=== PATIENT | male | born 1945 | race Caucasian/White ===

== ENCOUNTER 2022-09-09 18:30 | Emergency (ER) | payer OTHER, SELFPAY ==
[2022-09-09] VITALS (30 sets, daily range): BP systolic 154–187; BP diastolic 86–113; PULSE 90–121; RESP 16–20; TEMP 36.9; O2SAT 92–96; BMI 28.7
[2022-09-09] MEDS: 0.9 % SODIUM CHLORIDE 1000 ml 1,000 ML IV (20:53)
[2022-09-09 20:57] LABS: Basophils Percent Auto 0.3 % (0.0-3.0); Eosinophils Percent Auto 0.3 % (0.0-7.0); Hematocrit 42.7 % (37.0-53.0); Hemoglobin* 15.1 gm/dL (13.5-17.5); Immature Granulocytes Pct Auto 0.1 %; Mean Corpuscular HGB Conc 35 gm/dL (32-36); Mean Corpuscular Hemoglobin 29 pg (26-34); Mean Corpuscular Volume 82 fL (80-100); Monocytes Percent Auto 7.5 % (0.0-11.0); Neutrophils Percent Auto 85.8 % (42.0-72.0); Platelet Count* 287 K/uL (140-440); RDW Coefficient of Variation % 12.5 % (11.5-15.5); Red Blood Count 5.18 m/uL (4.30-5.90)
[2022-09-09 21:05] LABS: Slide Review Reflex No
[2022-09-09 21:11] LABS: Albumin* 4.3 g/dL (3.3-5.0); Chloride* 104 mmol/L (96-114); Sodium* 135 mmol/L (135-149)
[2022-09-09 21:12] LABS: Potassium* 3.6 mmol/L (3.6-5.1)
[2022-09-09 21:14] LABS: Aspartate Amino Transferase* 61 U/L (12-35); Bilirubin Direct* 0.1 mg/dL (0.0-0.5); Bilirubin Total* 0.7 mg/dL (0.1-1.5); Carbon Dioxide* 25 mmol/L (20-32); Creatinine* 0.9 mg/dL (0.5-1.5); Estimated Glomerular Filt Rate 89 ml/min; Total Protein* 6.9 g/dL (6.0-8.3)
[2022-09-09 21:15] LABS: Alanine Aminotransferase* 62 U/L (4-50); Alkaline Phosphatase* 83 U/L (40-150); Blood Urea Nitrogen* 26 mg/dL (7-30); Calcium* 9.8 mg/dL (8.4-10.6); Glucose* 183 mg/dL (60-115); Magnesium* 2.1 mg/dL (1.5-2.6)
[2022-09-09 21:17] LABS: C Reactive Protein* 0.5 mg/dL (0.5-1.0)
--- NOTE | 2022-09-09 21:19 | ED.NURSE ---
Orthos completed. Patient reports feeling lightheaded throughout assessment. Worse with position changes.
[2022-09-09 21:21] LABS: Ethanol* < 0.01 % (0.01-0.03)
[2022-09-09 21:26] LABS: Troponin I* 0.03 ng/mL (0.01-0.04)
[2022-09-09 21:27] LABS: NT Pro B Type NatriureticPept* 54 pg/mL
--- NOTE | 2022-09-09 21:34 | CRLHL7_ITS ---
For Patients: As a result of the Century Cures Act, medical imaging exams and procedure reports are released immediately into your electronic medical record. You may view this report before your referring provider. If you have questions, please contact your health care provider. INDICATION: Lightheadedness. Slurred speech. COMPARISON: None available. TECHNIQUE: CT examination of the head was performed with 3 mm thick axial and 2 mm thick coronal and sagittal sections without intravenous contrast. Images were obtained from the vertex of the skull through the skull base, and I examined the images with the brain and bone windows. Please note that all CT scans at this facility use dose modulation, iterative reconstruction, and/or weight-based dosing when appropriate to reduce radiation dose to as low as reasonably achievable. FINDINGS: : There is prominent dilatation of the ventricular system with mild dilatation of the sulci. The temporal horns are mildly dilated. There is prominent periventricular and subcortical white matter hypodensity. The findings are suggestive of normal pressure hydrocephalus, but could be the result of prominent central atrophy. There is no sign of acute injury to the brain, with no sign of mass lesion, mass effect, hemorrhage, or edema. 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 The visualized portions of the orbits are normal in appearance. The visualized portions of the paranasal sinuses and mastoids are clear. The osseous structures are normal in their appearance with no sign of abnormality in the skull base or calvarium. IMPRESSION: Prominent dilatation of the ventricular system, out of proportion to the mild sulcal dilatation, with findings suggestive of normal pressure hydrocephalus. Prominent periventricular and subcortical white matter hypodensity, probably small vessel ischemia, but could also be transependymal flow of CSF. No sign of acute injury to the brain. Please note that all CT scans at this facility use dose modulation, iterative reconstruction, and/or weight-based dosing when appropriate to reduce radiation dose to as low as reasonably achievable. Dictated by Garry Chairez MD @ 09/09/2022 11:41:07 PM (Electronically Signed)
--- NOTE | 2022-09-09 21:34 | CRLHL7_ITS ---
For Patients: As a result of the Century Cures Act, medical imaging exams and procedure reports are released immediately into your electronic medical record. You may view this report before your referring provider. If you have questions, please contact your health care provider. INDICATION: Acute stroke, lightheadedness, slurred speech. TECHNIQUE: CTA head with contrast bolus tracking and 3D MIP reconstruction. FINDINGS: The study is suboptimal due to missed timing of the contrast bolus. There is no obvious large vessel occlusion. No aneurysm is identified. IMPRESSION: No obvious large vessel occlusion. Please note that all CT scans at this facility use dose modulation, iterative reconstruction, and/or weight-based dosing when appropriate to reduce radiation dose to as low as reasonably achievable. Dictated by Elvin Dutton MD @ 09/10/2022 6:35:08 AM (Electronically Signed)
--- NOTE | 2022-09-09 21:34 | CRLHL7_ITS ---
For Patients: As a result of the Century Cures Act, medical imaging exams and procedure reports are released immediately into your electronic medical record. You may view this report before your referring provider. If you have questions, please contact your health care provider. INDICATION: Acute stroke, lightheadedness, slurred speech. TECHNIQUE: CTA neck with contrast bolus tracking and 3D MIP reconstruction. FINDINGS: The study is limited due to missed timing of the contrast bolus. There is carotid atherosclerosis bilaterally. There is no obvious significant carotid or vertebral artery stenosis or dissection. The soft tissues of the neck are within normal limits. The cervical spine is in normal alignment. IMPRESSION: No significant carotid or vertebral artery stenosis or dissection on this limited study. Please note that all CT scans at this facility use dose modulation, iterative reconstruction, and/or weight-based dosing when appropriate to reduce radiation dose to as low as reasonably achievable. Dictated by Elvin Dutton MD @ 09/10/2022 6:38:25 AM (Electronically Signed)
[2022-09-09 21:44] LABS: SARS PCR* Negative SARS-CoV-2 (Negative)
--- NOTE | 2022-09-09 23:27 | ED.NURSE ---
Patient to the restroom and back to bed. Continues to report dizziness.
[2022-09-10] VITALS (7 sets, daily range): BP systolic 157–165; BP diastolic 86–108; PULSE 92–96; RESP 18; O2SAT 91–96
--- NOTE | 2022-09-10 00:59 | ED_ITS ---
HPI - General Adult General Chief complaint: Dizziness/Vertigo Stated complaint: Weak,Blood Sugar Level Up,Dizzy Time Seen by Provider: 09/09/22 20:07 History of Present Illness HPI narrative: 77-year-old man presenting to the emergency department with his spouse with concern initially presented as dizziness but really is more of a lightheadedness began upon waking yesterday morning. Now around 36 hours of symptoms. Is also around the same time been experiencing a mild slurring of speech without word- finding difficulty. He does not describe any focal weakness though feels that his legs generally have been weak. Apparently went on a slow walk today with his . No sensory losses. There was no trauma. No chest pain. No shortness of breath. Denies loss of vision or affected vision. Medications reviewed, no new medications. He is a attending the [facility] [place] Related Data Allergies Allergy/AdvReac Type Severity Reaction Status Date / Time No Known Drug Allergies Allergy Verified 09/09/22 18:40 Review of Systems Status of ROS: Reports: 10 or more systems reviewed and unremarkable except as noted in History and below [facility] Social History Smoking Status: Never smoker Do you use any of these nicotine containing products: None Second hand tobacco smoke exposure: No How often do you have a drink containing alcohol: never How often do you have six or more drinks on one occasion: Never AUDIT-C Alcohol total score: 0 Non-prescribed substance use: denies use service: Yes Exam Narrative: Exam Narrative: Pleasant. NAD. Noticeably with a subtle slurring of speech. Cranial nerves 2- 12 otherwise look to be intact including reactive pupils. Not able to reproduce any dizziness. Just notes a general sense of lightheadedness with movement. Not necessarily worse. There is no nystagmus. Head is atraumatic. Neck is supple. Lungs are clear. Heart elevated rate. Appears to be in a regular rhythm. Abdomen is overweight soft and nontender. Is well-perfused peripherally. No sensory deficits appreciated. Moving all extremities without difficulty, fluidly. Const: Vital Signs, click to edit/add: Vital Signs - 24 hr 09/09/22 18:35 09/09/22 20:16 09/09/22 20:23 Temperature 98.5 F Pulse Rate Pulse Rate [Pulse Oximeter] 115 H 103 H Pulse Rate [orthos tatic lying Left P ulse Oximeter] Pulse Rate [orthos tatic sitting Left Pulse Oximeter] Pulse Rate [orthos tatic standing Lef t Pulse Oximeter] Respiratory Rate 20 16 Blood Pressure Blood Pressure [Ri ght Upper Arm] 183/91 H 154/102 H Blood Pressure [or thostatic lying Le ft Arm] Blood Pressure [or thostatic sitting Left Arm] Blood Pressure [or thostatic standing Left Arm] Pulse Oximetry 93 95 96 Oxygen Delivery Me thod Room Air Room Air 09/09/22 21:03 09/09/22 20:13 09/09/22 20:14 Temperature Pulse Rate 105 H 103 H Pulse Rate [Pulse Oximeter] Pulse Rate [orthos tatic lying Left P ulse Oximeter] 100 Pulse Rate [orthos tatic sitting Left Pulse Oximeter] 115 H Pulse Rate [orthos tatic standing Lef t Pulse Oximeter] 113 H Respiratory Rate Blood Pressure 159/100 H Blood Pressure [Ri ght Upper Arm] Blood Pressure [or thostatic lying Le ft Arm] 159/90 H Blood Pressure [or thostatic sitting Left Arm] 164/95 H Blood Pressure [or thostatic standing Left Arm] 176/106 H Pulse Oximetry 94 94 Oxygen Delivery Me thod 09/09/22 20:15 09/09/22 20:16 09/09/22 20:30 Temperature Pulse Rate 108 H 110 H 106 H Pulse Rate [Pulse Oximeter] Pulse Rate [orthos tatic lying Left P ulse Oximeter] Pulse Rate [orthos tatic sitting Left Pulse Oximeter] Pulse Rate [orthos tatic standing Lef t Pulse Oximeter] Respiratory Rate Blood Pressure 154/102 H Blood Pressure [Ri ght Upper Arm] Blood Pressure [or thostatic lying Le ft Arm] Blood Pressure [or thostatic sitting Left Arm] Blood Pressure [or thostatic standing Left Arm] Pulse Oximetry 94 95 93 Oxygen Delivery Me thod 09/09/22 20:32 09/09/22 20:45 09/09/22 20:48 Temperature Pulse Rate 108 H 103 H 102 H Pulse Rate [Pulse Oximeter] Pulse Rate [orthos tatic lying Left P ulse Oximeter] Pulse Rate [orthos tatic sitting Left Pulse Oximeter] Pulse Rate [orthos tatic standing Lef t Pulse Oximeter] Respiratory Rate Blood Pressure 187/112 H 168/86 H Blood Pressure [Ri ght Upper Arm] Blood Pressure [or thostatic lying Le ft Arm] Blood Pressure [or thostatic sitting Left Arm] Blood Pressure [or thostatic standing Left Arm] Pulse Oximetry 93 92 93 Oxygen Delivery Me thod 09/09/22 20:57 09/09/22 20:58 09/09/22 21:00 Temperature Pulse Rate 114 H 121 H 115 H Pulse Rate [Pulse Oximeter] Pulse Rate [orthos tatic lying Left P ulse Oximeter] Pulse Rate [orthos tatic sitting Left Pulse Oximeter] Pulse Rate [orthos tatic standing Lef t Pulse Oximeter] Respiratory Rate Blood Pressure 159/90 H 164/95 H 176/106 H Blood Pressure [Ri ght Upper Arm] Blood Pressure [or thostatic lying Le ft Arm] Blood Pressure [or thostatic sitting Left Arm] Blood Pressure [or thostatic standing Left Arm] Pulse Oximetry 94 95 93 Oxygen Delivery Hi thod 09/09/22 21:01 09/09/22 23:27 09/09/22 21:15 Temperature Pulse Rate 103 H 95 Pulse Rate [Pulse Oximeter] 92 Pulse Rate [orthos tatic lying Left P ulse Oximeter] Pulse Rate [orthos tatic sitting Left Pulse Oximeter] Pulse Rate [orthos tatic standing Lef t Pulse Oximeter] Respiratory Rate 16 Blood Pressure Blood Pressure [Ri ght Upper Arm] 170/113 H Blood Pressure [or thostatic lying Le ft Arm] Blood Pressure [or thostatic sitting Left Arm] Blood Pressure [or thostatic standing Left Arm] Pulse Oximetry 93 92 93 [facility] 09/09/22 21:27 09/09/22 21:34 09/09/22 21:45 Temperature Pulse Rate 99 95 Pulse Rate [Pulse Oximeter] Pulse Rate [orthos tatic lying Left P ulse Oximeter] Pulse Rate [orthos tatic sitting Left Pulse Oximeter] Pulse Rate [orthos tatic standing Lef t Pulse Oximeter] Respiratory Rate Blood Pressure 156/92 H Blood Pressure [Ri ght Upper Arm] Blood Pressure [or thostatic lying Le ft Arm] Blood Pressure [or thostatic sitting Left Arm] Blood Pressure [or thostatic standing Left Arm] Pulse Oximetry 95 93 Oxygen Delivery Hi thod 09/09/22 22:00 09/09/22 22:15 09/09/22 22:30 Temperature Pulse Rate 91 90 93 Pulse Rate [Pulse Oximeter] Pulse Rate [orthos tatic lying Left P ulse Oximeter] Pulse Rate [orthos tatic sitting Left Pulse Oximeter] Pulse Rate [orthos tatic standing Lef t Pulse Oximeter] Respiratory Rate Blood Pressure Blood Pressure [Ri ght Upper Arm] Blood Pressure [or thostatic lying Le ft Arm] Blood Pressure [or thostatic sitting Left Arm] Blood Pressure [or thostatic standing Left Arm] Pulse Oximetry 95 92 93 Oxygen Delivery Me thod 09/09/22 22:35 09/09/22 23:08 09/09/22 23:09 Temperature Pulse Rate 91 105 H 105 H Pulse Rate [Pulse Oximeter] Pulse Rate [orthos tatic lying Left P ulse Oximeter] Pulse Rate [orthos tatic sitting Left Pulse Oximeter] Pulse Rate [orthos tatic standing Lef t Pulse Oximeter] Respiratory Rate Blood Pressure 170/113 H Blood Pressure [Ri ght Upper Arm] Blood Pressure [or thostatic lying Le ft Arm] Blood Pressure [or thostatic sitting Left Arm] Blood Pressure [or thostatic standing Left Arm] Pulse Oximetry 93 95 94 Oxygen Delivery Me thod 09/09/22 23:15 09/09/22 23:30 09/09/22 23:32 Temperature Pulse Rate 96 96 95 Pulse Rate [Pulse Oximeter] Pulse Rate [orthos tatic lying Left P ulse Oximeter] Pulse Rate [orthos tatic sitting Left Pulse Oximeter] Pulse Rate [orthos tatic standing Lef t Pulse Oximeter] Respiratory Rate Blood Pressure 167/102 H Blood Pressure [Ri ght Upper Arm] Blood Pressure [or thostatic lying Le ft Arm] Blood Pressure [or thostatic sitting Left Arm] Blood Pressure [or thostatic standing Left Arm] Pulse Oximetry 95 92 93 Oxygen Delivery Me thod 09/09/22 23:45 09/10/22 00:24 09/10/22 00:30 Temperature Pulse Rate 94 96 96 Pulse Rate [Pulse Oximeter] Pulse Rate [orthos tatic lying Left P ulse Oximeter] Pulse Rate [orthos tatic sitting Left Pulse Oximeter] Pulse Rate [orthos tatic standing Lef t Pulse Oximeter] Respiratory Rate Blood Pressure Blood Pressure [Ri ght Upper Arm] Blood Pressure [or thostatic lying Le ft Arm] Blood Pressure [or thostatic sitting Left Arm] Blood Pressure [or thostatic standing Left Arm] Pulse Oximetry 93 95 91 Oxygen Delivery Me thod 09/10/22 00:32 09/10/22 00:45 09/10/22 01:00 Temperature Pulse Rate 95 95 93 Pulse Rate [Pulse Oximeter] Pulse Rate [orthos tatic lying Left P ulse Oximeter] Pulse Rate [orthos tatic sitting Left Pulse Oximeter] Pulse Rate [orthos tatic standing Lef t Pulse Oximeter] Respiratory Rate Blood Pressure 164/96 H Blood Pressure [Ri ght Upper Arm] Blood Pressure [or thostatic lying Le ft Arm] Blood Pressure [or thostatic sitting Left Arm] Blood Pressure [or thostatic standing Left Arm] Pulse Oximetry 92 93 94 Oxygen Delivery Me thod 09/10/22 01:01 09/10/22 01:35 Temperature Pulse Rate 94 Pulse Rate [Pulse Oximeter] 92 Pulse Rate [orthos tatic lying Left P ulse Oximeter] Pulse Rate [orthos tatic sitting Left Pulse Oximeter] Pulse Rate [orthos tatic standing Lef t Pulse Oximeter] Respiratory Rate 18 Blood Pressure 165/108 H Blood Pressure [Ri ght Upper Arm] 157/86 H Blood Pressure [or thostatic lying Le ft Arm] Blood Pressure [or thostatic sitting Left Arm] Blood Pressure [or thostatic standing Left Arm] Pulse Oximetry 94 96 [facility] Course Vital Signs Vital signs: Initial Vital Signs Temperature 98.5 F 09/09/22 18:35 Temperature Source Temporal Artery Scan 09/09/22 18:35 Pulse Rate 115 H 09/09/22 18:35 Pulse Rhythm 09/09/22 18:35 Pulse Strength 3+ Normal 09/09/22 18:35 Respiratory Rate 20 09/09/22 18:35 Blood Pressure 183/91 H 09/09/22 18:35 Blood Pressure Mean 121 09/09/22 18:35 Blood Pressure Position Sitting 09/09/22 18:35 Pulse Oximetry 93 09/09/22 18:35 Oxygen Delivery Method 09/09/22 18:35 Vital Signs Temperature 98.5 F 09/09/22 18:35 Pulse Rate 115 H 09/09/22 18:35 Respiratory Rate 20 09/09/22 18:35 Blood Pressure 183/91 H 09/09/22 18:35 Pulse Oximetry 93 09/09/22 18:35 Oxygen Delivery Method 09/09/22 18:35 Temperature 98.5 F 09/09/22 18:35 Pulse Rate 92 09/10/22 01:35 Respiratory Rate 18 09/10/22 01:35 Blood Pressure 157/86 H 09/10/22 01:35 Pulse Oximetry 96 09/10/22 01:35 Oxygen Delivery Method 09/10/22 01:35 Medical Decision Making MDM Narrative Medical decision making narrative: I would have concerns regarding cerebrovascular event. Considering medications, and will need contrasted scan anyway, will need to see creatinine, so will also evaluate what electrolyte abnormalities might present and potentially contributing to symptoms. Initiated on IV fluid resuscitation as well. Labs with mildly elevated white count. Slightly elevated transaminases. CT/CTA imaging of head and neck without evidence of acute abnormality. Vasculature is patent/reassuring. What is particularly remarkable is the dilatation of the ventricular system as noted below by Radiology. I did review all these images personally. IMPRESSION: Prominent dilatation of the ventricular system, out of proportion to the mild sulcal dilatation, with findings suggestive of normal pressure hydrocephalus. Prominent periventricular and subcortical white matter hypodensity, probably small vessel ischemia, but could also be transependymal flow of CSF. No sign of acute injury to the brain. Later in course then has been noting some mild double vision. I discussed all findings and case with Neurology. They are less impressed for normal pressure hydrocephalus and more concerned regarding CVA it appears. Recommendations are for now for outpatient MRI given timing. Will try to arrange this. Will also initiate on aspirin. Further recommendations pending results of MRI. Lab Data Lab results reviewed: Yes I reviewed the patient's lab results Labs: Lab Results 09/09/22 09/09/22 09/09/22 Range/Units 20:23 20:42 20:42 WBC 12.20 H (4.50-11.00) K/uL RBC 5.18 (4.30-5.90) m/uL Hgb 15.1 (13.5-17.5) gm/dL Hct 42.7 (37.0-53.0) % MCV 82 (80-100) fL MCH 29 (26-34) pg MCHC 35 (32-36) gm/dL RDW Coeff of Igor 12.5 (11.5-15.5) % Plt Count 287 (140-440) K/uL Neut % (Auto) 85.8 H (42.0-72.0) % Lymph % (Auto) 6.0 L (20-44) % [place] % (Auto) 7.5 (0.0-11.0) % Eos % (Auto) 0.3 (0.0-7.0) % Baso % (Auto) 0.3 (0.0-3.0) % Neut # (Auto) 10.50 H (1.7-7.0) K/uL Lymph # (Auto) 0.70 L (0.90-2.90) K/uL [place] # (Auto) 0.90 (0.00-0.90) K/UL Eos # (Auto) 0.00 (0.00-0.50) K/uL Baso # (Auto) 0.00 (0.00-0.30) K/uL Sodium 135 (135-149) mmol/L Potassium 3.6 (3.6-5.1) mmol/L Chloride 104 (96-114) mmol/L Carbon Dioxide 25 (20-32) mmol/L BUN 26 (7-30) mg/dL Creatinine 0.9 (0.5-1.5) mg/dL Estimated Creat Clear 65.90 Estimated GFR 89 ml/min Glucose 183 H (60-115) mg/dL Calcium 9.8 (8.4-10.6) mg/dL Magnesium 2.1 (1.5-2.6) mg/dL Total Bilirubin 0.7 (0.1-1.5) mg/dL Direct Bilirubin 0.1 (0.0-0.5) mg/dL AST 61 H (12-35) U/L ALT 62 H (4-50) U/L Alkaline Phosphatase 83 (40-150) U/L Troponin I 0.03 (0.01-0.04) ng/mL C-Reactive Protein 0.5 (0.5-1.0) mg/dL NT-Pro-B Natriuret Pep 54 pg/mL Total Protein 6.9 (6.0-8.3) g/dL Albumin 4.3 (3.3-5.0) g/dL Ethyl Alcohol < 0.01 L (0.01-0.03) % SARS-CoV-2 (PCR) Negative SARS-CoV-2 (Negative) POC Troponin I (0.01-0.04) ng/ml 09/09/22 Range/Units 20:42 WBC (4.50-11.00) K/uL RBC (4.30-5.90) m/uL Hgb (13.5-17.5) gm/dL Hct (37.0-53.0) % MCV (80-100) fL MCH (26-34) pg MCHC (32-36) gm/dL RDW Coeff of Igor (11.5-15.5) % Plt Count (140-440) K/uL Neut % (Auto) (42.0-72.0) % Lymph % (Auto) (20-44) % [place] % (Auto) (0.0-11.0) % Eos % (Auto) (0.0-7.0) % Baso % (Auto) (0.0-3.0) % Neut # (Auto) (1.7-7.0) K/uL Lymph # (Auto) (0.90-2.90) K/uL [place] # (Auto) (0.00-0.90) K/UL Eos # (Auto) (0.00-0.50) K/uL Baso # (Auto) (0.00-0.30) K/uL Sodium (135-149) mmol/L Potassium (3.6-5.1) mmol/L Chloride (96-114) mmol/L Carbon Dioxide (20-32) mmol/L BUN (7-30) mg/dL Creatinine (0.5-1.5) mg/dL Estimated Creat Clear Estimated GFR ml/min Glucose (60-115) mg/dL Calcium (8.4-10.6) mg/dL Magnesium (1.5-2.6) mg/dL Total Bilirubin (0.1-1.5) mg/dL Direct Bilirubin (0.0-0.5) mg/dL AST (12-35) U/L ALT (4-50) U/L Alkaline Phosphatase (40-150) U/L Troponin I (0.01-0.04) ng/mL C-Reactive Protein (0.5-1.0) mg/dL NT-Pro-B Natriuret Pep pg/mL Total Protein (6.0-8.3) g/dL Albumin (3.3-5.0) g/dL Ethyl Alcohol (0.01-0.03) % SARS-CoV-2 (PCR) (Negative) POC Troponin I 0.00 L (0.01-0.04) ng/ml ECG Data Attestation: I personally reviewed and interpreted this ECG as follows: (Sinus tachycardia at 110) Discharge Plan Discharge Clinical Impression: Lightheadedness, Slurring of speech Patient Disposition: Home w/ Parent or Adult Condition: Stable Instructions: Dizziness (ED) Additional Instructions: As discussed, expect a call from our radiology department tomorrow to schedule this MRI of your brain as an outpatient as soon as possible. Return for severe headache, increasing discoordination, worsening double vision, new and focal weakness. Until further recommendations obtained likely after reviewing MRI, please take 81 mg of aspirin daily. Follow Up/Referrals: Provider,Not a Local [Primary Care Provider] - Stand Alone Forms: [employer] Info Instructions
[2022-09-10] MEDS: ASPIRIN EC 325 MG TABLET PO (01:50)
== END 2022-09-10 02:06 | disposition home or self-care (01) ==
PROVIDERS: Emergency Provider Family Medicine
DX: R42 Dizziness and giddiness (principal); R47.81 Slurred speech
CPT/HCPCS: 36415; 70450; 70496; 70498; 80048; 80076; 82077; 82962; 83735; 83880; 84484; 85025; 86140; 87635; 93005; 94761; 99284; 99285; A9270; J7030; Q9967

== ENCOUNTER 2022-09-10 11:46 | Outpatient (CLI) | payer OTHER, MEDICARE, SELFPAY ==
--- NOTE | 2022-09-10 11:35 | CRLHL7_ITS ---
For Patients: As a result of the Cures Act, medical imaging exams and procedure reports are released immediately into your electronic medical record. You may view this report before your referring provider. If you have questions, please contact your health care provider. INDICATION: Slurred speech. Dizziness. TECHNIQUE: Brain MRI without contrast. The following sequences were obtained: Sagittal T1 weighted sequence. DWI and ADC mapping sequences. Axial FLAIR and ALEX T2 weighted sequences. Susceptibility or GRE sequence. COMPARISON: Head CT from 09/09/2022. FINDINGS: 8 millimeter focus of diffusion restriction within the left internal capsule posterior limb, most compatible with a recent, acute to subacute lacunar infarct. No recent ischemia elsewhere within the brain. No evidence of acute or chronic intracranial blood products. Patchy and confluent T2/FLAIR hyperintensities throughout the supratentorial white matter and basal ganglia, with several superimposed locules of encephalomalacia, most compatible with intermixed areas of chronic microvascular ischemic change and chronic lacunar infarction. Chronic microvascular ischemic changes are also present within the central brainstem. Overall moderate generalized parenchymal volume loss. Prominence of the ventricular system may reflect sequela of central cerebral atrophy or normal pressure hydrocephalus. No mass effect or herniation. The pituitary gland, parasellar structures and optic chiasm are normal. All the major intracranial vascular structures demonstrate normal flow-related signal. The orbital contents are normal. No calvarial or skull base marrow replacing process. No obstructive sinus disease. No extracranial soft tissue findings. IMPRESSION: 1. 8 millimeter recent, acute to subacute lacunar infarct within the left internal capsule posterior limb. No recent ischemia elsewhere. 2. Extensive chronic microvascular ischemic changes and chronic lacunar infarctions within the supratentorial white matter, basal ganglia and brainstem. 3. Prominence of the ventricular system, either due to central cerebral atrophy or NPH. Clinical correlation recommended. Dictated by Taj Irizarry MD @ 09/10/2022 2:14:30 PM (Electronically Signed)
== END 2022-09-10 11:47 | disposition home or self-care (01) ==
PROVIDERS: Visit Provider Family Medicine
DX: R47.81 Slurred speech (principal); I63.81 Other cerebral infarction due to occlusion or stenosis of small artery; I67.82 Cerebral ischemia; R42 Dizziness and giddiness
CPT/HCPCS: 70551

== ENCOUNTER 2023-08-25 19:36 | Observation (INO) | payer MEDICARE, OTHER, SELFPAY ==
[2023-08-25] VITALS (12 sets, daily range): BP systolic 136–155; BP diastolic 82–92; PULSE 78–106; RESP 28; TEMP 36.2; O2SAT 89–99; BMI 24.1
--- NOTE | 2023-08-25 19:49 | ED.GENADULT ---
HPI - General Adult General Chief complaint: Dizziness/Vertigo Stated complaint: Fall, dizzy, vomiting, back pain Time Seen by Provider: 08/25/23 19:48 History of Present Illness HPI narrative: Dizziness started friday AM, pt was putting on socks and fell and landed on his bottom. Has pain in lower back from this. Dizzy spells on/off since then. Pt did vomit around 1900 hours. Some labored breathing noted in triage, states this started after his fall. Had a mild stroke in aug 2022. 78-year-old man presenting to the emergency department with concern of recurrent dizziness vomiting and a fall with new dyspnea. Was seen by me at this facility with dizziness little less than a year ago and did end up with CT head and neck CTA head and neck and then outpatient MRI next day. This confirmed acute or subacute lacunar infarct Consultation occurred with Neurology and recommended to increase daily aspirin to also include Plavix. Vascularity at that time was relatively clear. He has continued to take his Plavix and aspirin. Has been with some intermittent dizziness since that time. Two weeks ago he recalls getting up from sleep and was struck by transient dizziness. Has not received PT. Recalls yesterday morning feeling dizzy again. Trying to put on his socks and leaning against a wall fell landing directly on his bottom. He always stands to put on socks and pants apparently. He has had lower back pain since this fall. Still with some dizziness intermittently since then. Feeling the need to have a bowel movement after taking I believe Ex-Lax the he was constipated about an hour prior to arrival today went to the bathroom anticipating having bowel movement. Became nauseated and started vomiting. He has increasing labored breathing over this last hour plus but notably so also since yesterday morning. Is not having chest pain. Concerns regarding this labored breathing prompted daughter to bring him into the emergency department with concern of potential heart attack. Family notes evidence of bruising on his back. I ask about current symptoms and when he closes eyes still feels slightly dizzy but corrects that noting lightheadedness. Does not feel sense of irregular heartbeats or palpitations. He is oxygenating 100% on room air when I am with him. Is labored in breathing but easily conversant. Since last visit have also enacted carb limited diet. He has lost about 30 lb. MRI from 09/10/2022 INDICATION: Slurred speech. Dizziness. TECHNIQUE: Brain MRI without contrast. The following sequences were obtained: Sagittal T1 weighted sequence. DWI and ADC mapping sequences. Axial FLAIR and ALEX T2 weighted sequences. Susceptibility or GRE sequence. COMPARISON: Head CT from 09/09/2022. FINDINGS: 8 millimeter focus of diffusion restriction within the left internal capsule posterior limb, most compatible with a recent, acute to subacute lacunar infarct. No recent ischemia elsewhere within the brain. No evidence of acute or chronic intracranial blood products. Patchy and confluent T2/FLAIR hyperintensities throughout the supratentorial white matter and basal ganglia, with several superimposed locules of encephalomalacia, most compatible with intermixed areas of chronic microvascular ischemic change and chronic lacunar infarction. Chronic microvascular ischemic changes are also present within the central brainstem. Overall moderate generalized parenchymal volume loss. Prominence of the ventricular system may reflect sequela of central cerebral atrophy or normal pressure hydrocephalus. No mass effect or herniation. The pituitary gland, parasellar structures and optic chiasm are normal. All the major intracranial vascular structures demonstrate normal flow-related signal. The orbital contents are normal. No calvarial or skull base marrow replacing process. No obstructive sinus disease. No extracranial soft tissue findings. IMPRESSION: 1. 8 millimeter recent, acute to subacute lacunar infarct within the left internal capsule posterior limb. No recent ischemia elsewhere. 2. Extensive chronic microvascular ischemic changes and chronic lacunar infarctions within the supratentorial white matter, basal ganglia and brainstem. 3. Prominence of the ventricular system, either due to central cerebral atrophy or NPH. Clinical correlation recommended. Related Data Home Medications Medication Instructions Recorded Confirmed aspirin 81 mg capsule 81 mg PO DAILY 08/25/23 08/25/23 finasteride .ROUTE 08/25/23 lisinopril .ROUTE 08/25/23 simvastatin .ROUTE 08/25/23 tamsulosin 0.4 mg capsule 0.4 mg PO DAILY 08/25/23 08/25/23 Allergies Allergy/AdvReac Type Severity Reaction Status Date / Time No Known Drug Allergies Allergy Verified 08/25/23 23:11 Review of Systems Status of ROS: Reports: 6 or more systems reviewed and unremarkable except as noted in History and below [facility] Social History Smoking Status: Never smoker Do you use any of these nicotine containing products: None Second hand tobacco smoke exposure: No How often do you have a drink containing alcohol: never How often do you have six or more drinks on one occasion: Never AUDIT-C Alcohol total score: 0 Non-prescribed substance use: denies use service: Yes Exam Narrative: Exam Narrative: Pleasant. Mildly labored in breathing. Mildly tachypneic. Head looks to be atraumatic. Cranial nerves 2-12 intact. No nystagmus. Hearing aids in place. He is moving all extremities without apparent difficulty. I go to sit him up moving him around this had any clarifies as I query regarding dizziness versus lightheadedness this is actually lightheadedness that he is feeling. He transitions with pain in his low back. He is sore to palpation over the lumbar spine lower aspect. Not SI joints. I do not appreciate any deformity nor actual bruising. Spouse notes that it looked little dark earlier. Abdomen is soft and nontender. Heart is in the regular rate and rhythm. Lower extremities are without edema. Negative Homans. Const: Vital Signs, click to edit/add: Vital Signs - 24 hr 08/25/23 19:39 08/25/23 20:10 08/25/23 20:16 Temperature 97.1 F L Pulse Rate 78 Pulse Rate [Pulse Oximeter] 94 Respiratory Rate 28 H Blood Pressure Blood Pressure [Ri ght Upper Arm] 136/82 Pulse Oximetry 98 98 [facility] 08/25/23 21:02 08/25/23 21:05 08/25/23 21:30 Temperature Pulse Rate 96 93 98 Pulse Rate [Pulse Oximeter] Respiratory Rate Blood Pressure Blood Pressure [Ri ght Upper Arm] Pulse Oximetry 97 89 95 [facility] 08/25/23 21:35 08/25/23 22:00 08/25/23 22:30 Temperature Pulse Rate 96 101 H 100 Pulse Rate [Pulse Oximeter] Respiratory Rate Blood Pressure Blood Pressure [Ri ght Upper Arm] Pulse Oximetry 94 91 90 [facility] 08/25/23 23:19 08/25/23 23:20 08/25/23 23:30 Temperature Pulse Rate 106 H 103 H 100 Pulse Rate [Pulse Oximeter] Respiratory Rate Blood Pressure 155/92 H Blood Pressure [Ri ght Upper Arm] Pulse Oximetry 91 95 96 [facility] 08/26/23 00:03 08/26/23 00:04 08/26/23 00:21 Temperature Pulse Rate 100 104 H Pulse Rate [Pulse Oximeter] Respiratory Rate Blood Pressure 150/87 H 143/82 H Blood Pressure [Ri ght Upper Arm] Pulse Oximetry 93 93 Oxygen Delivery Me thod 08/26/23 00:30 08/26/23 00:41 08/26/23 01:00 Temperature Pulse Rate 104 H 111 H 101 H Pulse Rate [Pulse Oximeter] Respiratory Rate Blood Pressure 136/84 Blood Pressure [Ri ght Upper Arm] Pulse Oximetry 94 94 94 Oxygen Delivery Me thod 08/26/23 01:01 08/26/23 01:22 08/26/23 01:30 Temperature Pulse Rate 97 99 102 H Pulse Rate [Pulse Oximeter] Respiratory Rate Blood Pressure 136/86 137/81 Blood Pressure [Ri ght Upper Arm] Pulse Oximetry 94 95 95 Oxygen Delivery Me thod 08/26/23 01:42 Temperature Pulse Rate 98 Pulse Rate [Pulse Oximeter] Respiratory Rate Blood Pressure 140/85 H Blood Pressure [Ri ght Upper Arm] Pulse Oximetry 97 Oxygen Delivery Wy thod Documenting provider has reviewed patient's vital signs: yes Course Vital Signs Vital signs: Initial Vital Signs Temperature 97.1 F L 08/25/23 19:39 Temperature Source Temporal Artery Scan 08/25/23 19:39 Pulse Rate 94 08/25/23 19:39 Respiratory Rate H 08/25/23 19:39 Blood Pressure 136/82 08/25/23 19:39 Blood Pressure Mean 100 08/25/23 19:39 Blood Pressure Position Sitting 08/25/23 19:39 Pulse Oximetry 98 08/25/23 19:39 Oxygen Delivery Method Room Air 08/25/23 19:39 Vital Signs Temperature 97.1 F L 08/25/23 19:39 Pulse Rate 94 08/25/23 19:39 Respiratory Rate 28 H 08/25/23 19:39 Blood Pressure 136/82 08/25/23 19:39 Pulse Oximetry 98 08/25/23 19:39 Oxygen Delivery Method Room Air 08/25/23 19:39 Temperature 97.1 F L 08/25/23 19:39 Pulse Rate 98 08/26/23 01:42 Respiratory Rate 28 H 08/25/23 19:39 Blood Pressure 140/85 H 08/26/23 01:42 Pulse Oximetry 97 08/26/23 01:42 Oxygen Delivery Method Room Air 08/25/23 19:39 Medications Administered Medications: Discontinued Medications Generic Name Dose Route Start Last Admin Trade Name Aaron PRN Reason Stop Dose Admin Hydrocodone Bitart/Acetaminophen 2 tab 08/26/23 00:31 08/26/23 00:43 Hydrocodone-Acetamin 5-325 Mg 1 Tab PO 08/26/23 00:32 2 tab ONCE ONE Administration Sodium Chloride 1,000 mls @ 1,000 mls/hr 08/25/23 20:28 08/25/23 21:47 0.9 % Sodium Chloride 1000 Ml IV 08/25/23 21:27 Infused .Q1H ONE Infusion Medical Decision Making MDM Narrative Medical decision making narrative: This point I would suspect a near vasovagal episode in somebody with some peripheral dizziness/labyrinthitis tendency. Vascular studies less than a year ago were reassuring but did there was an acute/subacute lacunar infarct as well. Doubtful ischemic cardiovascular event here today but will check. He does not appear to have any rib fractures on chest wall exam but he is definitely sore to palpation in the low lumbar spine. Would image this area. He is oxygenating 100% while talking with me though with this labored breathing. This could be some degree of air hunger. Could also represent pneumonia. Without pain I think less likely pulmonary embolus but possible. Pneumothorax? No supraclavicular crepitus. Breath sounds throughout. Does not seem to be a chest wall issue other than the lumbar pain. Pericarditis? INDICATION: Lower back pain. Trauma. TECHNIQUE: Multiplanar CT examination of the lumbar spine without the use of intravenous contrast. COMPARISON: None. FINDINGS: Nonspecific straightening of the normal lumbar lordosis. There is moderate loss of the vertebral body height of L1 (approximately 50%), likely recent. The remaining vertebral body heights appear maintained. Multilevel degenerative disc disease, severe at L5-S1. The facet joints are unremarkable. No high-grade stenosis of the osseous spinal canal. Visualized paraspinal and prevertebral soft tissues are unremarkable. Visualized abdominopelvic organs are unremarkable. IMPRESSION: 1. Likely acute to subacute moderate compression fracture of L1, without significant canal compromise. No traumatic subluxation. 2. Multilevel lumbar spondylosis, with severe degenerative disc disease at L5-S1. Upon reassessment is feeling less sense of lightheadedness. Family reports he is breathing less rapidly/labored and I would concur. D-dimer is notably elevated. Did feel warm and feels better bundled under the covers he says. Chest x-ray I do not appreciate any pneumonia. No pneumothorax. Triple swab is negative. On my initial evaluation was not tachycardic however has had high 90s for heart rate on subsequent evaluations. I requested CTA chest PE protocol. I did review images of CTA chest. Looks to me to have some atelectatic changes in the lungs. Mr. Matta overall is feeling better. Is no longer labored or tachypneic in his breathing. He still reports feeling mildly lightheaded. He has remained tachycardic in what appears to be a sinus rhythm. He did recheck point of care troponin which went from 0.01 up to 0.10 -- this is being verified in lab and and repeating an EKG. INDICATION: Shortness of breath. TECHNIQUE: CT Pulmonary Angiogram examination was performed after the administration of 95 mL Isovue 370 contrast intravenously. COMPARISON: Same-day chest radiograph. FINDINGS: Lower neck: Visualized thyroid is unremarkable. Cardiovascular: Contrast opacification of the pulmonary arterial tree is adequate. Thoracic aorta is normal in caliber. Pulmonary artery is normal in caliber. No pulmonary embolus. Mild atherosclerotic calcifications of the thoracic aorta. Heart size is normal. No right heart strain. Coronary arterial calcifications. Lungs: No suspicious nodules or focal consolidation. Linear bandlike opacifications of the lung bases likely due to subsegmental atelectasis and/or scarring. Dependent atelectasis. Airways: Trachea remains patent and midline. Mild diffuse peribronchial wall thickening. Pleura: No pleural effusions or pneumothorax. Lymph nodes: No mediastinal, hilar, or axillary adenopathy. Chest wall: Normal. Upper abdomen: Cholelithiasis. No reflux contrast into the IVC. Bones: Mild degenerative changes of the thoracic spine. Recent compression fracture the L1 vertebral body. No high-grade stenosis of the osseous spinal canal. No acute fractures of the thoracic spine. IMPRESSION: 1. No pulmonary embolus. No CT evidence of right heart strain. 2. Multifocal coronary arterial calcifications. Correlate with ASCVD evaluation. 3. Re-demonstrated likely recent mild compression fracture of L1. 4. Cholelithiasis without other evidence of acute cholecystitis. No pericardial effsion noted. I suppose it is possible that some of his pain is contributing to this sense of lightheadedness as well and also driving this tachycardia. He has not felt that he needed medication for pain but offering again he would accept. Trial 2 tabs of [place] for back pain. Troponin I 3-1/2 hours later has gone up to 0.11 from 0.02. EKG still with a sinus tachycardia rechecked at 102. No apparent ischemic changes. Did discuss this case with Cardiology anticipating admission here at this facility. No clear cardiac etiology identified for these elevated troponins. I discussed with hospitalist for admission with elevated troponins and persistent tachycardia of unclear etiology. Will yet be doing non-contrasted head CT and double checking lactate. This last 2 tests are being signed out at change of shift otherwise pending admission. Medical Records Medical records reviewed: Yes I reviewed the patient's medical records Lab Data Lab results reviewed: Yes I reviewed the patient's lab results Labs: Lab Results 08/25/23 08/25/23 08/25/23 Range/Units 20:11 20:13 20:13 WBC 12.41 H (4.50-11.00) K/uL RBC 5.73 (4.30-5.90) m/uL Hgb 16.9 (13.5-17.5) gm/dL Hct 49.1 (37.0-53.0) % MCV 86 (80-100) fL MCH 30 (26-34) pg MCHC 34 (32-36) gm/dL RDW Coeff of Igor 12.5 (11.5-15.5) % Plt Count 221 (140-440) K/uL Neut % (Auto) 89.8 H (42.0-72.0) % Lymph % (Auto) 5.9 L (20-44) % [place] % (Auto) 2.9 (0.0-11.0) % Eos % (Auto) 1.0 (0.0-7.0) % Baso % (Auto) 0.2 (0.0-3.0) % Neut # (Auto) 11.10 H (1.7-7.0) K/uL Lymph # (Auto) 0.70 L (0.90-2.90) K/uL [place] # (Auto) 0.40 (0.00-0.90) K/UL Eos # (Auto) 0.10 (0.00-0.50) K/uL Baso # (Auto) 0.00 (0.00-0.30) K/uL Abs Immat Gran (auto) 0.00 (0.00-0.30) K/uL Imm/Tot Granulo (auto) 0.2 % D-Dimer Quant (PE/DVT) 5.19 H (0.00-0.50) ug/ml VBG pH 7.469 H (7.32-7.43) VBG pCO2 40 (40-50) mmHG VBG pO2 24.3 L (25-47) mmHG VBG HCO3 29 H (21-28) mmol/L Sodium Cancelled 138 Potassium Cancelled Chloride Carbon Dioxide Anion Gap BUN Creatinine Estimated Creat Clear Estimated GFR Glucose Calcium Troponin I (0.01-0.04) ng/mL C-Reactive Protein NT-Pro-B Natriuret Pep pg/mL SARS-CoV-2 (PCR) (Negative) Influenza Type A (PCR) (Negative) Influenza Type B (PCR) (Negative) RSV (PCR) (Negative) Lab Acknowledgement POC Troponin I 0.01 (0.01-0.04) ng/ml 08/25/23 08/25/23 08/25/23 Range/Units 20:13 20:13 20:13 WBC (4.50-11.00) K/uL RBC (4.30-5.90) m/uL Hgb (13.5-17.5) gm/dL Hct (37.0-53.0) % MCV (80-100) fL MCH (26-34) pg MCHC (32-36) gm/dL RDW Coeff of Igor (11.5-15.5) % Plt Count (140-440) K/uL Neut % (Auto) (42.0-72.0) % Lymph % (Auto) (20-44) % [place] % (Auto) (0.0-11.0) % Eos % (Auto) (0.0-7.0) % Baso % (Auto) (0.0-3.0) % Neut # (Auto) (1.7-7.0) K/uL Lymph # (Auto) (0.90-2.90) K/uL [place] # (Auto) (0.00-0.90) K/UL Eos # (Auto) (0.00-0.50) K/uL Baso # (Auto) (0.00-0.30) K/uL Abs Immat Gran (auto) (0.00-0.30) K/uL Imm/Tot Granulo (auto) % D-Dimer Quant (PE/DVT) (0.00-0.50) ug/ml VBG pH (7.32-7.43) VBG pCO2 (40-50) mmHG VBG pO2 (25-47) mmHG VBG HCO3 (21-28) mmol/L Sodium Potassium 3.7 Chloride Cancelled 101 Carbon Dioxide Cancelled 26 Anion Gap Cancelled BUN Creatinine Estimated Creat Clear Estimated GFR Glucose Calcium Troponin I (0.01-0.04) ng/mL C-Reactive Protein NT-Pro-B Natriuret Pep pg/mL SARS-CoV-2 (PCR) (Negative) Influenza Type A (PCR) (Negative) Influenza Type B (PCR) (Negative) RSV (PCR) (Negative) Lab Acknowledgement POC Troponin I (0.01-0.04) ng/ml 08/25/23 08/25/23 08/25/23 Range/Units 20:13 20:13 20:13 WBC (4.50-11.00) K/uL RBC (4.30-5.90) m/uL Hgb (13.5-17.5) gm/dL Hct (37.0-53.0) % MCV (80-100) fL MCH (26-34) pg MCHC (32-36) gm/dL RDW Coeff of Igor (11.5-15.5) % Plt Count (140-440) K/uL Neut % (Auto) (42.0-72.0) % Lymph % (Auto) (20-44) % [place] % (Auto) (0.0-11.0) % Eos % (Auto) (0.0-7.0) % Baso % (Auto) (0.0-3.0) % Neut # (Auto) (1.7-7.0) K/uL Lymph # (Auto) (0.90-2.90) K/uL [place] # (Auto) (0.00-0.90) K/UL Eos # (Auto) (0.00-0.50) K/uL Baso # (Auto) (0.00-0.30) K/uL Abs Immat Gran (auto) (0.00-0.30) K/uL Imm/Tot Granulo (auto) % D-Dimer Quant (PE/DVT) (0.00-0.50) ug/ml VBG pH (7.32-7.43) VBG pCO2 (40-50) mmHG VBG pO2 (25-47) mmHG VBG HCO3 (21-28) mmol/L Sodium Potassium Chloride Carbon Dioxide Anion Gap 11 BUN Cancelled 35 H Creatinine Cancelled 1.0 Estimated Creat Clear Cancelled Estimated GFR Glucose Calcium Troponin I (0.01-0.04) ng/mL C-Reactive Protein NT-Pro-B Natriuret Pep pg/mL SARS-CoV-2 (PCR) (Negative) Influenza Type A (PCR) (Negative) Influenza Type B (PCR) (Negative) RSV (PCR) (Negative) Lab Acknowledgement POC Troponin I (0.01-0.04) ng/ml 08/25/23 08/25/23 08/25/23 Range/Units 20:13 20:13 20:13 WBC (4.50-11.00) K/uL RBC (4.30-5.90) m/uL Hgb (13.5-17.5) gm/dL Hct (37.0-53.0) % MCV (80-100) fL MCH (26-34) pg MCHC (32-36) gm/dL RDW Coeff of Igor (11.5-15.5) % Plt Count (140-440) K/uL Neut % (Auto) (42.0-72.0) % Lymph % (Auto) (20-44) % [place] % (Auto) (0.0-11.0) % Eos % (Auto) (0.0-7.0) % Baso % (Auto) (0.0-3.0) % Neut # (Auto) (1.7-7.0) K/uL Lymph # (Auto) (0.90-2.90) K/uL [place] # (Auto) (0.00-0.90) K/UL Eos # (Auto) (0.00-0.50) K/uL Baso # (Auto) (0.00-0.30) K/uL Abs Immat Gran (auto) (0.00-0.30) K/uL Imm/Tot Granulo (auto) % D-Dimer Quant (PE/DVT) (0.00-0.50) ug/ml VBG pH (7.32-7.43) VBG pCO2 (40-50) mmHG VBG pO2 (25-47) mmHG VBG HCO3 (21-28) mmol/L Sodium Potassium Chloride Carbon Dioxide Anion Gap BUN Creatinine Estimated Creat Clear 64.89 Estimated GFR Cancelled 78 Glucose Cancelled 156 H Calcium Cancelled Troponin I (0.01-0.04) ng/mL C-Reactive Protein NT-Pro-B Natriuret Pep pg/mL SARS-CoV-2 (PCR) (Negative) Influenza Type A (PCR) (Negative) Influenza Type B (PCR) (Negative) RSV (PCR) (Negative) Lab Acknowledgement POC Troponin I (0.01-0.04) ng/ml 08/25/23 08/25/23 08/25/23 Range/Units 20:13 20:13 20:21 WBC (4.50-11.00) K/uL RBC (4.30-5.90) m/uL Hgb (13.5-17.5) gm/dL Hct (37.0-53.0) % MCV (80-100) fL MCH (26-34) pg MCHC (32-36) gm/dL RDW Coeff of Igor (11.5-15.5) % Plt Count (140-440) K/uL Neut % (Auto) (42.0-72.0) % Lymph % (Auto) (20-44) % [place] % (Auto) (0.0-11.0) % Eos % (Auto) (0.0-7.0) % Baso % (Auto) (0.0-3.0) % Neut # (Auto) (1.7-7.0) K/uL Lymph # (Auto) (0.90-2.90) K/uL [place] # (Auto) (0.00-0.90) K/UL Eos # (Auto) (0.00-0.50) K/uL Baso # (Auto) (0.00-0.30) K/uL Abs Immat Gran (auto) (0.00-0.30) K/uL Imm/Tot Granulo (auto) % D-Dimer Quant (PE/DVT) (0.00-0.50) ug/ml VBG pH (7.32-7.43) VBG pCO2 (40-50) mmHG VBG pO2 (25-47) mmHG VBG HCO3 (21-28) mmol/L Sodium Potassium Chloride Carbon Dioxide Anion Gap BUN Creatinine Estimated Creat Clear Estimated GFR Glucose Calcium 10.2 Troponin I 0.02 (0.01-0.04) ng/mL C-Reactive Protein Cancelled 3.1 H NT-Pro-B Natriuret Pep 185 pg/mL SARS-CoV-2 (PCR) Negative SARS-CoV-2 (Negative) Influenza Type A (PCR) Negative PCR FLU A (Negative) Influenza Type B (PCR) Negative PCR FLU B (Negative) RSV (PCR) Negative PCR RSV (Negative) Lab Acknowledgement POC Troponin I (0.01-0.04) ng/ml 08/25/23 08/25/23 08/26/23 Range/Units 23:28 23:40 00:08 WBC (4.50-11.00) K/uL RBC (4.30-5.90) m/uL Hgb (13.5-17.5) gm/dL Hct (37.0-53.0) % MCV (80-100) fL MCH (26-34) pg MCHC (32-36) gm/dL RDW Coeff of Igor (11.5-15.5) % Plt Count (140-440) K/uL Neut % (Auto) (42.0-72.0) % Lymph % (Auto) (20-44) % [place] % (Auto) (0.0-11.0) % Eos % (Auto) (0.0-7.0) % Baso % (Auto) (0.0-3.0) % Neut # (Auto) (1.7-7.0) K/uL Lymph # (Auto) (0.90-2.90) K/uL [place] # (Auto) (0.00-0.90) K/UL Eos # (Auto) (0.00-0.50) K/uL Baso # (Auto) (0.00-0.30) K/uL Abs Immat Gran (auto) (0.00-0.30) K/uL Imm/Tot Granulo (auto) % D-Dimer Quant (PE/DVT) (0.00-0.50) ug/ml VBG pH (7.32-7.43) VBG pCO2 (40-50) mmHG VBG pO2 (25-47) mmHG VBG HCO3 (21-28) mmol/L Sodium Potassium Chloride Carbon Dioxide Anion Gap BUN Creatinine Estimated Creat Clear Estimated GFR Glucose Calcium Troponin I 0.11 H* (0.01-0.04) ng/mL C-Reactive Protein NT-Pro-B Natriuret Pep pg/mL SARS-CoV-2 (PCR) (Negative) Influenza Type A (PCR) (Negative) Influenza Type B (PCR) (Negative) RSV (PCR) (Negative) Lab Acknowledgement Test Added POC Troponin I 0.10 H (0.01-0.04) ng/ml ECG Data Attestation: I personally reviewed and interpreted this ECG as follows: (Normal sinus rhythm rate of 84) Discharge Plan Discharge Clinical Impression: Elevated troponin I level, Compression fracture of lumbar vertebra, Tachycardia Patient Disposition: Admitted As Observation
--- NOTE | 2023-08-25 20:10 | CRLHL7_ITS ---
For Patients: As a result of the Century Cures Act, medical imaging exams and procedure reports are released immediately into your electronic medical record. You may view this report before your referring provider. If you have questions, please contact your health care provider. INDICATION: Shortness of breath. Comparison none. TECHNIQUE: Single PA view of the chest. FINDINGS: Lungs are clear. No pleural effusions. No pneumothorax. No focal pulmonary opacities. Normal cardiomediastinal silhouette. No osseous abnormalities. Dictated by Franky Heath MD @ 08/25/2023 9:17:51 PM (Electronically Signed)
[2023-08-25 20:21] LABS: HCO3 VBG 29 mmol/L (21-28); PCO2 VBG 40 mmHG (40-50); PO2 VBG 24.3 mmHG (25-47); pH VBG 7.469 (7.32-7.43)
[2023-08-25 20:26] LABS: Basophils Percent Auto 0.2 % (0.0-3.0); Hematocrit 49.1 % (37.0-53.0); Hemoglobin* 16.9 gm/dL (13.5-17.5); Immature Granulocytes Pct Auto 0.2 %; Lymphocytes Percent Auto 5.9 % (20-44); Mean Corpuscular HGB Conc 34 gm/dL (32-36); Mean Corpuscular Hemoglobin 30 pg (26-34); Mean Corpuscular Volume 86 fL (80-100); Monocytes Percent Auto 2.9 % (0.0-11.0); Neutrophils Percent Auto 89.8 % (42.0-72.0); Platelet Count* 221 K/uL (140-440); RDW Coefficient of Variation % 12.5 % (11.5-15.5); Red Blood Count 5.73 m/uL (4.30-5.90); White Blood Count* 12.41 K/uL (4.50-11.00)
--- NOTE | 2023-08-25 20:27 | CRLHL7_ITS ---
For Patients: As a result of the Century Cures Act, medical imaging exams and procedure reports are released immediately into your electronic medical record. You may view this report before your referring provider. If you have questions, please contact your health care provider. INDICATION: Lower back pain. Trauma. TECHNIQUE: Multiplanar CT examination of the lumbar spine without the use of intravenous contrast. COMPARISON: None. FINDINGS: Nonspecific straightening of the normal lumbar lordosis. There is moderate loss of the vertebral body height of L1 (approximately 50%), likely recent. The remaining vertebral body heights appear maintained. Multilevel degenerative disc disease, severe at L5-S1. The facet joints are unremarkable. No high-grade stenosis of the osseous spinal canal. Visualized paraspinal and prevertebral soft tissues are unremarkable. Visualized abdominopelvic organs are unremarkable. IMPRESSION: 1. Likely acute to subacute moderate compression fracture of L1, without significant canal compromise. No traumatic subluxation. 2. Multilevel lumbar spondylosis, with severe degenerative disc disease at L5-S1. Please note that all CT scans at this facility use dose modulation, iterative reconstruction, and/or weight-based dosing when appropriate to reduce radiation dose to as low as reasonably achievable. Dictated by Tim Scott MD @ 08/25/2023 9:40:40 PM (Electronically Signed)
--- OUTSIDE RECORDS SUMMARY | 2023-08-25 20:28 | XMS_ITS | Encounter Summary ---
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 Organization [facility] of [facility] Address [address] [place] [address] Support Name Relationship Address Phone CHARITY ANDERSON Next of Kin [address] [phone] CHARITY ANDERSON Emergency Contact [address] [phone] Insurance Providers: All historical and current Section Date Range: From patient's date of to the date document was created. This section includes the names of all active insurance providers for the patient. Insurance Provider Type of Coverage Plan Name Start of Policy Coverage End of Policy Coverage Group Number Member ID Insurance Provider's Telephone Number Policy Meyer's Name Patient's Relationship to Policy Meyer MEDICARE (WNR) MEDICARE (M) PART A Mar 28, 2012 PART A [id number] [phone] MANINDER PUENTES PATIENT MEDICARE (WNR) MEDICARE (M) PART B Mar 28, 2012 PART B [id number] [phone] MANINDER PUENTES PATIENT Selected Encounter This section includes the information on record at [place] for the Encounter. Date/Time Encounter Type Encounter Description Reason Provider Source Sep 10, 2022 12:10 PM Outpatient Encounter TELEPHONE TRIAGE MATTHEW BRIAN Encounter Template Text not used by [place] Plan of Treatment: Future Appointments (+ 6 months) and Future Tests (+/- 45 days) The Plan of Treatment section includes future care activities for the patient from all [place] treatmentfacilities. This section includes future appointments and future orders which are active, pending or scheduled. Future Appointments This section includes appointments that were scheduled to occur 6 months from the date of the Encounter, up to a maximum of 20 appointments. The data comes from all [place] treatment [facility]. Appointment Date/Time Appointment Type Appointme nt Facility Name Sep 11, 2022 08:51 PM [facility] Sep 13, 2022 02:30 PM AMBULATORY - REHAB MEDICIN E [facility] Sep 13, 2022 04:15 PM [facility] Oct 25, 2022 11:00 AM [facility] Nov 08, 2022 10:00 AM AMBULATORY - SURGERY [facility] December 12, 2022 10:00 AM AMBULATORY - REHAB MEDICIN E [facility] December 12, 2022 11:00 AM [facility] Jan 02, 2023 11:00 AM [facility] Jan 21, 2023 10:30 AM [facility] Feb 06, 2023 08:30 AM [facility] [place] [facility] Feb 19, 2023 02:00 PM [facility] Mar 05, 2023 01:00 PM AMBULATORY - REHAB [facility] Lab Results: +/- 30 days of the encounter This section includes the Chemistry and Hematology Lab Results on record with [place] for the patient. Radiology Reports and Pathology Reports are provided separately, in subsequent sections. Lab Results This section contains the Chemistry/Hematology Results that were resulted 30 days before or 30 daysafter the date of the Encounter. Date/Time Source Result Type Result - Unit Interpretation Reference Range Comment Sep 13, 2022 04:02 PM [facility] LIPID PANEL,NON-FASTING Specimen Type: PLASMA No comment entered. Ordering Provider: MIN BATISTA Report Released Date/Time: Sep 13, 2022 03:53 PM Reporting Lab: [facility] [id number] Performing Lab: [facility] [address] CHOLESTEROL 152 <199 .HDL 41 >40 LDL CALCULATION 93 <99 VLDL CALCULATION 18 <29 NON HDL CHOLESTEROL 111 <129 TRIG(NON FASTING) 89 <149 Sep 13, 2022 04:02 PM [facility] HEMOGLOBIN A1C Specimen Type: BLOOD Comment: Values obtained from A1C measurements can vary. For typical A1C assays, a reported value of 7.0 could actually be between 6.7 and 7.3 if measured by a reference method. A reported value of 9.0 could actually be between 8.7 and 9.3. Ref: http://www.ng sp.org/CAPdat a.asp Ordering Provider: MIN BATISTA Report Released Date/Time: Sep 13, 2022 03:53 PM Reporting Lab: [facility] [id number] Performing Lab: [facility] [address] HEMOGLOBIN A1C 6.8 H 4.0-6.0 Sep 13, 2022 04:02 PM [facility] COMPREHENSIVE METABOLIC PANEL+MG Specimen Type: PLASMA No comment entered. Ordering Provider: MIN BATISTA Report Released Date/Time: Sep 13, 2022 03:53 PM Reporting Lab: [facility] [address] Performing Lab: [facility] [address] CREATININE 0.9 0.7-1.2 UREA NITROGEN 25 8-26 GLUCOSE 126 H 70-100 SODIUM 138 136-145 POTASSIUM 3.3 L 3.5-5.1 CHLORIDE 102 98-107 CO2 26 22-29 CALCIUM 9.9 8.4-10.2 PROTEIN,TOTAL 7.1 6.0-8.3 ALBUMIN 4.4 3.5-5.2 BILIRUBIN, TOTAL 0.9 0.2-1.2 MAGNESIUM 1.8 1.6-2.6 ANION GAP 10 5-15 ALKALINE PHOSPHATASE 83 40-150 ALT/SGPT 86 H <55 AST/SGOT 90 H <34 CREAT EGFR(CKD-EPI) 89 >60 Social History: Smoking Status (Most current) and Tobacco Use (All prior to encounter date) This section includes the most current, and the historical, smoking and tobacco- related health factors from the [place] facility where the Encounter took place. Current Smoking Status This section includes the most current smoking, or tobacco-related health factor, from the [place] facility where the Encounter took place. Date/Time Current Smoking Status Comment Saul chapman Aug 05, 2011 01:53 PM LIFETIME NON-TOBACCO USER [facility] Advance Directives: All historical and current Section Date Range: From patient's date of to the date document was created. This section includes ALL of a patient's completed or amended [place] Advance and Rescinded Directives. The entries below indicate that a directive exists for the patient, but an actual copy is not included with this document. The data comes from all [place] facilities. Date Advance Directives Provider Source Oct 19, 2018 ADVANCE DIRECTIVE DISCUSSION MANAN MONTOYA HARMAN Carrasquillo ROSALES [facility] Oct 19, 2018 ADVANCE DIRECTIVE JANVERONICA RENATA [facility] Oct 24, 2011 ADVANCE DIRECTIVE DISCUSSION ANASTACIOShericeMEGHAN L [facility] Oct 24, 2011 ADVANCE DIRECTIVE ANASTACIOSLIANNA JEFFY [facility] Oct 02, 2011 ADVANCE DIRECTIVE DISCUSSION NAASTACIOSMEGHAN SHAN L [facility] Radiology Reports: +/- 30 days of the encounter Radiology Reports For cases when an order for radiology services may have been completed prior to the date of the Encounter, the report list includes the Radiology Reports that were completed up to 30 days before dateof the Encounter. For cases when an order for radiology services may have been completed after the date of the Encounter, the report list also includes the Radiology Reports that were completed up to30 days after date of the Encounter. The data comes from all [place] treatment facilities. Date/Time Radiology Report Provider Source Sep 10, 2022 12:41 PM NON [place] MRI BRAIN: MANINDER ANDERSON [id number] -1945 M Ex Date: SEP 10, 2022@12:41 Req Phys: TARA SCHROEDER S Pat Loc: [facility] XRAY GENERAL AM (Req'g Loc Img Loc: OUTSOURCE MRI Service: Unknown (Case [id number] COMPLETE) NON [place] MRI BRAIN (MRI Detailed) CPT:86411 Reason for Study: OUTSIDE STUDY Clinical History: OUTSIDE STUDY Report Status: Electronically Filed Date Reported: SEP 13, 2022 Report: This is an outside Imaging study and/or report imported for continuity of patient care. This Imaging study and/or report was not reviewed or verified by a [place] Radiologist. Impression: This is an outside Imaging study and/or report imported for continuity of patient care. This Imaging study and/or report was not reviewed or verified by a [place] Radiologist. Primary Diagnostic Code: VERIFIED BY: / *ELECTRONICALLY FILED* [facility] Sep 09, 2022 09:54 PM NON [place] CTA HEAD AN D NECK: MANINDER ANDERSON [id number] -1945 M Exm Date: SEP 09, 2022@21:54 Req Phys: SCHROEDER,TARA S Pat Loc: [facility] XRAY GENERAL AM (Req'g Loc Img Loc: OUTSOURCE CT Service: Unknown (Case [id number] COMPLETE) NON [place] CTA HEAD AND NECK (CT Detailed) CPT:77710 Reason for Study: OUTSIDE STUDY Clinical History: OUTSIDE STUDY Report Status: Electronically Filed Date Reported: SEP 13, 2022 Report: This is an outside Imaging study and/or report imported for continuity of patient care. This Imaging study and/or report was not reviewed or verified by a [place] Radiologist. Impression: This is an outside Imaging study and/or report imported for continuity of patient care. This Imaging study and/or report was not reviewed or verified by a [place] Radiologist. Primary Diagnostic Code: VERIFIED BY: / *ELECTRONICALLY FILED* [facility] Sep 09, 2022 09:[address] HEAD: MANINDER ANDERSON [id number] 1945 M Exm Date: SEP 09, 2022@21:49 Req Phys: SCHROEDER,TARA S Pat Loc: [facility] XRAY GENERAL AM (Req'g Loc Img Loc: OUTSOURCE CT Service: Unknown (Case [id number] COMPLETE) NON CO CT HEAD (CT Detailed) CPT:27146 Reason for Study: OUTSIDE STUDY Clinical History: OUTSIDE STUDY Report Status: Electronically Filed Date Reported: SEP 13, 2022 Report: This is an outside Imaging study and/or report imported for continuity of patient care. This Imaging study and/or report was not reviewed or verified by a [place] Radiologist. Impression: This is an outside Imaging study and/or report imported for continuity of patient care. This Imaging study and/or report was not reviewed or verified by a [place] Radiologist. Primary Diagnostic Code: VERIFIED BY: / *ELECTRONICALLY FILED* [facility] Encounter Notes: All associated encounter notes This section contains the clinical notes associated to the Encounter. Date/Time Encounter Note(s) Provider Source Sep 10, 2022 12:10 PM RN PROGRESS NOTE: LOCAL TITLE: CCC: CLINICAL TRIAGE STANDARD TITLE: RN PROGRESS NOTE DATE OF NOTE: SEP 10, 2022@12:10:22 ENTRY DATE: SEP 10, 2022@12:10:22 AUTHOR: MATTHEW BRIAN EXP COSIGNER: URGENCY: STATUS: COMPLETED CCC: CLINICAL TRIAGE Has ADDENDA Patient Demographics Patient Name: MANINDER ANDERSON Patient Primary Address: [address] [place] [address] Patient Primary Phone: [phone] Patient : 1945 Patient Age: 77 SSN: [id number] Caller/Recipient Relation to Patient: Self Emergency Contact: CHARITY ANDERSON Triage Summary Nurse Summary: Vet requesting PCP order for MRI. States he is currently in the hospital for an MRI and states he needs an order. Flocculator Operator advised him if he needs an MRI urgently go ahead and get the MRI and will alert PACT Team to note. He has already informed [place] regarding his ER visit last night. While speaking with him, vet got disconnected from proposal manager writer. Flocculator Operator attempted to call back but unable to reach him. Summary of Actions Other course(s) of action Generated msg to PACT/Provider Clinical Contact Center Codes Clinic/Location: V23 [facility] PHONE [facility] RN /og/ MATTHEW BRIAN RN, BSN REGISTERED NURSE Signed: 09/10/2022 12:10 Receipt Acknowledged By: 09/10/2022 16:09 /og/ TARA SCHROEDER MD PHYSICIAN ROSALES [facility] 09/11/2022 10:54 /es/ JOSEPH GUILLAUME REGISTERED NURSE 09/13/2022 ADDENDUM STATUS: COMPLETED RN notes that [facility] MRI consult requesting coverage of MRI already completed was cancelled. Alerting [facility] point of contact to above note documenting that was told to go ahead with MRI. Please consider this. /og/ JOSEPH GUILLAUME REGISTERED NURSE Signed: 09/13/2022 09:38 Receipt Acknowledged By: * AWAITING SIGNATURE * KRYSTA ROSS 09/13/2022 11:06 /og/ IKE STEEN RN Referral Coordination Match Up Worker 09/13/2022 ADDENDUM STATUS: COMPLETED MRI consult has been forwarded to [facility] to consider backdating MRI approval. Notified and daughter. /og/ IKE STEEN RN Referral Coordination Match Up Worker Signed: 09/13/2022 11:26 Receipt Acknowledged By: * AWAITING SIGNATURE * KRYSTA ROSS * AWAITING SIGNATURE * TARA SCHROEDER * AWAITING SIGNATURE * BETTY ANGLIN * AWAITING SIGNATURE * JOSEPH GUILLAUME [facility]
--- OUTSIDE RECORDS SUMMARY | 2023-08-25 20:28 | XMS_ITS | Encounter Summary ---
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 Organization [facility] of [facility] Address [address] [place] [address] Support Name Relationship Address Phone CHARITY ANDERSON [...] PART A Mar 28, 2012 PART A [id number] [phone] MANINDER PUENTES PATIENT MEDICARE (WNR) MEDICARE (M) PART B Mar 28, 2012 PART B [id number] MANINDER PUENTES PATIENT Selected Encounter This section includes the information on record at [place] for the Encounter. Date/Time Encounter Type Encounter Description Reason Provider Source Sep 11, 2022 08:51 AM Outpatient Encounter TELEPHONE TRIAGE MATTHEW BRIAN Encounter Template Text not used by [place] Plan of Treatment: Future Appointments (+ 6 months) and Future Tests (+/- 45 days) The Plan of Treatment section includes future care activities for the patient from all [place] treatmentfacilities. This section includes future appointments and future orders which are active, pending or scheduled. Future Appointments This section includes appointments that were scheduled to occur 6 months from the date of the Encounter, up to a maximum of 20 appointments. The data comes from all [place] treatment [facility]. Appointment Date/Time Appointment Type Appointme nt Facility Name Sep 13, 2022 02:30 PM AMBULATORY - REHAB MEDICIN E [facility] Sep 13, 2022 04:15 PM [facility] Oct 25, 2022 11:00 AM [facility] Nov 08, 2022 10:00 AM [facility] December 12, 2022 10:00 AM AMBULATORY - REHAB MEDICIN E [facility] December 12, 2022 11:00 AM [facility] Jan 02, 2023 11:00 AM [facility] Jan 21, 2023 10:30 AM AMBULATORY - SURG[facility] Feb 06, 2023 08:30 AM AMBULATORY - PSYCHIATRY [place] [facility] Feb 19, 2023 02:00 PM AMBULATORY - PSYCHIATRY [place] [facility] Mar 05, 2023 01:00 PM AMBULATORY - REHAB [facility] E [facility] Lab Results: +/- 30 days of the encounter This section includes the Chemistry and Hematology Lab Results on record with [place] for the patient. Radiology Reports and Pathology Reports are provided separately, in subsequent sections. Lab Results This section contains the Chemistry/Hematology Results that were resulted 30 days before or 30 daysafter the date of the Encounter. Date/Time Source Result Type Result - Unit Interpretation Reference Range Comment Sep 13, 2022 04:02 PM [facility] LIPID PANEL,NON-FASTING Specimen Type: PLASMA No comment entered. Ordering Provider: MIN BATISTA Report Released Date/Time: Sep 13, 2022 03:53 PM Reporting Lab: [facility] [id number] Performing Lab: [facility] [address] CHOLESTEROL 152 <199 .HDL 41 >40 LDL CALCULATION 93 <99 VLDL CALCULATION 18 <29 NON HDL CHOLESTEROL 111 <129 TRIG(NON FASTING) 89 <149 Sep 13, 2022 04:02 PM [facility] HEMOGLOBIN A1C Specimen Type: BLOOD Comment: Values [...] Sep 13, 2022 03:53 PM Reporting Lab: [facility] [id number] Performing Lab: [facility] [address] HEMOGLOBIN A1C 6.8 H 4.0-6.0 Sep 13, 2022 04:02 PM [facility] COMPREHENSIVE METABOLIC PANEL+MG Specimen Type: PLASMA No comment entered. Ordering Provider: MIN BATISTA Report Released Date/Time: Sep 13, 2022 03:53 PM Reporting Lab: [facility] [id number] Performing Lab: [facility] [address] CREATININE 0.9 0.7-1.2 UREA NITROGEN 25 8-26 [...] and tobacco- related health factors from the [place] facility where the Encounter took place. Current Smoking Status This section includes the most current smoking, or tobacco-related health factor, from the [place] facility where the Encounter took place. Date/Time Current Smoking Status Comment Saul chapman Aug 05, 2011 01:53 PM LIFETIME NON-TOBACCO USER [facility] Advance Directives: All historical and current Section Date Range: From patient's date of to the date document was created. This section includes ALL of a patient's completed or amended [place] Advance and Rescinded Directives. The entries below indicate that a directive exists for the patient, but an actual copy is not included with this document. The data comes from all [place] facilities. Date Advance Directives Provider Source Oct 19, 2018 ADVANCE DIRECTIVE JANVERONICA FREDY [facility] Oct 19, 2018 ADVANCE DIRECTIVE DISCUSSION JANMANAN HARMAN Carrasquillo [facility]ALES [facility] Oct 24, 2011 ADVANCE DIRECTIVE DISCUSSION ARCHIEPARASMEGHAN [facility] Oct 24, 2011 ADVANCE DIRECTIVE LIANNA PERRY [facility] Oct 02, 2011 ADVANCE DIRECTIVE DISCUSSION ORLANDOSALLIEALLAN POSEYPATRICE Scales [facility] Radiology Reports: +/- 30 days of the [...] the Encounter. The data comes from all [place] treatment facilities. Date/Time Radiology Report Provider Source Sep 10, 2022 12:41 PM NON [place] MRI BRAIN: MANINDER ADNERSON [id number] -1945 M Exm Date: SEP 10, 2022@12:41 Req Phys: TARA SCHROEDER Pat Loc: [facility] XRAY GENERAL AM (Req'g Loc Img Loc: OUTSOURCE MRI Service: Unknown (Case [id number] COMPLETE) NON [place] MRI BRAIN (MRI Detailed) CPT:92769 Reason for Study: OUTSIDE STUDY Clinical History: OUTSIDE STUDY Report Status: Electronically Filed Date Reported: SEP 13, 2022 Report: This is an outside Imaging study and/or report imported for continuity of patient care. This Imaging study and/or report was not reviewed or verified by a [place] Radiologist. Impression: This is an outside Imaging study and/or report imported for continuity of patient care. This Imaging study and/or report was not reviewed or verified by a [place] Radiologist. Primary Diagnostic Code: VERIFIED BY: / *ELECTRONICALLY FILED* [facility] Sep 09, 2022 09:54 PM NON [place] CTA HEAD AN D NECK: MANINDER ANDERSON [id number] -1945 M Exm Date: SEP 09, 2022@21:54 Req Phys: SCHROEDER,TARA S Pat Loc: [facility] XRAY GENERAL AM (Req'g Loc Img Loc: OUTSOURCE CT Service: Unknown (Case [id number] COMPLETE) NON [place] CTA HEAD AND NECK (CT Detailed) CPT:81995 Reason for Study: OUTSIDE STUDY Clinical History: OUTSIDE STUDY Report Status: Electronically Filed Date Reported: SEP 13, 2022 Report: This is an outside Imaging study and/or report imported for continuity of patient care. This Imaging study and/or report was not reviewed or verified by a [place] Radiologist. Impression: This is an outside Imaging study and/or report imported for continuity of patient care. This Imaging study and/or report was not reviewed or verified by a [place] Radiologist. Primary Diagnostic Code: VERIFIED BY: / *ELECTRONICALLY FILED* [facility] Sep 09, 2022 09:[address] HEAD: MANINDER ANDERSON [id number] 1945 M Exm Date: SEP 09, 2022@21:49 Req Phys: SCHROEDER,TARA S Pat Loc: [facility] XRAY GENERAL AM (Req'g Loc Img Loc: OUTSOURCE CT Service: Unknown (Case [id number] COMPLETE) NON [place] CT HEAD (CT Detailed) CPT:68806 Reason for Study: OUTSIDE STUDY Clinical History: OUTSIDE STUDY Report Status: Electronically Filed Date Reported: SEP 13, 2022 Report: This is an outside Imaging study and/or report imported for continuity of patient care. This Imaging study and/or report was not reviewed or verified by a [place] Radiologist. Impression: This is an outside Imaging study and/or report imported for continuity of patient care. This Imaging study and/or report was not reviewed or verified by a [place] Radiologist. Primary Diagnostic Code: VERIFIED BY: / *ELECTRONICALLY FILED* [facility] Encounter Notes: All associated encounter notes This section contains the clinical notes associated to the Encounter. Date/Time Encounter Note(s) Provider Source Sep 11, 2022 08:51 AM RN PROGRESS NOTE: LOCAL TITLE: CCC: CLINICAL TRIAGE STANDARD TITLE: RN PROGRESS NOTE DATE OF NOTE: SEP 11, 2022@08:51:13 ENTRY DATE: SEP 11, 2022@08:51:13 AUTHOR: MATTHEW BRIAN EXP COSIGNER: URGENCY: STATUS: COMPLETED Patient Demographics Patient Name: MANINDER ANDERSON Patient Primary Address: [address] [place] [id number] Patient Primary Phone: [phone] Patient : 1945 Patient Age: 77 SSN: [id number] Caller/Recipient Relation to Patient: Self Emergency Contact: CHARITY ANDERSON Triage Summary Nurse Summary: * NURSES NOTES PATIENT CONCERN/DURATION/ONSET: Daughter Kellen on the line with vet. Radhat had MRI done yesterday at [facility]. Doctor said he might have had a stroke and would like to increase his Simvastatin medication. Result was emailed by vet to PCP this morning through [employer] messaging. With his diabetes, daughter used her kit and his blood sugar was 177. The other day she checked and his blood sugar 4 hours after eating was 189. Daughter requesting diabetes accucheck be ordered for him. Daughter states he is not able to stand up or is struggling with standing up. States she noticed that what he wants to say is not coming out as fast, he gets dizzy/lightheaded, shaky. Also states he had double vision Friday night; that went away. He was constipated the other day and took Dulcolax and had an accident. WHAT HAS PATIENT TRIED TO TREAT THE SYMPTOMS: Vet has been taking Simvastatin 40mg BID. Metformin ?? tablet BID. HISTORY/PREVIOUS TREATMENT: NA WHAT IS PATIENT GOAL FOR THE CALL: Talk to PACT Team DID YOU CONSIDER USING CCC LIP (TELE or VVC): No. SUGAR MILL WORKER DISPOSITION: Alerted PACT Team for further management of care through Message Acid Conditioning Worker. Vet can be reached at [phone] or daughter cell # [phone]. (Caller could accurately summarize the agreed upon plan of care as discussed in the education log portion of this note.) Per policy, automated recommendations for an ?appointment? indicates an interaction (virtual or in-person) with the care team. Summary of Actions Other course(s) of action Generated msg to PACT/Provider Clinical Contact Center Codes Clinic/Location: V23 [facility] PHONE [facility] RN /og/ MATTHEW BRIAN, RN, BSN REGISTERED NURSE Signed: 09/11/2022 08:51 MATTHEW BRIAN [facility]
--- OUTSIDE RECORDS SUMMARY | 2023-08-25 20:28 | XMS_ITS | Continuity of Care Document ---
Author Name [facility] Organization [facility] Care Team Providers Care Construction Code Administrator Name Role Phone [facility] Unavailable Unavailable Problems Combined list of problems from Department of Defense and [facility] Affairs facilities. It does not include entries that were removed or entered in error. Problem Status Onset Date Problem Type Date of Resolution Comments Source H/O: vasectomy Inactive 1981 Condition 05/11/2014 [facility] Allergic rhinitis Active Condition [facility] Bilateral sensory hearing loss Active Condition Feb 19, 2022 Entered By: TARA SCHROEDER Comment: USES HEARING AIDS TO WATCH TVOct 2021 Entered By: TARA SCHROEDER Comment: plans to bring new hearing aids to next visit [facility] Chronic sinusitis Active Condition [facility] Essential hypertension Active Condition [facility] Family social history Active Condition May 16, 2022 Entered By: TARA SCHROEDER Comment: , 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) in one level homeJul 2021 Entered By: TARA SCHROEDER Comment: Retired from [employer] 2021 Entered By: TARA SCHROEDER Comment: No Tobacco or Alcohol useOct 2021 Entered By: TARA SCHROEDER Comment: 2 daughters one daughter is in [place] and two grand daughters from her, son in law helps with snow removal, other daughter is in [place] ()May 16, 2022 Entered By: TARA SCHROEDER Comment: [employer]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 Entered By: TARA SCHROEDER Comment: 1 younger brother living 1 sister(youngest ) living, Parents lived to be in their early 80's [facility] H/O: surgery Active Condition Feb 19, 2022 Entered By: TARA SCHROEDER Comment: s/p Vasectomy [facility] Hemorrhoids Active Condition May 16, 2022 Entered By: TARA SCHROEDER Comment: HAS HAD IT SINCE sOct 2021 Entered By: TARA SCHROEDER Comment: takes over the counter fiber [facility] Hypercholesterolemia Active Condition [facility] Lower urinary tract symptoms due to benign prostatic hypertrophy Active Condition Oct Entered By: TARA SCHROEDER Comment: seen in UROLOGY-has agreed to UDS [facility] Mild neurocognitive disorder Active Condition May 14, 2023 Entered By: TARA SCHROEDER Comment: 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) [facility] Nasal congestion Active Condition November 27, 2014 Entered By: KATHY LAMBERT Comment: improved with Flonase Nasal [place] [facility] Obstructive sleep apnea of adult Active Condition May 14, 2023 Entered By: TARA SCHROEDER Comment: MILD, plans to sleep on his sides, Oral device is recommended [facility] Slurred speech Active Condition Mar 0 2022 Entered By: TARA SCHROEDER Comment: [place] is in [facility] for TIA or CVA, Has had VA Cover his MRIApr 2022 Entered By: TARA SCHROEDER Comment: see 10/11/22 ekg consult for ZIO results [facility] Type 2 diabetes mellitus without complication Active Condition Aug 21, 2021 Entered By: TARA SCHROEDER Comment: had eye check outside 08/12/21, he will bring records [facility] Body mass index 30+ - obesity Inactive Condition 05/15/2023 [facility] Diagnosis: ICD-10-CM Z71.9 Counseling, unspecified Active Diagnosis [facility] Diagnosis: ICD-10-CM Z00.01 Encounter for general adult medical exam w abnormal findings Active Diagnosis [facility] Diagnosis: ICD-10-CM N39.41 Urge incontinence Active Diagnosis [facility] Diagnosis: ICD-10-CM G47.33 Obstructive sleep apnea (adult) (pediatric) Active Diagnosis [facility] Diagnosis: ICD-10-CM R32 Unspecified urinary incontinence Active Diagnosis [facility] Diagnosis: ICD-10-CM I63.9 Cerebral infarction, unspecified Active Diagnosis [facility] Diagnosis: ICD-10-CM R39.81 Functional urinary incontinence Active Diagnosis [facility] Diagnosis: ICD-10-CM G31.84 Mild cognitive impairment of uncertain or unknown etiology Active Diagnosis [facility] Diagnosis: ICD-10-CM N40.1 Benign prostatic hyperplasia with lower urinary tract symp Active Diagnosis JAMES GUTIERREZ [facility] Diagnosis: ICD-10-CM R39.15 Urgency of urination Active Diagnosis [facility] Diagnosis: ICD-10-CM R06.83 Snoring Active Diagnosis TIANA Smiley [facility] Diagnosis: ICD-10-CM Z13.6 Encounter for screening for cardiovascular disorders Active Diagnosis [facility] Medications Combined list of outpatient medications from Department of Defense and Veterans Affairs facilities.Medications provided include 1) outpatient medications from the last 15 months, and 2) patient-reported medications. Medication Details Route Status Patient Instructions Prescription Expires Prescription Number Last Dispense Date Ordering Provider Order Date Source ASPIRIN 81MG TAB,EC TAKE TWO TABLETS BY MOUTH EVERY DAY ORALLY ACTIVE TONY CRAIG A 2017 [facility] CALCIUM CARBONATE 650MG TAB TAKE ONE TABLET BY MOUTH ORALLY ACTIVE [facility] BISULFATE 75MG TAB TAKE ONE TABLET BY MOUTH EVERY DAY ORALLY 10/10/2022 [id number] Brigida NIELSON 2022 [facility] FINASTERIDE 5MG TAB TAKE ONE TABLET BY MOUTH EVERY DAY FOR PROSTATE ORALLY SUSPEND ED 05/14/2024 [id number] 4 TARIK SCHROEDER 2022 [facility] FINASTERIDE 5MG TAB TAKE ONE TABLET BY MOUTH EVERY DAY FOR PROSTATE ORALLY DISCONT INUED 05/17/2023 [id number] 3 TARIK SCHROEDER 2021 [facility] FISH OIL 1000MG (500MG DHA/EPA) CAP,ORAL TAKE 2 CAPSULES BY MOUTH EVERY DAY ORALLY ACTIVE TONY CRAIG A 2017 [facility] FLUTICASONE PROPIONATE 50MCG/SPRAY SOLN,NASAL, 16GM SPRAY 2 SPRAYS IN EACH NOSTRIL AT BEDTIME NEEDED USE REGULARL Y FOR RELIEF OF ALLERGIE S/CONGES TION NASAL ACTIVE 05/14/2024 [id number] 3 TARIK SCHROEDER 2022 [facility] FLUTICASONE PROPIONATE 50MCG/SPRAY SOLN,NASAL, 16GM SPRAY 2 SPRAYS IN EACH NOSTRIL AT BEDTIME NEEDED USE REGULARL Y FOR RELIEF OF ALLERGIE S/CONGES TION NASAL DISCONT INUED 05/17/2023 [id number] 3 SCHROEDERTARIK JOSE RAMON S 2021 [facility] HYDROCHLORO THIAZIDE 25MG/LISINO PRIL 20MG TAB TAKE 1 TABLET BY MOUTH EVERY DAY FOR BLOOD PRESSURE ORALLY ACTIVE 05/14/2024 [id number] 3 SCHROEDERTARIK JOSE RAMON S 2022 [facility] HYDROCHLORO THIAZIDE 25MG/LISINO PRIL 20MG TAB TAKE 1 TABLET BY MOUTH EVERY DAY FOR BLOOD PRESSURE ORALLY DISCONT INUED 05/17/2023 [id number] 3 SCHROEDERTARIK SHORT S 2021 [facility] METFORMIN HCL 1000MG TAB TAKE ONE-HALF TABLET BY MOUTH TWO TIMES A DAY ORALLY DISCONT INUED 05/17/2023 [id number] 3 SCHROEDERTARIK JOSE RAMON S 2021 [facility] MULTIVITAMI NS CAP/TAB TAKE ONE TABLET BY MOUTH EVERY DAY ORALLY ACTIVE LUISA APONTE 2012 [facility] SIMVASTATIN 80MG TAB TAKE ONE TABLET BY MOUTH AT BEDTIME FOR CHOLESTE ROL ORALLY ACTIVE 11/28/2023 [id number] 4 TARIK SCHROEDER 2022 [facility] SIMVASTATIN 80MG TAB TAKE ONE-HALF TABLET BY MOUTH AT BEDTIME FOR CHOLESTE ROL ORALLY DISCONT INUED (EDIT) 05/17/2023 [id number] 3 TARIK SCHROEDER 2021 [facility] TAMSULOSIN HCL 0.4MG CAP TAKE ONE CAPSULE BY MOUTH AT BEDTIME ORALLY ACTIVE 04/13/2024 [id number] 4 TARIK SCHROEDER 2022 [facility] TAMSULOSIN HCL 0.4MG CAP TAKE ONE CAPSULE BY MOUTH AT BEDTIME ORALLY DISCONT INUED 04/13/2024 [id number] 3 TARIK SCHROEDER S 2022 [facility] TAMSULOSIN HCL 0.4MG CAP TAKE ONE CAPSULE BY MOUTH AT BEDTIME ORALLY DISCONT INUED 05/17/2023 [id number] 3 TARIK SCHROEDER S 2021 [facility] Immunizations Combined list of available immunizations from the Department of Defense and Veterans Affairs facilities. 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 Status Comments Source RSV, BIVALENT, PROTEIN SUBUNIT RSVPREF, DILUENT RECONSTITUTED , 0.5 ML, PF 1 2022 DG SHI E LEFT DELTO ID [id number] 305 complet ed [facility] TDAP 2022 IRAIDA OATES LEFT DELTO ID [id number] 115 complet ed [facility] COVID-19 (MODERNA), MRNA, LNP-S, PF, 50 MCG/0.5 ML (AGES 12+ YEARS) 1 2022 312 complet ed [facility] INFLUENZA, HIGH-DOSE, QUADRIVALENT 2022 197 complet ed [facility] INFLUENZA, UNSPECIFIED FORMULATION 2022 88 complet ed [facility] COVID-19 (MODERNA), MRNA, LNP-S, BIVALENT BOOSTER, PF, 50 MCG/0.5 ML OR 25MCG/0.25 ML DOSE 1 2021 229 complet ed [facility] COVID-19 (MODERNA), MRNA, LNP-S, BIVALENT, PF, 50 MCG/0.5 ML OR 25MCG/0.25 ML DOSE 2021 229 complet ed [facility] INFLUENZA, UNSPECIFIED FORMULATION 2021 88 complet ed [facility] COVID-19 (MODERNA), MRNA, LNP-S, PF, 100 MCG/0.5ML DOSE OR 50 MCG/0.25ML DOSE 4 2021 207 complet ed [facility] COVID-19 (MODERNA), MRNA, LNP-S, PF, 100 MCG/0.5ML DOSE OR 50 MCG/0.25ML DOSE 3 2020 207 complet ed [facility] INFLUENZA, HIGH-DOSE, QUADRIVALENT 2020 197 complet ed [facility] INFLUENZA, UNSPECIFIED FORMULATION 2020 88 complet ed [facility] COVID-19 (MODERNA), MRNA, LNP-S, PF, 100 MCG/0.5 ML DOSE 2 2020 207 complet ed MOD: [id number]; 1 [facility] COVID-19 (MODERNA), MRNA, LNP-S, PF, 100 MCG/0.5 ML DOSE 1 2020 207 complet ed MOD; [id number]; 1 [facility] INFLUENZA, UNSPECIFIED FORMULATION 2019 88 complet ed [facility] INFLUENZA, SEASONAL, INJECTABLE 2018 141 complet ed [facility] INFLUENZA, HIGH DOSE SEASONAL 2018 135 complet ed [facility] ZOSTER RECOMBINANT 2 2018 187 complet ed [facility] ZOSTER RECOMBINANT 1 2018 187 complet ed [facility] INFLUENZA, HIGH DOSE SEASONAL 2017 135 complet ed [facility] INFLUENZA, HIGH DOSE SEASONAL 2017 135 complet ed [facility] PNEUMOCOCCAL POLYSACCHARID E PPV23 2017 33 complet ed [place], [id number], 12 dec 2018 [facility] INFLUENZA, HIGH DOSE SEASONAL 2016 135 complet ed [facility] INFLUENZA, HIGH DOSE SEASONAL 2015 135 complet ed [facility] INFLUENZA, HIGH DOSE SEASONAL 2015 135 complet ed [facility] PNEUMOCOCCAL CONJUGATE PCV 13 2014 133 complet ed [facility] [id number] 09/13 [facility] INFLUENZA, HIGH DOSE SEASONAL 2014 135 complet ed [facility] INFLUENZA, UNSPECIFIED FORMULATION 2012 88 complet ed [facility] TDAP 2012 115 complet ed [employer], lot#[id number], exp 09/04/14 [facility] INFLUENZA, UNSPECIFIED FORMULATION 2011 88 complet ed [facility] INFLUENZA, UNSPECIFIED FORMULATION 2010 88 complet ed [facility] ZOSTER LIVE 2010 121 complet ed [facility] ZOSTER LIVE 2009 121 complet ed [facility] PNEUMOCOCCAL, UNSPECIFIED FORMULATION 2009 109 complet ed repeat 11/10/2018 . [facility] ZOSTER LIVE 2009 121 complet ed [facility] NOVEL INFLUENZA-H1N 1-09, ALL FORMULATIONS 2008 128 complet ed [facility] PNEUMOCOCCAL POLYSACCHARID E PPV23 2008 33 complet ed [facility] TD(ADULT) UNSPECIFIED FORMULATION 2008 139 complet ed No reaction. [facility] TDAP 2008 115 complet ed [facility] INFLUENZA, SEASONAL, INJECTABLE 2003 141 complet ed [facility] INFLUENZA, SEASONAL, INJECTABLE 2002 141 complet ed [facility] INFLUENZA, SEASONAL, INJECTABLE 2001 141 complet ed [facility] INFLUENZA, SEASONAL, INJECTABLE 2000 141 complet ed [facility] Results Combined list of recent chemistry, hematology and other laboratory results from Department of Defense and Veterans Affairs, ranging from 15 months to all on record, depending upon the facility. Order Name Results Value Reference Range Date Interpretation Specimen Comments Source HEMOGLOB IN A1C HEMOGLOBIN A1C/HEMOGL OBIN.TOTAL IN BLOOD 5.6 4.0 - 6.0 05/12 Specimen Type: BLOOD Comment: Values obtained from A1C measurement s can vary. For typical A1C assays, a reported value of 7.0 could actually be between 6.7 and 7.3 if measured by a reference method. A reported value of 9.0 could actually be between 8.7 and 9.3. Ref: [email or web address]://[email or web address] ngsp.org/[place] Pdata.asp Ordering Provider: TARA SCHROEDER Report Released Date/Time: May 16, 2022 10:51 AM Reporting Lab: [facility] [address] Performing Lab: [facility] [address] [facility] LIPID PANEL,NO N-FASTIN G CHOLESTERO L [MASS/VOLU ME] IN SERUM OR PLASMA 135 <199 - 199 05/12 Specimen Type: PLASMA No comment entered. Ordering Provider: TARA SCHROEDER Report Released Date/Time: May 16, 2022 10:51 AM Reporting Lab: [facility] [phone] Performing Lab: [facility] [address] [facility] LIPID PANEL,NO N-FASTIN G CHOLESTERO L IN HDL [MASS/VOLU ME] IN SERUM OR PLASMA 48 40 05/12 Specimen Type: PLASMA No comment entered. Ordering Provider: TARA SCHROEDER Report Released Date/Time: May 16, 2022 10:51 AM Reporting Lab: [facility] [address] Performing Lab: [facility] [address] [facility] LIPID PANEL,NO N-FASTIN G CHOLESTERO L IN LDL [MASS/VOLU ME] IN SERUM OR PLASMA BY CALCULATIO N 72 <99 - 99 05/12 Specimen Type: PLASMA No comment entered. Ordering Provider: TARA SCHROEDER Report Released Date/Time: May 16, 2022 10:51 AM Reporting Lab: [facility] [address] Performing Lab: [facility] [address] [facility] LIPID PANEL,NO N-FASTIN G CHOLESTERO L IN VLDL [MASS/VOLU ME] IN SERUM OR PLASMA BY CALCULATIO N 15 <29 - 29 05/12 Specimen Type: PLASMA No comment entered. Ordering Provider: TARA SCHROEDER Report Released Date/Time: May 16, 2022 10:51 AM Reporting Lab: [facility] [address] Performing Lab: [facility] [address] [facility] LIPID PANEL,NO N-FASTIN G CHOLESTERO L NON HDL [MASS/VOLU ME] IN SERUM OR PLASMA 87 <129 - 129 05/12 Specimen Type: PLASMA No comment entered. Ordering Provider: TARA SCHROEDER Report Released Date/Time: May 16, 2022 10:51 AM Reporting Lab: [facility] [address] Performing Lab: [facility] [address] [facility] LIPID PANEL,NO N-FASTIN G TRIGLYCERI DE [MASS/VOLU ME] IN SERUM OR PLASMA 75 <149 - 149 05/12 Specimen Type: PLASMA No comment entered. Ordering Provider: TARA SCHROEDER Report Released Date/Time: May 16, 2022 10:51 AM Reporting Lab: [facility] [phone] Performing Lab: [facility] [address] [facility] BASIC METABOLI C PANEL+MG CREATININE [MASS/VOLU ME] IN SERUM OR PLASMA 0.8 0.7 - 1.2 05/12 Specimen Type: PLASMA No comment entered. Ordering Provider: TARA SCHROEDER Report Released Date/Time: May 16, 2022 10:51 AM Reporting Lab: [facility] [address] Performing Lab: [facility] [address] [facility] BASIC METABOLI C PANEL+MG UREA NITROGEN [MASS/VOLU ME] IN SERUM OR PLASMA 21 8 - 26 05/12 Specimen Type: PLASMA No comment entered. Ordering Provider: TARA SCHROEDER Report Released Date/Time: May 16, 2022 10:51 AM Reporting Lab: [facility] [address] Performing Lab: [facility] [address] [facility] BASIC METABOLI C PANEL+MG GLUCOSE [MASS/VOLU ME] IN SERUM OR PLASMA 106 70 - 100 05/12 H Specimen Type: PLASMA No comment entered. Ordering Provider: TARA SCHROEDER Report Released Date/Time: May 16, 2022 10:51 AM Reporting Lab: [facility] [address] Performing Lab: [facility] [address] [facility] BASIC METABOLI C PANEL+MG SODIUM [MOLES/VOL UME] IN SERUM OR PLASMA 140 136 - 145 05/12 Specimen Type: PLASMA No comment entered. Ordering Provider: TARA SCHROEDER Report Released Date/Time: May 16, 2022 10:51 AM Reporting Lab: [facility] [address] Performing Lab: [facility] [address] [facility] BASIC METABOLI C PANEL+MG POTASSIUM [MOLES/VOL UME] IN SERUM OR PLASMA 3.6 3.5 - 5.1 05/12 Specimen Type: PLASMA No comment entered. Ordering Provider: TARA SCHROEDER Report Released Date/Time: May 16, 2022 10:51 AM Reporting Lab: [facility] [address] Performing Lab: [facility] [address] [facility] BASIC METABOLI C PANEL+MG CHLORIDE [MOLES/VOL UME] IN SERUM OR PLASMA 103 98 - 107 05/12 Specimen Type: PLASMA No comment entered. Ordering Provider: TARA SCHROEDER Report Released Date/Time: May 16, 2022 10:51 AM Reporting Lab: [facility] [address] Performing Lab: [facility] [address] [facility] BASIC METABOLI C PANEL+MG CARBON DIOXIDE, TOTAL [MOLES/VOL UME] IN SERUM OR PLASMA 28 - 29 05/12 Specimen Type: PLASMA No comment entered. Ordering Provider: TARA SCHROEDER Report Released Date/Time: May 16, 2022 10:51 AM Reporting Lab: [facility] [address] Performing Lab: [facility] [address] [facility] BASIC METABOLI C PANEL+MG CALCIUM [MASS/VOLU ME] IN SERUM OR PLASMA 9.4 8.4 - 10.2 05/12 Specimen Type: PLASMA No comment entered. Ordering Provider: TARA SCHROEDER Report Released Date/Time: May 16, 2022 10:51 AM Reporting Lab: [facility] [address] Performing Lab: [facility] [address] [facility] BASIC METABOLI C PANEL+MG MAGNESIUM [MASS/VOLU ME] IN SERUM OR PLASMA 2.1 1.6 - 2.6 05/12 Specimen Type: PLASMA No comment entered. Ordering Provider: TARA SCHROEDER Report Released Date/Time: May 16, 2022 10:51 AM Reporting Lab: [facility] [address] Performing Lab: [facility] [address] [facility] BASIC METABOLI C PANEL+MG ANION GAP IN SERUM OR PLASMA 9 5 - 15 05/12 Specimen Type: PLASMA No comment entered. Ordering Provider: TARA SCHROEDER Report Released Date/Time: May 16, 2022 10:51 AM Reporting Lab: [facility] [address] Performing Lab: [facility] [address] [facility] BASIC METABOLI C PANEL+MG GLOMERULAR FILTRATION RATE/1.73 SQ M.PREDICTE D [VOLUME RATE/AREA] IN SERUM, PLASMA OR BLOOD BY CREATININE -BASED FORMULA (CKD-EPI 2020) >90 60 05/12 Specimen Type: PLASMA No comment entered. Ordering Provider: TARA SCHROEDER Report Released Date/Time: May 16, 2022 10:51 AM Reporting Lab: [facility] [address] Performing Lab: [facility] [address] [facility] .OCCULT BLOOD(FI T) HEMOGLOBIN .GASTROINT ESTINAL.LO WER [PRESENCE] IN STOOL BY IMMUNOASSA Y Negative 03/10 Specimen Type: FECES No comment entered. Ordering Provider: ALDO AUSTIN Report Released Date/Time: Mar 10, 2023 08:28 AM Reporting Lab: [facility] [address] Performing Lab: [address] [facility] LD,TOTAL LACTATE DEHYDROGEN ASE [ENZYMATIC ACTIVITY/V OLUME] IN SERUM OR PLASMA BY LACTATE TO PYRUVATE REACTION 165 125 - 220 12/12 Specimen Type: PLASMA No comment entered. Ordering Provider: PITA BATISTA Report Released Date/Time: December 12, 2022 10:40 AM Reporting Lab: [facility] [address] Performing Lab: [facility] [address] [place] [facility] LIPID PANEL,NO N-FASTIN G CHOLESTERO L [MASS/VOLU ME] IN SERUM OR PLASMA 126 <199 - 199 12/12 Specimen Type: PLASMA No comment entered. Ordering Provider: PITA BATISTA Report Released Date/Time: December 13, 2022 08:12 AM Reporting Lab: [facility] [address] Performing Lab: [facility] [address] [place] [facility] LIPID PANEL,NO N-FASTIN G CHOLESTERO L IN HDL [MASS/VOLU ME] IN SERUM OR PLASMA 50 40 12/12 Specimen Type: PLASMA No comment entered. Ordering Provider: PITA BATISTA Report Released Date/Time: December 13, 2022 08:12 AM Reporting Lab: [facility] [address] Performing Lab: [facility] [address] [place] [facility] LIPID PANEL,NO N-FASTIN G CHOLESTERO L IN LDL [MASS/VOLU ME] IN SERUM OR PLASMA BY CALCULATIO N 59 <99 - 99 12/12 Specimen Type: PLASMA No comment entered. Ordering Provider: PITA BATISTA Report Released Date/Time: December 13, 2022 08:12 AM Reporting Lab: [facility] [address] Performing Lab: [facility] [address] [place] [facility] LIPID PANEL,NO N-FASTIN G CHOLESTERO L IN VLDL [MASS/VOLU ME] IN SERUM OR PLASMA BY CALCULATIO N 17 <29 - 29 12/12 Specimen Type: PLASMA No comment entered. Ordering Provider: PITA BATISTA Report Released Date/Time: December 13, 2022 08:12 AM Reporting Lab: [facility] [address] Performing Lab: [facility] [address] [place] [facility] LIPID PANEL,NO N-FASTIN G CHOLESTERO L NON HDL [MASS/VOLU ME] IN SERUM OR PLASMA 76 <129 - 129 12/12 Specimen Type: PLASMA No comment entered. Ordering Provider: PITA BATISTA Report Released Date/Time: December 13, 2022 08:12 AM Reporting Lab: [facility] [address] Performing Lab: [place] [address] [place] [facility] LIPID PANEL,NO N-FASTIN G TRIGLYCERI DE [MASS/VOLU ME] IN SERUM OR PLASMA 86 <149 - 149 12/12 Specimen Type: PLASMA No comment entered. Ordering Provider: PITA BATISTA Report Released Date/Time: December 13, 2022 08:12 AM Reporting Lab: [facility] [address] Performing Lab: [facility] [address] [place] [facility] LIPID PANEL,NO N-FASTIN G CHOLESTERO L [MASS/VOLU ME] IN SERUM OR PLASMA 152 <199 - 199 09/13 Specimen Type: PLASMA No comment entered. Ordering Provider: PITA BATISTA Report Released Date/Time: Sep 13, 2022 03:53 PM Reporting Lab: [facility] [address] Performing Lab: [facility] [address] [place] [facility] LIPID PANEL,NO N-FASTIN G CHOLESTERO L IN HDL [MASS/VOLU ME] IN SERUM OR PLASMA 41 40 09/13 Specimen Type: PLASMA No comment entered. Ordering Provider: PITA BATISTA Report Released Date/Time: Sep 13, 2022 03:53 PM Reporting Lab: [facility] [address] Performing Lab: [facility] [address] [place] [facility] LIPID PANEL,NO N-FASTIN G CHOLESTERO L IN LDL [MASS/VOLU ME] IN SERUM OR PLASMA BY CALCULAELVIAO N 93 <99 - 99 09/13 Specimen Type: PLASMA No comment entered. Ordering Provider: PITA BATISTA Report Released Date/Time: Sep 13, 2022 03:53 PM Reporting Lab: [facility] [address] Performing Lab: [place] [address] [place] [facility] LIPID PANEL,NO N-FASTIN G CHOLESTERO L IN VLDL [MASS/VOLU ME] IN SERUM OR PLASMA BY CALCULATIO N 18 <29 - 29 09/13 Specimen Type: PLASMA No comment entered. Ordering Provider: PITA BATISTA Report Released Date/Time: Sep 13, 2022 03:53 PM Reporting Lab: [facility] [id number] Performing Lab: [facility] [id number] [place] [facility] LIPID PANEL,NO N-FASTIN G CHOLESTERO L NON HDL [MASS/VOLU ME] IN SERUM OR PLASMA 111 <129 - 129 09/13 Specimen Type: PLASMA No comment entered. Ordering Provider: PITA BATISTA Report Released Date/Time: Sep 13, 2022 03:53 PM Reporting Lab: [facility] [id number] Performing Lab: [facility] [facility] [address] [place] [facility] LIPID PANEL,NO N-FASTIN G TRIGLYCERI DE [MASS/VOLU ME] IN SERUM OR PLASMA 89 <149 - 149 09/13 Specimen Type: PLASMA No comment entered. Ordering Provider: PITA BATISTA Report Released Date/Time: Sep 13, 2022 03:53 PM Reporting Lab: [facility] [address] Performing Lab: [facility] [address] [place] [facility] HEMOGLOB IN A1C HEMOGLOBIN A1C/HEMOGL OBIN.TOTAL IN BLOOD 6.8 4.0 - 6.0 09/13 H Specimen Type: BLOOD Comment: Values obtained from A1C measurement s can vary. For typical A1C assays, a reported value of 7.0 could actually be between 6.7 and 7.3 if measured by a reference method. A reported value of 9.0 could actually be between 8.7 and 9.3. Ref: http://www. ngsp.org/[place] Pdata.asp Ordering Provider: PITA BATISTA Report Released Date/Time: Sep 13, 2022 03:53 PM Reporting Lab: [facility] [address] Performing Lab: [facility] [address] [place] [facility] COMPREHE NSIVE METABOLI C PANEL+MG CREATININE [MASS/VOLU ME] IN SERUM OR PLASMA 0.9 0.7 - 1.2 09/13 Specimen Type: PLASMA No comment entered. Ordering Provider: PITA BATISTA Report Released Date/Time: Sep 13, 2022 03:53 PM Reporting Lab: [facility] [address] Performing Lab: [facility] [address] [place] [facility] COMPREHE NSIVE METABOLI C PANEL+MG UREA NITROGEN [MASS/VOLU ME] IN SERUM OR PLASMA 25 8 - 26 09/13 Specimen Type: PLASMA No comment entered. Ordering Provider: PITA BATISTA Report Released Date/Time: Sep 13, 2022 03:53 PM Reporting Lab: [facility] [address] Performing Lab: [facility] [address] [facility] COMPREHE NSIVE METABOLI C PANEL+MG GLUCOSE [MASS/VOLU ME] IN SERUM OR PLASMA 126 70 - 100 09/13 H Specimen Type: PLASMA No comment entered. Ordering Provider: PITA BATISTA Report Released Date/Time: Sep 13, 2022 03:53 PM Reporting Lab: [facility] [address] Performing Lab: [facility] [address] [facility] COMPREHE NSIVE METABOLI C PANEL+MG SODIUM [MOLES/VOL UME] IN SERUM OR PLASMA 138 136 - 145 09/13 Specimen Type: PLASMA No comment entered. Ordering Provider: PITA BATISTA Report Released Date/Time: Sep 13, 2022 03:53 PM Reporting Lab: [facility] [address] Performing Lab: [facility] [address] [place] [facility] COMPREHE NSIVE METABOLI C PANEL+MG POTASSIUM [MOLES/VOL UME] IN SERUM OR PLASMA 3.3 3.5 - 5.1 09/13 L Specimen Type: PLASMA No comment entered. Ordering Provider: LYNNE,STEP HANIE A Report Released Date/Time: Sep 13, 2022 03:53 PM Reporting Lab: [facility] [address] Performing Lab: [facility] [address] [place] [facility] COMPREHE NSIVE METABOLI C PANEL+MG CHLORIDE [MOLES/VOL UME] IN SERUM OR PLASMA 102 98 - 107 09/13 Specimen Type: PLASMA No comment entered. Ordering Provider: PITA BATISTA Report Released Date/Time: Sep 13, 2022 03:53 PM Reporting Lab: [facility] [address] Performing Lab: [facility] [address] [place] [facility] COMPREHE NSIVE METABOLI C PANEL+MG CARBON DIOXIDE, TOTAL [MOLES/VOL UME] IN SERUM OR PLASMA 26 22 - 29 09/13 Specimen Type: PLASMA No comment entered. Ordering Provider: PITA BATISTA Report Released Date/Time: Sep 13, 2022 03:53 PM Reporting Lab: [facility] [address] Performing Lab: [facility] [address] [place] [facility] COMPREHE NSIVE METABOLI C PANEL+MG CALCIUM [MASS/VOLU ME] IN SERUM OR PLASMA 9.9 8.4 - 10.2 09/13 Specimen Type: PLASMA No comment entered. Ordering Provider: PITA BATISTA Report Released Date/Time: Sep 13, 2022 03:53 PM Reporting Lab: [facility] [address] Performing Lab: [facility] [address] [place] [facility] COMPREHE NSIVE METABOLI C PANEL+MG PROTEIN [MASS/VOLU ME] IN SERUM OR PLASMA 7.1 6.0 - 8.3 09/13 Specimen Type: PLASMA No comment entered. Ordering Provider: PITA BATISTA Report Released Date/Time: Sep 13, 2022 03:53 PM Reporting Lab: [facility] [address] Performing Lab: [facility] [address] [place] [facility] COMPREHE NSIVE METABOLI C PANEL+MG ALBUMIN [MASS/VOLU ME] IN SERUM OR PLASMA 4.4 3.5 - 5.2 09/13 Specimen Type: PLASMA No comment entered. Ordering Provider: PITA BATISTA Report Released Date/Time: Sep 13, 2022 03:53 PM Reporting Lab: [facility] [address] Performing Lab: [facility] [address] [place] [facility] COMPREHE NSIVE METABOLI C PANEL+MG BILIRUBIN. TOTAL [MASS/VOLU ME] IN SERUM OR PLASMA 0.9 0.2 - 1.2 09/13 Specimen Type: PLASMA No comment entered. Ordering Provider: PITA BATISTA Report Released Date/Time: Sep 13, 2022 03:53 PM Reporting Lab: [facility] [address] Performing Lab: [facility] [address] [facility] COMPREHE NSIVE METABOLI C PANEL+MG MAGNESIUM [MASS/VOLU ME] IN SERUM OR PLASMA 1.8 1.6 - 2.6 09/13 Specimen Type: PLASMA No comment entered. Ordering Provider: PITA BATISTA Report Released Date/Time: Sep 13, 2022 03:53 PM Reporting Lab: [facility] [address] Performing Lab: [facility] [address] [place] [facility] COMPREHE NSIVE METABOLI C PANEL+MG ANION GAP IN SERUM OR PLASMA 10 5 - 15 09/13 Specimen Type: PLASMA No comment entered. Ordering Provider: PITA BATISTA Report Released Date/Time: Sep 13, 2022 03:53 PM Reporting Lab: [facility] [address] Performing Lab[facility] [address] [facility] COMPREHE NSIVE METABOLI C PANEL+MG ALKALINE PHOSPHATAS E [ENZYMATIC ACTIVITY/V OLUME] IN SERUM OR PLASMA 83 40 - 150 09/13 Specimen Type: PLASMA No comment entered. Ordering Provider: PITA BATISTA Report Released Date/Time: Sep 13, 2022 03:53 PM Reporting Lab: [facility] [address] Performing Lab: [facility] [address] [place] [facility] COMPREHE NSIVE METABOLI C PANEL+MG ALANINE AMINOTRANS FERASE [ENZYMATIC ACTIVITY/V OLUME] IN SERUM OR PLASMA 86 <55 - 55 09/13 H Specimen Type: PLASMA No comment entered. Ordering Provider: PITA BATISTA Report Released Date/Time: Sep 13, 2022 03:53 PM Reporting Lab: [facility] [address] Performing Lab: [facility] [address] [facility] COMPREHE NSIVE METABOLI C PANEL+MG ASPARTATE AMINOTRANS FERASE [ENZYMATIC ACTIVITY/V OLUME] IN SERUM OR PLASMA 90 <34 - 34 09/13 H Specimen Type: PLASMA No comment entered. Ordering Provider: PITA BATISTA Report Released Date/Time: Sep 13, 2022 03:53 PM Reporting Lab: [facility] [address] Performing Lab: [facility] [address] [facility] COMPREHE NSIVE METABOLI C PANEL+MG GLOMERULAR FILTRATION RATE/1.73 SQ M.PREDICTE D [VOLUME RATE/AREA] IN SERUM, PLASMA OR BLOOD BY CREATININE -BASED FORMULA (CKD-EPI) 89 60 09/13 Specimen Type: PLASMA No comment entered. Ordering Provider: PITA BATISTA Report Released Date/Time: Sep 13, 2022 03:53 PM Reporting Lab: [facility] [address] Performing Lab: [facility] [address] [facility] MI[facility] UMIN/CRE ATININE RATIO URINE CREATININE [MASS/VOLU ME] IN URINE 93.0 58.0 - 161.0 05/10 Specimen Type: URINE No comment entered. Ordering Provider: TARA SCHROEDER Report Released Date/Time: Feb 19, 2022 12:26 PM Reporting Lab: [facility] [address] Performing Lab: [facility] [address] [facility] MICROALB UMIN/CRE ATININE RATIO URINE MICROALBUM IN/CREATIN INE [MASS RATIO] IN URINE 10.2 <29.9 - 29.9 05/10 Specimen Type: URINE No comment entered. Ordering Provider: TARA SCHROEDER Report Released Date/Time: Feb 19, 2022 12:26 PM Reporting Lab: [facility] [address] Performing Lab: [facility] [address] [place] [facility] MICROALB UMIN/CRE ATININE RATIO URINE MICROALBUM IN [MASS/VOLU ME] IN URINE 9.5 <29.9 - 29.9 05/10 Specimen Type: URINE No comment entered. Ordering Provider: TARA SCHROEDER Report Released Date/Time: Feb 19, 2022 12:26 PM Reporting Lab: [facility] [address] Performing Lab: [facility] [address] [place] [facility] Vital Signs Combined list of inpatient and outpatient Vital Signs from Department of Defense and Veterans Affairs, ranging from 12 months to all on record, depending upon the facility. Vital Sign Value Date Comments Source SYSTOLIC BLOOD PRESSURE 133 05/14/2023 09:49:59 [place] [facility] DIASTOLIC BLOOD PRESSURE 66 05/14/2023 09:49:59 [place] [facility] PULSE OXIMETRY 99% 05/14/2023 09:49:59 [facility] WEIGHT 169.1 05/14/2023 09:49:59 [facility] BMI 25kg/m2 05/14/2023 09:49:59 [facility] PAIN 0 05/14/2023 09:49:59 [facility] HEIGHT 69 05/14/2023 09:49:59 [facility] TEMPERATURE 97.1 05/14/2023 09:49:59 [facility] PULSE 53 05/14/2023 09:49:59 [facility] RESPIRATION 16 05/14/2023 09:49:59 [facility] SYSTOLIC BLOOD PRESSURE 152 03/19/2023 10:27:37 [facility] DIASTOLIC BLOOD PRESSURE 70 03/19/2023 10:27:37 [facility] PULSE OXIMETRY 98% 03/19/2023 10:27:37 [facility] PAIN 0 03/19/2023 10:27:37 [facility] TEMPERATURE 98.8 03/19/2023 10:27:37 [facility] PULSE 57 03/19/2023 10:27:37 [facility] RESPIRATION 18 03/19/2023 10:27:37 [facility] SYSTOLIC BLOOD PRESSURE 157 12/12/2022 09:45:27 [facility] DIASTOLIC BLOOD PRESSURE 68 12/12/2022 09:45:27 [facility] PULSE OXIMETRY 99% 12/12/2022 09:45:27 [facility] PAIN 0 12/12/2022 09:45:27 [facility] TEMPERATURE 98.4 12/12/2022 09:45:27 [facility] PULSE 58 12/12/2022 09:45:27 [facility] RESPIRATION 16 12/12/2022 09:45:27 [facility] SYSTOLIC BLOOD PRESSURE 166 09/13/2022 14:11:57 [facility] DIASTOLIC BLOOD PRESSURE 86 09/13/2022 14:11:57 [facility] PULSE OXIMETRY 96% 09/13/2022 14:11:57 [facility] PAIN 0 09/13/2022 14:11:57 [facility] TEMPERATURE 98.6 09/13/2022 14:11:57 [facility] PULSE 81 09/13/2022 14:11:57 [facility] RESPIRATION 18 09/13/2022 14:11:57 [facility] Encounters Combined list of: 1) Encounters from Department of Veterans Affairs facilities going back up to thelast 18 months. 2) Encounters from the Department of Defense facilities going back up to 280 months. Location Location Details Encounter Type Encounter Number Reason For Visit Attending Provider ADM Date DC Date Status [facility] Out[facility] Encounter [id number] 04/02 [facility] [place] [facility] En[facility] [id number] 04/10 [place] [facility] [place] [facility] Outpatient Encounter [id number] 04/24 [place] [facility] [place] [facility] Outpatient Encounter [id number] 05/01 [place] [facility] [place] [facility] Outpatient Encounter [id number] 05/09 [place] [facility] [place] [facility] Outpatient Encounter [id number] 05/11 [place] [facility] [place] [facility] Outpatient Encounter [id number] 05/16 [place] [facility] [place] [facility] OFFICE O/P EST MOD 30-39 MIN [id number] Diagnos is: ICD-10- CM Z00.01 Encount er for general adult medical exam w abnorma l finding s
RAKAN SCHROEDER 05/16 [facility] [place] [facility] Outpatient Encounter [id number] 09/09 [place] [facility] [place] [facility] Out[facility] Encounter [id number] 09/10 [place] [facility] [place] [facility] Out[facility] Encounter [id number] 09/10 [place] [facility] [place] [facility] Outpatient Encounter [id number] 09/10 [place] [facility] [place] [facility] Outpatient Encounter [id number] MATTHEW BRIAN 09/10 [place] [facility] [place] [facility] Out[facility] Encounter [id number] MATTHEW BRIAN 09/11 [place] [facility] [place] [facility] Outpatient Encounter [id number] BRENDA GUILLAUME 09/11 [place] [facility] [place] [facility] Outpatient Encounter [id number] TONY CASTILLO 09[facility] [place] [facility] Outpatient Encounter [id number] EMERSON VILLARREALJorgito Roldan 09/11 [facility] [place] [facility] Outpatient Encounter [id number] WANDERAMY Carrasquillo 09/[facility] [place] [facility] Outpatient Encounter [id number] BRENDA GUILLAUME 09/12 [facility] OFF/OP CONSLTJ NEW/[place] HI 55 [id number] Diagnos is: ICD-10- CM I63.9 Cerebra l infarct ion, unspeci fied
SAMEERA BATISTA A 09/13 [facility] Out[facility] Encounter [id number] 09/13 [facility] Outpatient Encounter [id number] BRENDA GUILLAUME 09/17 [facility] Outpatient Encounter [id number] BRENDA GUILLAUME 09/18 [facility] EXT ECG>7D<15D REV&INTERP J [id number] Diagnos is: ICD-10- CM Z13.6 Encount er for screeni ng for cardiov ascular disorde rs
FLOREA,JEROME REL 10/11 [facility] INJ PERFLEXANE LIP MICROS,ML [id number] Diagnos is: ICD-10- CM I63.9 Cerebra l infarct ion, unspeci fied
JULI MAC TT A 10/25 [facility] [place] [facility] Outpatient Encounter [id number] JESSIE RINCON 10/31 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
DUESMAN,CH RISTOPHER ETHEL 11/08 [place] [facility] [place] [facility] Outpatient Encounter [id number] NIKKIE QUINONES 11/27 [facility] OFF[facility] O/P EST HI 40-54 MIN [id number] Diagnos is: ICD-10- CM I63.9 Cerebra l infarct ion, unspeci fied
SAMEERA BATISTA 12/12 [facility] Out[facility] Encounter [id number] Diagnos is: ICD-10- CM R06.83 Snoring
MONSERRAT REECE J 12/12 [facility] CYSTOMETRO GRAM W/PROJECT MANAGEMENT IT SPECIALIST [id number] Diagnos is: ICD-10- CM R39.15 Urgency of urinati on
ALANA WAITE 01/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
DUESMAN,CH RISTOPHER ETHEL 01/21 [facility] [place] [facility] Outpatient Encounter [id number] 01/[facility] Outpatient Encounter [id number] 02/03 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
VANVOORST, TYRESE A 02/06 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
VANVOORST, TYRESE A 02/19 [facility] UNLISTED PULMONARY SVC/PX [id number] Diagnos is: ICD-10- CM G47.33 Obstruc tive sleep apnea (adult) (pediat fabricio)
DANIELLE, RIAZ L 02/20 [facility] Outpatient Encounter [id number] Diagnos is: ICD-10- CM G47.33 Obstruc tive sleep apnea (adult) (pediat fabricio)
KAYE SWANSON ICA S 02/25 [facility] [employer] UNATND W/ANAL [id number] Diagnos is: ICD-10- CM G47.33 Obstruc tive sleep apnea (adult) (pediat fabricio)
Neida BURROUGHS 02/26 [facility] HC PRO PHONE CALL 5-10 MIN [id number] Diagnos is: ICD-10- CM G47.33 Obstruc tive sleep apnea (adult) (pediat fabricio)
KAYE SWANSON ICA S 03/05 [facility] SELF CARE MNGMENT TRAINING [id number] Diagnos is: ICD-10- CM R39.81 Functio nal urinary inconti nence<b r/> ARMINDA,KRISHNA UPENI A 03/05 [place] [facility] Outpatient Encounter [id number] 03/10 [place] [facility] Outpatient Encounter [id number] BRENDA GUILLAUME 03/13 [facility] OFFICE O/P EST LOW 20-29 MIN [id number] Diagnos is: ICD-10- CM I63.9 Cerebra l infarct ion, unspeci fied
SAMEERA BATISTA A 03/19 [facility] SELF CARE MNGMENT TRAINING [id number] Diagnos is: ICD-10- CM R32 Unspeci fied urinary inconti nence<b r/> ARMINDA,KRISHNA UPENI A 03/19 [facility] PRO PHONE CALL 11-20 MIN [id number] Diagnos is: ICD-10- CM G47.33 Obstruc tive sleep apnea (adult) (pediat fabricio)
KAYE SWANSON ICA S 03/24 [facility] Outpatient Encounter [id number] KAYE SWANSON ICA S 03/24 [place] [facility] THERAPEUTI C EXERCISES [id number] Diagnos is: ICD-10- CM N39.41 Urge inconti nence<b r/> ARMINDA,KRISHNA UPENI A 04/15 [facility] Outpatient Encounter [id number] BRENDA GUILLAUME 04/21 [facility] Outpatient Encounter [id number] 05/06 [place] [facility] [place] [facility] Outpatient Encounter [id number] 05/06 [place] [facility] [place] [facility] Outpatient Encounter [id number] 05/12 [place] [facility] [place] [facility] Outpatient Encounter [id number] 05/13 [place] [facility] [place] [facility] OFFICE O/P EST LOW 20-29 MIN [id number] Diagnos is: ICD-10- CM Z00.01 Encount er for general adult medical exam w abnorma l finding s
SCHROEDERTARIK SHORTG A S 05/14 [facility] [place] [facility] Outpatient Encounter [id number] 05/14 [place] [facility] [place] [facility] Outpatient Encounter [id number] 05/14 [place] [facility] [place] [facility] PRO PHONE CALL 5-10 MIN [id number] Diagnos is: ICD-10- CM Z71.9 Stripper And Taper ing, unspeci fied
BRENDA GUILLAUME 07/14 [facility] [place] [facility] Outpatient Encounter [id number] BRENDA GUILLAUME 07/14 [place] [facility] [place] [facility] Out[place] Encounter [id number] BRENDA GUILLAUME 07/14 [place] [facility] [place] [facility] Outpatient Encounter [id number] 07/23 [place] [facility] [place] [facility] IMMUNIZATI ON ADMIN [id number] GEBREKIRST OS,DG E 07/23 [place] [facility] [place] [facility] Outpatient Encounter [id number] BRENDA GUILLAUME 08/25 [facility] [place] [facility] Outpatient Encounter [id number] BRENDA GUILLAUME 08/25 [facility] Social History Combined list of available smoking, tobacco, and other social history from Department of Defense and Veterans Affairs facilities. Social History Type Response Date Comment Sourc e Tobacco smoking status [facility]-TOBACCO NEVER USED 05/14/2023 [facility] History of tobacco use CT-TOBACCO NEVER USED 02/19/2022 [facility] History of tobacco use CT-TOBACCO NEVER USED 05/17/2021 [facility] History of tobacco use CT-TOBACCO NEVER USED 06/19/2020 [facility] History of tobacco use CT-TOBACCO NEVER USED 05/21/2018 [facility] History of tobacco use LIFETIME NON-TOBA RN CASE MANAGEMENT USER 09/02/2017 [facility] History of tobacco use LIFETIME NON-TOBA RN CASE MANAGEMENT USER 04/23/2016 [facility] History of tobacco use LIFETIME NON-TOBA RN CASE MANAGEMENT USER 05/10/2015 [facility] History of tobacco use LIFETIME NON-TOBA RN CASE MANAGEMENT USER 04/22/2014 [facility] History of tobacco use LIFETIME NON-TOBA RN CASE MANAGEMENT USER 08/05/2011 [facility] Plan of Care List of future care activities from Department [facility] facilities. Additional future care activities may be listed in the Assessment and Plan section. Date/Time Care Activity Care Activity Detail Facili ty 08/26/2023 AMBULATORY - MEDICINE AMBULATORY - MEDICI NE [facility] [facility] Advance Directives List of completed, amended, or rescinded Advance Directives on record at [facility] facilities. An actual copy of the Directive is not included. Date Advance Directive Provider Source 10/19/2018 ADVANCE DIRECTIVE DISCUSSION MANAN MONTOYA 10/24/2011 ADVANCE DIRECTIVE DISCUSSION MEGHAN PERRY [facility] 10/02/2011 ADVANCE DIRECTIVE DISCUSSION MEGHAN PERRY [facility]
--- OUTSIDE RECORDS SUMMARY | 2023-08-25 20:28 | XMS_ITS | Encounter Summary ---
Author Name [facility] Organization [facility] Address [address] [place] [address] Support Name Relationship Address Phone CHARITY ANDERSON [...] PART A Mar 28, 2012 PART A [id number] [phone] MANINDER PUENTES PATIENT MEDICARE (WNR) MEDICARE (M) PART B Mar 28, 2012 PART B [id number] [phone] MANINDER PUENTES PATIENT Selected Encounter This section includes the information on record at [place] for the Encounter. Date/Time Encounter Type Encounter Description Reason Pro vider Source Sep 10, 2022 12:00 AM Outpatient Encounter ADMIN COCO HAIDER (MASLIOCT) E Encounter Template Text not used by [place] Plan of Treatment: Future Appointments (+ 6 months) and Future Tests (+/- 45 days) The Plan of Treatment section includes future care activities for the patient from all [facility] treatment[facility]. This section includes future appointments and future orders which are active, pending or scheduled. Future Appointments This section includes appointments that were scheduled to occur 6 months from the date of the Encounter, up to a maximum of 20 appointments. The data comes from all [facility]. Appointment Date/Time Appointment Type Appointme nt Facility Name Sep 11, 2022 08:51 PM [facility] Sep 13, 2022 02:30 PM AMBULATORY - REHAB MEDICIN E [facility] Sep 13, 2022 04:15 PM [facility] Oct 25, 2022 11:00 AM [facility] Nov 08, 2022 10:00 AM AMBULAT[facility] - SURGERY [facility] December 12, 2022 10:00 AM AMBULATORY - REHAB MEDICIN E [facility] December 12, 2022 11:00 AM [facility] Jan 02, 2023 11:00 AM AMBULATORY - SURGERY [facility] Jan 21, 2023 10:30 AM [facility] Feb 06, 2023 08:30 AM AMBULATORY - PSYCHIATRY [facility] Feb 19, 2023 02:00 PM AMBULATORY - PSYCHIATRY [facility] Mar 05, 2023 01:00 PM AMBULATORY - REHAB MEDICIN E [facility] Lab Results: +/- 30 days of the encounter This section includes the Chemistry and Hematology Lab Results on record with [place] for the patient. Radiology Reports and Pathology Reports are provided separately, in subsequent sections. Lab Results This section contains the Chemistry/Hematology Results that were resulted 30 days before or 30 daysafter the date of the Encounter. Date/Time Source Result Type Result - Unit Interpretation Reference Range Comment Sep 13, 2022 04:02 PM [facility] HEMOGLOBIN A1C Specimen Type: BLOOD Comment: Values [...] Sep 13, 2022 03:53 PM Reporting Lab: [facility] [id number] Performing Lab: [facility] [address] HEMOGLOBIN A1C 6.8 H 4.0-6.0 Sep 13, 2022 04:02 PM [facility] LIPID PANEL,NON-FASTING Specimen Type: PLASMA No comment entered. Ordering Provider: MIN BATISTA Report Released Date/Time: Sep 13, 2022 03:53 PM Reporting Lab: [facility] [id number] Performing Lab: [facility] [address] CHOLESTEROL 152 <199 .HDL 41 >40 LDL CALCULATION 93 <99 VLDL CALCULATION 18 <29 NON HDL CHOLESTEROL 111 <129 TRIG(NON FASTING) 89 <149 Sep 13, 2022 04:02 PM [facility] COMPREHENSIVE METABOLIC PANEL+MG Specimen Type: PLASMA No comment entered. Ordering Provider: MIN BATISTA Report Released Date/Time: Sep 13, 2022 03:53 PM Reporting Lab: [facility] [address] Performing Lab: [facility] [address] CREATININE 0.9 0.7-1.2 UREA NITROGEN 25 8-26 [...] and tobacco- related health factors from the [place] facility where the Encounter took place. Current Smoking Status This section includes the most current smoking, or tobacco-related health factor, from the [place] facility where the Encounter took place. Date/Time Current Smoking Status Jose chapman Aug 05, 2011 01:53 PM LIFETIME NON-TOBACCO USER [facility] Advance Directives: All historical and current Section Date Range: From patient's date of to the date document was created. This section includes ALL of a patient's completed or amended [place] Advance and Rescinded Directives. The entries below indicate that a directive exists for the patient, but an actual copy is not included with this document. The data comes from all [place] facilities. Date Advance Directives Provider Source Oct 19, 2018 ADVANCE DIRECTIVE DISCUSSION MANAN MONTOYA EIGARFIELD Neida CABA [facility] Oct 19, 2018 ADVANCE DIRECTIVE JANVERONICA Neida YANEZ [facility] Oct 24, 2011 ADVANCE DIRECTIVE DISCUSSION ARCHIEPARASMEGHAN [facility] Oct 24, 2011 ADVANCE DIRECTIVE ARCHIEKENYASLIANNA JEFFY [facility] Oct 02, 2011 ADVANCE DIRECTIVE DISCUSSION ANASTACIOSSALLIEALLAN POSEYPATRICE Scales [facility] Radiology Reports: +/- 30 days of the [...] the Encounter. The data comes from all [place] treatment facilities. Date/Time Radiology Report Provider Source Sep 10, 2022 12:41 PM NON [place] MRI BRAIN: MANINDER ANDERSON [id number] -1945 M Exm Date: SEP 10, 2022@12:41 Req Phys: TARA SCHROEDER S Pat Loc: [facility]SP XRAY GENERAL AM (Req'g Loc Img Loc: OUTSOURCE MRI Service: Unknown (Case [id number] COMPLETE) NON [place] MRI BRAIN (MRI Detailed) CPT:47892 Reason for Study: OUTSIDE STUDY Clinical History: OUTSIDE STUDY Report Status: Electronically Filed Date Reported: SEP 13, 2022 Report: This is an outside Imaging study and/or report imported for continuity of patient care. This Imaging study and/or report was not reviewed or verified by a [place] Radiologist. Impression: This is an outside Imaging study and/or report imported for continuity of patient care. This Imaging study and/or report was not reviewed or verified by a [place] Radiologist. Primary Diagnostic Code: VERIFIED BY: / *ELECTRONICALLY FILED* [facility] Sep 09, 2022 09:54 PM NON [place] CTA HEAD AN D NECK: MANINDER ANDERSON [id number] -1945 M Exm Date: SEP 09, 2022@21:54 Req Phys: SCHROEDER,TARA S Pat Loc: [facility] XRAY GENERAL AM (Req'g Loc Img Loc: OUTSOURCE CT Service: Unknown (Case [id number] COMPLETE) NON [place] CTA HEAD AND NECK (CT Detailed) CPT:20318 Reason for Study: OUTSIDE STUDY Clinical History: OUTSIDE STUDY Report Status: Electronically Filed Date Reported: SEP 13, 2022 Report: This is an outside Imaging study and/or report imported for continuity of patient care. This Imaging study and/or report was not reviewed or verified by a [place] Radiologist. Impression: This is an outside Imaging study and/or report imported for continuity of patient care. This Imaging study and/or report was not reviewed or verified by a [place] Radiologist. Primary Diagnostic Code: VERIFIED BY: / *ELECTRONICALLY FILED* [facility] Sep 09, 2022 09:[address] [place] [address] HEAD: MANINDER ANDERSON [id number] -1945 M Exm Date: SEP 09, 2022@21:49 Req Phys: SCHROEDER,TARA S Pat Loc: [facility] XRAY GENERAL AM (Req'g Loc Img Loc: OUTSOURCE CT Service: Unknown (Case [id number] COMPLETE) NON [place] CT HEAD (CT Detailed) CPT:06328 Reason for Study: OUTSIDE STUDY Clinical History: OUTSIDE STUDY Report Status: Electronically Filed Date Reported: SEP 13, 2022 Report: This is an outside Imaging study and/or report imported for continuity of patient care. This Imaging study and/or report was not reviewed or verified by a [place] Radiologist. Impression: This is an outside Imaging study and/or report imported for continuity of patient care. This Imaging study and/or report was not reviewed or verified by a [place] Radiologist. Primary Diagnostic Code: VERIFIED BY: / *ELECTRONICALLY FILED* [facility] Encounter Notes: All associated encounter notes This section contains the clinical notes associated to the Encounter. Date/Time Encounter Note(s) Provider Source Sep 10, 2022 12:00 AM NONVA NOTE: LOCAL TITLE: RADIOLOGY NONVA NOTE STANDARD TITLE: NONVA NOTE DATE OF NOTE: SEP 10, 2022 ENTRY DATE: SEP 11, 2022@09:16:13 AUTHOR: PEDRO DIA COSIGNER: URGENCY: STATUS: COMPLETED VistA Imaging - Scanned Document This note contains attached RADIOLOGY scanned document(s) received from an outside facility. Open [facility] to review the document(s). /og/ PEDRO DIA [facility] Signed: 09/11/2022 09:16 PEDRO DIA [facility]
--- OUTSIDE RECORDS SUMMARY | 2023-08-25 20:28 | XMS_ITS | Encounter Summary ---
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 Address [address] [place] [address] Support Name Relationship Address Phone CHARITY ANDERSON [...] PART A Mar 28, 2012 PART A [id number] [phone] MANINDER PUENTES PATIENT MEDICARE (WNR) MEDICARE (M) PART B Mar 28, 2012 PART B [id number] 48A [phone] MANINDER PUENTES PATIENT Selected Encounter This section includes the information on record at [place] for the Encounter. Date/Time Encounter Type Encounter Description Reason Pro vider Source Sep 10, 2022 11:51 AM Outpatient Encounter COMMUNITY CARE CONSULT IHE Encounter Template Text not used by [place] Plan of Treatment: Future Appointments (+ 6 months) and Future Tests (+/- 45 days) The Plan of Treatment section includes future care activities for the patient from all [place] treatmentfacilities. This section includes future appointments and future orders which are active, pending or scheduled. Future Appointments This section includes appointments that were scheduled to occur 6 months from the date of the Encounter, up to a maximum of 20 appointments. The data comes from all [place] treatment [facility]. Appointment Date/Time Appointment Type Appointme nt Facility Name Sep 11, 2022 08:51 PM [facility] Sep 13, 2022 02:30 PM AMBULATORY - REHAB MEDICIN E [facility] Sep 13, 2022 04:15 PM AMBULATORY - NONE [facility] Oct 25, 2022 11:00 AM [facility] Nov 08, 2022 10:00 AM AMBULATORY - SURGERY [facility] December 12, 2022 10:00 AM AMBULATORY - REHAB MEDICIN E [facility] December 12, 2022 11:00 AM AMBULATORY - NONE [facility] Jan 02, 2023 11:00 AM AMBULATORY - SUR[facility] Jan 21, 2023 10:30 AM AMBULATORY - SURGERY [facility] Feb 06, 2023 08:30 AM AMBULATORY - [facility]IATRY [facility] Feb 19, 2023 02:00 PM AMBULATORY - [place]IATRY [place] [facility] Mar 05, 2023 01:00 PM AMBULATORY - REHAB [facility] Lab Results: +/- 30 days of the encounter This section includes the Chemistry and Hematology Lab Results on record with [place] for the patient. Radiology Reports and Pathology Reports are provided separately, in subsequent sections. Lab Results This section contains the Chemistry/Hematology Results that were resulted 30 days before or 30 daysafter the date of the Encounter. Date/Time Source Result Type Result - Unit Interpretation Reference Range Comment Sep 13, 2022 04:02 PM [facility] LIPID PANEL,NON-FASTING Specimen Type: PLASMA No comment entered. Ordering Provider: MIN BATISTA Report Released Date/Time: Sep 13, 2022 03:53 PM Reporting Lab: [facility] [id number] Performing Lab: [facility] [address] CHOLESTEROL 152 <199 .HDL 41 >40 LDL CALCULATION 93 <99 VLDL CALCULATION 18 <29 NON HDL CHOLESTEROL 111 <129 TRIG(NON FASTING) 89 <149 Sep 13, 2022 04:02 PM [facility] HEMOGLOBIN A1C Specimen Type: BLOOD Comment: [...] Sep 13, 2022 03:53 PM Reporting Lab: [facility] [address] Performing Lab: [facility] [address] HEMOGLOBIN A1C 6.8 H 4.0-6.0 Sep 13, 2022 04:02 PM [facility] COMPREHENSIVE METABOLIC PANEL+MG Specimen Type: PLASMA No comment entered. Ordering Provider: MIN BATISTA Report Released Date/Time: Sep 13, 2022 03:53 PM Reporting Lab: [facility] [address] Performing Lab: [facility] [address] CREATININE 0.9 0.7-1.2 UREA NITROGEN 25 8-26 [...] and tobacco- related health factors from the [place] facility where the Encounter took place. Current Smoking Status This section includes the most current smoking, or tobacco-related health factor, from the [place] facility where the Encounter took place. Date/Time Current Smoking Status Comment Saul chapman Aug 05, 2011 01:53 PM LIFETIME NON-TOBACCO USER [facility] Advance Directives: All historical and current Section Date Range: From patient's date of to the date document was created. This section includes ALL of a patient's completed or amended [place] Advance and Rescinded Directives. The entries below indicate that a directive exists for the patient, but an actual copy is not included with this document. The data comes from all [place] facilities. Date Advance Directives Provider Source Oct 19, 2018 ADVANCE DIRECTIVE DISCUSSION MANAN MONTOYA HARMAN Carrasquillo ROSALES [facility] Oct 19, 2018 ADVANCE DIRECTIVE JANVERONICA RENATA [facility] Oct 24, 2011 ADVANCE DIRECTIVE DISCUSSION MEGHAN PERRY [facility] Oct 24, 2011 ADVANCE DIRECTIVE LIANNA PERRY JEFF[facility] Oct 02, 2011 ADVANCE DIRECTIVE DISCUSSION ANASTACIOSMEGHAN [facility] Radiology Reports: +/- 30 days of [...] the Encounter. The data comes from all [place] treatment facilities. Date/Time Radiology Report Provider Source Sep 10, 2022 12:41 PM NON [place] BRAIN: MANINDER ANDERSON [id number] -1945 M Exm Date: SEP 10, 2022@12:41 Req Phys: TARA SCHROEDER S Pat Loc: [facility] XRAY GENERAL AM (Req'g Loc Img Loc: OUTSOURCE MRI Service: Unknown (Case [id number] COMPLETE) NON [place] BRAIN (MRI Detailed) CPT:07026 Reason for Study: OUTSIDE STUDY Clinical History: OUTSIDE STUDY Report Status: Electronically Filed Date Reported: SEP 13, 2022 Report: This is an outside Imaging study and/or report imported for continuity of patient care. This Imaging study and/or report was not reviewed or verified by a [place] Radiologist. Impression: This is an outside Imaging study and/or report imported for continuity of patient care. This Imaging study and/or report was not reviewed or verified by a [place] Radiologist. Primary Diagnostic Code: VERIFIED BY: / *ELECTRONICALLY FILED* [facility] Sep 09, 2022 09:54 PM NON [place] CTA HEAD AN D NECK: MANINDER ANDERSON [id number] -1945 M Exm Date: SEP 09, 2022@21:54 Req Phys: SCHROEDER,TARA S Pat Loc: [facility] XRAY GENERAL AM (Req'g Loc Img Loc: OUTSOURCE CT Service: Unknown (Case [id number] COMPLETE) NON [place] CTA HEAD AND NECK (CT Detailed) CPT:99549 Reason for Study: OUTSIDE STUDY Clinical History: OUTSIDE STUDY Report Status: Electronically Filed Date Reported: SEP 13, 2022 Report: This is an outside Imaging study and/or report imported for continuity of patient care. This Imaging study and/or report was not reviewed or verified by a [place] Radiologist. Impression: This is an outside Imaging study and/or report imported for continuity of patient care. This Imaging study and/or report was not reviewed or verified by a [place] Radiologist. Primary Diagnostic Code: VERIFIED BY: / *ELECTRONICALLY FILED* [facility] Sep 09, 2022 09:[address] HEAD: MANINDER ANDERSON [id number] 1945 M Exm Date: SEP 09, 2022@21:49 Req Phys: SCHROEDER,TARA S Pat Loc: [facility] XRAY GENERAL AM (Req'g Loc Img Loc: OUTSOURCE CT Service: Unknown (Case [id number] COMPLETE) NON [place] CT HEAD (CT Detailed) CPT:16694 Reason for Study: OUTSIDE STUDY Clinical History: OUTSIDE STUDY Report Status: Electronically Filed Date Reported: SEP 13, 2022 Report: This is an outside Imaging study and/or report imported for continuity of patient care. This Imaging study and/or report was not reviewed or verified by a [place] Radiologist. Impression: This is an outside Imaging study and/or report imported for continuity of patient care. This Imaging study and/or report was not reviewed or verified by a [place] Radiologist. Primary Diagnostic Code: VERIFIED BY: / *ELECTRONICALLY FILED* [facility] Encounter Notes: All associated encounter notes This section contains the clinical notes associated to the Encounter. Date/Time Encounter Note(s) Provider Source Sep 10, 2022 11:51 AM NONVA NOTE: LOCAL TITLE: COMMUNITY CARE-CARE COORDINATION PLAN NOTE STANDARD TITLE: NONVA NOTE DATE OF NOTE: SEP 10, 2022@11:51 ENTRY DATE: SEP 10, 2022@11:51:12 AUTHOR: VANDANA CUELLAR EXP COSIGNER: URGENCY: STATUS: COMPLETED COMMUNITY CARE-CARE COORDINATION PLAN NOTE Has ADDENDA Joy from [facility] ([phone]), calling to request consult for brain MRI w/o contrast for slurred speech. Please place consult for to have this completed. 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 VANDANA CUELLAR [facility]
--- OUTSIDE RECORDS SUMMARY | 2023-08-25 20:28 | XMS_ITS | Encounter Summary ---
Author Name [facility] of [facility] Affairs Organization Department of [facility] Address [address] [place] [address] Support Name Relationship Address Phone JUSTIN CHARITY Next of Kin [address] [phone] [...] PART A Mar 28, 2012 PART A [id number] [phone] MANINDER PUENTES PATIENT MEDICARE (WNR) MEDICARE (M) PART B Mar 28, 2012 PART B [id number] MANINDER PUENTES PATIENT Selected Encounter This section includes the information on record at [place] for the Encounter. Date/Time Encounter Type Encounter Description Reason Provider Source Sep 11, 2022 09:36 AM Outpatient Encounter PRIMARY CARE/MEDICINE JOSEPH GUILLAUME Encounter Template Text not used by [place] Plan of Treatment: Future Appointments (+ 6 months) and Future Tests (+/- 45 days) The Plan of Treatment section includes future care activities for the patient from all [place] treatmentfacilities. This section includes future appointments and future orders which are active, pending or scheduled. Future Appointments This section includes appointments that were scheduled to occur 6 months from the date of the Encounter, up to a maximum of 20 appointments. The data comes from all [facility]. Appointment Date/Time Appointment Type Appointme nt Facility Name Sep 13, 2022 02:30 PM AMBULATORY - REHAB MEDICIN [facility] Sep 13, 2022 04:15 PM AMBULATORY - NONE [facility] Oct 25, 2022 11:00 AM AM[facility]ULATORY [facility] MED[facility]INE [facility] Nov 08, 2022 10:00 AM AMBULATORY - SURGERY [facility] December 12, 2022 10:00 AM AMBULATORY - REHAB MEDICIN E [facility] December 12, 2022 11:00 AM AMBULATORY - NONE [facility] Jan 02, 2023 11:00 AM AMBULATORY - SURGERY [facility] Jan 21, 2023 10:30 AM AMBULATORY - SURGERY [facility] Feb 06, 2023 08:30 AM AMBULATORY - [facility]ATRY [facility] Feb 19, 2023 02:00 PM AMBULATORY - PSYCHIATRY [facility] Mar 05, 2023 01:00 PM AMBULATORY - REHAB MEDICIN [facility] Lab Results: +/- 30 days of the encounter This section includes the Chemistry and Hematology Lab Results on record with [place] for the patient. Radiology Reports and Pathology Reports are provided separately, in subsequent sections. Lab Results This section contains the Chemistry/Hematology Results that were resulted 30 days before or 30 daysafter the date of the Encounter. Date/Time Source Result Type Result - Unit Interpretation Reference Range Comment Sep 13, 2022 04:02 PM [facility] HEMOGLOBIN A1C Specimen Type: BLOOD Comment: Values [...] Sep 13, 2022 03:53 PM Reporting Lab: [facility] [id number] Performing Lab: [facility] [id number] HEMOGLOBIN A1C 6.8 H 4.0-6.0 Sep 13, 2022 04:02 PM [facility] LIPID PANEL,NON-FASTING Specimen Type: PLASMA No comment entered. Ordering Provider: MIN BATISTA Report Released Date/Time: Sep 13, 2022 03:53 PM Reporting Lab: [facility] [id number] Performing Lab: [facility] [id number] CHOLESTEROL 152 <199 .HDL 41 >40 LDL CALCULATION 93 <99 VLDL CALCULATION 18 <29 NON HDL CHOLESTEROL 111 <129 TRIG(NON FASTING) 89 <149 Sep 13, 2022 04:02 PM [facility] COMPREHENSIVE METABOLIC PANEL+MG Specimen Type: PLASMA No comment entered. Ordering Provider: MIN BATISTA Report Released Date/Time: Sep 13, 2022 03:53 PM Reporting Lab: [facility] [id number] Performing Lab: [facility] [id number] CREATININE 0.9 0.7-1.2 UREA NITROGEN 25 8-26 [...] and tobacco- related health factors from the [place] facility where the Encounter took place. Current Smoking Status This section includes the most current smoking, or tobacco-related health factor, from the [place] facility where the Encounter took place. Date/Time Current Smoking Status Comment Saul chapman Aug 05, 2011 01:53 PM LIFETIME NON-TOBACCO USER [facility] Advance Directives: All historical and current Section Date Range: From patient's date of to the date document was created. This section includes ALL of a patient's completed or amended [place] Advance and Rescinded Directives. The entries below indicate that a directive exists for the patient, but an actual copy is not included with this document. The data comes from all [place] facilities. Date Advance Directives Provider Source Oct 19, 2018 ADVANCE DIRECTIVE ARTURO MONTOYASOFIA Carrasquillo [facility] Oct 19, 2018 ADVANCE DIRECTIVE DISCUSSION JANMANAN HARMAN Carrasquillo [facility] Oct 24, 2011 ADVANCE DIRECTIVE ARCHIEPARASLIANNA JEFFY [facility] Oct 24, 2011 ADVANCE DIRECTIVE DISCUSSION ORLANDOSALLIEALLAN POSEYPATRICE Scales [facility] Oct 02, 2011 ADVANCE DIRECTIVE DISCUSSION MEGHAN PERRYPATRICE Scales [facility] Radiology Reports: +/- 30 days of the [...] the Encounter. The data comes from all [place] treatment facilities. Date/Time Radiology Report Provider Source Sep 10, 2022 12:41 PM [facility] BRAIN: MANINDER ANDERSON [id number] -[id number] M Exm Date: SEP 10, 2022@12:41 Req Phys: TARA SCHROEDER S Pat Loc: [facility] X[facility] GENERAL AM (Req'g Loc Img Loc: OUTSOURCE MRI Service: Unknown (Case [id number] COMPLETE) NON [place] MRI BRAIN (MRI Detailed) CPT:66893 Reason for Study: OUTSIDE STUDY Clinical History: OUTSIDE STUDY Report Status: Electronically Filed Date Reported: SEP 13, 2022 Report: This is an outside Imaging study and/or report imported for continuity of patient care. This Imaging study and/or report was not reviewed or verified by a [place] Radiologist. Impression: This is an outside Imaging study and/or report imported for continuity of patient care. This Imaging study and/or report was not reviewed or verified by a [place] Radiologist. Primary Diagnostic Code: VERIFIED BY: / *ELECTRONICALLY FILED* [facility] Sep 09, 2022 09:54 PM NON [facility] CTA HEAD AN D NECK: MANINDER ANDERSON [id number] -[id number] M Exm Date: SEP 09, 2022@21:54 Req Phys: SCHROEDER,TARA S Pat Loc: [facility] GENERAL AM (Req'g Loc Img Loc: OUTSOURCE CT Service: Unknown (Case [id number] COMPLETE) NON [place] CTA HEAD AND NECK (CT Detailed) CPT:91559 Reason for Study: OUTSIDE STUDY Clinical History: OUTSIDE STUDY Report Status: Electronically Filed Date Reported: SEP 13, 2022 Report: This is an outside Imaging study and/or report imported for continuity of patient care. This Imaging study and/or report was not reviewed or verified by a [place] Radiologist. Impression: This is an outside Imaging study and/or report imported for continuity of patient care. This Imaging study and/or report was not reviewed or verified by a [place] Radiologist. Primary Diagnostic Code: VERIFIED BY: / *ELECTRONICALLY FILED* [facility] Sep 09, 2022 09:[address] HEAD: MANINDER ANDERSON [id number] M Exm Date: SEP 09, 2022@21:49 Req Phys: SCHRODEER,TARA S Pat Loc: [facility] GENERAL AM (Req'g Loc Img Loc: OUTSOURCE CT Service: Unknown (Case [id number] COMPLETE) NON [place] CT HEAD (CT Detailed) CPT:15974 Reason for Study: OUTSIDE STUDY Clinical History: OUTSIDE STUDY Report Status: Electronically Filed Date Reported: SEP 13, 2022 Report: This is an outside Imaging study and/or report imported for continuity of patient care. This Imaging study and/or report was not reviewed or verified by a [place] Radiologist. Impression: This is an outside Imaging study and/or report imported for continuity of patient care. This Imaging study and/or report was not reviewed or verified by a [place] Radiologist. Primary Diagnostic Code: VERIFIED BY: / *ELECTRONICALLY FILED* [facility] Encounter Notes: All associated encounter notes This section contains the clinical notes associated to the Encounter. Date/Time Encounter Note(s) Provider Source Sep 11, 2022 09:36 AM PRIMARY CARE SECUR E MESSAGING: LOCAL TITLE: PRIMARY CARE SECURE MESSAGING STANDARD TITLE: PRIMARY CARE SECURE MESSAGING DATE OF NOTE: SEP 11, 2022@09:36 ENTRY DATE: SEP 11, 2022@08:36:47 AUTHOR: JOSEPH GUILLAUME EXP COSIGNER: URGENCY: STATUS: COMPLETED ------Original Message Sent: 09/10/2022 04:57 PM ET From: MANINDER ANDERSON [facility] Subject: Appointment:emergency appointment Yesterday I had to go to the emergency room at [facility]. I had dizziness and had fallen. My legs wouldn't support me very well. After the did some blood tests and a CT scan, he recommended I get an MRI. He got one set up for today, which I've gotten done. I understand you need to issue an order for this work. Please send to: [facility]; Emergency Dept. and Radiology; Med. Rec. # [id number]. Thank you! ------Original Message Sent: 09/11/2022 09:36 AM ET From: JOSEPH GUILLAUME To: MANINDER ANDERSON Subject: Appointment:emergency appointment Good morning, I am sorry to hear about yesterday. How are you doing? I entered the MRI community care consult. If you have questions you can call [phone]. Please let me know if there is anything else I can do. Take care. ELIZABETH David /og/ JOSEPH GUILLAUME REGISTERED NURSE Signed: 09/11/2022 08:36 JOSEPH GUILLAUME [facility]
--- OUTSIDE RECORDS SUMMARY | 2023-08-25 20:29 | XMS_ITS | Encounter Summary ---
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 Organization [facility] Address [address] [place] [address] Support Name Relationship Address Phone CHARITY ANDERSON [...] PART A Mar 28, 2012 PART A [id number] [phone] MANINDER PUENTES PATIENT MEDICARE (WNR) MEDICARE (M) PART B Mar 28, 2012 PART B [id number] [phone] MANINDER PUENTES PATIENT Selected Encounter This section includes the information on record at [place] for the Encounter. Date/Time Encounter Type Encounter Description Reason Provider Source Sep 13, 2022 02:30 PM OFF/OP CONSLTJ NEW/EST HI 55 EPILEPSY [facility] ICD-10-CM I63.9 Cerebral infarction, unspecified JESUS BATISTA IE A E Encounter Template Text not used by [facility] Assessments - Encounter Diagnoses This section includes the primary and secondary diagnoses documented for the Encounter. Date/Time Primary/Secondary Diagnosis Diagnosis Name Provider Source Sep 13, 2022 06:03 PM PRIMARY Cerebral infarction, unspecified LYNNE,JESUS IE A [facility] Plan of Treatment: Future Appointments (+ 6 months) and Future Tests (+/- 45 days) The Plan of Treatment section includes future care activities for the [facility] This section includes future appointments and future orders which are active, pending or scheduled. Future Appointments This section includes appointments that were scheduled to occur 6 months from the date of the Encounter, up to a maximum of 20 appointments. The data comes from all [place] treatment facilities. Appointment Date/Time Appointment Type Appointme nt Facility Name Oct 25, 2022 11:00 AM [facility] Nov 08, 2022 10:00 AM AMBULATORY - SURGERY [facility] December 12, 2022 10:00 [facility] 12, 2022 11:00 AM [facility] Jan 02, 2023 11:00 AM AMBULATORY - SURGERY [facility] Jan 21, 2023 10:30 AM AMBULATORY - SURGERY [facility] Feb 06, 2023 08:30 AM AMBULATORY - PSYCHIATRY [facility] Feb 19, 2023 02:00 PM AMBULATORY - PSYCHIATRY [facility] Mar 05, 2023 01:00 PM AMBULATORY - REHAB [facility] Lab Results: +/- 30 days of the encounter This section includes the Chemistry and Hematology Lab Results on record with [place] for the patient. Radiology Reports and Pathology Reports are provided separately, in subsequent sections. Lab Results This section contains the Chemistry/Hematology Results that were resulted 30 days before or 30 daysafter the date of the Encounter. Date/Time Source Result Type Result - Unit Interpretation Reference Range Comment Sep 13, 2022 04:02 PM [facility] LIPID PANEL,NON-FASTING Specimen Type: PLASMA No comment entered. Ordering Provider: MIN BATISTA Report Released Date/Time: Sep 13, 2022 03:53 PM Reporting Lab: [facility] [id number] Performing Lab: [facility] [id number] CHOLESTEROL 152 <199 .HDL 41 >40 LDL CALCULATION 93 <99 VLDL CALCULATION 18 <29 NON HDL CHOLESTEROL 111 <129 TRIG(NON FASTING) 89 <149 Sep 13, 2022 04:02 PM [facility] HEMOGLOBIN A1C Specimen Type: BLOOD Comment: [...] Sep 13, 2022 03:53 PM Reporting Lab: [facility] [id number] Performing Lab: [facility] [id number] HEMOGLOBIN A1C 6.8 H 4.0-6.0 Sep 13, 2022 04:02 PM [facility] COMPREHENSIVE METABOLIC PANEL+MG Specimen Type: PLASMA No comment entered. Ordering Provider: MIN BATISTA Report Released Date/Time: Sep 13, 2022 03:53 PM Reporting Lab: [facility] [id number] Performing Lab: [facility] [id number] CREATININE 0.9 0.7-1.2 UREA NITROGEN 25 8-26 GLUCOSE 126 H 70-100 SODIUM 138 136-145 POTASSIUM 3.3 L 3.5-5.1 CHLORIDE 102 98-107 CO2 26 22-29 CALCIUM 9.9 8.4-10.2 PROTEIN,TOTAL 7.1 6.0-8.3 ALBUMIN 4.4 3.5-5.2 BILIRUBIN, TOTAL 0.9 0.2-1.2 MAGNESIUM 1.8 1.6-2.6 ANION GAP 10 5-15 ALKALINE PHOSPHATASE 83 40-150 ALT/SGPT 86 H <55 AST/SGOT 90 H <34 CREAT EGFR(CKD-EPI) 89 >60 Vital Signs: All taken on the encounter date This section contains inpatient and outpatient Vital Signs collected on the date of the Encounter. Date/Time Temperature Pulse Blood Pressure Respiratory Rate SP02 Pain Height Weight Body Mass Index Source Sep 13, 2022 02:20 PM 153/95 mm[Hg] [facility] Sep 13, 2022 02:11 PM 98.6 F 81 /min 166/86 mm[Hg] 18 /min 96 % 0 [facility] Social History: Smoking Status (Most current) and Tobacco Use (All prior to encounter date) This section includes the most current, and the historical, smoking and tobacco- related health factors from the [place] facility where the Encounter took place. Current Smoking Status This section includes the most current smoking, or tobacco-related health factor, from the [place] facility where the Encounter took place. Date/Time Current Smoking Status Jose chapman Aug 05, 2011 01:53 PM LIFETIME NON-TOBACCO USER [facility] Advance Directives: All historical and current Section Date Range: From patient's date of to the date document was created. This section includes ALL of a patient's completed or amended [place] Advance and Rescinded Directives. The entries below indicate that a directive exists for the patient, but an actual copy is not included with this document. The data comes from all [facility]. Date Advance Directives Provider Source Oct 19, 2018 ADVANCE DIRECTIVE DISCUSSION MANAN MONTOYA [facility] Oct 19, 2018 ADVANCE DIRECTIVE VERONICA MONTOYA [facility] Oct 24, 2011 ADVANCE DIRECTIVE DISCUSSION MEGHAN PERRY [facility] Oct 24, 2011 ADVANCE DIRECTIVE LIANNA PERRY [facility] Oct 02, 2011 ADVANCE DIRECTIVE DISCUSSION MEGHAN PERRY [facility] Radiology Reports: +/- 30 days of [...] the Encounter. The data comes from all [place] treatment facilities. Date/Time Radiology Report Provider Source Sep 10, 2022 12:41 PM NON VA MRI BRAIN: HONGBLOSSOMMANINDER PATEL [id number] -[id number] M Exm Date: SEP 10, 2022@12:41 Req Phys: TARA SCHROEDER Loc: [facility] XRAY GENERAL AM (Req'g Loc Img Loc: OUTSOURCE MRI Service: Unknown (Case [id number] COMPLETE) NON VA MRI BRAIN (MRI Detailed) CPT:15429 Reason for Study: OUTSIDE STUDY Clinical History: OUTSIDE STUDY Report Status: Electronically Filed Date Reported: SEP 13, 2022 Report: This is an outside Imaging study and/or report imported for continuity of patient care. This Imaging study and/or report was not reviewed or verified by a [place] Radiologist. Impression: This is an outside Imaging study and/or report imported for continuity of patient care. This Imaging study and/or report was not reviewed or verified by a [place] Radiologist. Primary Diagnostic Code: VERIFIED BY: / *ELECTRONICALLY FILED* [facility] Sep 09, 2022 09:54 PM NON SD CTA HEAD AN D NECK: MANINDER ANDERSON [id number] 1945 M Exm Date: SEP 09, 2022@21:54 Req Phys: SCHROEDER,TARA S Pat Loc: [facility] XRAY GENERAL AM (Req'g Loc Img Loc: OUTSOURCE CT Service: Unknown (Case [id number] COMPLETE) NON SD CTA HEAD AND NECK (CT Detailed) CPT:33048 Reason for Study: OUTSIDE STUDY Clinical History: OUTSIDE STUDY Report Status: Electronically Filed Date Reported: SEP 13, 2022 Report: This is an outside Imaging study and/or report imported for continuity of patient care. This Imaging study and/or report was not reviewed or verified by a [place] Radiologist. Impression: This is an outside Imaging study and/or report imported for continuity of patient care. This Imaging study and/or report was not reviewed or verified by a [place] Radiologist. Primary Diagnostic Code: VERIFIED BY: / *ELECTRONICALLY FILED* [facility] Sep 09, 2022 09:[address] HEAD: MANINDER ANDERSON [id number] 1945 M Exm Date: SEP 09, 2022@21:49 Req Phys: SCHROEDER,TARA S Pat Loc: [facility] XRAY GENERAL AM (Req'g Loc Img Loc: OUTSOURCE CT Service: Unknown (Case [id number] COMPLETE) NON SD CT HEAD (CT Detailed) CPT:48533 Reason for Study: OUTSIDE STUDY Clinical History: OUTSIDE STUDY Report Status: Electronically Filed Date Reported: SEP 13, 2022 Report: This is an outside Imaging study and/or report imported for continuity of patient care. This Imaging study and/or report was not reviewed or verified by a [place] Radiologist. Impression: This is an outside Imaging study and/or report imported for continuity of patient care. This Imaging study and/or report was not reviewed or verified by a [place] Radiologist. Primary Diagnostic Code: VERIFIED BY: / *ELECTRONICALLY FILED* [facility] Encounter Notes: All associated encounter notes This section contains the clinical notes associated to the Encounter. Date/Time Encounter Note(s) Provider Source Sep 13, 2022 05:28 PM NEUROLOGY CONSULT: LOCAL TITLE: NEUROLOGY CONSULT STANDARD TITLE: NEUROLOGY CONSULT DATE OF NOTE: SEP 13, 2022@17:28 ENTRY DATE: SEP 13, 2022@17:28:14 AUTHOR: ROBI BATISTA COSIGNER: URGENCY: STATUS: COMPLETED HPI: JUSTINMANINDER PARKINSON is a 77 year old with past medical history significant for type 2 diabetes mellitus, hypertension, and hypercholesterolemia who presented for evaluation of recent focal stroke. He presents with his daughter Kellen. On Friday patient reported feeling dizzy, on Friday he fell and could not get up feeling extremely weak in bilateral legs. Additionally he was shaky with slurred speech. He went to [place] emergency department for evaluation, those records are not available, but presumably the examination was reassuring because he was discharged. He was recommended to have an outpatient MRI, which was completed and showed a 8 mm lacunar stroke in the left internal capsule posterior limb. Additionally he was found to have extensive chronic microvascular ischemic changes with many chronic lacunar infarctions within the supratentorial white matter and enlargement of the ventricular system. No note available, but per patient and daughter after MRI was completed, ED provider called patient back and initiated 3 weeks dual antiplatelet with Plavix and aspirin. ED provider also increase simvastatin to 80 mg daily. Since ED evaluation, he has been improving significantly, although he is now using a walker or cane and presents in a wheelchair today due to distance. Family is reasonably quite concerned. He is still endorsing dizziness particularly when he stands. His handwriting is messy per daughter and patient continues to feel weak generally, not focally. Prior to Friday, patient was very active walking 2 miles regularly without any gait abnormalities. He has intermittent diplopia in the past and occasional dizzy episodes. He had an episode of possible true vertigo in the past. 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 History of BPH and he takes finasteride and tamsulosin. Memory thinking is a little slowed per daughter, but overall okay. No headaches. Patient is a never smoker. He was taking aspirin 81 mg daily prior to stroke. Past Medical History: Active problems - Computerized Problem List is the source for the followin. Nasal congestion - improved with Flonase Nasal [place] 2. Hypercholesterolemia 3. Body mass index 30+ - obesity 4. Lower urinary tract symptoms due to benign prostatic hypertrophy 5. Chronic sinusitis 6. Essential hypertension 7. Allergic rhinitis 8. Bilateral sensory hearing loss - USES HEAR[employer] TO WATCH TV - plans to bring new hearing aids to next visit 9. Type 2 diabetes mellitus without complication - had eye check outside 08/12/21, he will bring records 10. 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 H/O: surgery - s/p Vasectomy 12. Hemorrhoids - HAS HAD IT SINCE - takes over the counter fiber 13. Slurred speech - is in Hospital requesting order for MRI Social History: Family History: No family history of stroke. Family history of dementia. Medications: Active Outpatient Medications (including Supplies): Active Outpatient Medications Status 1) CLOPIDOGREL BISULFATE 75MG TAB TAKE ONE TABLET BY ACTIVE MOUTH EVERY DAY 2) FINASTERIDE 5MG TAB TAKE ONE TABLET BY MOUTH EVERY ACTIVE DAY FOR PROSTATE 3) FLUTICASONE PROP 50MCG 120D NASAL INHL SPRAY 2 SPRAYS ACTIVE IN EACH NOSTRIL AT BEDTIME NEEDED USE REGULARLY FOR RELIEF OF ALLERGIES/CONGESTION 4) HCTZ 25/LISINOPRIL 20MG TAB TAKE 1 TABLET BY MOUTH ACTIVE EVERY DAY FOR BLOOD PRESSURE 5) METFORMIN HCL 1000MG TAB TAKE ONE-HALF TABLET BY ACTIVE MOUTH TWO TIMES A DAY 6) SIMVASTATIN 80MG TAB TAKE ONE-HALF TABLET BY MOUTH AT ACTIVE BEDTIME FOR CHOLESTEROL 7) TAMSULOSIN HCL 0.4MG CAP TAKE ONE CAPSULE BY MOUTH AT ACTIVE BEDTIME Active Non-VA Medications Status 1) Non-VA ASPIRIN 81MG EC TAB 162MG MOUTH EVERY DAY ACTIVE 2) Non-VA CALCIUM CARBONATE 650MG (CA 260MG) TAB 650 MG ACTIVE MOUTH 3) Non-VA FISH OIL 1000MG (500MG DHA/EPA) CAP 2000MG ACTIVE MOUTH EVERY DAY 4) Non-VA MULTIVITAMIN CAP/TAB 1 TABLET MOUTH EVERY DAY ACTIVE 11 Total Medications Allergies: Patient has answered NKA EXAM: General appearance: NAD Head: Non-traumatic Respiratory: No increased work of breathing Neurologic Exam: Mental: Patient is alert, attentive and oriented. Speech is fluent and comprehension intact. Patient follows all commands. Handwriting is legible and normal size, but slightly messy for patient per daughter. Cranial Nerves: Visual peña intact, EOMI, subtle flattening of right nasolabial fold (daughter thinks face looks normal), hearing intact to voice, tongue is midline, and palate elevation symmetric. No dysarthria. Motor: Normal tone and bulk. No pronator drift, left arm elevation (sensory). Able to stand from chair with arms across chest, but difficult. In upper extremities, strength is 5/5 in bilateral shoulder abductors, elbow flexion/extension, wrist flexion/extension, and finger extension/FDI. In lower extremities, strength is 5/5 in hip flexion, hip adduction/hip abduction, knee extension/flexion, dorsiflexion and plantarflexion. Sensory: Normal to light touch throughout. No extinction. Patchy sensory changes in right lower extremity to pinprick, mainly in the leg, but intact in the foot otherwise normal pinprick. Reflexes: Reflexes are brisk throughout. 3+ bilateral uppers with spread to the fingers on biceps. 3+ bilateral lower extremities. No ankle clonus. Toes are flexor. Coordination: Intact [id number], [id number] Gait: Cautious stance and gait, feels dizzy. Slow, but normal stride length. MRI 09/10/2022left internal capsule diffusion restriction consistent with an acute to subacute ischemic stroke. Patchy and confluent T2 flair hyperintensity throughout the supratentorial white matter basal ganglia and several superimposed lacunar infarctions. Additionally chronic microvascular changes in the central brainstem. Prominent ventricular system. I personally reviewed these images. CTA -no high-grade stenosis but note the contrast was poorly timed. I personally reviewed the images. Minimal calcification of vessels on my review ASSESSMENT AND PLAN: BARONKRISSMANINDER PARKINSON is a 77 year old with past medical history significant for type 2 diabetes mellitus, hypertension, and hypercholesterolemia who presented for evaluation of left internal capsule, focal stroke. Etiology most likely small vessel ischemic disease. Stroke risk factors include type 2 diabetes mellitus, hyperlipidemia, hypertension. Never smoker. Stroke was identified after patient was seen in [place] ED, and MRI obtained a few days later and he has not had a stroke work-up. I will initiate an outpatient stroke work-up including LDL, A1c, TTE, and cardiac monitoring. Overall patient's exam is reassuring with 5/5 strength throughout. There are patchy sensory changes in his right lower leg, unlikely related to stroke. His exam has improved over the last several days per he and the daughter, he may have had subtle weakness and I suspect that he had weakness that resulted in his fall on Friday. Uncommon for deep lacunar strokes to cause dizziness/lightheadedness. I do note that MRI with evidence of current extensive white matter ischemic disease, with many lacunar infarctions and dizziness may be a consequence. With regards to poststroke recovery, I think it is favorable and he is already improving over the last few days. I will refer him to stroke rehab, largely for subtle deficits in which he may benefit from occupational and physical therapy evaluations. Ischemic white matter changes, evidence of several lacunar infarctions on MRI brain. There is dilatation of the ventricles, which I think is secondary to atrophy in the setting of extensive white matter changes. Patient has a history of BPH, but prior to most recent event on Friday/Friday, patient was walking 2 miles daily. We did not extensively discuss cognition, as visit was largely focused on evaluation for stroke and follow-up. We will revisit memory and thinking at next visit. A1c, LDL, CMP (daughter noted, electrolyte changes per ED) -TTE -Zio patch, 2 weeks -Simvastatin 80 mg (recently increased from 40 by outside ED), depending on LDL, may switch to high intensity statin with atorvastatin 40 -Long-term hypertension goal, SBP under 130 -Goal A1c <7 -Dual antiplatelet with aspirin and Plavix x3 weeks, then ASA 325 daily -Stroke rehab -Return to clinic in 3 months I spent 60 minutes in total care for patient including image review, chart review, examination, assessment and plan. /og/ ROBI BATISTA MD Physician Signed: 09/13/2022 18:03 ROBI BATISTA [facility] Sep 13, 2022 03:57 PM REPORT OF CONTACT: LOCAL TITLE: APPOINTMENT SCHEDULING NOTE STANDARD TITLE: REPORT OF CONTACT DATE OF NOTE: SEP 13, 2022@15:57 ENTRY DATE: SEP 13, 2022@15:57:46 AUTHOR: MARII OTTO EXP COSIGNER: URGENCY: STATUS: COMPLETED Return to Clinic Order needing clarification Return to [facility] on or around ( Sep 13, 2022 ) for a total of 1 appointment(s) 30 minute follow-up Other: [place] states this RTC is suppose to be a 3 month follow up. Please advise and place new order. /emil OTTO CLOTHING MAN Signed: 09/13/2022 15:59 Receipt Acknowledged By: * AWAITING SIGNATURE * BELLE NIEVES * AWAITING SIGNATURE * ROBI BATISTA LANAE K [facility] Sep 13, 2022 02:17 PM NEUROLOGY NURSING OUTPATIENT NOTE: LOCAL TITLE: NEUROLOGY CLINIC NURSING NOTE STANDARD TITLE: NEUROLOGY NURSING OUTPATIENT NOTE DATE OF NOTE: SEP 13, 2022@14:17 ENTRY DATE: SEP 13, 2022@14:17:46 AUTHOR: ROBI HANNA COSIGNER: URGENCY: STATUS: COMPLETED Type of visit: Appointment Check In Reason for Visit: Consult Vital Signs: Blood Pressure: 166/86 (09/13/2022 14:11) Pulse: 81 (09/13/2022 14:11) Respiration: 18 (09/13/2022 14:11) Temperature: 98.6 F [37.0 C] (09/13/2022 14:11) Weight: 204.3 lb [92.67 kg] (05/16/2022 10:03) Height: 69 in [175.3 cm] (05/16/2022 10:03) BMI: 30.2 Pain: 0 (09/13/2022 14:11) Allergies: Patient has answered NKA Medications: Active Outpatient Medications and Supplies: Active Outpatient Medications (including Supplies): Active Outpatient Medications Status 1) CLOPIDOGREL BISULFATE 75MG TAB TAKE ONE TABLET BY ACTIVE MOUTH EVERY DAY 2) FINASTERIDE 5MG TAB TAKE ONE TABLET BY MOUTH EVERY ACTIVE DAY FOR PROSTATE 3) FLUTICASONE PROP 50MCG 120D NASAL INHL SPRAY 2 SPRAYS ACTIVE IN EACH NOSTRIL AT BEDTIME NEEDED USE REGULARLY FOR RELIEF OF ALLERGIES/CONGESTION 4) HCTZ 25/LISINOPRIL 20MG TAB TAKE 1 TABLET BY MOUTH ACTIVE EVERY DAY FOR BLOOD PRESSURE 5) METFORMIN HCL 1000MG TAB TAKE ONE-HALF TABLET BY ACTIVE MOUTH TWO TIMES A DAY 6) SIMVASTATIN 80MG TAB TAKE ONE-HALF TABLET BY MOUTH AT ACTIVE BEDTIME FOR CHOLESTEROL 7) TAMSULOSIN HCL 0.4MG CAP TAKE ONE CAPSULE BY MOUTH AT ACTIVE BEDTIME Active Non-VA Medications Status 1) Non-VA ASPIRIN 81MG EC TAB 162MG MOUTH EVERY DAY ACTIVE 2) Non-VA CALCIUM CARBONATE 650MG (CA 260MG) TAB 650 MG ACTIVE MOUTH 3) Non-VA FISH OIL 1000MG (500MG DHA/EPA) CAP 2000MG ACTIVE MOUTH EVERY DAY 4) Non-VA MULTIVITAMIN CAP/TAB 1 TABLET MOUTH EVERY DAY ACTIVE 11 Total Medications Patient reports the following changes regarding the current pharmacy list of medications: Plavix 75mg po everyday ddnies chest pain, no SOB. 2nd B/P: 153/95 /es/ ROBI HANNA LPN LPN Signed: 09/13/2022 14:22 ROBI HANNA [facility]
--- OUTSIDE RECORDS SUMMARY | 2023-08-25 20:29 | XMS_ITS | Encounter Summary ---
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 Organization Department of [facility] Address [address] [place] [address] Support Name Relationship Address Phone CHARITY ANDERSON [...] PART A Mar 28, 2012 PART A [id number] [phone] MANINDER PUENTES PATIENT MEDICARE (WNR) MEDICARE (M) PART B Mar 28, 2012 PART B [id number] [id number] [phone] MANINDER PUENTES PATIENT Selected Encounter This section includes the information on record at [place] for the Encounter. Date/Time Encounter Type Encounter Description Reason Provider Source Sep 11, 2022 11:35 AM Outpatient Encounter TELEPHONE TRIAGE ISAIAS VILLARREAL Encounter Template Text not used by [place] Plan of Treatment: Future Appointments (+ 6 months) and Future Tests (+/- 45 days) The Plan of Treatment section includes future care activities for the patient from all [place] treatmentfacilities. This section includes future appointments and future orders which are active, pending or scheduled. Future Appointments This section includes appointments that were scheduled to occur 6 months from the date of the Encounter, up to a maximum of 20 appointments. The data comes from all [place] treatment [facility]. Appointment Date/Time Appointment Type Appointme nt Facility Name Sep 13, 2022 02:30 PM AMBULATORY - REHAB MEDICIN E [facility] Sep 13, 2022 04:15 PM [facility] Oct 25, 2022 11:00 AM [facility] Nov 08, 2022 10:00 AM AMBULATORY - SURGERY [facility] December 12, 2022 10:00 AM AMBULATORY - REHAB MEDICIN E [facility] December 12, 2022 11:00 AM [facility] Jan 02, 2023 11:00 AM AMBULATORY - SURGERY [facility] Jan 21, 2023 10:30 AM [facility] Feb 06, 2023 08:30 AM AMBULATORY - [facility]CHIATRY [facility] Feb 19, 2023 02:00 PM AMBULATORY - PSYCHIATRY [facility] Mar 05, 2023 01:00 PM AMBULATORY - [facility]AB [facility] Lab Results: +/- 30 days of the encounter This section includes the Chemistry and Hematology Lab Results on record with [place] for the patient. Radiology Reports and Pathology Reports are provided separately, in subsequent sections. Lab Results This section contains the Chemistry/Hematology Results that were resulted 30 days before or 30 daysafter the date of the Encounter. Date/Time Source Result Type Result - Unit Interpretation Reference Range Comment Sep 13, 2022 04:02 PM [facility] LIPID PANEL,NON-FASTING Specimen Type: PLASMA No comment entered. Ordering Provider: MIN BATISTA Report Released Date/Time: Sep 13, 2022 03:53 PM Reporting Lab: [facility] [id number] Performing Lab: [facility] [id number] CHOLESTEROL 152 <199 .HDL 41 >40 LDL CALCULATION 93 <99 VLDL CALCULATION 18 <29 NON HDL CHOLESTEROL 111 <129 TRIG(NON FASTING) 89 <149 Sep 13, 2022 04:02 PM [facility] HEMOGLOBIN A1C Specimen Type: BLOOD Comment: Values [...] Sep 13, 2022 03:53 PM Reporting Lab: [facility] [id number] Performing Lab: [facility] [id number] HEMOGLOBIN A1C 6.8 H 4.0-6.0 Sep 13, 2022 04:02 PM [facility] COMPREHENSIVE METABOLIC PANEL+MG Specimen Type: PLASMA No comment entered. Ordering Provider: MIN BATISTA Report Released Date/Time: Sep 13, 2022 03:53 PM Reporting Lab: [facility] [id number] Performing Lab: [facility] [address] CREATININE 0.9 0.7-1.2 UREA NITROGEN 25 8-26 [...] and tobacco- related health factors from the [place] facility where the Encounter took place. Current Smoking Status This section includes the most current smoking, or tobacco-related health factor, from the [place] facility where the Encounter took place. Date/Time Current Smoking Status Comment Saul chapman Aug 05, 2011 01:53 PM LIFETIME NON-TOBACCO USER [facility] Advance Directives: All historical and current Section Date Range: From patient's date of to the date document was created. This section includes ALL of a patient's completed or amended [place] Advance and Rescinded Directives. The entries below indicate that a directive exists for the patient, but an actual copy is not included with this document. The data comes from all [place] facilities. Date Advance Directives Provider Source Oct 19, 2018 ADVANCE DIRECTIVE DISCUSSION MANAN [facility]TO[facility] Oct 19, 2018 ADVANCE DIRECTIVE JANVERONICA FREDY [facility] Oct 24, 2011 ADVANCE DIRECTIVE LIANNA PERRY JEFF[facility] Oct 24, 2011 ADVANCE DIRECTIVE DISCUSSION ARCHIEPARASMEGHAN [facility] Oct 02, 2011 ADVANCE DIRECTIVE DISCUSSION [facility] Radiology Reports: +/- 30 days of the [...] the Encounter. The data comes from all [place] treatment facilities. Date/Time Radiology Report Provider Source Sep 10, 2022 12:41 PM NON [place] MRI BRAIN: MANINDER ANDERSON [id number] -1945 M Exm Date: SEP 10, 2022@12:41 Req Phys: TARA SCHROEDER S Pat Loc: [facility] XRAY GENERAL AM (Req'g Loc Img Loc: OUTSOURCE MRI Service: Unknown (Case [id number] COMPLETE) NON [place] MRI BRAIN (MRI Detailed) CPT:37124 Reason for Study: OUTSIDE STUDY Clinical History: OUTSIDE STUDY Report Status: Electronically Filed Date Reported: SEP 13, 2022 Report: This is an outside Imaging study and/or report imported for continuity of patient care. This Imaging study and/or report was not reviewed or verified by a [place] Radiologist. Impression: This is an outside Imaging study and/or report imported for continuity of patient care. This Imaging study and/or report was not reviewed or verified by a [place] Radiologist. Primary Diagnostic Code: VERIFIED BY: / *ELECTRONICALLY FILED* [facility] Sep 09, 2022 09:54 PM NON [place] CTA HEAD AN D NECK: MANINDER ANDERSON [id number] -1945 M Exm Date: SEP 09, 2022@21:54 Req Phys: SCHROEDER,TARA S Pat Loc: [facility] XRAY GENERAL AM (Req'g Loc Img Loc: OUTSOURCE CT Service: Unknown (Case [id number] COMPLETE) NON [place] CTA HEAD AND NECK (CT Detailed) CPT:39429 Reason for Study: OUTSIDE STUDY Clinical History: OUTSIDE STUDY Report Status: Electronically Filed Date Reported: SEP 13, 2022 Report: This is an outside Imaging study and/or report imported for continuity of patient care. This Imaging study and/or report was not reviewed or verified by a [place] Radiologist. Impression: This is an outside Imaging study and/or report imported for continuity of patient care. This Imaging study and/or report was not reviewed or verified by a [place] Radiologist. Primary Diagnostic Code: VERIFIED BY: / *ELECTRONICALLY FILED* [facility] Sep 09, 2022 09:[address] HEAD: MANINDER ANDERSON [id number] 1945 M Exm Date: SEP 09, 2022@21:49 Req Phys: SCHROEDER,TARA S Pat Loc: [facility] XRAY GENERAL AM (Req'g Loc Img Loc: OUTSOURCE CT Service: Unknown (Case [id number] COMPLETE) NON [place] CT HEAD (CT Detailed) CPT:56765 Reason for Study: OUTSIDE STUDY Clinical History: OUTSIDE STUDY Report Status: Electronically Filed Date Reported: SEP 13, 2022 Report: This is an outside Imaging study and/or report imported for continuity of patient care. This Imaging study and/or report was not reviewed or verified by a [place] Radiologist. Impression: This is an outside Imaging study and/or report imported for continuity of patient care. This Imaging study and/or report was not reviewed or verified by a [place] Radiologist. Primary Diagnostic Code: VERIFIED BY: / *ELECTRONICALLY FILED* [facility] Encounter Notes: All associated encounter notes This section contains the clinical notes associated to the Encounter. Date/Time Encounter Note(s) Provider Source Sep 11, 2022 11:35 AM RN PROGRESS NOTE: LOCAL TITLE: CCC: CLINICAL TRIAGE STANDARD TITLE: RN PROGRESS NOTE DATE OF NOTE: SEP 11, 2022@11:35:20 ENTRY DATE: SEP 11, 2022@11:35:20 AUTHOR: ISAIAS VILLARREAL COSIGNER: URGENCY: STATUS: COMPLETED CCC: CLINICAL TRIAGE Has ADDENDA Patient Demographics Patient Name: MANINDER ANDERSON Patient Primary Address: [address] [place] [id number] Patient Primary Phone: [phone] Patient : 1945 Patient Age: 77 SSN: [id number] Caller/Recipient Relation to Patient: Daughter Call Back Number: [phone] Caller Name: Sima Emergency Contact: CHARITY ANDERSON Triage Summary Nurse Summary: ################################ ####################### PATIENT CONCERN/DURATION/ONSET: 's ifrah Foreman calls to report that [facility] will be faxing over images to provider, however, some images can not be faxed. Sima will be picking up a disk with these images and plans to hand deliver to [facility] today. Sima also provided fax number for [facility] to request any other necessary records: [phone]. HISTORY/PREVIOUS TREATMENT: None Best contact for caller [phone] (Verified as previous number provided phone did not allow call through). 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 Caller verbalized understanding through teach back method at time of call. 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 If transfer is possible, please let vet's daughter know that delivery of a CD is not necessary. /og/ JOSEPH GUILLAUME REGISTERED NURSE Signed: 09/11/2022 11:46 Receipt Acknowledged By: 09/11/2022 14:10 /og/ RAUDEL LOPEZ 09/11/2022 ADDENDUM STATUS: COMPLETED [facility] is unable to digitally upload imaging to [facility]. They will be mailing disk to [facility]. /og/ RAUDEL LOPEZ Signed: 09/11/2022 14:11 Receipt Acknowledged By: * AWAITING SIGNATURE * JOSEPH GUILLAUME 09/11/2022 ADDENDUM STATUS: COMPLETED Daughter dropped off imaging disk and it was interofficed to [facility] File room /og/ RAUDEL LOPEZ Signed: 09/11/2022 14:25 09/11/2022 ADDENDUM STATUS: COMPLETED Records came in from [facility], place in RN Fax Folder. /og/ SIMA ROLON LPN Signed: 09/11/2022 14:24 Receipt Acknowledged By: * AWAITING SIGNATURE * JOSEPH GUILLAUME [facility]
--- OUTSIDE RECORDS SUMMARY | 2023-08-25 20:29 | XMS_ITS | Encounter Summary ---
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 Organization [facility] of [facility] Address [address] [place] [address] Support Name Relationship Address Phone CHARITY ANDERSON [...] PART A Mar 28, 2012 PART A [id number] [phone] MANINDER PUENTES PATIENT MEDICARE (WNR) MEDICARE (M) PART B Mar 28, 2012 PART B [id number] 48a [phone] MANINDER PUENTES PATIENT Selected Encounter This section includes the information on record at [place] for the Encounter. Date/Time Encounter Type Encounter Description Reason Provider Source Sep 11, 2022 09:48 AM Outpatient Encounter TELEPHONE TRIAGE Su NAIR Encounter Template Text not used by [place] Plan of Treatment: Future Appointments (+ 6 [...] 20 appointments. The data comes from all [facility]. Appointment Date/Time Appointment Type Appointme nt Facility Name Sep 13, 2022 02:30 PM AMBULATORY - REHAB MEDICIN E [facility] Sep 13, 2022 04:15 PM AMBULATORY - NONE [facility] Oct 25, 2022 11:00 AM [facility] Nov 08, 2022 10:00 AM AMBULATORY - SURGERY [facility] December 12, 2022 10:00 AM AMBULATORY - REHAB MEDICIN E [facility] December 12, 2022 11:00 AM [facility] Jan 02, 2023 11:00 AM AMBULATORY - SURGERY [facility] Jan 21, 2023 10:30 AM AMBULATORY - SURGERY [facility] Feb 06, 2023 08:30 AM AMBULATORY - PSYCHIATRY [facility] Feb 19, 2023 02:00 PM AMBULATORY - PSYCHIATRY [facility] Mar 05, 2023 01:00 PM AMBULATORY - REHAB [facility] Lab Results: +/- 30 days of the encounter This section includes the Chemistry and Hematology Lab Results on record with [place] for the patient. Radiology Reports and Pathology Reports are provided separately, in subsequent sections. Lab Results This section contains the Chemistry/Hematology Results that were resulted 30 days before or 30 daysafter the date of the Encounter. Date/Time Source Result Type Result - Unit Interpretation Reference Range Comment Sep 13, 2022 04:02 PM [facility] LIPID PANEL,NON-FASTING Specimen Type: PLASMA No comment entered. Ordering Provider: MIN BATISTA Report Released Date/Time: Sep 13, 2022 03:53 PM Reporting Lab: [facility] [id number] Performing Lab: [facility] [address] CHOLESTEROL 152 <199 .HDL 41 >40 LDL CALCULATION 93 <99 VLDL CALCULATION 18 <29 NON HDL CHOLESTEROL 111 <129 TRIG(NON FASTING) 89 <149 Sep 13, 2022 04:02 PM [facility] HEMOGLOBIN A1C Specimen Type: BLOOD Comment: Values [...] Sep 13, 2022 03:53 PM Reporting Lab: [facility] [address] Performing Lab: [facility] [address] HEMOGLOBIN A1C 6.8 H 4.0-6.0 Sep 13, 2022 04:02 PM [facility] COMPREHENSIVE METABOLIC PANEL+MG Specimen Type: PLASMA No comment entered. Ordering Provider: MIN BATISTA Report Released Date/Time: Sep 13, 2022 03:53 PM Reporting Lab: [facility] [address] Performing Lab: [facility] [address] CREATININE 0.9 0.7-1.2 UREA NITROGEN 25 8-26 [...] and tobacco- related health factors from the [place] facility where the Encounter took place. Current Smoking Status This section includes the most current smoking, or tobacco-related health factor, from the [place] facility where the Encounter took place. Date/Time Current Smoking Status Jose chapman Aug 05, 2011 01:53 PM LIFETIME NON-TOBACCO USER [facility] Advance Directives: All historical and current Section Date Range: From patient's date of to the date document was created. This section includes ALL of a patient's completed or amended [place] Advance and Rescinded Directives. The entries below indicate that a directive exists for the patient, but an actual copy is not included with this document. The data comes from all [place] facilities. Date Advance Directives Provider Source Oct 19, 2018 ADVANCE DIRECTIVE DISCUSSION MANAN [facility]TO[facility] Oct 19, 2018 ADVANCE DIRECTIVE JANVERONICA Carrasquillo [facility] Oct 24, 2011 ADVANCE DIRECTIVE DISCUSSION MEGHAN PERRYNE Yordy [facility] Oct 24, 2011 ADVANCE DIRECTIVE LIANNA PERRY [facility] Oct 02, 2011 ADVANCE DIRECTIVE DISCUSSION MEGHAN PERRY [facility] Radiology Reports: +/- 30 days of the [...] the Encounter. The data comes from all [place] treatment facilities. Date/Time Radiology Report Provider Source Sep 10, 2022 12:41 PM NON [place] BRAIN: MANINDER ANDERSON [id number] -1945 M Exm Date: SEP 10, 2022@12:41 Req Phys: TARA SCHROEDER S Pat Loc: [facility] XRAY GENERAL AM (Req'g Loc Img Loc: OUTSOURCE MRI Service: Unknown (Case [id number] COMPLETE) NON [place] MRI BRAIN (MRI Detailed) CPT:85756 Reason for Study: OUTSIDE STUDY Clinical History: OUTSIDE STUDY Report Status: Electronically Filed Date Reported: SEP 13, 2022 Report: This is an outside Imaging study and/or report imported for continuity of patient care. This Imaging study and/or report was not reviewed or verified by a [place] Radiologist. Impression: This is an outside Imaging study and/or report imported for continuity of patient care. This Imaging study and/or report was not reviewed or verified by a [place] Radiologist. Primary Diagnostic Code: VERIFIED BY: / *ELECTRONICALLY FILED* [facility] Sep 09, 2022 09:54 PM NON [place] CTA HEAD AN D NECK: MANINDER ANDERSON [id number] -1945 M Exm Date: SEP 09, 2022@21:54 Req Phys: SCHROEDERTARA S Pat Loc: [facility] XRAY GENERAL AM (Req'g Loc Img Loc: OUTSOURCE CT Service: Unknown (Case [id number] COMPLETE) NON [place] CTA HEAD AND NECK (CT Detailed) CPT:20290 Reason for Study: OUTSIDE STUDY Clinical History: OUTSIDE STUDY Report Status: Electronically Filed Date Reported: SEP 13, 2022 Report: This is an outside Imaging study and/or report imported for continuity of patient care. This Imaging study and/or report was not reviewed or verified by a [place] Radiologist. Impression: This is an outside Imaging study and/or report imported for continuity of patient care. This Imaging study and/or report was not reviewed or verified by a [place] Radiologist. Primary Diagnostic Code: VERIFIED BY: / *ELECTRONICALLY FILED* [facility] Sep 09, 2022 09:[address] HEAD: MANINDER ANDERSON [id number] 1945 M Exm Date: SEP 09, 2022@21:49 Req Phys: SCHROEDER,TARA S Pat Loc: [facility] XRAY GENERAL AM (Req'g Loc Img Loc: OUTSOURCE CT Service: Unknown (Case [id number] COMPLETE) NON [place] CT HEAD (CT Detailed) CPT:56189 Reason for Study: OUTSIDE STUDY Clinical History: OUTSIDE STUDY Report Status: Electronically Filed Date Reported: SEP 13, 2022 Report: This is an outside Imaging study and/or report imported for continuity of patient care. This Imaging study and/or report was not reviewed or verified by a [place] Radiologist. Impression: This is an outside Imaging study and/or report imported for continuity of patient care. This Imaging study and/or report was not reviewed or verified by a [place] Radiologist. Primary Diagnostic Code: VERIFIED BY: / *ELECTRONICALLY FILED* [facility] Encounter Notes: All associated encounter notes This section contains the clinical notes associated to the Encounter. Date/Time Encounter Note(s) Provider Source Sep 11, 2022 09:49 AM RN PROGRESS NOTE: LOCAL TITLE: CCC: CLINICAL TRIAGE STANDARD TITLE: RN PROGRESS NOTE DATE OF NOTE: SEP 11, 2022@09:49:03 ENTRY DATE: SEP 11, 2022@09:49:03 AUTHOR: VALE NAIR COSIGNER: URGENCY: STATUS: COMPLETED CCC: CLINICAL TRIAGE Has ADDENDA Patient Demographics Patient Name: MANINDER ANDERSON Patient Primary [address]: [address] [place] [address] Patient Primary Phone: [phone] Patient : 1945 Patient Age: 77 SSN: [id number] Caller/Recipient Relation to Patient: Self Emergency Contact: CHARITY ANDERSON Triage Summary Nurse Summary: NURSES NOTES Pt and pts family members including iglesia Foreman call to speak to PACT, to report that pts [facility] provider Dr. Vipin Fuentes (pt was seen 09/09/22 at [place] and then had a MRI completed on 09/10/22) today [facility] provider read the MRI is recommending a few things: 1. Marshall seek care at [facility] [place]. 2. Pt be seen and followed by [facility] [address] as primary care provider going forward because they work closely with [facility]. Pt and family would like a call back regarding these requests per ED provider recommendations. Iglesia Foreman can be reached at [phone]. Forwarding to PACT for f/u and further management per COVID-19 guidance. Triage complete, all follow up deferred to care team. (Caller could accurately summarize the agreed upon plan of care as discussed in the education log portion of this note.) Per policy, automated recommendations for an appointment indicates an interaction (virtual or in-person) with the care team. 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 /og/ JOSEPH GUILLAUME REGISTERED NURSE Signed: 09/11/2022 10:58 VALE NAIR [facility]
--- OUTSIDE RECORDS SUMMARY | 2023-08-25 20:29 | XMS_ITS | Encounter Summary ---
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 Organization Department of [facility] Address [address] [place] [address] Support Name Relationship Address Phone JUSTIN CHARITY [...] PART A Mar 28, 2012 PART A [id number] [phone] MANINDER PUENTES PATIENT MEDICARE (WNR) MEDICARE (M) PART B Mar 28, 2012 PART B [phone] MANINDER PUENTES PATIENT Selected Encounter This section includes the information on record at OR for the Encounter. Date/Time Encounter Type Encounter Description Reason Provider Source Sep 12, 2022 08:27 AM Outpatient Encounter PRIMARY CARE/MEDICINE JOSEPH GUILLAUME Encounter Template Text not used by OR Plan of Treatment: Future Appointments (+ 6 months) and Future Tests (+/- 45 days) The Plan of Treatment section includes future care activities for the patient from all OR treatmentfacilities. This section includes future appointments and future orders which are active, pending or scheduled. Future Appointments This section includes appointments that were scheduled to occur 6 months from the date of the Encounter, up to a maximum of 20 appointments. The data comes from all [facility]. Appointment Date/Time Appointment Type Appointme nt Facility Name Sep 13, 2022 02:30 PM AMBULATORY - REHAB MEDICIN E [facility] Sep 13, 2022 04:15 PM AMBULATORY - NONE [facility] Oct 25, 2022 11:00 AM AM[facility]UL[facility]ORY [facility] MED[facility]INE [facility] Nov 08, 2022 10:00 AM AMBULATORY - SURGERY [facility] December 12, 2022 10:00 AM AMBULATORY - REHAB MEDICIN E [facility] December 12, 2022 11:00 AM AMBULATORY - NONE [facility] Jan 02, 2023 11:00 AM AMBULATORY - SURGERY [facility] Jan 21, 2023 10:30 AM AMBULATORY - SURGERY [facility] Feb 06, 2023 08:30 AM AMBULATORY - PSYCHIATRY [facility] Feb 19, 2023 02:00 PM AMBULATORY - PSYCHIATRY [facility] Mar 05, 2023 01:00 PM AMBULATORY - REHAB MEDICIN [facility] Lab Results: +/- 30 days of the encounter This section includes the Chemistry and Hematology Lab Results on record with OR for the patient. Radiology Reports and Pathology Reports are provided separately, in subsequent sections. Lab Results This section contains the Chemistry/Hematology Results that were resulted 30 days before or 30 daysafter the date of the Encounter. Date/Time Source Result Type Result - Unit Interpretation Reference Range Comment Sep 13, 2022 04:02 PM [facility] LIPID PANEL,NON-FASTING Specimen Type: PLASMA No comment entered. Ordering Provider: MIN BATISTA Report Released Date/Time: Sep 13, 2022 03:53 PM Reporting Lab: [facility] [id number] Performing Lab: [facility] [id number] CHOLESTEROL 152 <199 .HDL 41 >40 LDL CALCULATION 93 <99 VLDL CALCULATION 18 <29 NON HDL CHOLESTEROL 111 <129 TRIG(NON FASTING) 89 <149 Sep 13, 2022 04:02 PM [facility] HEMOGLOBIN A1C Specimen Type: BLOOD Comment: Values [...] Sep 13, 2022 03:53 PM Reporting Lab: [facility] [id number] Performing Lab: [facility] [id number] HEMOGLOBIN A1C 6.8 H 4.0-6.0 Sep 13, 2022 04:02 PM [facility] COMPREHENSIVE METABOLIC PANEL+MG Specimen Type: PLASMA No comment entered. Ordering Provider: MIN BATISTA Report Released Date/Time: Sep 13, 2022 03:53 PM Reporting Lab: [facility] [id number] Performing Lab: [facility] [id number] CREATININE 0.9 0.7-1.2 UREA NITROGEN 25 8-26 [...] and tobacco- related health factors from the OR facility where the Encounter took place. Current Smoking Status This section includes the most current smoking, or tobacco-related health factor, from the OR facility where the Encounter took place. Date/Time Current Smoking Status Comment Saul chapman Aug 05, 2011 01:53 PM LIFETIME NON-TOBACCO USER [facility] Advance Directives: All historical and current Section Date Range: From patient's date of to the date document was created. This section includes ALL of a patient's completed or amended OR Advance and Rescinded Directives. The entries below indicate that a directive exists for the patient, but an actual copy is not included with this document. The data comes from all OR facilities. Date Advance Directives Provider Source Oct 19, 2018 ADVANCE DIRECTIVE DISCUSSION MANAN MONTOYA CB Oct 19, 2018 ADVANCE DIRECTIVE DARIAVERONICA ALDANA FREDY YANEZ [facility] Oct 24, 2011 ADVANCE DIRECTIVE DISCUSSION MEGHAN PERRYPATRICE Scales [facility] Oct 24, 2011 ADVANCE DIRECTIVE LIANNA PERRY [facility] Oct 02, 2011 ADVANCE DIRECTIVE DISCUSSION MEGHAN PERRY [facility] Radiology Reports: +/- 30 days of the [...] the Encounter. The data comes from all OR treatment facilities. Date/Time Radiology Report Provider Source Sep 10, 2022 12:41 PM NON VA MRI BRAIN: MANINDER ANDERSON [id number] -1945 M Exm Date: SEP 10, 2022@12:41 Req Phys: TARA SCHROEDER S Pat Loc: [facility] XRAY GENERAL AM (Req'g Loc Img Loc: OUTSOURCE MRI Service: Unknown (Case [id number] COMPLETE) NON OR MRI BRAIN (MRI Detailed) CPT:33758 Reason for Study: OUTSIDE STUDY Clinical History: OUTSIDE STUDY Report Status: Electronically Filed Date Reported: SEP 13, 2022 Report: This is an outside Imaging study and/or report imported for continuity of patient care. This Imaging study and/or report was not reviewed or verified by a OR Radiologist. Impression: This is an outside Imaging study and/or report imported for continuity of patient care. This Imaging study and/or report was not reviewed or verified by a OR Radiologist. Primary Diagnostic Code: VERIFIED BY: / *ELECTRONICALLY FILED* [facility] Sep 09, 2022 09:54 PM NON VA CTA HEAD AN D NECK: MANINDER ANDERSON [id number] -1945 M Exm Date: SEP 09, 2022@21:54 Req Phys: SCHROEDER,TARA S Pat Loc: [facility] XRAY GENERAL AM (Req'g Loc Img Loc: OUTSOURCE CT Service: Unknown (Case [id number] COMPLETE) NON OR CTA HEAD AND NECK (CT Detailed) CPT:24076 Reason for Study: OUTSIDE STUDY Clinical History: OUTSIDE STUDY Report Status: Electronically Filed Date Reported: SEP 13, 2022 Report: This is an outside Imaging study and/or report imported for continuity of patient care. This Imaging study and/or report was not reviewed or verified by a OR Radiologist. Impression: This is an outside Imaging study and/or report imported for continuity of patient care. This Imaging study and/or report was not reviewed or verified by a OR Radiologist. Primary Diagnostic Code: VERIFIED BY: / *ELECTRONICALLY FILED* [facility] Sep 09, 2022 09:[address] HEAD: MANINDER ANDERSON [id number] 1945 M Exm Date: SEP 09, 2022@21:49 Req Phys: SCHROEDER,TARA S Pat Loc: [facility] XRAY GENERAL AM (Req'g Loc Img Loc: OUTSOURCE CT Service: Unknown (Case [id number] COMPLETE) NON OR CT HEAD (CT Detailed) CPT:19650 Reason for Study: OUTSIDE STUDY Clinical History: OUTSIDE STUDY Report Status: Electronically Filed Date Reported: SEP 13, 2022 Report: This is an outside Imaging study and/or report imported for continuity of patient care. This Imaging study and/or report was not reviewed or verified by a OR Radiologist. Impression: This is an outside Imaging study and/or report imported for continuity of patient care. This Imaging study and/or report was not reviewed or verified by a OR Radiologist. Primary Diagnostic Code: VERIFIED BY: / *ELECTRONICALLY FILED* [facility] Encounter Notes: All associated encounter notes This section contains the clinical notes associated to the Encounter. Date/Time Encounter Note(s) Provider Source Sep 12, 2022 08:27 AM PRIMARY CARE SECUR E MESSAGING: LOCAL TITLE: PRIMARY CARE SECURE MESSAGING STANDARD TITLE: PRIMARY CARE SECURE MESSAGING DATE OF NOTE: SEP 12, 2022@08:27 ENTRY DATE: SEP 12, 2022@07:27:42 AUTHOR: JOSEPH GUILLAUME EXP COSIGNER: URGENCY: STATUS: COMPLETED ------Original Message Sent: 09/12/2022 08:27 AM ET From: JOSEPH GUILLAUME To: MANINDER ANDERSON Subject: Appointment:MRI Results Good morning, OR Neurology should be reaching out to you. Please let me know if you do not hear from them in the next few days. Thanks, ELIZABETH David /og/ JOSEPH GUILLAUME REGISTERED NURSE Signed: 09/12/2022 07:27 JOSEPH GUILLAUME [facility]
--- OUTSIDE RECORDS SUMMARY | 2023-08-25 20:29 | XMS_ITS | Encounter Summary ---
Author Name [facility] Organization [facility] Address [address] [place] [address] Support Name Relationship Address Phone CHARITY ANDERSON [...] PART A Mar 28, 2012 PART A [id number] [phone] MANINDER PUENTES PATIENT MEDICARE (WNR) MEDICARE (M) PART B Mar 28, 2012 PART B [id number] 48A [phone] MANINDER PUENTES PATIENT Selected Encounter This section includes the information on record at PR for the Encounter. Date/Time Encounter Type Encounter Description Reason Provider Source Sep 11, 2022 08:51 PM Outpatient Encounter ADMIN COCO ACTIVKWABENA (MASLIOCT) LESA VIRAMONTES Encounter Template Text not used by PR Plan of Treatment: Future Appointments (+ 6 [...] 20 appointments. The data comes from all [facility]. Appointment Date/Time Appointment Type Appointme nt Facility Name Sep 13, 2022 02:30 PM AMBULATORY - REHAB [facility] E [facility] Sep 13, 2022 04:15 PM AMBULATORY - NONE [facility] Oct 25, 2022 11:00 AM AMBULATORY - MEDICINE [facility] Nov 08, 2022 10:00 AM AMBULATORY - SURGERY [facility] December 12, 2022 10:00 AM AMBULATORY - REHAB [facility] E [facility] December 12, 2022 11:00 AM AMBULATORY - NONE [facility] Jan 02, 2023 11:00 AM AMBULATORY - SURGERY [facility] Jan 21, 2023 10:30 AM AMBULATORY - SURGERY [facility] Feb 06, 2023 08:30 AM AMBULATORY - PSYCHIATRY [facility] Feb 19, 2023 02:00 PM AMBULATORY - PSYCHIATRY [facility] Mar 05, 2023 01:00 PM AMBULATORY - REHAB [facility] Lab Results: +/- 30 days of the encounter This section includes the Chemistry and Hematology Lab Results on record with PR for the patient. Radiology Reports and Pathology Reports are provided separately, in subsequent sections. Lab Results This section contains the Chemistry/Hematology Results that were resulted 30 days before or 30 daysafter the date of the Encounter. Date/Time Source Result Type Result - Unit Interpretation Reference Range Comment Sep 13, 2022 04:02 PM [facility] LIPID PANEL,NON-FASTING Specimen Type: PLASMA No comment entered. Ordering Provider: MIN BATISTA Report Released Date/Time: Sep 13, 2022 03:53 PM Reporting Lab: [facility] [id number] Performing Lab: [facility] [id number] CHOLESTEROL 152 <199 .HDL 41 >40 LDL CALCULATION 93 <99 VLDL CALCULATION 18 <29 NON HDL CHOLESTEROL 111 <129 TRIG(NON FASTING) 89 <149 Sep 13, 2022 04:02 PM [facility] HEMOGLOBIN A1C Specimen Type: BLOOD Comment: [...] Sep 13, 2022 03:53 PM Reporting Lab: [facility] [id number] Performing Lab: [facility] [address] HEMOGLOBIN A1C 6.8 H 4.0-6.0 Sep 13, 2022 04:02 PM [facility] COMPREHENSIVE METABOLIC PANEL+MG Specimen Type: PLASMA No comment entered. Ordering Provider: MIN BATISTA Report Released Date/Time: Sep 13, 2022 03:53 PM Reporting Lab: [facility] [id number] Performing Lab: [facility] [address] CREATININE 0.9 0.7-1.2 UREA NITROGEN 25 8-26 [...] and tobacco- related health factors from the [place] facility where the Encounter took place. Current Smoking Status This section includes the most current smoking, or tobacco-related health factor, from the [place] facility where the Encounter took place. Date/Time Current Smoking Status Jose chapman Aug 05, 2011 01:53 PM LIFETIME NON-TOBACCO USER [facility] Advance Directives: All historical and current Section Date Range: From patient's date of to the date document was created. This section includes ALL of a patient's completed or amended [place] Advance and Rescinded Directives. The entries below indicate that a directive exists for the patient, but an actual copy is not included with this document. The data comes from all [place] facilities. Date Advance Directives Provider Source Oct 19, 2018 ADVANCE DIRECTIVE DISCUSSION MANAN MONTOYA EIGARFIELD Neida CABA [facility] Oct 19, 2018 ADVANCE DIRECTIVE JNAVERONICA Carrasquillo FREDY YANEZ [facility] Oct 24, 2011 ADVANCE DIRECTIVE DISCUSSION ARCHIEPARASMEGHAN [facility] Oct 24, 2011 ADVANCE DIRECTIVE LIANNA PERRY [facility] Oct 02, 2011 ADVANCE DIRECTIVE DISCUSSION ANASTACIOSSALLIEALLAN POSEYPATRICE Scales [facility] Radiology Reports: +/- 30 days of [...] the Encounter. The data comes from all [place] treatment facilities. Date/Time Radiology Report Provider Source Sep 10, 2022 12:41 PM NON VA MRI BRAIN: MANINDER ANDERSON [id number] -1945 M Exm Date: SEP 10, 2022@12:41 Req Phys: TARA SCHROEDER S Pat Loc: [facility] XRAY GENERAL AM (Req'g Loc Img Loc: OUTSOURCE MRI Service: Unknown (Case [id number] COMPLETE) NON PR MRI BRAIN (MRI Detailed) CPT:97599 Reason for Study: OUTSIDE STUDY Clinical History: OUTSIDE STUDY Report Status: Electronically Filed Date Reported: SEP 13, 2022 Report: This is an outside Imaging study and/or report imported for continuity of patient care. This Imaging study and/or report was not reviewed or verified by a PR Radiologist. Impression: This is an outside Imaging study and/or report imported for continuity of patient care. This Imaging study and/or report was not reviewed or verified by a PR Radiologist. Primary Diagnostic Code: VERIFIED BY: / *ELECTRONICALLY FILED* [facility] Sep 09, 2022 09:54 PM NON VA CTA HEAD AN D NECK: MANINDER ANDERSON [id number] -1945 M Exm Date: SEP 09, 2022@21:54 Req Phys: SCHROEDER,TARA S Pat Loc: [facility]SP XRAY GENERAL AM (Req'g Loc Img Loc: OUTSOURCE CT Service: Unknown (Case [id number] COMPLETE) NON PR CTA HEAD AND NECK (CT Detailed) CPT:85478 Reason for Study: OUTSIDE STUDY Clinical History: OUTSIDE STUDY Report Status: Electronically Filed Date Reported: SEP 13, 2022 Report: This is an outside Imaging study and/or report imported for continuity of patient care. This Imaging study and/or report was not reviewed or verified by a [place] Radiologist. Impression: This is an outside Imaging study and/or report imported for continuity of patient care. This Imaging study and/or report was not reviewed or verified by a PR Radiologist. Primary Diagnostic Code: VERIFIED BY: / *ELECTRONICALLY FILED* [facility] Sep 09, 2022 09:[address] HEAD: MANINDER ANDERSON [id number] 1945 M Exm Date: SEP 09, 2022@21:49 Req Phys: SCHROEDERTARA S Pat Loc: [facility]SP XRAY GENERAL AM (Req'g Loc Img Loc: OUTSOURCE CT Service: Unknown (Case [id number] COMPLETE) NON PR CT HEAD (CT Detailed) CPT:75697 Reason for Study: OUTSIDE STUDY Clinical History: OUTSIDE STUDY Report Status: Electronically Filed Date Reported: SEP 13, 2022 Report: This is an outside Imaging study and/or report imported for continuity of patient care. This Imaging study and/or report was not reviewed or verified by a [place] Radiologist. Impression: This is an outside Imaging study and/or report imported for continuity of patient care. This Imaging study and/or report was not reviewed or verified by a [place] Radiologist. Primary Diagnostic Code: VERIFIED BY: / *ELECTRONICALLY FILED* [facility] Encounter Notes: All associated encounter notes This section contains the clinical notes associated to the Encounter. Date/Time Encounter Note(s) Provider Source Sep 09, 2022 08:51 PM NONVA NOTE: LOCAL TITLE: COMMUNITY CARE-ZAFAR SELF PRESENTING CARE COORD PLAN STANDARD TITLE: NONVA NOTE DATE OF NOTE: SEP 09, 2022@20:51 ENTRY DATE: SEP 11, 2022@20:51:54 AUTHOR: RUMA GARCIA COSIGNER: URGENCY: STATUS: COMPLETED COMMUNITY CARE-ZAFAR SELF PRESENTING CARE COORD PLAN NOTE Has ADDENDA Emergency Notification Intake Date Presenting to the Facility: Aug Method of Contact: Notified from [employer] worklist Notification ID: [id number] [facility] Referral #: [facility] Name: Hospital: [facility] Address: [address] [place] [address] City: [place] State: [place] Zip Code: [address] Phone : [facility] Facility Point of Contact: Name: REGGIE WYNNE Chief complaint: SLURRED SPEECH Primary Diagnosis: Disposition Discharged Date of discharge: Aug Discharge to home /og/ RUMA GARCIA SHOER Signed: 09/11/2022 20:54 Receipt Acknowledged By: 09/13/2022 08:55 /og/ LESA VIRAMONTES Community Care tubular riveter 09/13/2022 ADDENDUM STATUS: COMPLETED Fax sent to [facility], requesting records - ED note, and if applicable the H&P/DC summary for the 09/09/22 visit. /og/ LESA VIRAMONTES [facility] Care tubular riveter Signed: 09/13/2022 11:29 Receipt Acknowledged By: 09/13/2022 11:31 /og/ JOSEPH GUILLAUME REGISTERED NURSE 09/13/2022 ADDENDUM STATUS: COMPLETED [place] was seen in an outside ED on: 09/09/22 [place] Diagnosis: Lightheadedness; Slurring of speech Medical records uploaded to [facility]. Please review records for any additional follow up needed. /go/ Maryana R Nick RN CURTIS MSN Community [facility] Utilization Management Signed: 09/13/2022 15:59 Receipt Acknowledged By: * AWAITING SIGNATURE * TARA SCHROEDER * AWAITING SIGNATURE * JOSEPH GUILLAUME CHRISTINA M [facility]
--- OUTSIDE RECORDS SUMMARY | 2023-08-25 20:29 | XMS_ITS | Encounter Summary ---
Author Name Department of [facility] Organization [facility] of [facility] Address [address] [place] [address] Support Name Relationship Address Phone CHARITY ANDERSON [...] PART A Mar 28, 2012 PART A [id number] [phone] MANINDER PUENTES PATIENT MEDICARE (WNR) MEDICARE (M) PART B Mar 28, 2012 PART B [id number] 48A [phone] MANINDER PUENTES PATIENT Selected Encounter This section includes the information on record at [place] for the Encounter. Date/Time Encounter Type Encounter Description Reason Pro vider Source Sep 09, 2022 12:00 AM Outpatient Encounter ADMIN COCO HAIDER (MASLIOCT) E Encounter Template Text not used by PR [...] 20 appointments. The data comes from all [facility]. Appointment Date/Time Appointment Type Appointme nt Facility Name Sep 10, 2022 07:01 AM [facility]ORY [facility]ONE [facility] Sep 11, 2022 08:51 PM [facility] Sep 13, 2022 02:30 PM AMBULATORY - REHAB MEDICIN E [facility] Sep 13, 2022 04:15 PM [facility] [place] [facility] Oct 25, 2022 11:00 AM [facility] Nov 08, 2022 10:00 AM [facility] - SURGERY [facility] December 12, 2022 10:00 AM AMBULATORY - REHAB [facility] December 12, 2022 11:00 AM [facility] Jan 02, 2023 11:00 AM [facility] Jan 21, 2023 10:30 AM AMBULATORY - SURGERY [facility] Feb 06, 2023 08:30 AM AMBULATORY - PSYCHIATRY [facility] Feb 19, 2023 02:00 PM AMBULATORY - PSYCHIATRY [facility] Mar 05, 2023 01:00 PM AMBULATORY - REHAB [facility] Lab Results: +/- 30 days of the [...] Range Comment Sep 13, 2022 04:02 PM [facility] LIPID PANEL,NON-FASTING Specimen Type: PLASMA No comment entered. Ordering Provider: MIN BATISTA Report Released Date/Time: Sep 13, 2022 03:53 PM Reporting Lab: [facility] [id number] Performing Lab: [facility] [address] CHOLESTEROL 152 <199 .HDL 41 >40 LDL CALCULATION 93 <99 VLDL CALCULATION 18 <29 NON HDL CHOLESTEROL 111 <129 TRIG(NON FASTING) 89 <149 Sep 13, 2022 04:02 PM [facility] HEMOGLOBIN A1C Specimen Type: BLOOD [...] Sep 13, 2022 03:53 PM Reporting Lab: [facility] [id number] Performing Lab: [facility] [address] HEMOGLOBIN A1C 6.8 H 4.0-6.0 Sep 13, 2022 04:02 PM [facility] COMPREHENSIVE METABOLIC PANEL+MG Specimen Type: PLASMA No comment entered. Ordering Provider: MIN BATISTA Report Released Date/Time: Sep 13, 2022 03:53 PM Reporting Lab: [facility] [id number] Performing Lab: [facility] [address] CREATININE 0.9 0.7-1.2 UREA NITROGEN 25 8-26 [...] 05, 2011 01:53 PM LIFETIME NON-TOBACCO USER [facility] Advance Directives: All historical and [...] 19, 2018 ADVANCE DIRECTIVE DISCUSSION MANAN MONTOYA [facility] Oct 19, 2018 ADVANCE DIRECTIVE VERONICA MONTOYA [facility] Oct 24, 2011 ADVANCE DIRECTIVE ANASTACIOSLIANNA [facility] Oct 24, 2011 ADVANCE DIRECTIVE DISCUSSION ANASTACIOSMEGHAN [facility] Oct 02, 2011 ADVANCE DIRECTIVE DISCUSSION MEGHAN PERRY [facility] Radiology Reports: +/- 30 days [...] Source Sep 10, 2022 12:41 PM NON PR MRI BRAIN: MANINDER ANDERSON [id number] -1945 M Exm Date: SEP 10, 2022@12:41 Req Phys: TARA SCHROEDER S Pat Loc: [facility]SP XRAY GENERAL AM (Req'g Loc Img Loc: OUTSOURCE MRI Service: Unknown (Case [id number] COMPLETE) NON PR MRI BRAIN (MRI Detailed) CPT:95135 Reason for Study: OUTSIDE STUDY Clinical History: [...] Diagnostic Code: VERIFIED BY: / *ELECTRONICALLY FILED* [facility] Sep 09, 2022 09:54 PM NON VA CTA HEAD AN D NECK: MANIDNER ANDERSON [id number] -1945 M Exm Date: SEP 09, 2022@21:54 Req Phys: SCHROEDER,TARA S Pat Loc: [facility]SP XRAY GENERAL AM (Req'g Loc Img Loc: OUTSOURCE CT Service: Unknown (Case [id number] COMPLETE) NON PR CTA HEAD AND NECK (CT Detailed) CPT:55450 Reason for Study: OUTSIDE STUDY Clinical History: [...] Diagnostic Code: VERIFIED BY: / *ELECTRONICALLY FILED* [facility] Sep 09, 2022 09:[address] HEAD: MANINDER ANDERSON [id number] 1945 M Exm Date: SEP 09, 2022@21:49 Req Phys: SCHROEDER,TARA S Pat Loc: [facility]SP XRAY GENERAL AM (Req'g Loc Img Loc: OUTSOURCE CT Service: Unknown (Case [id number] COMPLETE) NON PR CT HEAD (CT Detailed) CPT:63668 Reason for Study: OUTSIDE STUDY Clinical History: [...] Diagnostic Code: VERIFIED BY: / *ELECTRONICALLY FILED* [facility] Encounter Notes: All associated encounter notes This section contains the clinical notes associated to the Encounter. Date/Time Encounter Note(s) Provider Source Sep 09, 2022 12:00 AM NONVA NOTE: LOCAL TITLE: EMERGENCY DEPARTMENT NONVA NOTE STANDARD TITLE: NONVA NOTE DATE OF NOTE: SEP 09, 2022 ENTRY DATE: SEP 11, 2022@14:56:26 AUTHOR: PEDRO DIA EXP COSIGNER: URGENCY: STATUS: COMPLETED [facility] Imaging - Scanned Document This note contains attached EMERGENCY DEPARTMENT scanned document(s) received from an outside facility. [facility] to review the document(s). /es/ PEDRO DIA RUST Signed: 09/11/2022 14:56 PEDRO DIA [facility] Sep 09, 2022 12:00 AM NONVA NOTE: LOCAL TITLE: EMERGENCY DEPARTMENT NONVA NOTE STANDARD TITLE: NONVA NOTE DATE OF NOTE: SEP 09, 2022 ENTRY DATE: SEP 11, 2022@14:58:07 AUTHOR: PEDRO DIA COSIGNER: URGENCY: STATUS: COMPLETED [facility] - Scanned Document This note contains attached EMERGENCY DEPARTMENT scanned document(s) received from an outside facility. [facility] to review the document(s). /es/ PEDRO DIA RUST Signed: 09/11/2022 14:58 PEDRO DIA [facility]
--- OUTSIDE RECORDS SUMMARY | 2023-08-25 20:30 | XMS_ITS | Encounter Summary ---
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 Date/Time Encounter Type Encounter Description Reason Provider Source Oct 25, 2022 11:00 AM INJ PERFLEXANE LIP MICROS,ML CARDIAC ECHO ICD-10-CM I63.9 Cerebral infarction, unspecified HENOK MAC Encounter Template Text not used by [place] Assessments - Encounter Diagnoses This section includes the primary and secondary diagnoses documented for the Encounter. Date/Time Primary/Secondary Diagnosis Diagnosis Name Provider Source Oct 25, 2022 11:49 AM PRIMARY Cerebral infarction, unspecified RAFAEL MAGANA [facility] Plan of Treatment: Future Appointments (+ 6 months) and Future Tests (+/- 45 days) The Plan of Treatment section includes future care activities for the [facility] [place] [facility] This section includes future appointments and future orders which are active, pending or scheduled. Future Appointments This section includes appointments that were scheduled to occur 6 months from the date of the Encounter, up to a maximum of 20 appointments. The data comes from all [facility]. Appointment Date/Time Appointment Type Appointme nt Facility Name Nov 08, 2022 10:00 AM AMBULATORY - SURGERY [facility] December 12, 2022 10:00 AM AMBULATORY - REHAB [facility]IC[facility] December 12, 2022 11:00 AM AMBULATORY - NONE [facility] Jan 02, 2023 11:00 AM AMBULATORY - SURGERY [facility] Jan 21, 2023 10:30 AM AMBULATORY - SURGERY [facility] Feb 06, 2023 08:30 AM AMBULATORY - PSYCHIATRY [facility] Feb 19, 2023 02:00 PM AMBULATORY - PSYCHIATRY [facility] Mar 05, 2023 01:00 PM AMBULATORY - REHAB [facility]ICIN [facility] Mar 19, 2023 10:30 AM AMBULATORY - REHAB MEDICIN [facility] Mar 19, 2023 11:30 AM AMBULATORY - REHAB [facility] Apr 15, 2023 01:30 PM AMBULATORY - REHAB [facility]ICIN [facility] Social History: Smoking Status (Most current) and Tobacco Use (All prior to encounter date) This section includes the most current, and the historical, smoking and tobacco- related health factors from the [place] facility where the Encounter took place. Current Smoking Status This section includes the most current smoking, or tobacco-related health factor, from the [place] facility where the Encounter took place. Date/Time Current Smoking Status Jose chapman Aug 05, 2011 01:53 PM LIFETIME NON-TOBACCO USER [facility] Advance Directives: All historical and current Section Date Range: From patient's date of to the date document was created. This section includes ALL of a patient's completed or amended [place] Advance and Rescinded Directives. The entries below indicate that a directive exists for the patient, but an actual copy is not included with this document. The data comes from all [place] facilities. Date Advance Directives Provider Source Oct 19, 2018 ADVANCE DIRECTIVE DISCUSSION MANAN [facility] Oct 19, 2018 ADVANCE DIRECTIVE VERONICA [facility] Oct 24, 2011 ADVANCE DIRECTIVE DISCUSSION MEGHAN PERRY [facility] Oct 24, 2011 ADVANCE DIRECTIVE LIANNA PERRY JEFFY [facility] Oct 02, 2011 ADVANCE DIRECTIVE DISCUSSION MEGHAN PERRY [facility] Encounter Notes: All associated encounter notes This section contains the clinical notes associated to the Encounter. Date/Time Encounter Note(s) Provider Source Oct 27, 2022 11:13 AM CARDIOLOGY PROCEDU RE NOTE: LOCAL TITLE: ECHOCARDIOGRAM PROCEDURE STANDARD TITLE: CARDIOLOGY PROCEDURE NOTE DATE OF NOTE: OCT 27, 2022@11:13:21 ENTRY DATE: OCT 27, 2022@11:13:21 AUTHOR: CLINICAL,DEVICE PRO EXP COSIGNER: URGENCY: STATUS: COMPLETED PROCEDURE SUMMARY CODE: Machine Resulted DATE/TIME PERFORMED: OCT 25, 2022@10:55:5 DOCUMENT IN VISTA IMAGING SEE FULL REPORT IN VISTA IMAGING SIGNATURE NOT REQUIRED SEE SIGNATURE IN VISTA IMAGING (XCELERA ISCV TTE OUTPT) AUTO-INSTRUMENT DIAGNOSIS Procedure: M_TTE Adult Release Status: Released Off-Line Verified Date Verified: Oct 27, 2022@11:12:59 Study ID: [id number] + + [place], [place] + + [facility] [address] [place] Transthoracic Echocardiogram Report + :Name: MANINDER ANDERSON Date: 10/25/2022 Height: 70 in : : Patient Location: [facility] ECHO OUTPATIENT #[id number]: 190 lb: :: 1945 Gender: Male BSA: 2.0 m2 : :Age: 77 yrs : :CP Order Number: [id number] : :Reason For Study: Stroke : + :Power Generating Plant Operator: Rafael Magana RDCS : + :Referring Physician: ROBI BATISTA : + + Interpretation Summary A complete two-dimensional transthoracic echocardiogram (42511) was performed without contrast. 1. Normal left ventricular size and function. Calculated ejection fraction 64%. No regional wall motion abnormalities. 2. Normal left ventricular diastolic function. 3. Normal right ventricular size and systolic function. Estimated right ventricular systolic pressure 33 mm Hg. 4. Mild tricuspid valve regurgitation. 5. Bubble study was negative for wzyeo-td-[id number] atrial level shunt at rest and with Valsalva release. 6. Normal size inferior vena cava with normal collapse. 7. No prior study available for comparison. Procedure A complete two-dimensional transthoracic echocardiogram (47290) was performed without contrast. An agitated saline contrast (bubble) study was performed. Left Ventricle The left ventricle is normal in size. Borderline increase in LV wall thickness. The left ventricular systolic function is normal. The visually estimated ejection fraction is 60-65%. No regional wall motion abnormalities were noted. There is normal diastolic function. Right Ventricle The right ventricle is normal size. The right ventricular systolic function is normal. Left Atrium/Right Atrium/Atrial Septum The left atrial size is normal. Mitral Valve There is trivial mitral valve regurgitation. Tricuspid Valve There is mild tricuspid regurgitation. Aortic Valve The trileaflet aortic valve opening is normal. Mildly sclerotic aortic valve. Trivial AR. There is no aortic stenosis. Pulmonic Valve Trivial DE. Aorta The aortic root is normal in size. Normal ascending aorta. Pulmonary Artery Estimated RVSP is 33 mmHg. Pericardium/Pleural There is no pericardial effusion. Inferior Vena Cava/Hepatic Veins The inferior vena cava is normal in size, and collapses normally with respiration. + + :Measurements : :LA dimension: 3.7 cm(2.7-4.0 cm) LVIDd: 4.3 cm(3.9-5.9 cm) : : : : _ :LVIDs: 2.8 cm(2.0-4.0 cm) IVSd: 1.2 cm(0.6-1.1 cm) : : : : _ :LVPWd: 1.0 cm(0.6-1.1 cm) TAPSE: 1.9 cm(>1.7) : : _ : : :EF(Teich): 64.4 %(52-74%) : + + MMode/2D Measurements \T\ Calculations FS: 34.9 % Ao root diam: 3.4 cm EDV(Teich): 83.1 ml ESV(Teich): 29.6 ml LVOT diam: 2.1 cm LVLd ap4: 9.4 cm EDV(MOD-sp4): 144.0 ml LVLs ap4: 7.9 cm ESV(MOD-sp4): 66.4 ml EF(MOD-sp4): 53.9 % LVLd ap2: 9.0 cm SV(MOD-sp4): 77.6 ml EDV(MOD-sp2): 103.0 ml LVLs ap2: 7.6 cm ESV(MOD-sp2): 45.4 ml EF (MOD-bp): 54.8 % LAV (MOD-bp): 59.5 ml IVC Diam: 0.80 cm LAV Index (MOD-bp): 29.1 ml/m2 LA Length: 5.5 cm Doppler Measurements \T\ Calculations MV E max alex: 86.8 cm/sec MV A max alex: 99.9 cm/sec MV dec slope: 445.0 cm/sec2 MV E/A: 0.87 MV dec time: 0.20 sec Lat Peak E' Alxe: 7.3 cm/sec Ao V2 max: 132.0 cm/sec Lat E/e': 11.9 Ao max P.0 mmHg Med E/e': 11.2 Ao V2 mean: 93.5 cm/sec Med Peak E' Alex: 7.7 cm/sec Ao mean P.0 mmHg Ao V2 VTI: 26.4 cm DICK(I,D): 2.6 cm2 DICK(V,D): 2.8 cm2 LV V1 max P.5 mmHg SV(LVOT): 67.9 ml LV V1 mean P.0 mmHg LV V1 max: 106.0 cm/sec LV V1 mean: 65.8 cm/sec LV V1 VTI: 19.6 cm TR max alex: 264.0 cm/sec Dimensionless Index (DI): 0.80 TR max P.9 mmHg DICK(VTI)/BSA: 1.3 RV S Alex: 12.5 cm/sec Ratio of MV Peak Velocity to L: 11.9 Pediatric Measurements \T\ Calculations Asc Aorta(2D): 3.4 cm Measurements from QLAB LV GLS Endo Peak A2C (): -21.3 % LV GLS Endo Peak A3C (): -21.2 % LV GLS Endo Peak A4C (): -20.4 % LV GLS Endo Peak Avg (): -21.0 % Reading Physician:11:12 AM Administrative Closure: 10/27/2022 by: CLINICAL,DEVICE PROXY SERVICE CLINICAL,DEVICE PROXY SERVICE [facility] Oct 25, 2022 05:07 PM NURSING INPATIENT NOTE: LOCAL TITLE: [facility] NURSING PROGRESS NOTE STANDARD TITLE: NURSING INPATIENT NOTE DATE OF NOTE: OCT 25, 2022@17:07 ENTRY DATE: OCT 25, 2022@17:07:26 AUTHOR: RK POWELL EXP COSIGNER: URGENCY: STATUS: COMPLETED Agitated Saline Injection for Echocardiogram (Bubble Study) IV Access: IV placed Comments: 22g right ac piv Saline bubbles injected. IV discontinued and removed after bubble study completed. Comments: No complications. /og/ Rk Powell, RN, PCCN DIRECTOR OF RESTAURANT NURSE HAIR OR BEAUTY SALON ASSISTANT Signed: 10/25/2022 17:08 RK POWELL [facility]
--- OUTSIDE RECORDS SUMMARY | 2023-08-25 20:30 | XMS_ITS | Encounter Summary ---
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 Date/Time Encounter Type Encounter Description Reason Pro vider Source Sep 13, 2022 02:59 PM Outpatient Encounter COMMUNITY CARE CONSULT I[facility] Encounter Template Text not used by [place] Plan of Treatment: Future Appointments (+ 6 months) and Future Tests (+/- 45 days) The Plan of Treatment section includes future care activities for the patient from all [place] treatmentfacilities. This section includes future appointments and future orders which are active, pending or scheduled. Future Appointments This section includes appointments that were scheduled to occur 6 months from the date of the Encounter, up to a maximum of 20 appointments. The data comes from all [place] treatment facilities. Appointment Date/Time Appointment Type Appointme nt Facility Name Oct 25, 2022 11:00 AM AMBULATORY - MEDICINE CAIO MAYBERRY [facility] Nov 08, 2022 10:00 AM AMBULATORY - SURGERY MAHIN BARCLAYS [facility] December 12, 2022 10:00 AM AMBULATORY - REHAB MEDICIN E [facility] December 12, 2022 11:00 AM AMBULATORY - NONE SARAH FIERRO [facility] Jan 02, 2023 11:00 AM AMBULATORY - SURGERY [facility] DENYLIS [facility] Jan 21, 2023 10:30 AM AMBULATORY - SURGERY MAHIN BARCLAYLIS [facility] Feb 06, 2023 08:30 AM [facility] Feb 19, 2023 02:00 PM [facility] [place] [facility] Mar 05, 2023 01:00 PM AMBULATORY - REHAB MEDICIN E [facility] Lab Results: +/- 30 days of the encounter This section includes the Chemistry and Hematology Lab Results on record with [place] for the patient. Radiology Reports and Pathology Reports are provided separately, in subsequent sections. Lab Results This section contains the Chemistry/Hematology Results that were resulted 30 days before or 30 daysafter the date of the Encounter. Date/Time Source Result Type Result - Unit Interpretation Reference Range Comment Sep 13, 2022 04:02 PM [facility] LIPID PANEL,NON-FASTING Specimen Type: PLASMA No comment entered. Ordering Provider: MIN BATISTA Report Released Date/Time: Sep 13, 2022 03:53 PM Reporting Lab: [facility] [id number] Performing Lab: [facility] [id number] CHOLESTEROL 152 <199 .HDL 41 >40 LDL CALCULATION 93 <99 VLDL CALCULATION 18 <29 NON HDL CHOLESTEROL 111 <129 TRIG(NON FASTING) 89 <149 Sep 13, 2022 04:02 PM [facility] HEMOGLOBIN A1C Specimen Type: BLOOD Comment: Values [...] Sep 13, 2022 03:53 PM Reporting Lab: [facility] [id number] Performing Lab: [facility] [id number] HEMOGLOBIN A1C 6.8 H 4.0-6.0 Sep 13, 2022 04:02 PM [facility] COMPREHENSIVE METABOLIC PANEL+MG Specimen Type: PLASMA No comment entered. Ordering Provider: MIN BATISTA Report Released Date/Time: Sep 13, 2022 03:53 PM Reporting Lab: [facility] [id number] Performing Lab: [facility] [id number] CREATININE 0.9 0.7-1.2 UREA NITROGEN 25 8-26 [...] Sep 13, 2022 02:20 PM 153/95 mm[Hg] [facility] Sep 13, 2022 02:11 PM 98.6 F 81 /min 166/86 mm[Hg] 18 /min 96 % 0 [facility] Social History: Smoking Status (Most current) and Tobacco Use (All prior to encounter date) This section includes the most current, and the historical, smoking and tobacco- related health factors from the [place] facility where the Encounter took place. Current Smoking Status This section includes the most current smoking, or tobacco-related health factor, from the [place] facility where the Encounter took place. Date/Time Current Smoking Status Jose chapman Aug 05, 2011 01:53 PM LIFETIME NON-TOBACCO USER [facility] Advance Directives: All historical and current Section Date Range: From patient's date of to the date document was created. This section includes ALL of a patient's completed or amended [place] Advance and Rescinded Directives. The entries below indicate that a directive exists for the patient, but an actual copy is not included with this document. The data comes from all [place] facilities. Date Advance Directives Provider Source Oct 19, 2018 ADVANCE DIRECTIVE DISCUSSION MANAN MONTOYA [facility] Oct 19, 2018 ADVANCE DIRECTIVE VERONICA [facility]TOYA [facility] Oct 24, 2011 ADVANCE DIRECTIVE DISCUSSION MEGHAN PERRY [facility] Oct 24, 2011 ADVANCE DIRECTIVE LIANNA PERRY [facility] Oct 02, 2011 ADVANCE DIRECTIVE DISCUSSION MEGHAN PERRY [facility] Radiology Reports: +/- 30 days of the [...] the Encounter. The data comes from all [place] treatment facilities. Date/Time Radiology Report Provider Source Sep 10, 2022 12:41 PM NON [place] MRI BRAIN: MANINDER ANDERSON [id number] -1945 M Exm Date: SEP 10, 2022@12:41 Req Phys: TARA SCHROEDER Pat Loc: [facility] XRAY GENERAL AM (Req'g Loc Img Loc: OUTSOURCE MRI Service: Unknown (Case [id number] COMPLETE) NON [place] MRI BRAIN (MRI Detailed) CPT:30818 Reason for Study: OUTSIDE STUDY Clinical History: OUTSIDE STUDY Report Status: Electronically Filed Date Reported: SEP 13, 2022 Report: This is an outside Imaging study and/or report imported for continuity of patient care. This Imaging study and/or report was not reviewed or verified by a [place] Radiologist. Impression: This is an outside Imaging study and/or report imported for continuity of patient care. This Imaging study and/or report was not reviewed or verified by a [place] Radiologist. Primary Diagnostic Code: VERIFIED BY: / *ELECTRONICALLY FILED* [facility] Sep 09, 2022 09:54 PM NON [place] CTA HEAD AN D NECK: MANINDER ANDERSON [id number] -1945 M Exm Date: SEP 09, 2022@21:54 Req Phys: SCHROEDER,TARA S Pat Loc: [facility] XRAY GENERAL AM (Req'g Loc Img Loc: OUTSOURCE CT Service: Unknown (Case [id number] COMPLETE) NON [place] CTA HEAD AND NECK (CT Detailed) CPT:32963 Reason for Study: OUTSIDE STUDY Clinical History: OUTSIDE STUDY Report Status: Electronically Filed Date Reported: SEP 13, 2022 Report: This is an outside Imaging study and/or report imported for continuity of patient care. This Imaging study and/or report was not reviewed or verified by a [place] Radiologist. Impression: This is an outside Imaging study and/or report imported for continuity of patient care. This Imaging study and/or report was not reviewed or verified by a [place] Radiologist. Primary Diagnostic Code: VERIFIED BY: / *ELECTRONICALLY FILED* [facility] Sep 09, 2022 09:[address] [place] [address] HEAD: MANINDER ANDERSON [id number] 1945 M Exm Date: SEP 09, 2022@21:49 Req Phys: SCHROEDER,TARA S Pat Loc: [facility] XRAY GENERAL AM (Req'g Loc Img Loc: OUTSOURCE CT Service: Unknown (Case [id number] COMPLETE) NON [place] CT HEAD (CT Detailed) CPT:86322 Reason for Study: OUTSIDE STUDY Clinical History: OUTSIDE STUDY Report Status: Electronically Filed Date Reported: SEP 13, 2022 Report: This is an outside Imaging study and/or report imported for continuity of patient care. This Imaging study and/or report was not reviewed or verified by a [place] Radiologist. Impression: This is an outside Imaging study and/or report imported for continuity of patient care. This Imaging study and/or report was not reviewed or verified by a [place] Radiologist. Primary Diagnostic Code: VERIFIED BY: / *ELECTRONICALLY FILED* [facility] Encounter Notes: All associated encounter notes This section contains the clinical notes associated to the Encounter. Date/Time Encounter Note(s) Provider Source Sep 13, 2022 02:59 PM NONVA NOTE: LOCAL TITLE: COMMUNITY CARE-CARE COORDINATION PLAN NOTE STANDARD TITLE: NONVA NOTE DATE OF NOTE: SEP 13, 2022@14:59 ENTRY DATE: SEP 13, 2022@14:59:44 AUTHOR: GERALDINE GALLEGOS EXP COSIGNER: URGENCY: STATUS: COMPLETED Pt seen in ER on 09/09/22 for slurred speech and was recommended to have MRI on 09/10/22. [facility] called 09/10/22 to obtain auth and pt was told to proceed with MRI. PCP unable to place MRI referral until 09/11/22. Backdate is requested. /og/ GERALDINE GALLEGOS RN helium arc welder [employer] Supervisor Signed: 09/13/2022 15:02 GERALDINE GALLEGOS [facility]
--- OUTSIDE RECORDS SUMMARY | 2023-08-25 20:30 | XMS_ITS | Encounter Summary ---
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 Organization [facility] Address [address] [place] [address] Support Name Relationship Address Phone JUSTIN CHARITY [...] Policy Meyer MEDICARE (WNR) MEDICARE (M) PART B Mar 28, 2012 PART B [id number] [phone] MANINDER PUENTES PATIENT MEDICARE (WNR) MEDICARE (M) PART A Mar 28, 2012 PART A [id number] [phone] MANINDER PUENTES PATIENT Selected Encounter This section includes the information on record at [place] for the Encounter. Date/Time Encounter Type Encounter Description Reason Provider Source Sep 17, 2022 08:34 AM Outpatient Encounter PRIMARY CARE/MEDICINE JOSEPH GUILLAUME Encounter Template Text not used by [place] Plan of Treatment: Future Appointments (+ 6 months) and Future Tests (+/- 45 days) The Plan of Treatment section includes future care activities for the patient from all [place] treatmentfacilities. This section includes future appointments and future orders which are active, pending or scheduled. Future Appointments This section includes appointments that were scheduled to occur 6 months from the date of the Encounter, up to a maximum of 20 appointments. The data comes from all [facility]. Appointment Date/Time Appointment Type Appointme nt Facility Name Oct 25, 2022 11:00 AM AMBULATORY - MEDICINE CAIO MAYBERRY [facility] Nov 08, 2022 10:00 AM [facility] December 12, 2022 10:00 AM AMBULATORY - REHAB MEDICIN E [facility] December 12, 2022 11:00 AM AMBULATORY - NONE SARAH FIERRO [facility] Jan 02, 2023 11:00 AM AMBULATORY - SURGERY [facility] Jan 21, 2023 10:30 AM AMBULATORY - SURGERY MAHIN BARCLAYS [facility] Feb 06, 2023 08:30 AM AMBULAT[facility] Feb 19, 2023 02:00 PM AMBUL[facility] Mar 05, 2023 01:00 PM AMBULATORY - REHAB MEDICIN E [facility] Lab Results: +/- 30 days of the encounter This section includes the Chemistry and Hematology Lab Results on record with [place] for the patient. Radiology Reports and Pathology Reports are provided separately, in subsequent sections. Lab Results This section contains the Chemistry/Hematology Results that were resulted 30 days before or 30 daysafter the date of the Encounter. Date/Time Source Result Type Result - Unit Interpretation Reference Range Comment Sep 13, 2022 04:02 PM [facility] LIPID PANEL,NON-FASTING Specimen Type: PLASMA No comment entered. Ordering Provider: MIN BATISTA Report Released Date/Time: Sep 13, 2022 03:53 PM Reporting Lab: [facility] [id number] Performing Lab: [facility] [address] CHOLESTEROL 152 <199 .HDL 41 >40 LDL CALCULATION 93 <99 VLDL CALCULATION 18 <29 NON HDL CHOLESTEROL 111 <129 TRIG(NON FASTING) 89 <149 Sep 13, 2022 04:02 PM [facility] HEMOGLOBIN A1C Specimen Type: BLOOD [...] Sep 13, 2022 03:53 PM Reporting Lab: [facility] [id number] Performing Lab: [facility] [address] HEMOGLOBIN A1C 6.8 H 4.0-6.0 Sep 13, 2022 04:02 PM [facility] COMPREHENSIVE METABOLIC PANEL+MG Specimen Type: PLASMA No comment entered. Ordering Provider: MIN BATISTA Report Released Date/Time: Sep 13, 2022 03:53 PM Reporting Lab: [facility] [address] Performing Lab: [facility] [address] CREATININE 0.9 0.7-1.2 UREA NITROGEN 25 8-26 [...] and tobacco- related health factors from the [place] facility where the Encounter took place. Current Smoking Status This section includes the most current smoking, or tobacco-related health factor, from the [place] facility where the Encounter took place. Date/Time Current Smoking Status Comment Saul chapman Aug 05, 2011 01:53 PM LIFETIME NON-TOBACCO USER [facility] Advance Directives: All historical and current Section Date Range: From patient's date of to the date document was created. This section includes ALL of a patient's completed or amended [place] Advance and Rescinded Directives. The entries below indicate that a directive exists for the patient, but an actual copy is not included with this document. The data comes from all [place] facilities. Date Advance Directives Provider Source Oct 19, 2018 ADVANCE DIRECTIVE DISCUSSION NEURAUTER,SH EILA M [place] [facility] [place] [facility] Oct 19, 2018 ADVANCE DIRECTIVE ARTURO MONTOYASOFIA Carrasquillo [facility] Oct 24, 2011 ADVANCE DIRECTIVE LIANNA PERRY Yordy BARDALES [facility] Oct 24, 2011 ADVANCE DIRECTIVE DISCUSSION MEGHAN PERRY [facility] Oct 02, 2011 ADVANCE DIRECTIVE DISCUSSION MEGHAN PERRY [facility] Radiology Reports: +/- 30 days [...] the Encounter. The data comes from all [place] treatment facilities. Date/Time Radiology Report Provider Source Sep 10, 2022 12:41 PM NON VA MRI BRAIN: MANINDER ANDERSON [id number] -1945 M Exm Date: SEP 10, 2022@12:41 Req Phys: SCHROEDER,TARA S Pat Loc: [facility] XRAY GENERAL AM (Req'g Loc Img Loc: OUTSOURCE MRI Service: Unknown (Case [id number] COMPLETE) NON [facility] MRI BRAIN (MRI Detailed) CPT:49921 Reason for Study: OUTSIDE STUDY Clinical History: OUTSIDE STUDY Report Status: Electronically Filed Date Reported: SEP 13, 2022 Report: This is an outside Imaging study and/or report imported for continuity of patient care. This Imaging study and/or report was not reviewed or verified by a [place] Radiologist. Impression: This is an outside Imaging study and/or report imported for continuity of patient care. This Imaging study and/or report was not reviewed or verified by a [place] Radiologist. Primary Diagnostic Code: VERIFIED BY: / *ELECTRONICALLY FILED* [facility] Sep 09, 2022 09:54 PM NON VA CTA HEAD AN D NECK: MANINDER ANDERSON [id number] -1945 M Exm Date: SEP 09, 2022@21:54 Req Phys: SCHROEDER,TARA S Pat Loc: [facility] XRAY GENERAL AM (Req'g Loc Img Loc: OUTSOURCE CT Service: Unknown (Case [id number] COMPLETE) NON [place] CTA HEAD AND NECK (CT Detailed) CPT:66912 Reason for Study: OUTSIDE STUDY Clinical History: OUTSIDE STUDY Report Status: Electronically Filed Date Reported: SEP 13, 2022 Report: This is an outside Imaging study and/or report imported for continuity of patient care. This Imaging study and/or report was not reviewed or verified by a [place] Radiologist. Impression: This is an outside Imaging study and/or report imported for continuity of patient care. This Imaging study and/or report was not reviewed or verified by a [place] Radiologist. Primary Diagnostic Code: VERIFIED BY: / *ELECTRONICALLY FILED* [facility] Sep 09, 2022 09:49 PM [facility] HEAD: MANINDER ANDERSON [id number] -1945 M Exm Date: SEP 09, 2022@21:49 Req Phys: SCHROEDERTARA SHORT S Pat Loc: [facility] XRAY GENERAL AM (Req'g Loc Img Loc: OUTSOURCE CT Service: Unknown (Case [id number] COMPLETE) NON [place] CT HEAD (CT Detailed) CPT:76756 Reason for Study: OUTSIDE STUDY Clinical History: OUTSIDE STUDY Report Status: Electronically Filed Date Reported: SEP 13, 2022 Report: This is an outside Imaging study and/or report imported for continuity of patient care. This Imaging study and/or report was not reviewed or verified by a [place] Radiologist. Impression: This is an outside Imaging study and/or report imported for continuity of patient care. This Imaging study and/or report was not reviewed or verified by a [place] Radiologist. Primary Diagnostic Code: VERIFIED BY: / *ELECTRONICALLY FILED* [facility] Encounter Notes: All associated encounter notes This section contains the clinical notes associated to the Encounter. Date/Time Encounter Note(s) Provider Source Sep 17, 2022 08:34 AM PRIMARY CARE MIKE E MESSAGING: LOCAL TITLE: PRIMARY CARE SECURE MESSAGING STANDARD TITLE: PRIMARY CARE SECURE MESSAGING DATE OF NOTE: SEP 17, 2022@08:34 ENTRY DATE: SEP 17, 2022@07:34:48 AUTHOR: JOSEPH GUILLAUME EXP COSIGNER: URGENCY: STATUS: COMPLETED ------Original Message Sent: 09/15/2022 04:46 PM ET From: MANINDER ANDERSON To: CALEB/Alirio Primary CareMata G. (Clubs) Subject: General:Blood Sugar Test Kit I have recently used my daughter's Test Kit. My Blood Sugar Level has been between 150 and 160. I understand that it's supposed to be around 100. Could I get a prescription for a kit of my own? ------Original Message Sent: 09/17/2022 08:34 AM ET From: JOSEPH GUILLAUME To: MANINDER ANDERSON Subject: General:Blood Sugar Test Kit Good morning, Yes, Ideally your fasting blood sugar should be under 100. Readings will be higher if you are eating. Because you are not on insulin, you do not qualify for a blood glucose monitor through the [place]. However, you can purchase a test kit and strips for a reasonable judge at [facility]. Please let me know if you have questions. Thanks, ELIZABETH David /og/ JOSEPH GUILLAUME REGISTERED NURSE Signed: 09/17/2022 07:34 JOSEPH GUILLAUME [facility]
--- OUTSIDE RECORDS SUMMARY | 2023-08-25 20:30 | XMS_ITS | Encounter Summary ---
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 Organization [facility] Address [address] [place] [address] Support Name Relationship Address Phone CHARITY ANDERSON Next of Kin [address] [id number] CHARITY ANDERSON Emergency Contact [address] [...] PART A Mar 28, 2012 PART A [id number] [id number] [phone] MANINDER PUENTES PATIENT MEDICARE (WNR) MEDICARE (M) PART B Mar 28, 2012 PART B [id number] [id number] [phone] MANINDER PUENTES PATIENT Selected Encounter This section includes the information on record at [place] for the Encounter. Date/Time Encounter Type Encounter Description Reason Pro vider Source Sep 10, 2022 12:00 AM Outpatient Encounter COMMUNITY CARE CONSULT IHE Encounter Template Text not used by [place] Plan of Treatment: Future Appointments (+ 6 months) and Future Tests (+/- 45 days) The Plan of Treatment section includes future care activities for the patient from all [place] treatmentfacilities. This section includes future appointments and future orders which are active, pending or scheduled. Future Appointments This section includes appointments that were scheduled to occur 6 months from the date of the Encounter, up to a maximum of 20 appointments. The data comes from all [place] treatment [facility]. Appointment Date/Time Appointment Type Appointme nt Facility Name Sep 11, 2022 08:51 PM [facility] Sep 13, 2022 02:30 PM AMBULATORY - REHAB MEDICIN E [facility] Sep 13, 2022 04:15 PM [facility] Oct 25, 2022 11:00 AM [facility] Nov 08, 2022 10:00 AM AMBULATORY - SURGERY [facility] December 12, 2022 10:00 AM AMBULATORY - REHAB MEDICIN E [facility] December 12, 2022 11:00 AM [facility] Jan 02, 2023 11:00 AM AMBULATORY - SURG[facility] Jan 21, 2023 10:30 AM AMBULATORY - SURGERY [facility] Feb 06, 2023 08:30 AM AMBULATORY - PS[facility]CHIATRY [facility] Feb 19, 2023 02:00 PM AMBULATORY - PSYCHIATRY [facility] Mar 05, 2023 01:00 PM AMBULATORY - REHAB [facility] Lab Results: +/- 30 days of the encounter This section includes the Chemistry and Hematology Lab Results on record with [place] for the patient. Radiology Reports and Pathology Reports are provided separately, in subsequent sections. Lab Results This section contains the Chemistry/Hematology Results that were resulted 30 days before or 30 daysafter the date of the Encounter. Date/Time Source Result Type Result - Unit Interpretation Reference Range Comment Sep 13, 2022 04:02 PM [facility] LIPID PANEL,NON-FASTING Specimen Type: PLASMA No comment entered. Ordering Provider: MIN BATISTA Report Released Date/Time: Sep 13, 2022 03:53 PM Reporting Lab: [facility] [address] Performing Lab: [facility] [address] CHOLESTEROL 152 <199 .HDL 41 >40 LDL CALCULATION 93 <99 VLDL CALCULATION 18 <29 NON HDL CHOLESTEROL 111 <129 TRIG(NON FASTING) 89 <149 Sep 13, 2022 04:02 PM [facility] HEMOGLOBIN A1C Specimen Type: BLOOD [...] Sep 13, 2022 03:53 PM Reporting Lab: [facility] [address] Performing Lab: [facility] [address] HEMOGLOBIN A1C 6.8 H 4.0-6.0 Sep 13, 2022 04:02 PM [facility] COMPREHENSIVE METABOLIC PANEL+MG Specimen Type: PLASMA No comment entered. Ordering Provider: MIN BATISTA Report Released Date/Time: Sep 13, 2022 03:53 PM Reporting Lab: [facility] [address] Performing Lab: [facility] [address] CREATININE 0.9 0.7-1.2 UREA NITROGEN 25 8-26 [...] and tobacco- related health factors from the [place] facility where the Encounter took place. Current Smoking Status This section includes the most current smoking, or tobacco-related health factor, from the [place] facility where the Encounter took place. Date/Time Current Smoking Status Comment Saul chapman Aug 05, 2011 01:53 PM LIFETIME NON-TOBACCO USER [facility] Advance Directives: All historical and current Section Date Range: From patient's date of to the date document was created. This section includes ALL of a patient's completed or amended [place] Advance and Rescinded Directives. The entries below indicate that a directive exists for the patient, but an actual copy is not included with this document. The data comes from all [place] facilities. Date Advance Directives Provider Source Oct 19, 2018 ADVANCE DIRECTIVE DISCUSSION MANAN MONTOYA HARMAN Carrasquillo [facility]AL[facility] Oct 19, 2018 ADVANCE DIRECTIVE JANVERONICA RENATA [facility] Oct 24, 2011 ADVANCE DIRECTIVE ANASTACIOSLIANNA [facility] Oct 24, 2011 ADVANCE DIRECTIVE DISCUSSION ANASTACIOSMEGHAN [facility] Oct 02, 2011 ADVANCE DIRECTIVE DISCUSSION ANASTACIOSSALLIEALLAN SHAN L [facility] Radiology Reports: +/- 30 days [...] the Encounter. The data comes from all [place] treatment facilities. Date/Time Radiology Report Provider Source Sep 10, 2022 12:41 PM NON VA MRI BRAIN: MANINDER ANDERSON [id number] -1945 M Exm Date: SEP 10, 2022@12:41 Req Phys: TARA SCHROEDER S Pat Loc: [facility] XRAY GENERAL AM (Req'g Loc Img Loc: OUTSOURCE MRI Service: Unknown (Case [id number] COMPLETE) NON [place] MRI BRAIN (MRI Detailed) CPT:58230 Reason for Study: OUTSIDE STUDY Clinical History: OUTSIDE STUDY Report Status: Electronically Filed Date Reported: SEP 13, 2022 Report: This is an outside Imaging study and/or report imported for continuity of patient care. This Imaging study and/or report was not reviewed or verified by a [place] Radiologist. Impression: This is an outside Imaging study and/or report imported for continuity of patient care. This Imaging study and/or report was not reviewed or verified by a [place] Radiologist. Primary Diagnostic Code: VERIFIED BY: / *ELECTRONICALLY FILED* [facility] Sep 09, 2022 09:54 PM NON VA CTA HEAD AN D NECK: MANINDER ANDERSON [id number] -1945 M Exm Date: SEP 09, 2022@21:54 Req Phys: SCHROEDER,TARA S Pat Loc: [facility] XRAY GENERAL AM (Req'g Loc Img Loc: OUTSOURCE CT Service: Unknown (Case [id number] COMPLETE) NON [place] CTA HEAD AND NECK (CT Detailed) CPT:83541 Reason for Study: OUTSIDE STUDY Clinical History: OUTSIDE STUDY Report Status: Electronically Filed Date Reported: SEP 13, 2022 Report: This is an outside Imaging study and/or report imported for continuity of patient care. This Imaging study and/or report was not reviewed or verified by a [place] Radiologist. Impression: This is an outside Imaging study and/or report imported for continuity of patient care. This Imaging study and/or report was not reviewed or verified by a [place] Radiologist. Primary Diagnostic Code: VERIFIED BY: / *ELECTRONICALLY FILED* [facility] Sep 09, 2022 09:[address] HEAD: MANINDER ANDERSON [id number] 1945 M Exm Date: SEP 09, 2022@21:49 Req Phys: SCHROEDER,TARA S Pat Loc: [facility] XRAY GENERAL AM (Req'g Loc Img Loc: OUTSOURCE CT Service: Unknown (Case [id number] COMPLETE) NON [place] CT HEAD (CT Detailed) CPT:49099 Reason for Study: OUTSIDE STUDY Clinical History: OUTSIDE STUDY Report Status: Electronically Filed Date Reported: SEP 13, 2022 Report: This is an outside Imaging study and/or report imported for continuity of patient care. This Imaging study and/or report was not reviewed or verified by a [place] Radiologist. Impression: This is an outside Imaging study and/or report imported for continuity of patient care. This Imaging study and/or report was not reviewed or verified by a [place] Radiologist. Primary Diagnostic Code: VERIFIED BY: / *ELECTRONICALLY FILED* [facility] Encounter Notes: All associated encounter notes This section contains the clinical notes associated to the Encounter. Date/Time Encounter Note(s) Provider Source Sep 10, 2022 12:00 AM NONVA CONSULT: LOCAL TITLE: COMMUNITY CARE CONSULT RESULT MRI STANDARD TITLE: NONVA CONSULT DATE OF NOTE: SEP 10, 2022 ENTRY DATE: OCT 01, 2022@07:58:34 AUTHOR: ANT BOWEN EXP COSIGNER: URGENCY: STATUS: COMPLETED [facility] - Scanned Document COMMUNITY CARE-MRI [facility] APPOINTMENT INFORMATION Documentation received from non-VA provider and scanned into [facility]. /og/ ANT PROCESS Signed: 10/01/2022 07:58 ANT BOWEN [facility]
--- OUTSIDE RECORDS SUMMARY | 2023-08-25 20:30 | XMS_ITS | Encounter Summary ---
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 Organization [facility] of [facility] Address [address] [place] [address] Support Name Relationship Address Phone CHARITY ANDERSON [...] PART A Mar 28, 2012 PART A [id number] [phone] MANINDER PUENTES PATIENT MEDICARE (WNR) MEDICARE (M) PART B Mar 28, 2012 PART B [id number] [id number] [phone] MANINDER PUENTES PATIENT Selected Encounter This section includes the information on record at [place] for the Encounter. Date/Time Encounter Type Encounter Description Reason Provider Source Oct 11, 2022 10:29 AM EXT ECG>[id number] REV&INTERPJ AMB ECG MONITORING ICD-10-CM Z13.6 Encounter for screening for cardiovascular disorders BERENICE BESS Jamar Encounter Template Text not used by [place] Assessments - Encounter Diagnoses This section includes the primary and secondary diagnoses documented for the Encounter. Date/Time Primary/Secondary Diagnosis Diagnosis Name Provider Source Oct 11, 2022 10:34 AM PRIMARY Encounter for screening for cardiovascular disorders BERENICE BESS [facility] Plan of Treatment: Future Appointments (+ 6 months) and Future Tests (+/- 45 days) The Plan of Treatment section includes future care activities for the patient from all [place] [facility]. This section includes future appointments and future orders which are active, pending or scheduled. Future Appointments This section includes appointments that were scheduled to occur 6 months from the date of the Encounter, up to a maximum of 20 appointments. The data comes from all [facility]. Appointment Date/Time Appointment Type Appointme nt Facility Name Oct 25, 2022 11:00 AM [place]ORY [place] [facility] Nov 08, 2022 10:00 AM AM[place] [facility] December 12, 2022 10:00 AM AMBULATORY - REHAB MEDICIN E [facility] December 12, 2022 11:00 AM [place]ORY - [place]ONE [place] [facility] Jan 02, 2023 11:00 AM [facility]UL[facility]ORY - [facility] Jan 21, 2023 10:30 AM [place] [facility] Feb 06, 2023 08:30 AM [place] [facility] Feb 19, 2023 02:00 PM [place] [facility] Mar 05, 2023 01:00 PM AMBULATORY - REHAB MEDICIN E [facility] Mar 19, 2023 10:30 AM AMBULATORY - REHAB MEDICIN E [facility] Mar 19, 2023 11:30 [facility] Lab Results: +/- 30 days of the encounter This section includes the Chemistry and Hematology Lab Results on record with [place] for the patient. Radiology Reports and Pathology Reports are provided separately, in subsequent sections. Lab Results This section contains the Chemistry/Hematology Results that were resulted 30 days before or 30 daysafter the date of the Encounter. Date/Time Source Result Type Result - Unit Interpretation Reference Range Comment Sep 13, 2022 04:02 PM [facility] LIPID PANEL,NON-FASTING Specimen Type: PLASMA No comment entered. Ordering Provider: MIN BATISTA Report Released Date/Time: Sep 13, 2022 03:53 PM Reporting Lab: [facility] [id number] Performing Lab: [facility] [id number] CHOLESTEROL 152 <199 .HDL 41 >40 LDL CALCULATION 93 <99 VLDL CALCULATION 18 <29 NON HDL CHOLESTEROL 111 <129 TRIG(NON FASTING) 89 <149 Sep 13, 2022 04:02 PM [facility] HEMOGLOBIN A1C Specimen Type: BLOOD Comment: Values [...] Sep 13, 2022 03:53 PM Reporting Lab: [facility] [id number] Performing Lab: [facility] [id number] HEMOGLOBIN A1C 6.8 H 4.0-6.0 Sep 13, 2022 04:02 PM [facility] COMPREHENSIVE METABOLIC PANEL+MG Specimen Type: PLASMA No comment entered. Ordering Provider: MIN BATISTA Report Released Date/Time: Sep 13, 2022 03:53 PM Reporting Lab: [facility] [id number] Performing Lab: [facility] [id number] CREATININE 0.9 0.7-1.2 UREA NITROGEN 25 8-26 [...] and tobacco- related health factors from the [facility] where the Encounter took place. Current Smoking Status This section includes the most current smoking, or tobacco-related health factor, from the [place] facility where the Encounter took place. Date/Time Current Smoking Status Comment Facil ity Aug 05, 2011 01:53 PM LIFETIME NON-TOBACCO USER [facility] Advance Directives: All historical and current Section Date Range: From patient's date of to the date document was created. This section includes ALL of a patient's completed or amended [place] Advance and Rescinded Directives. The entries below indicate that a directive exists for the patient, but an actual copy is not included with this document. The data comes from all [place] facilities. Date Advance Directives Provider Source Oct 19, 2018 ADVANCE DIRECTIVE DISCUSSION MANAN MONTOYA [facility] Oct 19, 2018 ADVANCE DIRECTIVE VERONICA MONTOYA [facility] Oct 24, 2011 ADVANCE DIRECTIVE DISCUSSION MEGHAN PERRY [facility] Oct 24, 2011 ADVANCE DIRECTIVE LIANNA PERRY [facility] Oct 02, 2011 ADVANCE DIRECTIVE DISCUSSION MEGHAN PERRY [facility] Encounter Notes: All associated encounter notes This section contains the clinical notes associated to the Encounter. Date/Time Encounter Note(s) Provider Source Oct 11, 2022 10:29 AM CARDIOLOGY DIAGNOS TIC STUDY CONSULT: LOCAL TITLE: EKG CONSULT STANDARD TITLE: CARDIOLOGY DIAGNOSTIC STUDY CONSULT DATE OF NOTE: OCT 11, 2022@10:29 ENTRY DATE: OCT 11, 2022@10:29:22 AUTHOR: BERENICE BESS EXP COSIGNER: URGENCY: STATUS: COMPLETED SUBJECT: ZIO MONITOR REPORT ZIO MONITOR REPORT INDICATION: Stroke, lacunar likely small vessel evaluate for p-afib Monitoring Duration: 13 days, 23 hours. INTERPRETATION: 1. Underlying rhythm was Sinus Rhythm ranging from 47 bpm to 144 bpm, average of 74 bpm. 2. One run of nonsustained Ventricular Tachycardia occurred lasting 5 beats. 3. Rare isolated premature supraventricular complexes, rare supraventricular couplets and rare supraventricular triplets. 4. Rare isolated premature ventricular complexes and rare ventricular couplets. Ventricular trigeminy was present. 5. A total of 2 triggered events were recorded. These corresponded to Normal Sinus Rhythm with Artifact. 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
--- OUTSIDE RECORDS SUMMARY | 2023-08-25 20:30 | XMS_ITS | Encounter Summary ---
Author Name [facility] of [facility] Affairs Organization [facility] of [facility] Address [address] [place] [address] Support Name Relationship Address Phone JUSTIN CHARITY [...] PART A Mar 28, 2012 PART A [id number] [phone] MANINDER PUENTES PATIENT MEDICARE (WNR) MEDICARE (M) PART B Mar 28, 2012 PART B [id number] 48A [phone] MANINDER PUENTES PATIENT Selected Encounter This section includes the information on record at [place] for the Encounter. Date/Time Encounter Type Encounter Description Reason Provider Source Sep 18, 2022 09:09 AM Outpatient Encounter PRIMARY CARE/MEDICINE JOSEPH GUILLAUME Encounter Template Text not used by [place] Plan of Treatment: Future Appointments (+ 6 months) and Future Tests (+/- 45 days) The Plan of Treatment section includes future care activities for the patient from all [place] treatmentfacilities. This section includes future appointments and future orders which are active, pending or scheduled. Future Appointments This section includes appointments that were scheduled to occur 6 months from the date of the Encounter, up to a maximum of 20 appointments. The data comes from all [facility]. Appointment Date/Time Appointment Type Appointme nt Facility Name Oct 25, 2022 11:00 AM AMBULATORY - MEDICINE [facility] Nov 08, 2022 10:00 AM [facility] December 12, 2022 10:00 AM AMBULATORY - REHAB MEDICIN E [facility] December 12, 2022 11:00 AM AMBULATORY - NONE SARAH FIERRO [facility] Jan 02, 2023 11:00 AM AMBULATORY - SURGERY [facility] Jan 21, 2023 10:30 AM AMBULATORY - SURGERY MAHIN BARCLAYS [facility] Feb 06, 2023 08:30 AM [facility] Feb 19, 2023 02:00 PM [facility] [place] [facility] Mar 05, 2023 01:00 PM AMBULATORY - REHAB MEDICIN E [facility] Lab Results: +/- 30 days of the encounter This section includes the Chemistry and Hematology Lab Results on record with [place] for the patient. Radiology Reports and Pathology Reports are provided separately, in subsequent sections. Lab Results This section contains the Chemistry/Hematology Results that were resulted 30 days before or 30 daysafter the date of the Encounter. Date/Time Source Result Type Result - Unit Interpretation Reference Range Comment Sep 13, 2022 04:02 PM [facility] LIPID PANEL,NON-FASTING Specimen Type: PLASMA No comment entered. Ordering Provider: MIN VERNON Report Released Date/Time: Sep 13, 2022 03:53 PM Reporting Lab: [facility] [id number] Performing Lab: [facility] [id number] CHOLESTEROL 152 <199 .HDL 41 >40 LDL CALCULATION 93 <99 VLDL CALCULATION 18 <29 NON HDL CHOLESTEROL 111 <129 TRIG(NON FASTING) 89 <149 Sep 13, 2022 04:02 PM [facility] HEMOGLOBIN A1C Specimen Type: BLOOD Comment: Values obtained from A1C measurements can vary. For typical A1C assays, a reported value of 7.0 could actually be between 6.7 and 7.3 if measured by a reference method. A reported value of 9.0 could actually be between 8.7 and 9.3. Ref: http://www.ng sp.org/CAPdat a.asp Ordering Provider: MIN VERNON Report Released Date/Time: Sep 13, 2022 03:53 PM Reporting Lab: [facility] [id number] Performing Lab: [facility] [id number] HEMOGLOBIN A1C 6.8 H 4.0-6.0 Sep 13, 2022 04:02 PM [facility] COMPREHENSIVE METABOLIC PANEL+MG Specimen Type: PLASMA No comment entered. Ordering Provider: MIN VERNON Report Released Date/Time: Sep 13, 2022 03:53 PM Reporting Lab: [facility] [id number] Performing Lab: [facility] [address] CREATININE 0.9 0.7-1.2 UREA NITROGEN 25 8-26 [...] and tobacco- related health factors from the [place] facility where the Encounter took place. Current Smoking Status This section includes the most current smoking, or tobacco-related health factor, from the [place] facility where the Encounter took place. Date/Time Current Smoking Status Comment Saul chapman Aug 05, 2011 01:53 PM LIFETIME NON-TOBACCO USER [facility] Advance Directives: All historical and current Section Date Range: From patient's date of to the date document was created. This section includes ALL of a patient's completed or amended [place] Advance and Rescinded Directives. The entries below indicate that a directive exists for the patient, but an actual copy is not included with this document. The data comes from all [place] facilities. Date Advance Directives Provider Source Oct 19, 2018 ADVANCE DIRECTIVE DISCUSSION NEURAUTER,SH [facility] Oct 19, 2018 ADVANCE DIRECTIVE JANVERONICA Carrasquillo [facility] Oct 24, 2011 ADVANCE DIRECTIVE DISCUSSION MEGHAN PERRY [facility] Oct 24, 2011 ADVANCE DIRECTIVE LIANNA PERRY [facility] Oct 02, 2011 ADVANCE DIRECTIVE DISCUSSION ARCHIEPARASMEGHAN [facility] Radiology Reports: +/- 30 days of [...] the Encounter. The data comes from all [place] treatment facilities. Date/Time Radiology Report Provider Source Sep 10, 2022 12:41 PM NON [place] MRI BRAIN: MANINDER ANDERSON [id number] -[id number] M Exm Date: SEP 10, 2022@12:41 Req Phys: SCHROEDER,TARA S Pat Loc: [facility] XRAY GENERAL AM (Req'g Loc Img Loc: OUTSOURCE MRI Service: Unknown (Case [id number] COMPLETE) NON [facility] MRI BRAIN (MRI Detailed) CPT:82333 Reason for Study: OUTSIDE STUDY Clinical History: OUTSIDE STUDY Report Status: Electronically Filed Date Reported: SEP 13, 2022 Report: This is an outside Imaging study and/or report imported for continuity of patient care. This Imaging study and/or report was not reviewed or verified by a [place] Radiologist. Impression: This is an outside Imaging study and/or report imported for continuity of patient care. This Imaging study and/or report was not reviewed or verified by a [place] Radiologist. Primary Diagnostic Code: VERIFIED BY: / *ELECTRONICALLY FILED* [facility] Sep 09, 2022 09:54 PM NON [place] CTA HEAD AN D NECK: MANINDER ANDERSON [id number] -[id number] M Exm Date: SEP 09, 2022@21:54 Req Phys: SCHROEDER,TARA S Pat Loc: [facility] XRAY GENERAL AM (Req'g Loc Img Loc: OUTSOURCE CT Service: Unknown (Case [id number] COMPLETE) NON [place] CTA HEAD AND NECK (CT Detailed) CPT:19795 Reason for Study: OUTSIDE STUDY Clinical History: OUTSIDE STUDY Report Status: Electronically Filed Date Reported: SEP 13, 2022 Report: This is an outside Imaging study and/or report imported for continuity of patient care. This Imaging study and/or report was not reviewed or verified by a [place] Radiologist. Impression: This is an outside Imaging study and/or report imported for continuity of patient care. This Imaging study and/or report was not reviewed or verified by a [place] Radiologist. Primary Diagnostic Code: VERIFIED BY: / *ELECTRONICALLY FILED* [facility] Sep 09, 2022 09:49 PM [facility] HEAD: MANINDER ANDERSON [id number] -[id number] M Exm Date: SEP 09, 2022@21:49 Req Phys: SCHROEDERTARA SHORT S Pat Loc: [facility] XRAY GENERAL AM (Req'g Loc Img Loc: OUTSOURCE CT Service: Unknown (Case [id number] COMPLETE) NON [place] CT HEAD (CT Detailed) CPT:13541 Reason for Study: OUTSIDE STUDY Clinical History: OUTSIDE STUDY Report Status: Electronically Filed Date Reported: SEP 13, 2022 Report: This is an outside Imaging study and/or report imported for continuity of patient care. This Imaging study and/or report was not reviewed or verified by a [place] Radiologist. Impression: This is an outside Imaging study and/or report imported for continuity of patient care. This Imaging study and/or report was not reviewed or verified by a [place] Radiologist. Primary Diagnostic Code: VERIFIED BY: / *ELECTRONICALLY FILED* [facility] Encounter Notes: All associated encounter notes This section contains the clinical notes associated to the Encounter. Date/Time Encounter Note(s) Provider Source Sep 18, 2022 09:09 AM PRIMARY CARE SECVERONICA E MESSAGING: LOCAL TITLE: PRIMARY CARE SECURE MESSAGING STANDARD TITLE: PRIMARY CARE SECURE MESSAGING DATE OF NOTE: SEP 18, 2022@09:09 ENTRY DATE: SEP 18, 2022@08:09:55 AUTHOR: JOSEPH GUILLAUME EXP COSIGNER: URGENCY: STATUS: COMPLETED ------Original Message Sent: 09/17/2022 12:25 PM ET From: MANINDER ANDERSON To: [facility] Mata Silva G. (Clubs) Subject: Appointment:appointment I had an appointment on Fri. - 09/13/22 with a neurologist. I think her name was Dr. Veronica Vernon? She wanted me to get an ECG? Has she requested one yet? I would like to get it at the [facility]. This week won't work with the snow coming. We come a long distance so concerned about roads. Next Friday won't work but other days would, She wanted it done this week. Thanks for looking into it. ------Original Message Sent: 09/17/2022 03:37 PM ET From: JOSEPH GUILLAUME To: MANINDER ANDERSON Subject: Appointment:appointment Are you currently wearing a zio patch? (Device on left side of chest?) ------Original Message Sent: 09/17/2022 05:19 PM ET From: MANINDER ANDERSON To: [facility] Mata Silva G. (Clubs) Subject: Appointment:appointment No. I think they're supposed to send me one, but I haven't gotten it yet. (Does it monitor heart activity?) ------Original Message Sent: 09/18/2022 09:09 AM ET From: JOSEPH GUILLAUME To: MANINDER ANDERSON Subject: Appointment:appointment I see the order for a zio patch in the chart with instructions to mail it to you. Yes, it monitors heart activity. Please reply with questions/concerns. I am thinking that the intention is for you to place it yourself at home and that there will be clear instructions, but of course we are always here to help. Thanks, ELIZABETH David /og/ JOSEPH GUILLAUME REGISTERED NURSE Signed: 09/18/2022 08:09 JOSEPH GUILLAUME [facility]
[2023-08-25 20:31] LABS: Slide Review Reflex No
--- OUTSIDE RECORDS SUMMARY | 2023-08-25 20:31 | XMS_ITS | Encounter Summary ---
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 Organization Department of [facility] Address [address] [place] [address] Support Name Relationship Address Phone CHARITY ANDERSON [...] Member ID Insurance Provider's Telephone Number Policy Emyer's Name Patient's Relationship to Policy Meyer MEDICARE (WNR) MEDICARE (M) PART A Mar 28, 2012 PART A [id number] MANINDER PUENTES PATIENT MEDICARE (WNR) MEDICARE (M) PART B Mar 28, 2012 PART B [id number] MANINDER PUENTES PATIENT Selected Encounter This section includes the information on record at [place] for the Encounter. Date/Time Encounter Type Encounter Description Reason Provider Source December 12, 2022 08:46 PM Outpatient Encounter SLEEP MEDICINE ICD-10-CM R06.83 Snoring BETTY REECE Jamar Encounter Template Text not used by [place] Assessments - Encounter Diagnoses This section includes the primary and secondary diagnoses documented for the Encounter. Date/Time Primary/Secondary Diagnosis Diagnosis Name Provider Source December 12, 2022 08:46 PM PRIMARY Snoring BETTY REECE [facility] Plan of Treatment: Future Appointments (+ 6 months) and Future Tests (+/- 45 days) The Plan of Treatment section includes future care activities for the patient from all [place] [facility]. This section includes future appointments and future orders which are active, pending or scheduled. Future Appointments This section includes appointments that were scheduled to occur 6 months from the date of the Encounter, up to a maximum of 20 appointments. The data comes from all [facility]. Appointment Date/Time Appointment Type Appointme nt Facility Name Jan 02, 2023 11:00 AM AMBULATORY - SURGERY [facility] Jan 21, 2023 10:30 AM AMBULATORY - SURGERY [facility] Feb 06, 2023 08:30 AM AMBULATORY - PSYCHIATRY [facility] Feb 19, 2023 02:00 PM AMBULATORY - PSYCHIATRY [facility] Mar 05, 2023 01:00 PM AMBULATORY - REHAB MEDICIN E [facility] Mar 19, 2023 10:30 AM AMBULATORY - REHAB MEDICIN E [facility] Mar 19, 2023 11:30 AM AMBULATORY - REHAB MEDICIN E [facility] Apr 15, 2023 01:30 PM AMBULATORY - REHAB MEDICIN E [facility] May 12, 2023 08:00 AM AMBULATORY - NONE [facility] May 14, 2023 10:00 AM AMBULATORY - MEDICINE [facility] Lab Results: +/- 30 days of the encounter This section includes the Chemistry and Hematology Lab Results on record with [place] for the patient. Radiology Reports and Pathology Reports are provided separately, in subsequent sections. Lab Results This section contains the Chemistry/Hematology Results that were resulted 30 days before or 30 daysafter the date of the Encounter. Date/Time Source Result Type Result - Unit Interpretation Reference Range Comment December 12, 2022 10:50 AM [facility] LD,TOTAL Specimen Type: PLASMA No comment entered. Ordering Provider: MIN BATISTA Report Released Date/Time: December 12, 2022 10:40 AM Reporting Lab: [facility] [id number] Performing Lab: [facility] [id number] LD,TOTAL 165 125-220 December 12, 2022 10:50 AM [facility] LIPID PANEL,NON-FASTING Specimen Type: PLASMA No comment entered. Ordering Provider: MIN BATISTA Report Released Date/Time: December 13, 2022 08:12 AM Reporting Lab: [facility] [id number] Performing Lab: [facility] [address] CHOLESTEROL 126 <199 .HDL 50 >40 LDL CALCULATION 59 <99 VLDL CALCULATION 17 <29 NON HDL CHOLESTEROL 76 <129 TRIG(NON FASTING) 86 <149 Vital Signs: All taken on the encounter date This section contains inpatient and outpatient Vital Signs collected on the date of the Encounter. Date/Time Temperature Pulse Blood Pressure Respiratory Rate SP02 Pain Height Weight Body Mass Index Source December 12, 2022 09:54 AM 77 /min 147/77 mm[Hg] [facility] December 12, 2022 09:45 AM 98.4 F 58 /min 157/68 mm[Hg] 16 /min 99 % 0 [facility] Social History: Smoking Status (Most current) and Tobacco Use (All prior to encounter date) This section includes the most current, and the historical, smoking and tobacco- related health factors from the [place] facility where the Encounter took place. Current Smoking Status This section includes the most current smoking, or tobacco-related health factor, from the [place] facility where the Encounter took place. Date/Time Current Smoking Status Comment Saul chapman Aug 05, 2011 01:53 PM LIFETIME NON-TOBACCO USER [facility] Advance Directives: All historical and current Section Date Range: From patient's date of to the date document was created. This section includes ALL of a patient's completed or amended [place] Advance and Rescinded Directives. The entries below indicate that a directive exists for the patient, but an actual copy is not included with this document. The data comes from all [place] facilities. Date Advance Directives Provider Source Oct 19, 2018 ADVANCE DIRECTIVE DISCUSSION MANAN [facility]TO[facility] Oct 19, 2018 ADVANCE DIRECTIVE VERONICA [facility] Oct 24, 2011 ADVANCE DIRECTIVE DISCUSSION MEGHAN PERRY [facility] Oct 24, 2011 ADVANCE DIRECTIVE LIANNA PERRY [facility] Oct 02, 2011 ADVANCE DIRECTIVE DISCUSSION MEGHAN PERRY [facility] Encounter Notes: All associated encounter notes This section contains the clinical notes associated to the Encounter. Date/Time Encounter Note(s) Provider Source December 12, 2022 08:46 PM SLEEP MEDICINE CON SULT: LOCAL TITLE: SLEEP MEDICINE CONSULT STANDARD TITLE: SLEEP MEDICINE CONSULT DATE OF NOTE: DECEMBER 12, 2022@20:46 ENTRY DATE: DECEMBER 12, 2022@20:46:14 AUTHOR: BETTY REECE EXP COSIGNER: URGENCY: STATUS: COMPLETED SLEEP MEDICINE E-CONSULT NOTE Request for evaluation of sleep apnea received. In order to determine the best modality for diagnostic testing (portable unattended sleep study vs in-lab attended polysomnogram), a chart review was performed. Based on my review of the 's reported symptoms, past medical history, medications, body mass index, and tests (where applicable), I have made the following determination: Recommend to complete portable sleep study (WPAT) to evaluate for presence/severity of obstructive sleep apnea. If the is unable to complete the requested sleep study per the scheduling protocol, a new sleep consult will be required. /og/ TERESA MENDENHALL PHYSICIAN MAKEUP SALES CONSULTANT Signed: 12/12/2022 20:46 BETTY REECE [facility]
--- OUTSIDE RECORDS SUMMARY | 2023-08-25 20:31 | XMS_ITS | Encounter Summary ---
Author Name Department of [facility] Affairs Organization [facility] Address [address] [place] [address] Support Name Relationship Address Phone JUSTIN CHARITY [...] PART B Mar 28, 2012 PART B [id number] [phone] MANINDER PUENTES PATIENT MEDICARE (WNR) MEDICARE (M) PART A Mar 28, 2012 PART A [id number] [phone] MANINDER PUENTES PATIENT Selected Encounter This section includes the information on record at [place] for the Encounter. Date/Time Encounter Type Encounter Description Reason Provider Source Oct 31, 2022 08:17 AM Outpatient Encounter PRIMARY CARE/MEDICINE GIULIANA RINCON Encounter Template Text not used by [place] Plan of Treatment: Future Appointments (+ 6 months) and Future Tests (+/- 45 days) The Plan of Treatment section includes future care activities for the patient from all [place] treatmentfacilities. This section includes future appointments and future orders which are active, pending or scheduled. Future Appointments This section includes appointments that were scheduled to occur 6 months from the date of the Encounter, up to a maximum of 20 appointments. The data comes from all [facility]. Appointment Date/Time Appointment Type Appointme nt Facility Name Nov 08, 2022 10:00 AM AMBULATORY - SURGERY [facility] December 12, 2022 10:00 AM AMBULATORY - REHAB MEDICIN E [facility] December 12, 2022 11:00 AM AMBULATORY - NONE [facility] Jan 02, 2023 11:00 AM AMBULATORY - SURGERY [facility] Jan 21, 2023 10:30 AM [facility] Feb 06, 2023 08:30 AM [facility] Feb 19, 2023 02:00 PM AMBULATORY - [facility]RY [facility] Mar 05, 2023 01:00 PM AMBULATORY - REHAB MEDICIN E [facility] Mar 19, 2023 10:30 AM AMBULATORY - REHAB MEDICIN E [facility] Mar 19, 2023 11:30 AM AMBULATORY - REHAB MEDICIN [facility] Apr 15, 2023 01:30 PM AMBULATORY - REHAB MEDICIN E [facility] Social History: Smoking Status (Most current) [...] took place. Date/Time Current Smoking Status Jose Saul aedla Aug 05, 2011 01:53 PM LIFETIME NON-TOBACCO USER [facility] Advance Directives: All historical and current Section Date Range: From patient's date of to the date document was created. This section includes ALL of a patient's completed or amended [place] Advance and Rescinded Directives. The entries below indicate that a directive exists for the patient, but an actual copy is not included with this document. The data comes from all [facility]. Date Advance Directives Provider Source Oct 19, 2018 ADVANCE DIRECTIVE DISCUSSION MANAN MONTOYA [facility] Oct 19, 2018 ADVANCE DIRECTIVE VERONICA MONTOYA [facility] Oct 24, 2011 ADVANCE DIRECTIVE LIANNA PERRY [facility] Oct 24, 2011 ADVANCE DIRECTIVE DISCUSSION MEGHAN PERRY [facility] Oct 02, 2011 ADVANCE DIRECTIVE DISCUSSION MEGHAN PERRY [facility] Encounter Notes: All associated encounter notes This section contains the clinical notes associated to the Encounter. Date/Time Encounter Note(s) Provider Source Oct 31, 2022 08:17 AM PRIMARY CARE PHILIPPVERONICA E MESSAGING: LOCAL TITLE: PRIMARY CARE SECURE MESSAGING STANDARD TITLE: PRIMARY CARE SECURE MESSAGING DATE OF NOTE: OCT 31, 2022@08:17 ENTRY DATE: OCT 31, 2022@08:17:11 AUTHOR: GIULIANA RINCON EXP COSIGNER: URGENCY: STATUS: COMPLETED PRIMARY CARE SECURE MESSAGING Has ADDENDA ------Original Message Sent: 10/28/2022 08:46 AM ET From: MANINDER ANDERSON To: [facility] [place] ([place]) Subject: General:Medicines I've gotten some Fluxactive to help my Prostate problems and peeing at night. It contains: Vitamin E, Vitamin B3, Vaibhav, Epimedium, Sagitatum, Megan, Muira Puama, Gingko Bilboa, Kiswahili Ginseng, Tribulul, Catuaba, Saw [place], Inosine, Oat Straw, and Cayenne. Will any of this conflict with the prescriptions I'm taking?? (Simvastin, Tamulosin, Fluticasone, Lisinopril, Finasteride or Metformin) Frankly, the prescriptions are not working. I still get up 5 - 6 times every night. I'd like to get a good night's sleep. /og/ GIULIANA RINCON CLINICAL BUNCHER OPERATOR Signed: 10/31/2022 08:17 10/31/2022 ADDENDUM STATUS: COMPLETED Per the drug interaction purchase order checker it appears simvastatin would interact with the supplement due to the vitamin B3 (niacin) component as well as potential impact on metformin therapy. Should note that not all components of the supplement were able to be entered for review. Unable to find the supplement in the natural medicines database for review. Would not recommend this supplement based on the above information. If the continues to have urinary symptoms (nocturia) despite taking tamsulosin and finasteride; he may benefit from a urology consult and/or further discussion with PCP regarding symptoms. Alerting RN and PCP to above secure message and response for assistance with next steps. Photography Colorist replied to 's message informing him of the above. Thank you! /emil RINCON CLINICAL BUNCHER OPERATOR Signed: 10/31/2022 08:26 Receipt Acknowledged By: * AWAITING SIGNATURE * TARA SCHROEDER 10/31/2022 11:26 /og/ JANES SATNOS RN REGISTERED NURSE 10/31/2022 ADDENDUM STATUS: COMPLETED Photography Colorist called and spoke with , discussed PharmD recommendations as noted in previous addendum. Pt stated he will return the supplement. [place] is agreeable with suggestion for Urology consult. Will place consult and hold for MD review/signature. /og/ JANES SANTOS RN REGISTERED NURSE Signed: 10/31/2022 11:28 Receipt Acknowledged By: * AWAITING SIGNATURE * TARA SCHROEDER [place] [facility] [place] [facility]
--- OUTSIDE RECORDS SUMMARY | 2023-08-25 20:31 | XMS_ITS | Encounter Summary ---
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 Organization [facility] of [facility] Address [address] [place] [address] Support Name Relationship Address Phone CHARITY ANDERSON [...] PART A Mar 28, 2012 PART A [id number] [phone] MANINDER PUENTES PATIENT MEDICARE (WNR) MEDICARE (M) PART B Mar 28, 2012 PART B [id number] [phone] MANINDER PUENTES PATIENT Selected Encounter This section includes the information on record at [place] for the Encounter. Date/Time Encounter Type Encounter Description Reason Provider Source December 12, 2022 10:00 AM OFFICE O/P EST HI 40-54 MIN EPILEPSY [facility]E ICD-10-CM I63.9 Cerebral infarction, unspecified JESUS BATISTA IE A I[facility] Encounter Template Text not used by [place] Assessments - Encounter Diagnoses This section includes the primary and secondary diagnoses documented for the Encounter. Date/Time Primary/Secondary Diagnosis Diagnosis Name Provider Source December 12, 2022 11:03 AM PRIMARY Cerebral infarction, unspecified JESUS BATISTA IE A [facility] December 12, 2022 11:03 AM SECONDARY Oth symptoms and signs w cognitive functions and awareness JESUS BATISTA IE A [facility] Plan of Treatment: Future Appointments (+ 6 months) and Future Tests (+/- 45 days) The Plan of Treatment section includes future care activities for the [facility] [place] [facility]. This section includes future appointments and future orders which are active, pending or scheduled. Future Appointments This section includes appointments that were scheduled to occur 6 months from the date of the Encounter, up to a maximum of 20 appointments. The data comes from all [place] treatment facilities. Appointment Date/Time Appointment Type Appointme nt Facility Name Jan 02, 2023 11:00 AM AMBULATORY - SURGERY [facility] Jan 21, 2023 10:30 AM AMBULATORY - SURGERY [facility] Feb 06, 2023 08:30 AM AMBULATORY - PSYCHIATRY [facility] Feb 19, 2023 02:00 PM AMBULATORY - PSYCHIATRY [facility] Mar 05, 2023 01:00 PM AMBULATORY - REHAB MEDICIN E [facility] Mar 19, 2023 10:30 AM AMBULATORY - REHAB MEDICIN E [facility] Mar 19, 2023 11:30 AM AMBULATORY - REHAB MEDICIN E [facility] Apr 15, 2023 01:30 PM AMBULATORY - REHAB MEDICIN E [facility] May 12, 2023 08:00 AM AMBULATORY - NONE [facility] May 14, 2023 10:00 AM [facility] Lab Results: +/- 30 days [...] Range Comment December 12, 2022 10:50 AM [facility] LD,TOTAL Specimen Type: PLASMA No comment entered. Ordering Provider: MIN BATISTA Report Released Date/Time: December 12, 2022 10:40 AM Reporting Lab: [facility] [id number] Performing Lab: [facility] [id number] LD,TOTAL 165 125-220 December 12, 2022 10:50 AM [facility] LIPID PANEL,NON-FASTING Specimen Type: PLASMA No comment entered. Ordering Provider: MIN BATISTA Report Released Date/Time: December 13, 2022 08:12 AM Reporting Lab: [facility] [id number] Performing Lab: [facility] [id number] CHOLESTEROL 126 <199 .HDL 50 >40 LDL [...] 2022 09:54 AM 77 /min 147/77 mm[Hg] [facility] December 12, 2022 09:45 AM 98.4 F 58 /min 157/68 mm[Hg] 16 /min 99 % 0 [facility] Social History: Smoking Status (Most current) and [...] 05, 2011 01:53 PM LIFETIME NON-TOBACCO USER [facility] Advance Directives: All historical and [...] Provider Source Oct 19, 2018 ADVANCE DIRECTIVE VERONICA [facility] Oct 19, 2018 ADVANCE DIRECTIVE DISCUSSION MANAN [facility] Oct 24, 2011 ADVANCE DIRECTIVE DISCUSSION MEGHAN PERRY [facility] Oct 24, 2011 ADVANCE DIRECTIVE LIANNA PERRY [facility] Oct 02, 2011 ADVANCE DIRECTIVE DISCUSSION MEGHAN PERRY [facility] Encounter Notes: All associated encounter notes This section contains the clinical notes associated to the Encounter. Date/Time Encounter Note(s) Provider Source December 24, 2022 02:13 PM LETTERS: LOCAL TITLE: FOLLOW UP RESULTS LETTER STANDARD TITLE: LETTERS DATE OF NOTE: DECEMBER 24, 2022@14:13 ENTRY DATE: DECEMBER 24, 2022@14:13:15 AUTHOR: ROBI BATISTA EXP COSIGNER: URGENCY: STATUS: COMPLETED [facility] [address] [place] [address] November MANINDER ANDERSON [address] [facility] [address] Dear [place]: I am writing to inform you of the results of the tests you had done at the [facility]. After a stroke, our goal of LDL cholesterol is < 70. You are currently at goal on your current simvastatin treatment. No changes are necessary at this time. CHOLESTEROL 126 mg/dL Ref: <=199 TRIG(NON FASTING) 86 mg/dL Ref: <=149 .HDL 50 mg/dL Ref: >=40 LDL CALCULATION 59 mg/dL Ref: <=99 VLDL CALCULATION 17 mg/dL Ref: <=29 NON HDL CHOLESTEROL 76 mg/dL Ref: <=129 Sincerely, ROBI BATISTA MD Physician ROBI BATISTA [facility] December 12, 2022 10:20 AM NEUROLOGY ATTENDING NOTE: LOCAL TITLE: NEUROLOGY CLINIC NOTE STANDARD TITLE: NEUROLOGY ATTENDING NOTE DATE OF NOTE: DECEMBER 12, 2022@10:20 ENTRY DATE: DECEMBER 12, 2022@10:20:29 AUTHOR: ROBI BATISTA EXP COSIGNER: URGENCY: STATUS: COMPLETED SUBJECT: Neurology HPI: MANINDER ANDERSON is a 77 year old with past medical history significant for type 2 diabetes mellitus, hypertension, and hypercholesterolemia who presents for follow-up of focal stroke. He presents with his , Manny. In August 2022, presented to [place] after a fall, extreme weakness and inability to get up. He had slurred speech and shakiness. He was found to have an 8 mm lacunar stroke in the left internal capsule posterior limb with extensive chronic microvascular ischemic changes and many lacunar infarctions. There was also dilation of the ventricular system suspected to be due to generalized atrophy. At first visit with il, no focal neurologic deficits and we initiated a stroke evaluation. CTA head and neck with no large artery high grade stenosis or occlusion. He completed 3 weeks of DAPT. INTERIM: Since last visit doing much better. He is walking more steadily, but still has some stiffness in his legs. He is still doing regular walks approximately 1 mile twice a day, but moving a little more slowly. 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 Noticed that about 3 to 4 weeks ago he made a mistake on an invoice, which was uncommon for him. He is gradually transferring over more responsibility to a person he works with. Still driving safely, but notes that he sometimes forgets which way to turn using memory alone when traveling to the [place]. does not have concerns for driving. He is managing the finances with no issues. He is cooks occasionally eggs and omelet without difficulty. Additionally, changed his diet, lost about 20 pounds, blood pressure better controlled and sugars at home under 120. In terms of stroke work-up, A1c 6.8, LDL 93, TTE performed normal EF and no left atrial dilatation. Zio patch 14 days with no atrial fibrillation. Non-smoker. No alcohol. He was referred to neuro rehab, but felt he did not need it and canceled it. He was improving at my visit and continued to improve. Snores, has concern for apnea in the past, generally feels rested when he wakes. Benign prostatic hypertrophy, repeatedly waking at night to use the restroom. Past Medical History: Active problems - Computerized Problem List is the source for the followin. Nasal congestion - improved with Flonase Nasal Lane 2. Hypercholesterolemia 3. Body mass index 30+ - obesity 4. Lower urinary tract symptoms due to benign prostatic hypertrophy - seen in UROLOGY-has agreed to UDS 5. Chronic sinusitis 6. Essential hypertension 7. Allergic rhinitis 8. Bilateral sensory hearing loss - USES HEARING AIDS TO WATCH TV - plans to bring new hearing aids to next visit 9. Type 2 diabetes mellitus without complication - had eye check outside 08/12/21, he will bring records 10. 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 H/O: surgery - s/p Vasectomy 12. Hemorrhoids - HAS HAD IT SINCE - takes over the counter fiber 13. Slurred speech - is in [facility] for TIA or CVA, Has had VA Cover his MRI - see 10/11/22 ekg consult for ZIO results Social History: , children. Owns his own business Family History: No family history of stroke, but family history of dementia. Medications: Active Outpatient Medications (including Supplies): Active Outpatient Medications Status 1) FINASTERIDE 5MG TAB TAKE ONE TABLET BY MOUTH EVERY ACTIVE DAY FOR PROSTATE 2) FLUTICASONE PROP 50MCG 120D NASAL INHL SPRAY 2 SPRAYS ACTIVE IN EACH NOSTRIL AT BEDTIME NEEDED USE REGULARLY FOR RELIEF OF ALLERGIES/CONGESTION 3) HCTZ 25/LISINOPRIL 20MG TAB TAKE 1 TABLET BY MOUTH ACTIVE (S) EVERY DAY FOR BLOOD PRESSURE 4) METFORMIN HCL 1000MG TAB TAKE ONE-HALF TABLET BY ACTIVE MOUTH TWO TIMES A DAY 5) SIMVASTATIN 80MG TAB TAKE ONE TABLET BY MOUTH AT ACTIVE BEDTIME FOR CHOLESTEROL 6) TAMSULOSIN HCL 0.4MG CAP TAKE ONE CAPSULE BY MOUTH AT ACTIVE BEDTIME Active Non-VA Medications Status 1) Non-VA ASPIRIN 81MG EC TAB 162MG MOUTH EVERY DAY ACTIVE 2) Non-VA CALCIUM CARBONATE 650MG (CA 260MG) TAB 650 MG ACTIVE MOUTH 3) Non-VA FISH OIL 1000MG (500MG DHA/EPA) CAP 2000MG ACTIVE MOUTH EVERY DAY 4) Non-VA MULTIVITAMIN CAP/TAB 1 TABLET MOUTH EVERY DAY ACTIVE 10 Total Medications Allergies: Patient has answered NKA EXAM: General appearance: NAD, appropriate Head: Non-traumatic Respiratory: No increased work of breathing Neurologic Exam: Mental: Patient is alert, attentive and oriented. Speech is fluent and comprehension intact. Patient follows all commands. Perform simple calculations quickly and easily. Names 3 of the last 4 presidents. Spells world backwards correctly. Normal clock. 2 out of 3 on delayed recall, unable to get the third with category cue. Cranial Nerves: Visual peña intact, EOMI, face is symmetric, hearing intact to voice, tongue is midline, and palate elevation symmetric. No dysarthria. Motor: No pronator drift. Strength is 5/5 in bilateral upper and lower extremities in proximal and distal distribution Sensory: Normal to light touch throughout. Vibration present in toes. Normal light touch in toes. Reflexes: Brisk reflexes 3+ throughout symmetric. No ankle clonus. Toes are flexor on the right and equivocal on the left Coordination: Intact [id number]. Gait: Gait is slightly slow, little cautious, but normal stride length. MRI 09/10/2022left internal [...] vessels on my review ASSESSMENT AND PLAN: #Lacunar stroke #Extensive white matter disease, central atrophy #Cognitive symptoms type 2 diabetes mellitus, hypertension, and hypercholesterolemia who presented for evaluation of left internal capsule, focal stroke. Etiology most likely small vessel ischemic disease. Stroke risk factors include type 2 diabetes mellitus, hyperlipidemia, hypertension. Never smoker. Stroke work-up including TTE with normal EF and no left atrial enlargement. Zio patch without atrial fibrillation. LDL 93, simvastatin was increased around the time of this LDL. We will recheck today. A1c 6.8, at goal under 7. Diet and exercise changes. Doing better overall, memory symptoms endorsed today and mild deficits noted on examination, 2 out of 3 on delayed recall, could not recall the fourth president in reverse order and made a mistake at work with invoicing. I think it is reasonable to proceed with memory and thinking testing to establish a baseline, notable high degree of microvascular changes and can see cognitive symptoms in the setting. Additionally, positive for snoring and questionable apneic events, screen for sleep apnea which can additionally contribute to memory and thinking. TSH and B12 were obtained in April 2022, within normal limits, no need to repeat right now. - Continue healthy diet, exercise, social engagement Continue aspirin 325 daily Continue simvastatin 80 mg daily Repeat LDL today, if not at goal < 70, switch to atorvastatin 40 mg daily Long-term goal normotension A1c goal < 7, at goal Neuropsychological testing - Sleep referral to evaluate for sleep apnea Return to clinic in 3 months to review results above - I will call after LDL returns, if I recommend increased to high intensity statin I spent 45 minutes in total care including evaluation, assessment and /es/ ROBI BATISTA MD Physician Signed: 12/12/2022 11:04 ROBI BATISTA [facility] December 12, 2022 09:50 AM NEUROLOGY NURSING OUTPATIENT NOTE: LOCAL TITLE: NEUROLOGY CLINIC NURSING NOTE STANDARD TITLE: NEUROLOGY NURSING OUTPATIENT NOTE DATE OF NOTE: DECEMBER 12, 2022@09:50 ENTRY DATE: DECEMBER 12, 2022@09:51:03 AUTHOR: ROBI HANNA EXP COSIGNER: URGENCY: STATUS: COMPLETED Type of visit: Appointment Check In Reason for Visit: RTC Vital Signs: Blood Pressure: 157/68 (12/12/2022 09:45) Pulse: 58 (12/12/2022 09:45) Respiration: 16 (12/12/2022 09:45) Temperature: 98.4 F [36.9 C] (12/12/2022 09:45) Weight: 204.3 lb [92.67 kg] (05/16/2022 10:03) Height: 69 in [175.3 cm] (05/16/2022 10:03) BMI: 30.2 Pain: 0 (12/12/2022 09:45) Rechecked B/P: 147/77 P: 59 Allergies: Patient has answered NKA Medications: Active Outpatient Medications and Supplies: Active Outpatient Medications (including Supplies): Active Outpatient Medications Status 1) FINASTERIDE 5MG TAB TAKE ONE TABLET BY MOUTH EVERY ACTIVE DAY FOR PROSTATE 2) FLUTICASONE PROP 50MCG 120D NASAL INHL SPRAY 2 SPRAYS ACTIVE IN EACH NOSTRIL AT BEDTIME NEEDED USE REGULARLY FOR RELIEF OF ALLERGIES/CONGESTION 3) HCTZ 25/LISINOPRIL 20MG TAB TAKE 1 TABLET BY MOUTH ACTIVE (S) EVERY DAY FOR BLOOD PRESSURE 4) METFORMIN HCL 1000MG TAB TAKE ONE-HALF TABLET BY ACTIVE MOUTH TWO TIMES A DAY 5) SIMVASTATIN 80MG TAB TAKE ONE TABLET BY MOUTH AT ACTIVE BEDTIME FOR CHOLESTEROL 6) TAMSULOSIN HCL 0.4MG CAP TAKE ONE CAPSULE BY MOUTH AT ACTIVE BEDTIME Active Non-VA Medications Status 1) Non-VA ASPIRIN 81MG EC TAB 162MG MOUTH EVERY DAY ACTIVE 2) Non-VA CALCIUM CARBONATE 650MG (CA 260MG) TAB 650 MG ACTIVE MOUTH 3) Non-VA FISH OIL 1000MG (500MG DHA/EPA) CAP 2000MG ACTIVE MOUTH EVERY DAY 4) Non-VA MULTIVITAMIN CAP/TAB 1 TABLET MOUTH EVERY DAY ACTIVE 10 Total Medications Patient reports the following changes regarding the current pharmacy list of medications: The above medication list confirmed with patient. A copy of the above medication list given to the MD for review and update. Provider will give printed copy of medication list to patient with any changes documented on printed medication list. Toxic Exposure Screening: The /caregiver was asked if they believe the experienced any toxic exposure(s), such as Airborne Hazards and Open Burn [place], [place] War related exposures, Agent [place], Radiation, contaminated water at [place] or other such exposures, while serving in the [employer]. 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 The /caregiver was informed that we will continue to ask this screening question every 5 years. They can contact their provider/healthcare team if they have concerns about exposures and would like to be screened sooner. Printed information was offered and provided if desired. /og/ ROBI HANNA LPN LPN Signed: 12/12/2022 09:54 ROBI HANNA [facility]
--- OUTSIDE RECORDS SUMMARY | 2023-08-25 20:31 | XMS_ITS | Encounter Summary ---
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 Organization Department of Veter[facility] Affairs Address [address] [place] [address] Support Name Relationship Address Phone CHARITY ANDERSON [...] PART B Mar 28, 2012 PART B [id number] [phone] MANINDER PUENTES PATIENT MEDICARE (WNR) MEDICARE (M) PART A Mar 28, 2012 PART A [id number] MANINDER PUENTES PATIENT Selected Encounter This section includes the information on record at [place] for the Encounter. Date/Time Encounter Type Encounter Description Reason Provider Source Nov 08, 2022 10:00 AM OFF/OP CNSLTJ NEW/EST LOW 30 UROLOGY CLINIC ICD-10-CM N40.1 Benign prostatic hyperplasia with lower urinary tract symp HARDIK DAY Encounter Template Text not used by [place] Assessments - Encounter Diagnoses This section includes the primary and secondary diagnoses documented for the Encounter. Date/Time Primary/Secondary Diagnosis Diagnosis Name Provider Source Nov 08, 2022 10:29 AM PRIMARY Benign prostatic hyperplasia with lower urinary tract symp CONHARDIK CORTEZ [facility] Plan of Treatment: Future Appointments (+ 6 months) and Future Tests (+/- 45 days) The Plan of Treatment section includes future care activities for the patient from all [place] [facility] This section includes future appointments and future orders which are active, pending or scheduled. Future Appointments This section includes appointments that were scheduled to occur 6 months from the date of the Encounter, up to a maximum of 20 appointments. The data comes from all [facility]. Appointment Date/Time Appointment Type Appointme nt Facility Name December 12, 2022 10:00 AM AMBULATORY - REHAB MEDICIN E [facility] December 12, 2022 11:00 AM [facility] Jan 02, 2023 11:00 AM [place] [facility] Jan 21, 2023 10:30 AM AM[place]UL[place]ORY - [place] [facility] Feb 06, 2023 08:30 AM AM[place] [facility] Feb 19, 2023 02:00 PM AMBULATORY [place] [facility] Mar 05, 2023 01:00 PM AMBULATORY - REHAB MEDICIN E [facility] Mar 19, 2023 10:30 AM AMBULATORY - REHAB MEDICIN E [facility] Mar 19, 2023 11:30 AM AMBULATORY - REHAB MEDICIN E [facility] Apr 15, 2023 01:30 PM AMBULATORY - REHAB MEDICIN [facility] Social History: Smoking Status (Most current) and Tobacco Use (All prior to encounter date) This section includes the most current, and the historical, smoking and tobacco- related health factors from the [place] facility where the Encounter took place. Current Smoking Status This section includes the most current smoking, or tobacco-related health factor, from the [place] facility where the Encounter took place. Date/Time Current Smoking Status Comment Saul chapman Aug 05, 2011 01:53 PM LIFETIME NON-TOBACCO USER [facility] Advance Directives: All historical and current Section Date Range: From patient's date of to the date document was created. This section includes ALL of a patient's completed or amended [place] Advance and Rescinded Directives. The entries below indicate that a directive exists for the patient, but an actual copy is not included with this document. The data comes from all [facility]. Date Advance Directives Provider Source Oct 19, 2018 ADVANCE DIRECTIVE DISCUSSION MANAN MONTOYA EIGARFIELD Neida CABA CB Oct 19, 2018 ADVANCE DIRECTIVE DARIAKTAYAVERONICA Carrasquillo FREDY YANEZ CB Oct 24, 2011 ADVANCE DIRECTIVE DISCUSSION ARCHIEPARASMEGHAN [facility] Oct 24, 2011 ADVANCE DIRECTIVE LIANNA PERRY [facility] Oct 02, 2011 ADVANCE DIRECTIVE DISCUSSION MEGHAN PERRYPATRICE Scales [facility] Encounter Notes: All associated encounter notes This section contains the clinical notes associated to the Encounter. Date/Time Encounter Note(s) Provider Source Nov 08, 2022 10:03 AM UROLOGY NURSING OUTPATIENT NOTE: LOCAL TITLE: UROLOGY CLINIC NURSING NOTE STANDARD TITLE: UROLOGY NURSING OUTPATIENT NOTE DATE OF NOTE: NOV 08, 2022@10:03 ENTRY DATE: NOV 08, 2022@10:03:31 AUTHOR: RJ MASTERS COSIGNER: URGENCY: STATUS: COMPLETED UROLOGY CLINIC NURSING NOTE Has ADDENDA Nursing Procedures: Residual Urine (RU) Patient instructed and verbalizes that s/he has emptied the bladder completely. Ultrasound RU: 184 cc Participant instructed and verbalized understanding of procedure. International Prostate Symptoms Score International Prostate Symtoms Score (I-PSS) Scale for questions 1 through 6: 0 = Not at all 1 = Less than 1 time in 5 2 = Less than half the time 3 = About half the time 4 = More than half the time 5 = Almost always 1. Incomplete Emptyin 2. Frequency: 5 3. Intermittency: 4 4. Urgency: 5 5. Weak Stream: 3 6. Strainin 7. Nocturia: 5+ Quality of Life (QOL): 4 Total I-PSS = 27 QOL = 4 Scale for QOL questions 0 - Delighted 4 - Mostly dissatisfied 1 - Pleased 5 - Unhappy 2 - Mostly satisfied 6 - Terrible 3 - Unsure /og/ RJ MASTERS LPN LICENSED PRACTICAL NURSE Signed: 11/08/2022 10:05 11/08/2022 ADDENDUM STATUS: COMPLETED Urology Nurse Patient Education: Patient indicates readiness to learn and has been instructed on the following: Barriers to Learning/Special Needs: No Barriers Identified Handouts provided: Urodynamics, urologs, and measuring device. /og/ JUDITH HORAN RN STAFF NURSE Signed: 11/08/2022 10:36 RJ MASTERS [facility] Nov 08, 2022 10:01 AM UROLOGY CONSULT: LOCAL TITLE: UROLOGY CONSULT STANDARD TITLE: UROLOGY CONSULT DATE OF NOTE: NOV 08, 2022@10:01 ENTRY DATE: NOV 08, 2022@10:01:16 AUTHOR: ZEKE DAY EXP COSIGNER: URGENCY: STATUS: COMPLETED Chief Complaint: BPH/Lutsx/Nocturia MANINDER Hawkins is a 77 year old w/ pmhx sig for:HTN, T2DM, obesity and BPH w/ lutsx. Vet has been on a diet to help w/ wt loss and better glucose control. Reports having planned wt loss of 15 lbs and better glycemic control. This has been accomplished w/ higher protein diet and water in place of juice etc. Bowels essentially regular ~ a little transient constipation managed w/ daily psyllium tablets and then when constipated exlax. Has been on dual therapy for bph for years being seen for urination problems Finasteride start date 05/20/2021 Tamsulosin 06/20/2020. Really doesn't feel that those Rx's have been of help. URINARY SYMPTOMS He states that his most bothersome urinary symptom is nocturia followed by freq and then urge. ======= Daytime freq: q 1.5 hours. Nocturia: 5-6 x night Urinary stream: moderate Urgency: denies Incontinence: denies Hesitancy: denies Double voiding: denies Incomplete emptying: denies Hematuria: denies History of UTI: denies Hx prostate surgery: denies Alpha brian: On flomax since 2019 Finasteride: 04/2021 Bowel movements: Fluid intake: Just water now 50-60 oz Caffeine intake: - IPSS 27 QoL 4 PAST MEDICAL HISTORY ====== Nasal congestion (SCT [id number]) Hypercholesterolemia (SCT 64958258) Body mass index 30+ - obesity (SCT 97657Cores urinary tract symptoms due to benign prostatic hypertrophy ([facility] [id number]) Chronic sinusitis ([facility] [id number]) Essential hypertension ([facility] [id number]) Allergic rhinitis ([facility] [id number]) Bilateral sensory hearing loss ([facility] [id number]) Type 2 diabetes mellitus without complicFamily social history ([facility] [id number]) H/O: surgery ([facility] [id number]) Hemorrhoids ([facility] [id number]) Slurred speech ([facility] [id number]) PAST SURGICAL HISTORY ====== SURGERIES - NONE FOUND FAMILY HISTORY ====== Hx of prostate cancer: denies Hx of renal cancer: denies Hx of bladder cancer: denies SOCIAL HISTORY ====== Lives at home with: Children: 2 biologic children. 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 Stateside Agent orange exposure: denies Chemical/dye exposure: denies MEDICATIONS: Active Outpatient Medications (excluding Supplies): Outpatient Medications Status 1) FINASTERIDE 5MG TAB TAKE ONE TABLET BY MOUTH EVERY ACTIVE DAY FOR PROSTATE 2) FLUTICASONE PROP 50MCG 120D NASAL INHL SPRAY 2 SPRAYS ACTIVE IN EACH NOSTRIL AT BEDTIME NEEDED USE REGULARLY FOR RELIEF OF ALLERGIES/CONGESTION 3) HCTZ 25/LISINOPRIL 20MG TAB TAKE 1 TABLET BY MOUTH ACTIVE EVERY DAY FOR BLOOD PRESSURE 4) METFORMIN HCL 1000MG TAB TAKE ONE-HALF TABLET BY ACTIVE MOUTH TWO TIMES A DAY 5) SIMVASTATIN 80MG TAB TAKE ONE-HALF TABLET BY MOUTH AT ACTIVE BEDTIME FOR CHOLESTEROL 6) TAMSULOSIN HCL 0.4MG CAP TAKE ONE CAPSULE BY MOUTH AT ACTIVE BEDTIME Non-VA Medications Status 1) Non-VA ASPIRIN 81MG EC TAB 162MG MOUTH EVERY DAY ACTIVE 2) Non-VA CALCIUM CARBONATE 650MG (CA 260MG) TAB 650 MG ACTIVE MOUTH 3) Non-VA FISH OIL 1000MG (500MG DHA/EPA) CAP 2000MG ACTIVE MOUTH EVERY DAY 4) Non-VA MULTIVITAMIN CAP/TAB 1 TABLET MOUTH EVERY DAY ACTIVE 10 Total Medications PHYSICAL EXAM Gen: no acute distress Neck: no JVD, trachea midline, no abnormal adenopathy Resp: No increased work of breathing Abd: Soft, nontender, nondistended, no visible scars Skin: Warm and dry, no visible rashes/bruises Ext: No cyanosis, or edema. Neuro: Cranial nerves II-XII grossly intact : Penis circumcised Normal orthotopic meatus No palpable penile plaques 16cc Testis palpable bilaterally with no masses or lesions. No varicocele bilaterally ALMA: attempted though ++ stool PVR today: 184 LABS: PSA 1.81 PLASMA (06/14/19 07:59) 1.57 PLASMA (09/21/18 07:56) Collection DT Specimen Test Name Result Units Ref Range 09/13/2022 16:02 PLASMA CREATININE 0.9 mg/dL 0.7 - 1.2 05/10/2022 09:51 PLASMA!! CREATININE 0.8 mg/dL 0.7 - 1.2 05/08/2021 07:54 PLASMA CREATININE 0.9 mg/dL 0.7 - 1.2 06/12/2020 08:17 PLASMA CREATININE 0.9 mg/dL 0.7 - 1.2 06/14/2019 07:59 PLASMA CREATININE 0.9 mg/dL 0.7 - 1.2 !! Indicates COMMENTS AVAILABLE...Refer to Interim Lab Report. TESTOSTERONE____ PLAN Mr. PITTSMITZIMANINDER PARKINSON is a 77 year old gentleman who presents for lutsx on dual therapy. vet endorses + snooring. ? potential need for sleep study. ? component of worsening lutsx over past two months associated w/ increase in constipation as vet has been on a new diet for this period of time and has noted w/ this a change in both bowels (w/ constipation) and worsening lutsx. Agrees to UDS and will see results. Consider surgery if indicated and clear evidence of LOMAS. Vet is understanding and agreeable to above tx plan. /og/ TERESA HERNANDEZ PHYSICIAN CONSULTING SALES MANAGER Signed: 11/08/2022 10:29 ONUR DAY [facility]
--- OUTSIDE RECORDS SUMMARY | 2023-08-25 20:31 | XMS_ITS | Encounter Summary ---
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 Organization [facility] Address [address] [place] [address] Support Name Relationship Address Phone JUSTIN CHARITY [...] PART A Mar 28, 2012 PART A [id number] [phone] MANINDER PUENTES PATIENT MEDICARE (WNR) MEDICARE (M) PART B Mar 28, 2012 PART B [id number] MANINDER PUENTES PATIENT Selected Encounter This section includes the information on record at [place] for the Encounter. Date/Time Encounter Type Encounter Description Reason Provider Source November 27, 2022 11:40 AM Outpatient Encounter PRIMARY CARE/MEDICINE TIFFANIE SAVAGE Encounter Template Text not used by [place] [...] The data comes from all [place] treatment [facility]. Appointment Date/Time Appointment Type Appointme nt Facility Name December 12, 2022 10:00 AM AMBULATORY - REHAB MEDICIN E [facility] December 12, 2022 11:00 AM AMBULATORY - NONE [place] [facility] Jan 02, 2023 11:00 AM [place] [facility] Jan 21, 2023 10:30 AM [place] [facility] Feb 06, 2023 08:30 AM [place] [facility] Feb 19, 2023 02:00 PM AM[place]ULATORY [place] [facility] Mar 05, 2023 01:00 PM AMBULATORY - REHAB MEDICIN E [facility] Mar 19, 2023 10:30 AM AMBULATORY - REHAB MEDICIN E [facility] Mar 19, 2023 11:30 AM AMBULATORY - REHAB MEDICIN E [facility] Apr 15, 2023 01:30 PM AMBULATORY - REHAB MEDICIN E [facility] May 12, 2023 08:00 AM AMBULATORY - NONE [facility] May 14, 2023 10:00 AM AMBULATORY [...] Range Comment December 12, 2022 10:[address] [facility] LD,TOTAL Specimen Type: PLASMA No comment entered. Ordering Provider: MIN BATISTA Report Released Date/Time: December 12, 2022 10:40 AM Reporting Lab: [facility] [id number] Performing Lab: [facility] [id number] LD,TOTAL 165 125-220 December 12, 2022 10:[address] [facility] LIPID PANEL,NON-FASTING Specimen Type: PLASMA No comment entered. Ordering Provider: MIN BATISTA Report Released Date/Time: December 13, 2022 08:12 AM Reporting Lab: [facility] [id number] Performing Lab: [facility] [address] [facility] [id number] CHOLESTEROL 126 <199 .HDL 50 >40 LDL CALCULATION 59 <99 VLDL CALCULATION 17 <29 NON HDL CHOLESTEROL 76 <129 TRIG(NON FASTING) 86 <149 Social History: Smoking Status (Most current) and [...] 05, 2011 01:53 PM LIFETIME NON-TOBACCO USER [facility] Advance Directives: All [...] 19, 2018 ADVANCE DIRECTIVE DISCUSSION MANAN MONTOYA [facility] Oct 19, 2018 ADVANCE DIRECTIVE VERONICA MONTOYA [facility] Oct 24, 2011 ADVANCE DIRECTIVE DISCUSSION MEGHAN PERRY [facility] Oct 24, 2011 ADVANCE DIRECTIVE LIANNA PERRY [facility] Oct 02, 2011 ADVANCE DIRECTIVE DISCUSSION MEGHAN PERRY [facility] Encounter Notes: All associated encounter notes This section contains the clinical notes associated to the Encounter. 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 The Emergency Room Doctor recommended that I take a full 80 mg tablet of Simavastin every day, which I have doing. But now I am running short and the Pharmacy won't ship more until December. Can you expedite the shipment?? Lately I've been keeping track of my weight, blood pressure and blood sugar. (My weight is down to 180, blood pressure is down to 118/66 and blood sugar is down to 106. Should I keep taking all the same medications?? ------Original Message Sent: 11/27/2022 12:40 PM ET From: TIFFANIE SAVAGE To: MANINDER ANDERSON Subject: Medication:Simvastin Eva Magana, I reviewed the records from your ER visit at [facility] back in August. I also see that you followed up with [place] [facility] on 09/13/22 and they documented the recommended simvastatin increase. I will alert Dr. [place] to the need for a new prescription for simvastatin 80 mg daily, per Dr. Batista. If you need this medication filled urgently, please contact the [facility] and request local delivery at [phone], option #3, later today. Best regards, Tiffanie Savage RN PACT Cinder Dump Crane Operator /og/ TIFFANIE SAVAGE RN REGISTERED NURSE Signed: 11/27/2022 11:40 Receipt Acknowledged By: * AWAITING SIGNATURE * TARA [place] RENEE J [place] [facility]
--- OUTSIDE RECORDS SUMMARY | 2023-08-25 20:32 | XMS_ITS | Encounter Summary ---
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 Organization [facility] Address [address] [place] [address] Support Name Relationship Address Phone CHARITY ANDERSON [...] PART B Mar 28, 2012 PART B [id number] [phone] MANINDER PUENTES PATIENT MEDICARE (WNR) MEDICARE (M) PART A Mar 28, 2012 PART A [id number] MANINDER PUENTES PATIENT Selected Encounter This section includes the information on record at [place] for the Encounter. Date/Time Encounter Type Encounter Description Reason Provider Source Jan 02, 2023 11:00 AM CYSTOMETROGRAM W/SOFTWARE SECURITY CONSULTANT UROLOGY CLINIC ICD-10-CM R39.15 Urgency of urination CORINNE WAITE Jamar Encounter Template Text not used by [place] Assessments - Encounter Diagnoses This section includes the primary and secondary diagnoses documented for the Encounter. Date/Time Primary/Secondary Diagnosis Diagnosis Name Provider Source Jan 02, 2023 04:46 PM PRIMARY Urgency of urination CORINNE WAITE [facility] Jan 02, 2023 04:46 PM SECONDARY Frequency of micturition CORINNE WAITE [facility] Jan 02, 2023 04:46 PM SECONDARY Urge incontinence CORINNE WAITE [facility] Plan of Treatment: Future Appointments (+ 6 months) and Future Tests (+/- 45 days) The Plan of Treatment section includes future care activities for the patient from all [place] [facility] This section includes future appointments and future orders which are active, pending or scheduled. Future Appointments This section includes appointments that were scheduled to occur 6 months from the date of the Encounter, up to a maximum of 20 appointments. The data comes from all [place] treatment facilities. Appointment Date/Time Appointment Type Appointme nt Facility Name Jan 21, 2023 10:30 AM AMBULATORY - [place] [facility] Feb 06, 2023 08:30 AM AMBULATORY - PSYCHIATRY [facility] Feb 19, 2023 02:00 PM AMBULATORY - PSYCHIATRY [facility] Mar 05, 2023 01:00 PM AMBULATORY - REHAB MEDICIN E [facility] Mar 19, 2023 10:30 AM AMBULATORY - REHAB MEDICIN E [facility] Mar 19, 2023 11:30 AM AMBULATORY - REHAB MEDICIN E [facility] Apr 15, 2023 01:30 PM AMBULATORY - REHAB MEDICIN E [facility] May 12, 2023 08:00 AM AMBULATORY - NONE [facility] May 14, 2023 10:00 AM AMBULATORY - MEDICINE [facility] Lab Results: +/- 30 days [...] Range Comment December 12, 2022 10:50 AM [facility] LD,TOTAL Specimen Type: PLASMA No comment entered. Ordering Provider: MIN BATISTA Report Released Date/Time: December 12, 2022 10:40 AM Reporting Lab: [facility] [id number] Performing Lab: [facility] [id number] LD,TOTAL 165 125-220 December 12, 2022 10:50 AM [facility] LIPID PANEL,NON-FASTING Specimen Type: PLASMA No comment entered. Ordering Provider: MIN BATISTA Report Released Date/Time: December 13, 2022 08:12 AM Reporting Lab: [facility] [id number] Performing Lab: [facility] [id number] CHOLESTEROL 126 <199 .HDL 50 >40 LDL [...] 19, 2018 ADVANCE DIRECTIVE DISCUSSION MANAN MONTOYA [facility] Oct 19, 2018 ADVANCE DIRECTIVE VERONICA MONTOYA [facility] Oct 24, 2011 ADVANCE DIRECTIVE DISCUSSION MEGHAN PERRY [facility] Oct 24, 2011 ADVANCE DIRECTIVE LIANNA PERRY [facility] Oct 02, 2011 ADVANCE DIRECTIVE DISCUSSION MEGHAN PERRY [facility] Encounter Notes: All associated encounter notes This section contains the clinical notes associated to the Encounter. Date/Time Encounter Note(s) Provider Source Jan 02, 2023 11:48 AM UROLOGY PROCEDURE NOTE: LOCAL TITLE: UROLOGY PROCEDURE STANDARD TITLE: UROLOGY PROCEDURE NOTE DATE OF NOTE: JAN 02, 2023@11:48 ENTRY DATE: JAN 02, 2023@11:48:38 AUTHOR: CORINNE WAITE COSIGNER: URGENCY: STATUS: COMPLETED Age: 77 Gender: MALE Vital Signs: Blood Pressure: 147/77 (12/12/2022 09:54) Heart Rate: 77 (12/12/2022 09:54) Respirations: 16 (12/12/2022 09:45) Temperature: 98.4 F [36.9 C] (12/12/2022 09:45) Weight: 204.3 lb. [92.67 kg] (05/16/2022 10:03) Pain: 0 (12/12/2022 09:45) BMI: 30.2 Allergies: Patient has answered NKA No new allergies entered. MEDICATION RECONCILIATION Outpatient At this visit I have reviewed the medication list, and discussed relevant medications with the patient: No Change Chief complaint/reason for visit: Frequency, urgency. Pt is taking Tamsulosin and Finasteride - not helpful at this time. Indications for procedure(per MD): LUTs Meets criteria for prophylactic antibiotics: Yes ->70 years old If yes, antibiotic was provided for UTI prophylaxis following completion of today's study per department protocol: Bactrim Testing on Anticholinergics: No Voiding diary: Diary completed but not consecutive days 24 hour total intake volume range: 1220-2064ml Types of fluid: Water Average daily percentage of bladder irritants consumed: 0% 24 hour total output volume range: 1175-3000ml Average percentage of night time urine production: N/A Range of time between voids: 20min-2.5hours Range of volumes: 50-400ml Average void volumes: 137ml Number of voids in 24 hours: 16 Number of incontinent episodes in 24 hours: 0-3 Urgency noted: Mild Method used to empty bladder: Voids Time out taken to confirm correct patient and correct procedure. Dining Room Manager needed: No Prestudy Uroflowmetry: Voided volume: 161 ml Post-void residual: 75 ml Max flow: 16 ml/sec Average flow: 8 ml/sec Pattern: Intermittent, straining #7 Romanian double lumen, single sensor Transducer was inserted into the bladder under sterile technique. Catheter passage: easy Initial vesicle pressure: 25 cmH2O Abdominal pressure site: rectal Electromyography (EMG) pads were placed on both sides of the anal verge. Fluids used: sterile water Cystometry: Testing position: standing Fill rate: 20-30 ml/min Capacity: 161 ml Sensation: 1st sensation @ 40 ml. Pdet 23 cmH2O First desire @ 44 ml. Pdet 33 cmH2O Strong desire @ 74 ml. Pdet 17 cmH2O Compliance: Detrusor compliant Stability: Detrusor instability noted, number of times: 8 Provocation: filling and post void Electromyography (EMG) filling pattern: Increases with urge Voiding Pressure Study: Voided volume: 99 ml. Post void residual: 5 ml. Max flow: 11 ml/sec Average flow: 4 ml/sec Max Pressure Detrusor: 59 cm H2O Pattern: Intermittent Electromyography (EMG) voiding pattern: Incomplete relaxation Impression of Urodynamic study 01/02/23: Small functional capacity noted on bladder diaries. Pt had larger capacity on initial Uroflow. Small capacity, compliant bladder with early/increased bladder filling sensations. Detrusor overactivity with and without incontinence. Pt is unable to delay urge to void and leaks half of bladder contents at times and entire bladder contents other times. Pt was able to hold and void when given permission. No residual. Equivocal pattern. Normal contractility. Qmax = 11ml/sec. Pdet@Qmax = [id number]. PVR = 5ml. Failure to store: small capacity, early/increased bladder sensations, detrusor overactivity with and without incontinence Failure to empty: - Plan: Force fluids x 48 hours Report signs and symptoms of urinary tract infection to: Urology Follow-up: as scheduled /og/ MIGUEL MCLAUGHLIN CLINICAL NURSE SPECIALIST Signed: 01/02/2023 16:46 CORINNE WAITE [facility]
--- OUTSIDE RECORDS SUMMARY | 2023-08-25 20:32 | XMS_ITS | Encounter Summary ---
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 Organization Department of [facility] Address [address] [place] [address] Support Name Relationship Address Phone CHARITY ANDERSON [...] PART A Mar 28, 2012 PART A [id number] [phone] MANINDER PUENTES PATIENT MEDICARE (WNR) MEDICARE (M) PART B Mar 28, 2012 PART B [id number] 48A [phone] MANINDER PUENTES PATIENT Selected Encounter This section includes the information on record at [place] for the Encounter. Date/Time Encounter Type Encounter Description Reason Pro vider Source Feb 03, 2023 08:51 AM Outpatient Encounter SLEEP STUDY IHE Encounter Template Text not used by [place] [...] 20 appointments. The data comes from all [place] treatment [facility]. Appointment Date/Time Appointment Type Appointme nt Facility Name Feb 06, 2023 08:30 AM AMBULATORY [place]IATRY [place] [facility] Feb 19, 2023 02:00 PM AMBULATORY - PSYCHIATRY [place] [facility] Mar 05, 2023 01:00 PM AMBULATORY - REHAB MEDICIN E [facility] Mar 19, 2023 10:30 AM AMBULATORY - REHAB MEDICIN E [facility] Mar 19, 2023 11:30 AM AMBULATORY - REHAB MEDICIN E [facility] Apr 15, 2023 01:30 PM AMBULATORY - REHAB MEDICIN E [facility] May 12, 2023 08:00 AM AMBULATORY - NONE [facility] May 14, 2023 10:00 AM [facility]ICINE [facility] Jul 14, 2023 09:00 AM [facility]ORY - MEDIC[facility] Social History: Smoking Status (Most current) and [...] place. Date/Time Current Smoking Status Comment Saul jacksony Aug 05, 2011 01:53 PM LIFETIME NON-TOBACCO USER [facility] Advance Directives: All historical and current Section Date Range: From patient's date of to the date document was created. This section includes ALL of a patient's completed or amended [place] Advance and Rescinded Directives. The entries below indicate that a directive exists for the patient, but an actual copy is not included with this document. The data comes from all [facility]. Date Advance Directives Provider Source Oct 19, 2018 ADVANCE DIRECTIVE DISCUSSION MANAN MONTOYA [facility] Oct 19, 2018 ADVANCE DIRECTIVE VERONICA MONTOYA [facility] Oct 24, 2011 ADVANCE DIRECTIVE LIANNA PERRY [facility] Oct 24, 2011 ADVANCE DIRECTIVE DISCUSSION MEGHAN PERRY [facility] Oct 02, 2011 ADVANCE DIRECTIVE DISCUSSION MEGHAN PERRY [facility] Encounter Notes: All associated encounter notes This section contains the clinical notes associated to the Encounter. Date/Time Encounter Note(s) Provider Source Feb 03, 2023 08:51 AM SLEEP MEDICINE NOT E: LOCAL TITLE: SLEEP MEDICINE NOTE STANDARD TITLE: SLEEP MEDICINE NOTE DATE OF NOTE: FEB 03, 2023@08:51 ENTRY DATE: FEB 03, 2023@08:51:38 AUTHOR: SIOBHAN MANCIA COSIGNER: URGENCY: STATUS: COMPLETED WPAT ONE QUESTIONNAIRE HAS BEEN FILLED OUT Once a sleep provider has formed a diagnosis, a RT will call patient with results and action plan. Order has been verified. Called patient to inform them that their HST will be mailed out to them via [employer]. Discussed with the patient the following: need at least 6 hours of recording data; patient felt this is attainable study needs to be performed within a few days of receiving the device keep their normal night-time routines - go to bed whenever they are sleepy - take normal medications prior to bed - sleep in any position - may drink alcohol because we want to see a normal night Explained about the WPAT One: inside the box is a watch, oximeter to monitor oxygen on finger, sticker to pickling solution maker snoring (if any) to be placed on throat, and a battery sticker with pin number and clinic number located on top of box front of the box has reji to download to smartphone, choose android or apple to correlate with own device. Follow prompts, shows pictures and wording, very easy to use. once you are up for the day, look at your phone and it will give you prompts to follow. download of data should not take longer than 10 minutes. If it does you most likely do not have enough space on your phone and need to connect to your Wi-Fi. You can remove equipment once it is downloaded successfully. Otherwise, call [employer] help number on the box. Must keep your phone within 15 feet of you are all times during the study to make sure it stays connected. [place] Sleepiness Scale Using the scale: 0=Never 1=Slight chance of dozing 2=Moderate chance of dozing 3=High chance of dozing, how often are you likely to doze off in the following situations? 1. Sitting and reading =3 2. Watching TV =1 3. Sitting inactive in a public place =0 4. As a passenger in a car for an hour without a break =1 5. Lying down to rest in the afternoon as circumstances permit =2 6. Sitting and talking to someone =0 7. Sitting quietly after lunch without alcohol =2 8. In a car while stopped for a few minutes in traffic =0 TOTAL:9 Any patient comments or concerns: Difficulty falling asleep (it often takes more than 30 minutes to fall asleep) no Difficulty staying asleep (often wakes up in the middle of the night and may or may not fall back to sleep) yes Irregular sleep schedule (including night shifts/rotating shifts) no Aching or crawling sensation in legs when trying to fall asleep no Disruptive nightmares no Sleep walking no Physical injury to self or my bed partner in sleep no Have you been told, or suspected yourself, that you seem to act out your dreams while asleep (for example, punching, flailing your arms in the air, making running movements, etc.)? yes Occupational risk-no Mental health disorders-no Informed patient they do not need to call us once the study has been completed; we will get a notification. A sleep provider will go over their study and come up with a diagnosis. RT or RPSGT will call with your results and plan of action. You should hear from us again in a little over two weeks or so depending on the mail, when you take your test, and when results can be read by a provider. All patient's questions were addressed and is ready for the HST study. Informed them to call with any further questions or concerns at [phone], M- [phone] and we will be happy to assist. Patient address has been verified. ESS, and basic patient info has been entered into [employer]. /og/ SIOBHAN MANCIA LPN LPN Signed: 02/03/2023 08:57 SIOBHAN MANCIA [facility]
--- OUTSIDE RECORDS SUMMARY | 2023-08-25 20:32 | XMS_ITS | Encounter Summary ---
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 Organization Department of [facility] Address [address] [place] [address] Support Name Relationship Address Phone CHARITY ANDERSON [...] PART A Mar 28, 2012 PART A [id number] [phone] MANINDER PUENTES PATIENT MEDICARE (WNR) MEDICARE (M) PART B Mar 28, 2012 PART B [id number] 48A [phone] MANINDER PUENTES PATIENT Selected Encounter This section includes the information on record at [place] for the Encounter. Date/Time Encounter Type Encounter Description Reason Pro vider Source Jan 03, 2023 08:43 AM Outpatient Encounter UROLOGY CLINIC IHE Encounter Template Text not used by [place] [...] 20 appointments. The data comes from all [place] treatment facilities. Appointment Date/Time Appointment Type Appointme nt Facility Name Jan 21, 2023 10:30 AM AMBULATORY - SURGERY MINNE DENYLIS [facility] Feb 06, 2023 08:30 AM AMBUL[place]ORY [place] [facility] Feb 19, 2023 02:00 PM AMBULATORY [place]RY [place] [facility] Mar 05, 2023 01:00 PM AMBULATORY - REHAB MEDICIN E [facility] Mar 19, 2023 10:30 AM AMBULATORY - REHAB MEDICIN E [facility] Mar 19, 2023 11:30 AM AMBULATORY - REHAB MEDICIN E [facility] Apr 15, 2023 01:30 PM AMBULATORY - REHAB MEDICIN E [facility] May 12, 2023 08:00 AM AMB[facility]ATORY - NONE [facility] May 14, 2023 10:00 AM [facility] Lab Results: +/- 30 days of [...] Range Comment December 12, 2022 10:50 AM [facility] LD,TOTAL Specimen Type: PLASMA No comment entered. Ordering Provider: MIN BATISTA Report Released Date/Time: December 12, 2022 10:40 AM Reporting Lab: [facility] [id number] Performing Lab: [facility] [id number] LD,TOTAL 165 125-220 December 12, 2022 10:50 AM [facility] LIPID PANEL,NON-FASTING Specimen Type: PLASMA No comment entered. Ordering Provider: MIN BATISTA Report Released Date/Time: December 13, 2022 08:12 AM Reporting Lab: [facility] [id number] Performing Lab: [facility] [id number] CHOLESTEROL 126 <199 .HDL 50 >40 LDL [...] 05, 2011 01:53 PM LIFETIME NON-TOBACCO USER [facility] Advance Directives: All historical and [...] Oct 19, 2018 ADVANCE DIRECTIVE VERONICA MONTO[facility] Oct 19, 2018 ADVANCE DIRECTIVE DISCUSSION MANAN MONTOYA [facility] Oct 24, 2011 ADVANCE DIRECTIVE DISCUSSION MEGHAN PERRY [facility] Oct 24, 2011 ADVANCE DIRECTIVE LIANNA PERRY [facility] Oct 02, 2011 ADVANCE DIRECTIVE DISCUSSION ANASTACIOSMEGHAN SHAN L [facility] Encounter Notes: All associated encounter notes This section contains the clinical notes associated to the Encounter. Date/Time Encounter Note(s) Provider Source Jan 03, 2023 08:43 AM REPORT OF CONTACT: LOCAL TITLE: PATIENT CONTACT NOTE STANDARD TITLE: REPORT OF CONTACT DATE OF NOTE: JAN 03, 2023@08:43 ENTRY DATE: JAN 03, 2023@08:44:40 AUTHOR: DEYA GLORIA EXP COSIGNER: URGENCY: STATUS: COMPLETED Patient contact Name of [place]: MANINDER ANDERSON Name/Relationship of Contact if other than : Date & Time of Contact: Dec@08:44 Type of Contact: Other Reason for Contact: 11 pages of UDS records received, copied. One sent to scanning. one kept at urology front of house manager. /og/ DEYA GLORIA ADVANCED GASOLINE ENGINE INSPECTOR Signed: 01/03/2023 08:45 DEYA GLORIA [facility]
--- OUTSIDE RECORDS SUMMARY | 2023-08-25 20:32 | XMS_ITS | Encounter Summary ---
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 Organization [facility] Address [address] [place] [address] Support Name Relationship Address Phone CHARITY ANDERSON [...] PART A Mar 28, 2012 PART A [id number] [phone] MANINDER PUENTES PATIENT MEDICARE (WNR) MEDICARE (M) PART B Mar 28, 2012 PART B [id number] 48A [phone] MANINDER PUENTES PATIENT Selected Encounter This section includes the information on record at [place] for the Encounter. Date/Time Encounter Type Encounter Description Reason Provider Source Jan 21, 2023 10:30 AM OFFICE O/P EST LOW 20-29 MIN UROLOGY CLINIC ICD-10-CM N40.1 Benign prostatic hyperplasia with lower urinary tract symp HARDIK DAY Encounter Template Text not used by [place] Assessments - Encounter Diagnoses This section includes the primary and secondary diagnoses documented for the Encounter. Date/Time Primary/Secondary Diagnosis Diagnosis Name Provider Source Jan 21, 2023 10:57 AM PRIMARY Benign prostatic hyperplasia with lower urinary tract symp HARDIK DAY [facility] Plan of Treatment: Future Appointments (+ 6 months) and Future Tests (+/- 45 days) The Plan of Treatment section includes future care activities for the patient from all [place] [facility]. This section includes future appointments and future orders which are active, pending or scheduled. Future Appointments This section includes appointments that were scheduled to occur 6 months from the date of the Encounter, up to a maximum of 20 appointments. The data comes from all [facility]. Appointment Date/Time Appointment Type Appointme nt Facility Name Feb 06, 2023 08:30 AM AMBULATORY - PS[facility]CHIATRY [facility] Feb 19, 2023 02:00 PM AMBULATORY - PSYCHIATRY [facility] Mar 05, 2023 01:00 PM AMBULATORY - REHAB MEDICIN E [facility] Mar 19, 2023 10:30 AM AMBULATORY - REHAB MEDICIN [facility] Mar 19, 2023 11:30 AM AMBULATORY - REHAB MEDICIN E [facility] Apr 15, 2023 01:30 PM AMBULATORY - REHAB MEDICIN E [facility] May 12, 2023 08:00 AM AMBULATORY - NONE [facility] May 14, 2023 10:00 AM AMBULATORY - MEDICINE [facility] Jul 14, 2023 09:00 AM AMBULATORY - MEDICINE FR[facility] OPEE [facility] Social History: Smoking Status (Most current) [...] 05, 2011 01:53 PM LIFETIME NON-TOBACCO USER [facility] Advance Directives: All historical and current Section Date Range: From patient's date of to the date document was created. This section includes ALL of a patient's completed or amended [place] Advance and Rescinded Directives. The entries below indicate that a directive exists for the patient, but an actual copy is not included with this document. The data comes from all [facility]. Date Advance Directives Provider Source Oct 19, 2018 ADVANCE DIRECTIVE DISCUSSION MANAN MONTOYA [facility] Oct 19, 2018 ADVANCE DIRECTIVE VERONICA [facility] Oct 24, 2011 ADVANCE DIRECTIVE DISCUSSION MEGHAN PERRY [facility] Oct 24, 2011 ADVANCE DIRECTIVE ARCHIEPARASLIANNA JEFFY [facility] Oct 02, 2011 ADVANCE DIRECTIVE DISCUSSION ORLANDOMEGHAN Scales [facility] Encounter Notes: All associated encounter notes This section contains the clinical notes associated to the Encounter. Date/Time Encounter Note(s) Provider Source Jan 21, 2023 10:49 AM UROLOGY ATTENDING NOTE: LOCAL TITLE: UROLOGY CLINIC NOTE STANDARD TITLE: UROLOGY ATTENDING NOTE DATE OF NOTE: JAN 21, 2023@10:49 ENTRY DATE: JAN 21, 2023@10:49:16 AUTHOR: ZEKE DAY: URGENCY: STATUS: COMPLETED === UROLOGY CLINIC NOTE == Reason for consult/CC: f/u lutsx. HPI: === Prior subj reviewed and updated. Cesar has completed his UDS on 01/02/2023 which is posted below. Continues finasteride and flomax. Cesar had a sleep study ordered from neurology and is working on getting that completed. Sentinal symptom is nocturia recorded at x 5-6. sleeps in seperate room, present for todays visit. 11/08/2022 UDS MANINDER Hawkins is a 77 year old [place] w/ pmhx sig for:HTN, T2DM, obesity and BPH w/ lutsx. Cesar has been on a diet to help [...] nocturia followed by freq and then urge. Daytime freq: q 1.5 hours. Nocturia: 5-6 x night Urinary stream: moderate Urgency: denies Incontinence: denies Hesitancy: denies Double voiding: denies Incomplete emptying: denies Hematuria: denies History of UTI: denies Hx prostate surgery: denies Alpha brian: On flomax since 2019 Finasteride: 04/2021 Bowel movements: Fluid intake: Just water now 50-60 oz Caffeine intake: - IPSS 27 QoL 4 01/02/2023 UDS Cystometry: Testing position: standing Fill rate: 20-30 [...] Normal contractility. Qmax = 11ml/sec. Pdet@Qmax = [id number]. PVR = 5ml. Failure to store: small capacity, early/increased bladder sensations, detrusor overactivity with and without incontinence Failure to empty: - Plan: Force fluids x 48 hours Report signs and symptoms of urinary tract infection to: Urology Follow-up: as scheduled /og/ MIGUEL MCLAUGHLIN CLINICAL NURSE SPECIALIST Signed: 01/02/2023 16:46 ROS: no f/c/wt loss/recent illnesses. Remainder per HPI PMH/PSH: See HPI; Reviewed in CPRS Meds/all: --------- Reviewed in CPRS Fhx/social hx unchanged from last visit O: == EXAM: -- General: Alert, oriented, in NAD -- Skin: No rashes noted -- Chest/Lungs: breathing comfortably on RA -- : circ. no external lesions. testes normal size/shape ALMA: smooth w/o mass or nodule. -- Neurological: A&O. Moves all extremities. LABS: ----- Reviewed in CPRS. Notable for: PSA PSA 1.81 PLASMA (06/14/19 07:59) 1.57 PLASMA (09/21/18 07:56) Creatinine CREATININE 0.9 PLASMA (09/13/22 16:02) 0.8 PLASMA (05/10/22 09:51) A/P: ==== MANINDER Hawkins is a 77 year old gentleman who presents for lutsx on dual therapy w/ UDS completed.. vet endorses + snooring. sleep study ordered by nuerology. UDS shows detruser overactivity. Will hold on rx for OAB rx in setting of constipation and poor overall tolerance of these Rx's. Consult request placed for PT for pelvic floor work. Continue finasteride and tamsulsoin. RTC 1 yr. /og/ TERESA HERNANDEZ PHYSICIAN BEE WORKER Signed: 01/21/2023 10:58 ZEKE DAY [facility]
--- OUTSIDE RECORDS SUMMARY | 2023-08-25 20:32 | XMS_ITS | Encounter Summary ---
Author Name [facility] Organization Department of [facility] Address [address] [place] [address] Support Name Relationship Address Phone CHARITY ANDERSON [...] PART A Mar 28, 2012 PART A [id number] [phone] MANINDER PUENTES PATIENT MEDICARE (WNR) MEDICARE (M) PART B Mar 28, 2012 PART B [id number] MANINDER PUENTES PATIENT Selected Encounter This section includes the information on record at [place] for the Encounter. Date/Time Encounter Type Encounter Description Reason Pro vider Source Jan 02, 2023 11:10 AM Outpatient Encounter ADMIN COCO ACTIVTIES (MASNONCT) E Encounter Template Text not used by [...] 20 appointments. The data comes from all [facility]. Appointment Date/Time Appointment Type Appointme nt Facility Name Jan 21, 2023 10:30 AM AMBULATORY - SURGERY [facility] DENYLISherice [facility] Feb 06, 2023 08:30 AM AMBUL[place]ORY [place] [facility] Feb 19, 2023 02:00 PM [facility] [place] [facility] Mar 05, 2023 01:00 PM AMBULATORY - REHAB MEDICIN E [facility] Mar 19, 2023 10:30 AM AMBULATORY - REHAB MEDICIN E [facility] Mar 19, 2023 11:30 AM AMBULATORY - REHAB MEDICIN E [facility] Apr 15, 2023 01:30 PM AMBULATORY - REHAB MEDICIN E [facility] May 12, 2023 08:00 AM [facility]ATORY - NONE [facility] May 14, 2023 10:00 AM AM[facility]ATORY - [facility]ICINE [facility] Lab Results: +/- 30 days [...] Range Comment December 12, 2022 10:50 AM [facility] LD,TOTAL Specimen Type: PLASMA No comment entered. Ordering Provider: MIN BATISTA Report Released Date/Time: December 12, 2022 10:40 AM Reporting Lab: [facility] [id number] Performing Lab: [facility] [id number] LD,TOTAL 165 125-220 December 12, 2022 10:50 AM [facility] LIPID PANEL,NON-FASTING Specimen Type: PLASMA No comment entered. Ordering Provider: MIN BATISTA Report Released Date/Time: December 13, 2022 08:12 AM Reporting Lab: [facility] [id number] Performing Lab: [facility] [id number] CHOLESTEROL 126 <199 .HDL 50 >40 LDL [...] 05, 2011 01:53 PM LIFETIME NON-TOBACCO USER [facility] Advance Directives: All historical and [...] from all [facility]. Date Advance Directives Provider Source Oct 19, 2018 ADVANCE DIRECTIVE DISCUSSION MANAN MONTOYA [facility] Oct 19, 2018 ADVANCE DIRECTIVE VERONICA MONTOYA [facility] Oct 24, 2011 ADVANCE DIRECTIVE NARJESLIANNA L [facility] Oct 24, 2011 ADVANCE DIRECTIVE DISCUSSION ANASTACIOSMEGHAN SHAN L [facility] Oct 02, 2011 ADVANCE DIRECTIVE DISCUSSION ARCHIEJESJACQU SHAN L [facility] Encounter Notes: All associated encounter notes This section contains the clinical notes associated to the Encounter. Date/Time Encounter Note(s) Provider Source Jan 02, 2023 11:10 AM UROLOGY PROCEDURE NOTE: LOCAL TITLE: UROLOGY PROCEDURE STANDARD TITLE: UROLOGY PROCEDURE NOTE DATE OF NOTE: JAN 02, 2023@11:10 ENTRY DATE: JAN 08, 2023@08:14:51 AUTHOR: CANDI ISIDRO EXP COSIGNER: URGENCY: STATUS: COMPLETED [facility] - Scanned Document See [employer]. /og/ CANDI ISIDRO VISTA POSTAL CLERK Signed: 01/08/2023 08:14 CANDI ISIDRO [facility]
--- OUTSIDE RECORDS SUMMARY | 2023-08-25 20:32 | XMS_ITS | Encounter Summary ---
Author Name [facility] Organization [facility] Address [address] [place] [address] Support Name Relationship Address Phone JUSTIN CHARITY [...] PART A Mar 28, 2012 PART A [id number] [phone] MANINDER PUENTES PATIENT MEDICARE (WNR) MEDICARE (M) PART B Mar 28, 2012 PART B [id number] [id number] [phone] MANINDER PUENTES PATIENT Selected Encounter This section includes the information on record at [place] for the Encounter. Date/Time Encounter Type Encounter Description Reason Pro vider Source Jan 22, 2023 08:30 AM Outpatient Encounter [facility] Encounter Template Text not used by [place] Plan of Treatment: Future Appointments (+ 6 months) and Future Tests (+/- 45 days) The Plan of Treatment section includes future care activities for the patient from all [place] treatmentfacilities. This section includes future appointments and future orders which are active, pending or scheduled. Future Appointments This section includes appointments that were scheduled to occur 6 months from the date of the Encounter, up to a maximum of 20 appointments. The data comes from all [place] treatment facilities. Appointment Date/Time Appointment Type Appointme nt Facility Name Feb 06, 2023 08:30 AM AM[facility] Feb 19, 2023 02:00 PM AMBULATORY - [facility] Mar 05, 2023 01:00 PM AMBULATORY - REHAB MEDICIN E [facility] Mar 19, 2023 10:30 AM AMBULATORY - REHAB MEDICIN E [facility] Mar 19, 2023 11:30 AM AMBULATORY - REHAB MEDICIN E [facility] Apr 15, 2023 01:30 PM AMBULATORY - REHAB MEDICIN E [facility] May 12, 2023 08:00 AM AM[facility]ULATORY - NONE [facility] May 14, 2023 10:00 AM AM[facility]ORY - MEDICINE [facility] Jul 14, 2023 09:00 AM AMBULATORY - MEDICINE [facility] Social History: Smoking Status (Most current) and Tobacco Use (All prior to encounter date) This section includes the most current, and the historical, smoking and tobacco- related health factors from the [place] facility where the Encounter took place. Current Smoking Status This section includes the most current smoking, or tobacco-related health factor, from the [place] facility where the Encounter took place. Date/Time Current Smoking Status Comment Saul ity Aug 05, 2011 01:53 PM LIFETIME NON-TOBACCO USER [facility] Advance Directives: All historical and current Section Date Range: From patient's date of to the date document was created. This section includes ALL of a patient's completed or amended [place] Advance and Rescinded Directives. The entries below indicate that a directive exists for the patient, but an actual copy is not included with this document. The data comes from all [facility]. Date Advance Directives Provider Source Oct 19, 2018 ADVANCE DIRECTIVE DISCUSSION MANAN MONTOYA [facility] Oct 19, 2018 ADVANCE DIRECTIVE VERONICA MONTOYA [facility] Oct 24, 2011 ADVANCE DIRECTIVE DISCUSSION MEGHAN PERRY [facility] Oct 24, 2011 ADVANCE DIRECTIVE LIANNA PERRY [facility] Oct 02, 2011 ADVANCE DIRECTIVE DISCUSSION MEGHAN PERRY [facility] Encounter Notes: All associated encounter notes This section contains the clinical notes associated to the Encounter. Date/Time Encounter Note(s) Provider Source Jan 20, 2023 03:15 PM NO SHOW NOTE: LOCAL TITLE: NO SHOW/CANCELLATION CLINIC NOTE STANDARD TITLE: NO SHOW NOTE DATE OF NOTE: JAN 20, 2023@15:15 ENTRY DATE: JAN 20, 2023@15:15:15 AUTHOR: DARLENE SHORT EXP COSIGNER: URGENCY: STATUS: COMPLETED not seen for scheduled appointment due to: Other Teacher [employer] spoke with Lennon regarding rescheduling 01/22/23 Neuropsych. Eval, as the provider will be out of the clinic ill. Lennon requested to reschedule for 02/06/23 at 8:30AM. Appointment Rescheduled: Yes Appointment is now rescheduled for 02/06/[address] Tyrese So. Please review patient chart and medications for renewal needs (if appropriate). /og/ DARLENE SHORT Advanced Heart Doctor, [facility] Signed: 01/20/2023 15:16 Receipt Acknowledged By: * AWAITING SIGNATURE * CYNTHIA PRETTY * AWAITING SIGNATURE * TYRESE SO NICHOLI J [facility]
--- OUTSIDE RECORDS SUMMARY | 2023-08-25 20:33 | XMS_ITS | Encounter Summary ---
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 Organization [facility] Address [address] [place] [address] Support Name Relationship Address Phone CHARITY ANDERSON [...] PART A Mar 28, 2012 PART A [id number] [phone] MANINDER PUENTES PATIENT MEDICARE (WNR) MEDICARE (M) PART B Mar 28, 2012 PART B [id number] 48A [phone] MANINDER PUENTES PATIENT Selected Encounter This section includes the information on record at [place] for the Encounter. Date/Time Encounter Type Encounter Description Reason Provider Source Feb 20, 2023 11:13 PM UNLISTED PULMONARY SVC/PX SLEEP STUDY ICD-10-CM G47.33 Obstructive sleep apnea (adult) (pediatric) RIAZ SANTOS Jamar Encounter Template Text not used by [place] Assessments - Encounter Diagnoses This section includes the primary and secondary diagnoses documented for the Encounter. Date/Time Primary/Secondary Diagnosis Diagnosis Name Provider Source Feb 20, 2023 11:13 PM PRIMARY Obstructive sleep apnea (adult) (pediatric) RIAZ SANTOS [facility] Plan of Treatment: Future Appointments (+ 6 months) and Future Tests (+/- 45 days) The Plan of Treatment section includes future care activities for the patient from all [place] [facility]. This section includes future appointments and future orders which are active, pending or scheduled. Future Appointments This section includes appointments that were scheduled to occur 6 months from the date of the Encounter, up to a maximum of 20 appointments. The data comes from all [place] treatment facilities. Appointment Date/Time Appointment Type Appointme nt Facility Name Mar 05, 2023 01:00 PM AMBULATORY - REHAB MEDICIN E [facility] Mar 19, 2023 10:30 AM AMBULATORY - [facility] Mar 19, 2023 11:30 AM AMBULATORY - REHAB MEDICIN E [facility] Apr 15, 2023 01:30 PM AMBULATORY - REHAB MEDICIN [facility] May 12, 2023 08:00 AM AMBULATORY - NONE [facility] May 14, 2023 10:00 AM AMBULATORY [...] Result - Unit Interpretation Reference Range Comment Mar 10, 2023 08:28 AM [facility] .OCCULT BLOOD(FIT) Specimen Type: FECES No comment entered. Ordering Provider: KOFFI AUSTIN Report Released Date/Time: Mar 10, 2023 08:28 AM Reporting Lab: [facility] [id number] Performing Lab: [address] [address] .OCCULT BLOOD(FIT ) Negative Social History: Smoking Status (Most current) and [...] 05, 2011 01:53 PM LIFETIME NON-TOBACCO USER [facility] Advance Directives: All historical and [...] MONTOYA CB Oct 24, 2011 ADVANCE DIRECTIVE LIANNA PERRY [facility] Oct 24, 2011 ADVANCE DIRECTIVE DISCUSSION MEGHAN PERRY [facility] Oct 02, 2011 ADVANCE DIRECTIVE DISCUSSION MEGHAN PERRY [facility] Encounter Notes: All associated encounter notes This section contains the clinical notes associated to the Encounter. Date/Time Encounter Note(s) Provider Source Feb 20, 2023 11:13 PM SLEEP MEDICINE NOT E: LOCAL TITLE: SLEEP HST SET UP STANDARD TITLE: SLEEP MEDICINE NOTE DATE OF NOTE: FEB 20, 2023@23:13:55 ENTRY DATE: FEB 20, 2023@23:13:56 AUTHOR: RIAZ SANTOS EXP COSIGNER: URGENCY: STATUS: COMPLETED Service Location [facility] [facility] Device Information DeviceName: WatchPAT One DeviceSerialNumber: [id number] Patient was offered to receive home sleep testing device by mail and accepted. Verbal instruction was provided for use of home sleep testing equipment. All questions were answered and the patient expressed understanding of the provided instructions and care plan. was mailed a package including: /og/ ANTONIA WADE FAST FOOD TEAM MEMBER Signed: 02/20/2023 23:13 RIAZ SANTOS [facility]
--- OUTSIDE RECORDS SUMMARY | 2023-08-25 20:33 | XMS_ITS | Encounter Summary ---
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 Date/Time Encounter Type Encounter Description Reason Provider Source Feb 25, 2023 07:31 AM Outpatient Encounter SLEEP STUDY ICD-10-CM G47.33 Obstructive sleep apnea (adult) (pediatric) BETTY SWANSON E Encounter Template Text not used by CT Assessments - Encounter Diagnoses This section includes the primary and secondary diagnoses documented for the Encounter. Date/Time Primary/Secondary Diagnosis Diagnosis Name Provider Source Feb 25, 2023 07:31 AM PRIMARY Obstructive sleep apnea (adult) (pediatric) BETTY SWANSON [facility] Plan of Treatment: Future Appointments (+ 6 months) and Future Tests (+/- 45 days) The Plan of Treatment section includes future care activities for the patient from all [place] [facility] This section includes future appointments and future orders which are active, pending or scheduled. Future Appointments This section includes appointments that were scheduled to occur 6 months from the date of the Encounter, up to a maximum of 20 appointments. The data comes from all [place] treatment facilities. Appointment Date/Time Appointment Type Appointme nt Facility Name Mar 05, 2023 01:00 PM AMBULATORY - REHAB MEDICIN E [facility] Mar 19, 2023 10:30 AM AMBULATORY - REHAB MEDICIN E [facility] Mar 19, 2023 11:30 AM AMBULATORY - REHAB MEDICIN E [facility] Apr 15, 2023 01:30 PM AMBULATORY - REHAB MEDICIN E [facility] May 12, 2023 08:00 AM AM[facility]ULATORY - NONE [facility] May 14, 2023 10:00 AM AM[facility]ULATORY - MEDICINE [facility] Jul 14, 2023 09:00 AM AMBULATORY - MEDIC[facility] Aug 26, 2023 10:00 AM AMBULATORY - MEDICINE [facility] Lab Results: +/- 30 days of the encounter This section includes the Chemistry and Hematology Lab Results on record with CT for the patient. Radiology Reports and Pathology Reports are provided separately, in subsequent sections. Lab Results This section contains the Chemistry/Hematology Results that were resulted 30 days before or 30 daysafter the date of the Encounter. Date/Time Source Result Type Result - Unit Interpretation Reference Range Comment Mar 10, 2023 08:[address] [facility] .OCCULT BLOOD(FIT) Specimen Type: FECES No comment entered. Ordering Provider: KOFFI AUSTIN Report Released Date/Time: Mar 10, 2023 08:28 AM Reporting Lab: [facility] [address] [facility] [id number] Performing Lab: [address] [address] .OCCULT BLOOD(FIT ) Negative Social History: Smoking Status (Most current) and Tobacco Use (All prior to encounter date) This section includes the most current, and the historical, smoking and tobacco- related health factors from the [place] facility where the Encounter took place. Current Smoking Status This section includes the most current smoking, or tobacco-related health factor, from the [place] facility where the Encounter took place. Date/Time Current Smoking Status Jose chapman Aug 05, 2011 01:53 PM LIFETIME NON-TOBACCO USER [facility] Advance Directives: All historical and current Section Date Range: From patient's date of to the date document was created. This section includes ALL of a patient's completed or amended CT Advance and Rescinded Directives. The entries below indicate that a directive exists for the patient, but an actual copy is not included with this document. The data comes from all [place] facilities. Date Advance Directives Provider Source Oct 19, 2018 ADVANCE DIRECTIVE DISCUSSION MANAN MONTOYA [facility] Oct 19, 2018 ADVANCE DIRECTIVE VERONICA MONTOYA [facility] Oct 24, 2011 ADVANCE DIRECTIVE LIANNA PERRY [facility] Oct 24, 2011 ADVANCE DIRECTIVE DISCUSSION MEGHAN PERRY [facility] Oct 02, 2011 ADVANCE DIRECTIVE DISCUSSION MEGHAN PERRY [facility] Encounter Notes: All associated encounter notes This section contains the clinical notes associated to the Encounter. Date/Time Encounter Note(s) Provider Source Feb 25, 2023 07:31 AM SLEEP MEDICINE EMANUEL GNOSTIC STUDY REPORT: LOCAL TITLE: SLEEP HST DATA UPLOAD STANDARD TITLE: SLEEP MEDICINE DIAGNOSTIC STUDY REPORT DATE OF NOTE: FEB 25, 2023@07:31:41 ENTRY DATE: FEB 25, 2023@07:31:42 AUTHOR: BETTY SWANSON EXP COSIGNER: URGENCY: STATUS: COMPLETED Home sleep testing was completed by the patient and the device was returned. The data has been uploaded and reviewed for quality.: Data quality is: Acceptable Study to be scored and reviewed for interpretation /es/ BETTY SWANSON registered respiratory therapist Signed: 02/25/2023 07:[address] [facility]
--- OUTSIDE RECORDS SUMMARY | 2023-08-25 20:33 | XMS_ITS | Encounter Summary ---
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 Date/Time Encounter Type Encounter Description Reason Provider Source Feb 19, 2023 02:00 PM NRPSYC TST EVAL PHYS/QHP 1ST PSYCHOLOGICAL TESTING ICD-10-CM G31.84 Mild cognitive impairment of uncertain or unknown etiology CINTIA SO [facility] Encounter Template Text not used by [place] Assessments - Encounter Diagnoses This section includes the primary and secondary diagnoses documented for the Encounter. Date/Time Primary/Secondary Diagnosis Diagnosis Name Provider Source Feb 21, 2023 05:35 PM PRIMARY Mild cognitive impairment of uncertain or unknown etiology RAJEEV SO [facility] Plan of Treatment: Future Appointments (+ 6 months) and Future Tests (+/- 45 days) The Plan of Treatment section includes future care activities for the patient from all [place] [facility]. This section includes future appointments and future orders which are active, pending or scheduled. Future Appointments This section includes appointments that were scheduled to occur 6 months from the date of the Encounter, up to a maximum of 20 appointments. The data comes from all [place] treatment facilities. Appointment Date/Time Appointment Type Appointme nt Facility Name Mar 05, 2023 01:00 PM AMBULATORY - REHAB MEDICIN E [facility] Mar 19, 2023 10:30 AM AMBULATORY - REHAB MEDICIN E [facility] Mar 19, 2023 11:30 AM AMBULATORY - REHAB MEDICIN E [facility] Apr 15, 2023 01:30 PM AMBULATORY - REHAB MEDICIN E [facility] May 12, 2023 08:00 AM AMBULATORY - NONE [facility] May 14, 2023 10:00 AM AMBULATORY - MEDICINE [facility] Jul 14, 2023 09:00 AM AMBULATORY - MEDICINE [facility] Lab Results: +/- 30 days of [...] Comment Mar 10, 2023 08:[address] [facility] .OCCULT BLOOD(FIT) Specimen Type: FECES No comment entered. Ordering Provider: KOFFI AUSTIN Report Released Date/Time: Mar 10, 2023 08:28 AM Reporting Lab: [facility] [id number] Performing Lab: [address] [address] .OCCULT BLOOD(FIT ) Negative Social History: Smoking [...] 2011 01:53 PM LIFETIME NON-TOBACCO USER [facility] Advance Directives: All historical and [...] ADVANCE DIRECTIVE DISCUSSION MANAN MONTOYA [facility] Oct 19, 2018 ADVANCE DIRECTIVE VERONICA MONTOYA [facility] Oct 24, 2011 ADVANCE DIRECTIVE DISCUSSION MEGHAN PERRY [facility] Oct 24, 2011 ADVANCE DIRECTIVE LIANNA PERRY [facility] Oct 02, 2011 ADVANCE DIRECTIVE DISCUSSION MEGHAN PERRYNE L [facility] Encounter Notes: All associated encounter notes This section contains the clinical notes associated to the Encounter. Date/Time Encounter Note(s) Provider Source Feb 19, 2023 02:00 PM NEUROPSYCHOLOGY NOTE: LOCAL TITLE: NEUROPSYCHOLOGY PROGRESS NOTE STANDARD TITLE: NEUROPSYCHOLOGY NOTE DATE OF NOTE: FEB 19, 2023@14:00 ENTRY DATE: FEB 21, 2023@17:32:57 AUTHOR: TYRESE SO COSIGNER: URGENCY: STATUS: COMPLETED DATE OF SESSION: 02/19/2023 SESSION TYPE/LENGTH: Individual + spouse, 45-minutes LOCATION: [facility] PROCEDURE CODE: [id number] PATIENT CONSENT/EDUCATION: At initial assessment appointment, the provided consent to procedures and reported understanding of the limits to confidentiality. Today, the indicated readiness to learn for the education provided during this session as noted above. He also consented to his 's participation in the session. EMERGENCY INFORMATION: Address at time of the session: Home address listed in [facility]. Phone Number in case of technological issues/emergency: [phone] Names of other individuals present in the home: Carleen (spouse) Contact information for emergency contact: [phone] Local Emergency number for patient's address: [id number] SUMMARY OF SESSION: Mr. Anderson and his were provided with information to help them understand neuropsychological evaluation test results including the domains assessed and basic process of score interpretation (e.g., age/education based norms). Areas of weakness were reviewed (i.e., inefficiency with select timed tasks) as well as areas that were intact (i.e., learning and memory). The diagnosis was explained and vascular issues cited as the likely cause. The treatment plan was reviewed including behaviors to promote brain health and minimize stroke risk. The likelihood of improved cognitive efficiency with time was also discussed. According to the 's , he is doing rather well. She has helped him adopt a high protein, low carbohydrate diet which has helped him lose weight. He is also engaged with work and family responsibilities. The and his were commended for their efforts toward a healthy lifestyle. They voiced understanding of the information presented. OBSERVATIONS: Level of orientation: Alert and grossly oriented General Appearance: Well-groomed, seasonal attire (t-shirt/shorts), and good eye contact. Psychomotor: No unusual motor movements although observation was limited by use of VVC. Gait & Posture: Gait was not observed due to use of VVC. Upright posture Speech: Normal in rate, rhythm, and prosody. Mood & Affect: Euthymic mood with bright affect. Thought Process: Linear and goal directed Thought Content: No thought disturbance, paranoia, or delusions. Perceptions: No hallucinations. Recent, Remote & Immediate Memory: Intact . Attention Span & Concentration: Intact. Language: Intact. Insight & Judgment: Good x 2. SUICIDE/HOMICIDE RISK ASSESSMENT: Risk factors: Age, gender, race, and cognitive concerns. Protective factors: The [place] denied suicidal and homicidal ideation, intent, or plan. He also has a supportive family, access to mental health services, no psychiatric diagnoses, no history of suicide attempts or gestures, no psychotic symptoms, no alcohol or illicit substance use, no psychotic symptoms, no history of violence, and future orientation. Risk Determination: Suicide: Acute = Low. Chronic = Low. Homicide: Acute = Low. Chronic = Low. Low: Can survive and function as an outpatient. Protective factors and coping strategies are present. 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 Anderson was invited to return for repeat evaluation in 18 to 24-months if he wanted to objectively check improvement in his cognitive function. Otherwise, he appears to be functioning well as confirmed by his and therefore, no other services are needed. He has a pending home sleep study which may generate additional treatment recommendations depending on the results. /og/ TYRESE SO, PhD., [facility] Staff Neuropsychologist Signed: 02/21/2023 17:44 TYRESE SO [facility]
--- OUTSIDE RECORDS SUMMARY | 2023-08-25 20:33 | XMS_ITS | Encounter Summary ---
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 Organization [facility] Address [address] [place] [address] Support Name Relationship Address Phone CHARITY ANDERSON [...] PART A Mar 28, 2012 PART A [id number] [phone] MANINDER PUENTES PATIENT MEDICARE (WNR) MEDICARE (M) PART B Mar 28, 2012 PART B [id number] [phone] MANINDER PUENTES PATIENT Selected Encounter This section includes the information on [place] at [place] for the Encounter. Date/Time Encounter Type Encounter Description Reason Provider Source Mar 05, 2023 11:37 AM HC PRO PHONE CALL 5-10 MIN TELEPHONE/MEDICIN E ICD-10-CM G47.33 Obstructive sleep apnea (adult) (pediatric) BETTY SWANSON E Encounter Template Text not used by [place] Assessments - Encounter Diagnoses This section includes the primary and secondary diagnoses documented for the Encounter. Date/Time Primary/Secondary Diagnosis Diagnosis Name Provider Source Mar 05, 2023 11:37 AM PRIMARY Obstructive sleep apnea (adult) (pediatric) BETTY SWANSON [facility] Plan of Treatment: Future Appointments (+ 6 [...] Appointment Type Appointme nt Facility Name Mar 19, 2023 10:30 AM AMBULATORY - REHAB MEDICIN E [facility] Mar 19, 2023 11:30 AM AMBULATORY - REHAB MEDICIN E [facility] Apr 15, 2023 01:30 PM AMBULATORY - REHAB MEDICIN E [facility] May 12, 2023 08:00 AM AMBULATORY - NONE [facility] May 14, 2023 10:00 AM AMBULATORY - MEDICINE [facility] Jul 14, 2023 09:00 AM AMBULATORY - MEDICINE [facility] Aug 26, 2023 10:00 AM AMBULATORY - MEDICINE [facility] Lab Results: +/- 30 days of the encounter This section includes the Chemistry and Hematology Lab Results on record with [place] for the patient. Radiology Reports and Pathology Reports are provided separately, in subsequent sections. Lab Results This section contains the Chemistry/Hematology Results that were resulted 30 days before or 30 daysafter the date of the Encounter. Date/Time Source Result Type Result - Unit Interpretation Reference Range Comment Mar 10, 2023 08:28 AM [facility] .OCCULT BLOOD(FIT) Specimen Type: FECES No comment entered. Ordering Provider: KOFFI AUSTIN Report Released Date/Time: Mar 10, 2023 08:28 AM Reporting Lab: [facility] [id number] Performing Lab: [address] [id number] .OCCULT BLOOD(FIT ) Negative Social History: Smoking [...] 05, 2011 01:53 PM LIFETIME NON-TOBACCO USER [facility] Advance Directives: All historical and current Section Date Range: From patient's date of to the date document was created. This section includes ALL of a patient's completed or amended [place] Advance and Rescinded Directives. The entries below indicate that a directive exists for the patient, but an actual copy is not included with this document. The data comes from all [place] facilities. Date Advance Directives Provider Source Oct 19, 2018 ADVANCE DIRECTIVE DISCUSSION MANAN MONTOYA [facility] Oct 19, 2018 ADVANCE DIRECTIVE VERONICA MONTOYA [facility] Oct 24, 2011 ADVANCE DIRECTIVE DISCUSSION MEGHAN PERRY [facility] Oct 24, [address] [facility] [facility] Oct 02, 2011 ADVANCE DIRECTIVE DISCUSSION MEGHAN PERRY [facility] Encounter Notes: All associated encounter notes This section contains the clinical notes associated to the Encounter. Date/Time Encounter Note(s) Provider Source Mar 05, 2023 11:37 AM SLEEP MEDICINE NOT E: LOCAL TITLE: SLEEP MEDICINE NOTE STANDARD TITLE: SLEEP MEDICINE NOTE DATE OF NOTE: MAR 05, 2023@11:37 ENTRY DATE: MAR 05, 2023@11:37:11 AUTHOR: BETTY SWANSON EXP COSIGNER: URGENCY: STATUS: COMPLETED Attempted to contact to review results of HST. This law writer did leave a voice mail to return our call at the sleep clin [phone]. /es/ BETTY SWANSON registered respiratory therapist Signed: 03/05/2023 11:39 BETTY SWANSON [facility]
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
--- OUTSIDE RECORDS SUMMARY | 2023-08-25 20:33 | XMS_ITS | Encounter Summary ---
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 Organization [facility] of [facility] Address [address] [place] [address] Support Name Relationship Address Phone CHARITY ANDERSON [...] PART A Mar 28, 2012 PART A [id number] [phone] MANINDER PUENTES PATIENT MEDICARE (WNR) MEDICARE (M) PART B Mar 28, 2012 PART B [id number] [phone] MANINDER PUENTES PATIENT Selected Encounter This section includes the information on record at [place] for the Encounter. 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 Date/Time Primary/Secondary Diagnosis Diagnosis Name Provider Source Feb 26, 2023 10:43 AM PRIMARY Obstructive sleep apnea (adult) (pediatric) JAMEY BURROUGHS [facility] Plan of Treatment: Future Appointments (+ [...] 01:00 PM AMBULATORY - REHAB MEDICIN E [facility] Mar 19, 2023 10:30 AM AMBULATORY - REHAB MEDICIN [facility] Mar 19, 2023 11:30 AM AMBULATORY - REHAB MEDICIN E [facility] Apr 15, 2023 01:30 PM AMBULATORY - REHAB MEDICIN E [facility] May 12, 2023 08:00 AM AMBULATORY - NONE [facility] May 14, 2023 10:00 AM AMBULATORY [...] Range Comment Mar 10, 2023 08:28 AM [facility] .OCCULT BLOOD(FIT) Specimen Type: FECES No comment entered. Ordering Provider: KOFFI AUSTIN Report Released Date/Time: Mar 10, 2023 08:28 AM Reporting Lab: [facility] [address] [facility] [id number] Performing Lab: [address] [address] .OCCULT BLOOD(FIT ) Negative Social History: Smoking [...] 05, 2011 01:53 PM LIFETIME NON-TOBACCO USER [facility] Advance Directives: All historical and current [...] 2018 ADVANCE DIRECTIVE VERONICA MONTOYA [facility] Oct 19, 2018 ADVANCE DIRECTIVE DISCUSSION MANAN MONTOYA [facility] Oct 24, 2011 ADVANCE DIRECTIVE DISCUSSION MEGHAN PERRY [facility] Oct 24, 2011 ADVANCE DIRECTIVE LIANNA PERRY [facility] Oct 02, 2011 ADVANCE DIRECTIVE DISCUSSION MEGHAN PERRY [facility] Encounter Notes: All associated encounter notes This section contains the clinical notes associated to the Encounter. Date/Time Encounter Note(s) Provider Source Feb 26, 2023 10:42 AM SLEEP MEDICINE CON SULT: LOCAL TITLE: SLEEP HST INTERPRETATION CONSULT STANDARD TITLE: SLEEP MEDICINE CONSULT DATE OF NOTE: FEB 26, 2023@10:42:59 ENTRY DATE: FEB 26, 2023@10:43 AUTHOR: NAUN BURROUGHS COSIGNER: URGENCY: STATUS: COMPLETED [facility] HOME SLEEP APNEA TEST- WatchPAT IDENTIFICATION: Name (Last, First): MANINDER ANDERSON : 1945 Referred by: Not Available Study date: 02/24/2023 STUDY TECHNIQUE AND DEFINITIONS: The WatchPAT device monitors and measures variations in peripheral arterial tone (PAT) via an opto-pneumatic finger-mounted probe. Additional recorded channels include pulse rate, oximetry, actigraphy, body position, chest motion, and snore sensor. Sleep/wake detection is based upon actigraphy data; and sleep staging is thereafter based upon variability in pulse rate, attenuation and variability of PAT amplitude, and inter-pulse period features. The PAT Apnea-Hypopnea Index (pAHI) and PAT Respiratory Disturbance Index (pRDI) are estimates of conventional pAHI and pRDI values produced by polysomnography. pAHI-4% is calculated using oxygen desaturations of >=4% per hour of technically valid sleep time (TVST). Oxygen desaturation index 4% (ARIK-4%) is calculated using number of >=4% oxygen desaturations per hour of TVST. PATIENT HISTORY: 77 year old Male with BMI of 30 (weight 204.30 lbs, height 69 inches) ESS: 9 Medication List: FINASTERIDE 5MG TAB, FLUTICASONE PROP 50MCG 120D NASAL INHL, HCTZ 25/LISINOPRIL 20MG TAB, METFORMIN HCL 1000MG TAB, SIMVASTATIN 80MG TAB, TAMSULOSIN HCL 0.4MG CAP, ASPIRIN TAB,EC, CALCIUM CARBONATE TAB, MARINE LIPID (FISH OIL) CAP,ORAL, MULTIVITAMINS TAB Indications: N/A Test: STUDY DETAILS: - Total Recording Time 8 hrs. 28 min. - Study start time 20:21:04 PM - Study stop time 04:49:58 AM - Technically valid sleep time 6 hrs. 57 min. - Total Sleep Time 7 hrs. 4 min. - REM was 22.1% of technically valid sleep time BODY POSITION - Supine sleep was 1 hr. 2 min. (14.6% of TVST) - Non-Supine sleep was 6 hrs. 2 min. (85.4% of TVST) RESPIRATORY PARAMETERS: - pAHI-4% was 5.8 - Supine pAHI-4% was 22.3 - Non-supine pAHI-4% was 2.9 - Estimated REM pAHI-4% was 8.4 - Central pAHI-4% was 0.3 - pRDI was 8.3 - Snoring >50dB for 7.3% of TVST - ARIK was 5.6 - Mean oxygen saturation was 94% - Lowest oxygen saturation was 85% - Saturations < 90%: 1.6 minutes (0.4% of TVST) - Saturations <= 88%: 0.4 minutes (0.1% of TVST) HEART RATE STATISTICS (BPM) - Mean: 57; Min: 43; Max: 96 IMPRESSION: - Study demonstrated adequate sampling of recording time with sufficient technical quality. - Mild Obstructive Sleep Apnea (EDITH) - Snoring was >50db for 7.3% of TVST PLAN: - Would recommend oral appliance for mild sleep apnea. - Patient should be counseled on health implications of obstructive sleep apnea, with treatment options discussed. - Avoid alcohol, sedatives and other DELI BAKERY CLERK depressants that may worsen sleep apnea and disrupt normal sleep architecture. Weight management and regular exercise should be initiated or continued. /es/ NAUN BURROUGHS MD PULMONARY, CRITICAL CARE AND SLEEP ICINE Signed: 02/26/2023 10:43 NAUN BURROUGHS [facility]
--- OUTSIDE RECORDS SUMMARY | 2023-08-25 20:34 | XMS_ITS | Encounter Summary ---
Author Name Department of Vetera [facility] Organization Department of Vetera ns [facility] Address [address] [place] [address] Support Name Relationship Address Phone JUSTIN CHARITY [...] PART A Mar 28, 2012 PART A [id number] [phone] MANINDER PUENTES PATIENT MEDICARE (WNR) MEDICARE (M) PART B Mar 28, 2012 PART B [id number] 48A [phone] MANINDER PUENTES PATIENT Selected Encounter This section includes the information on record at [place] for the Encounter. Date/Time Encounter Type Encounter Description Reason Pro vider Source IHE Encounter Template Text not used by [facility] Advance Directives: All historical and current Section Date Range: From patient's date of to the date document was created. This section includes ALL of a patient's completed or amended [place] Advance and Rescinded Directives. The entries below indicate that a directive exists for the patient, but an actual copy is not included with this document. The data comes from all [place] facilities. Date Advance Directives Provider Source Oct 19, 2018 ADVANCE DIRECTIVE DISCUSSION MANAN MONTOYAE [facility] Oct 19, 2018 ADVANCE DIRECTIVE VERONICA MONTOYA [facility] Oct 24, 2011 ADVANCE DIRECTIVE DISCUSSION MEGHAN PERRY [facility] Oct 24, 2011 ADVANCE DIRECTIVE LIANNA PERRY [facility] Oct 02, 2011 ADVANCE DIRECTIVE DISCUSSION MEGHAN PERRY [facility]
--- OUTSIDE RECORDS SUMMARY | 2023-08-25 20:34 | XMS_ITS | Encounter Summary ---
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 Organization Department of [facility] Address [address] [place] [address] Support Name Relationship Address Phone CHARITY ANDERSON [...] PART B Mar 28, 2012 PART B [id number] [phone] MANINDER PUENTES PATIENT MEDICARE (WNR) MEDICARE (M) PART A Mar 28, 2012 PART A [id number] [phone] MANINDER PUENTES PATIENT Selected Encounter This section includes the information on record at [place] for the Encounter. Date/Time Encounter Type Encounter Description Reason Provider Source Mar 19, 2023 11:30 AM SELF CARE MNGMENT TRAINING PHYSICAL THERAPY ICD-10-CM R32 Unspecified urinary incontinence EVETTE HILLIARD E Encounter Template Text not used by [place] Assessments - Encounter Diagnoses This section includes the primary and secondary diagnoses documented for the Encounter. Date/Time Primary/Secondary Diagnosis Diagnosis Name Provider Source Mar 19, 2023 04:59 PM PRIMARY Unspecified urinary incontinence EVETTE HILLIARD [facility] Plan of Treatment: Future Appointments (+ 6 months) and Future Tests (+/- 45 days) The Plan of Treatment section includes future care activities for the patient from all [place] treatmentfacilities. This section includes future appointments and future orders which are active, pending or scheduled. Future Appointments This section includes appointments that were scheduled to occur 6 months from the date of the Encounter, up to a maximum of 20 appointments. The data comes from all [place] treatment facilities. Appointment Date/Time Appointment Type Appointme nt Facility Name Apr 15, 2023 01:30 PM AMBULATORY - REHAB MEDICIN E [facility] May 12, 2023 08:00 AM AMBULATORY - NONE [facility] May 14, 2023 10:00 AM AMBULATORY - MEDICINE [facility] Jul 14, 2023 09:00 AM AMBULATORY - MEDICINE [facility] Aug 26, 2023 10:00 AM AMBULATORY - MEDICINE [facility] Lab Results: +/- 30 days of the encounter This section includes the Chemistry and Hematology Lab Results on record with [place] for the patient. Radiology Reports and Pathology Reports are provided separately, in subsequent sections. Lab Results This section contains the Chemistry/Hematology Results that were resulted 30 days before or 30 daysafter the date of the Encounter. Date/Time Source Result Type Result - Unit Interpretation Reference Range Comment Mar 10, 2023 08:28 AM [facility] .OCCULT BLOOD(FIT) Specimen Type: FECES No comment entered. Ordering Provider: KOFFI AUSTIN Report Released Date/Time: Mar 10, 2023 08:28 AM Reporting Lab: [facility] [id number] Performing Lab: [place] [id number] .OCCULT BLOOD(FIT ) Negative Vital Signs: All taken on the encounter date This section contains inpatient and outpatient Vital Signs collected on the date of the Encounter. Date/Time Temperature Pulse Blood Pressure Respiratory Rate SP02 Pain Height Weight Body Mass Index Source Mar 19, 2023 10:27 AM 98.8 F 57 /min 152/70 mm[Hg] 18 /min 98 % 0 [place] [facility] Social History: Smoking Status (Most current) and Tobacco Use (All prior to encounter date) This section includes the most current, and the historical, smoking and tobacco- related health factors from the [place] facility where the Encounter took place. Current Smoking Status This section includes the most current smoking, or tobacco-related health factor, from the [place] facility where the Encounter took place. Date/Time Current Smoking Status Comment Saul chapman Aug 05, 2011 01:53 PM LIFETIME NON-TOBACCO USER [facility] Advance Directives: All historical and current Section Date Range: From patient's date of to the date document was created. This section includes ALL of a patient's completed or amended [place] Advance and Rescinded Directives. The entries below indicate that a directive exists for the patient, but an actual copy is not included with this document. The data comes from all [place] facilities. Date Advance Directives Provider Source Oct 19, 2018 ADVANCE DIRECTIVE DISCUSSION MANAN MONTOYA [facility] Oct 19, 2018 ADVANCE DIRECTIVE VERONICA MONTOYA [facility] Oct 24, 2011 ADVANCE DIRECTIVE DISCUSSION MEGHAN PERRY [facility] Oct 24, 2011 ADVANCE DIRECTIVE LIANNA PERRY [facility] Oct 02, 2011 ADVANCE DIRECTIVE DISCUSSION MEGHAN PERRY [facility] Encounter Notes: All associated encounter notes This section contains the clinical notes associated to the Encounter. Date/Time Encounter Note(s) Provider Source Mar 19, 2023 11:13 AM PHYSICAL THERAPY N OTE: LOCAL TITLE: PT-PROGRESS NOTE STANDARD TITLE: PHYSICAL THERAPY NOTE DATE OF NOTE: MAR 19, 2023@11:13 ENTRY DATE: MAR 19, 2023@11:13:26 AUTHOR: SASCHA HILLIARD COSIGNER: URGENCY: STATUS: COMPLETED PT tx: Self-care x 25 min PT dx: Urinary urgency/frequency, Nocturia Evaluation Date: Feb Suicide Screen Clinical Reminder Due: No # of VISITS: 2 # of CX/NS: 0 Relevant PMH/personal factors impacting rehab: 4. Lower urinary tract symptoms due to benign prostatic hypertrophy - seen in UROLOGY-has agreed to UDS 6. Essential hypertension 8. Bilateral sensory hearing loss - USES [employer] TO WATCH TV 9. Type 2 diabetes mellitus without complication Chief Concern: Pt is a 77yo MALE referred to PT for urinary incontinence; states he started having this issue since his stroke 6 months ago; reports being very gassy as well for last couple of months. Today, pt reports use of TENS unit only since last PT visit and wasn't able to participate in other activities given for HEP due to losing HEP written instructions; reports no changes in incontinence since last PT visit. Incontinence: Urinary: (will need internal exam if habit training, diet, etc does not clear sx in 2-3 sessions) -Leaking urine involuntarily: how often once a wk, how much 2 to 3 ounces, when he feels the urge to urinate -Can you feel when your bladder is full? yes Can you feel when your bladder is empty? not really -Rushing to the bathroom - once a day -Forcing urine out - not all the time -Reports getting up 4x a night to urinate Stress: n/a Urge: (sudden uncontrollable need to void - often associated with a trigger such as entering the house and sometimes when in the kitchen preparing food. Diet/Habits affecting incontinence: Urinary: - denies Alcohol and caffeine consumptoion, but drinks water - day routine: all day drinks water 64 oz, protein drink 4 and 430pm Fecal: (will need internal exam if diet changes dont clear sx) -gas involuntarily: yes how often everyday, how much 2 to 3x/day, -With activity? walking after the morning -Altered Sensation? feeling like he has to force a little more -Associated with constipation? yes *Constipation: (can often be treated externally, and with diet, unless PFM are hyperactive) -Difficulty with bowel movements, or straining with BMs 50% or more of the time - yes, feels like he has it more in the morning -Diet/habits: water consumption, fiber consumption, very little dairy consumption. 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 Patient's goal: to help with urinary incotninence OBJECTIVE: OBSERVATION: Gait: normal gait with no assistive devices Transitional Movements: good and independent Posture: fair FOCUSED NEUROMUSCULAR EXAM: myotomes 5/5 B LEs, deep tendon reflexes WNL and absent pathological reflexes Trunk and LES RANGE OF MOTION: Standing Lumbar AROM: WFL-WNL all motions Quality of Motion: fair PT INTERVENTIONS: Self-care: -reedu on how bladder is highly trainable (for both good and bad habits); avoid trying to void too little, too often or prematurely (no just in casing) -reedu on typical voiding: *About 5-8 voids in a 24 hr period, spread about 2-4 hrs apart, goal of 0-1 at night -Discussed diet/habits surrounding hydration: -Encouraged to drink about 4-6 oz of water/hr (~82 oz/day), sipping vs large amounts at one time. -Discussed liquids that are considered bladder irritants and encouraged to minimize these (coffee, citrus, carbonated beverages, etc.) -Discussed strategies for urge suppression -Sit down/stand still, pelvic floor muscle contraction, pressure on perineum, diaphragmatic breathing, etc. -Edu on strategies to improve bladder emptying/reduce post-void dribble -Sit/stand, leaning forward and back, pelvic tilts, bar breathing, etc. -Discussed strategies for urge suppression -reeducated and instructed on diagphragmatic breathing with reference to video that can be found on youtube. - educated and instructed on use of bladder diary for 3 consecutive days GOALS: Patient's Goal: 1. Pt will be I in HEP for self-management of urgency urinary incontinence in 6-8 weeks. -Pt will reduce frequency of incontinence from 4 times/day to 2 times/day to demonstrate progress towards independent management of self-care/ADLS in 6-8 visits. -Pt will report 2x of waking up per night in order to get more restful sleep in 4-6 visits -Pt will be fully continent throughout their day to complete all ADLs and social activities without urine leakage. -Pt will be independent with HEP to maintain and progress functional gains throughout physical therapy interventions. Frequency: Pt will reduce urinary frequency to at most every 2 hours throughout the day to demonstrate improved bladder health and reduce interruptions throughout their ADLs.. ASSESSMENT: Pt is a 77 yo MALE presenting to PT for low back pain. Pt presents with impairments consisting These impairments have resulted in functional limitations of sleep, limiting the pts ability to participate in his role as a . Pt would benefit from skilled PT interventions consisting of ther ex, man ther and NMR to address the identified impairments and improve pain/functional mobility with these meaningful activities. Today, pt given HEP instructions again for last PT visit and instructions for bladder diary, diaphragmatic breathing; pt instructed to continue use of TENS unit for urinary incontinence for next 6 weeks. Pt denies any other questions or concerns. PLAN: 4-6 PT sessions, 30 minutes every 2 weeks (1 x every 2 weeks for 12 visits) - Next Session: -Assess lumbar spine/hip further -Initiate ther ex -Initiate man ther Patient Education on Treatment Plan: PT role, POC, rehab expectations. Patient indicated readiness to learn, verbalizes understanding, agreement and satisfaction with the treatment plan. Denies further questions. /og/ SASCHA HILLIARD PT,DPT PHYSICAL THERAPIST Signed: 03/19/2023 16:59 SASCHA HILLIARD [facility]
--- OUTSIDE RECORDS SUMMARY | 2023-08-25 20:34 | XMS_ITS | Encounter Summary ---
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 Organization [facility] Address [address] [place] [address] Support Name Relationship Address Phone CHARITY ANDERSON [...] PART A Mar 28, 2012 PART A [id number] [phone] MANINDER PUENTES PATIENT MEDICARE (WNR) MEDICARE (M) PART B Mar 28, 2012 PART B [id number] [id number] [phone] MANINDER PUENTES PATIENT Selected Encounter This section includes the information on record at [place] for the Encounter. Date/Time Encounter Type Encounter Description Reason Provider Source Mar 05, 2023 01:00 PM SELF CARE MNGMENT TRAINING PHYSICAL THERAPY ICD-10-CM R39.81 Functional urinary incontinence EVETTE HILLIARD Jamar Encounter Template Text not used by [place] Assessments - Encounter Diagnoses This section includes the primary and secondary diagnoses documented for the Encounter. Date/Time Primary/Secondary Diagnosis Diagnosis Name Provider Source Mar 05, 2023 04:58 PM PRIMARY Functional urinary incontinence EVETTE HILLIARD [facility] Mar 05, 2023 04:58 PM SECONDARY Urge incontinence MAGUI HILLIARDPE NI A [facility] Plan of Treatment: Future Appointments (+ 6 months) and Future Tests (+/- 45 days) The Plan of Treatment section includes future care activities for the patient from all [place] treatmentfacilities. This section includes future appointments and future orders which are active, pending or scheduled. Future Appointments This section includes appointments that were scheduled to occur 6 months from the date of the Encounter, up to a maximum of 20 appointments. The data comes from all [place] treatment facilities. Appointment Date/Time Appointment Type Appointme nt Facility Name Mar 19, 2023 10:30 AM AMBULATORY - REHAB MEDICIN E [facility] Mar 19, 2023 11:30 AM AMBULATORY - REHAB MEDICIN E [facility] Apr 15, 2023 01:30 PM AMBULATORY - REHAB MEDICIN E [facility] May 12, 2023 08:00 AM AMBULATORY - NONE [facility] May 14, 2023 10:00 AM AMBULATORY [...] Range Comment Mar 10, 2023 08:28 AM [facility] .OCCULT BLOOD(FIT) Specimen Type: FECES No comment entered. Ordering Provider: KOFFI AUSTIN Report Released Date/Time: Mar 10, 2023 08:28 AM Reporting Lab: [facility] [id number] Performing Lab: [address] [address] .OCCULT BLOOD(FIT ) Negative Social History: Smoking [...] ADVANCE DIRECTIVE DISCUSSION MANAN MONTOYA [facility] Oct 19, 2018 ADVANCE DIRECTIVE VERONICA MONTOYA [facility] Oct 24, 2011 ADVANCE DIRECTIVE DISCUSSION MEGHAN PERRY [facility] Oct 24, 2011 ADVANCE DIRECTIVE LIANNA PERRY [facility] Oct 02, 2011 ADVANCE DIRECTIVE DISCUSSION MEGHAN PERRY [facility] Encounter Notes: All associated encounter notes This section contains the clinical notes associated to the Encounter. Date/Time Encounter Note(s) Provider Source Mar 05, 2023 01:03 PM PHYSICAL THERAPY C ONSULT: LOCAL TITLE: PHYSICAL THERAPY CONSULT STANDARD TITLE: PHYSICAL THERAPY CONSULT DATE OF NOTE: MAR 05, 2023@13:03 ENTRY DATE: MAR 05, 2023@13:04:02 AUTHOR: SASCHA HILLIARD COSIGNER: URGENCY: STATUS: COMPLETED PT tx: PT complexity eval x 20 min, Self-care x 25 min PT dx: Urinary urgency/frequency, Nocturia Evaluation Date: Feb Suicide Screen Clinical Reminder Due: No # of VISITS: 1 # of CX/NS: 0 Relevant PMH/personal factors impacting rehab: 4. Lower urinary tract symptoms due to benign prostatic hypertrophy - seen in UROLOGY-has agreed to UDS 6. Essential hypertension 8. Bilateral sensory hearing loss - USES HEARING AIDS TO WATCH TV - plans to bring new hearing aids to next visit 9. Type 2 diabetes mellitus without complication 10. 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 Hemorrhoids - HAS HAD IT SINCE - takes over the counter fiber Chief Concern: Pt is a 77yo MALE referred to PT for urinary incontinence; states he started having this issue since his stroke 6 months ago; reports being very gassy as well for last couple of months. Pelvic Health Hx: -Pelvic surgery: none -Trauma: none -Other: none -Cancer: none Incontinence: Urinary: (will need internal exam if [...] house and sometimes when in the kitchen preparing. Functional: the individual is able to void properly, but incontinent due to mobility (referral typically not needed) Diet/Habits affecting incontinence: Urinary: - denies Alcohol [...] protein shake, nuts, protein shake 11.5 oz Prolapse: n/a Pelvic Pain: none -Screen low back and hips - normal and deniess any issues for either areas Pain Intensity: denies any pain Previous intervention: Urologist Social History/Health Habits: retired; stretching exs and goes for a 30 min walk for mile or mile and a half, watches over [employer], morning snack, naps, works in business for 30 min to couple of hours, dinner, watch tv and in bed by 830pm. Red Flags: No personal history of cancer. Denies any UE or LE progressive weakness, unexplained weight loss, loss of bowel/bladder control, pain with rest, fevers, chills, infections Patient's goal: to help with urinary incotninence RELAVENT IMAGING: no imaging available OBJECTIVE: OBSERVATION: Gait: normal gait with no assistive devices Transitional Movements: good and independent Posture: fair FOCUSED NEUROMUSCULAR EXAM: myotomes 5/5 B LEs, deep tendon reflexes WNL and absent pathological reflexes NEURO SCREEN: Strength/Myotomes: 5/5 B LE Sensation: intact to light touch L2-S1 dermatomes BL Reflexes: (0: absent, 1: diminished, 2: normal, 3: exaggerated, 4; brisk/clonus) Patellar: 2/normal BL Achilles: 2/normal BL Pathological Reflexes: Ankle Clonus: Absent BL Babinski: Down going BL Starr's: Absent BL Trunk and LES RANGE OF MOTION: Standing Lumbar AROM: WFL-WNL all motions Quality of Motion: fair PT INTERVENTIONS: TENS UNIT training for urgency incontinence; pt issued and demonstrated understanding of using TENS for calming sensitive sensation of bladder; pt was able to demonstrate setting, locking, using intensity control, off/on button, plugging in leads and electrodes safely. Self-care: -Edu on types of incontinence (urge/stress)and mechanics of voiding (pelvic's floor role and Zane's reflex) -Edu on how bladder is highly trainable (for both good and bad habits); avoid trying to void too little, too often or prematurely (no just in casing) -Edu on typical voiding: *About 5-8 voids in [...] breathing, etc. -Discussed strategies for urge suppression GOALS: Patient's Goal: 1. Pt will be I in HEP for self-management of urgency urinary incontinence in 6-8 weeks. -Pt will reduce frequency of incontinence from 4 times/day to 2 times/day to demonstrate progress towards independent management of self-care/ADLS in 6-8 visits. -Pt will report 2x of waking up per night in order to get more restful sleep in 4-6 visits -Pt will wake up 1 or fewer times throughout the night to urinate for sleep hygiene and bladder health. -Pt will be fully continent throughout their [...] back pain. Pt presents with impairments consisting of XXX (ROM, strength, mobility, etc.). These impairments have resulted in functional limitations of XXX (gait, sleep, etc.), limiting the pts ability to participate in his/her role as a XXX ( , , worker, etc. ). Pt would benefit from skilled PT interventions consisting of ther ex, man ther and NMR to address the identified impairments and improve pain/functional mobility with these meaningful activities. REHAB POTENTIAL: CLINICAL PRESENTATION: stable evolving unstable PLAN: 4-6 PT sessions, 30 minutes every 2 weeks (1 x every 2 weeks for 12 visits) -Pt's PCP will be notified to current note, via co-signature, as new PT POC has begun - Next Session: -Assess lumbar spine/hip further -Initiate ther ex -Initiate man ther Patient Education on Treatment Plan: PT role, POC, rehab expectations. Patient indicated readiness to learn, verbalizes understanding, agreement and satisfaction with the treatment plan. Denies further questions. /og/ SASCHA HILLIARD PT,DPT PHYSICAL THERAPIST Signed: 03/05/2023 16:58 SASCHA HILLIARD [facility]
--- OUTSIDE RECORDS SUMMARY | 2023-08-25 20:34 | XMS_ITS | Encounter Summary ---
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 Organization [facility] Address [address] [place] [address] Support Name Relationship Address Phone SIGRID CHARITY Next of Kin [address] [...] PART A Mar 28, 2012 PART A [id number] [phone] MANINDER PUENTES PATIENT MEDICARE (WNR) MEDICARE (M) PART B Mar 28, 2012 PART B [id number] 48A [phone] MANINDER PUENTES PATIENT Selected Encounter This section includes the information on record at [place] for the Encounter. Date/Time Encounter Type Encounter Description Reason Provider Source Mar 13, 2023 08:35 AM Outpatient Encounter PRIMARY CARE/MEDICINE JOSEPH GUILLAUME Encounter Template Text not used by [place] Plan of Treatment: Future Appointments (+ 6 months) and Future Tests (+/- 45 days) The Plan of Treatment section includes future care activities for the patient from all [place] treatmentfacilities. This section includes future appointments and future orders which are active, pending or scheduled. Future Appointments This section includes appointments that were scheduled to occur 6 months from the date of the Encounter, up to a maximum of 20 appointments. The data comes from all [place] treatment facilities. Appointment Date/Time Appointment Type Appointme nt Facility Name Mar 19, 2023 10:30 AM AMBULATORY - REHAB MEDICIN E [facility] Mar 19, 2023 11:30 AM AMBULATORY - REHAB MEDICIN E [facility] Apr 15, 2023 01:30 PM AMBULATORY - REHAB MEDICIN E [facility] May 12, 2023 08:00 AM [facility]ATORY - NONE [facility] May 14, 2023 10:00 AM [facility]ORY - [facility]ICINE [facility] Jul 14, 2023 09:00 AM AMBULATORY - MEDICINE [facility] Aug 26, 2023 10:00 AM AMBULATORY - MEDICINE [facility] Lab Results: +/- 30 days of the encounter This section includes the Chemistry and Hematology Lab Results on record with [place] for the patient. Radiology Reports and Pathology Reports are provided separately, in subsequent sections. Lab Results This section contains the Chemistry/Hematology Results that were resulted 30 days before or 30 daysafter the date of the Encounter. Date/Time Source Result Type Result - Unit Interpretation Reference Range Comment Mar 10, 2023 08:28 AM [facility] .OCCULT BLOOD(FIT) Specimen Type: FECES No comment entered. Ordering Provider: KOFFI AUSTIN Report Released Date/Time: Mar 10, 2023 08:28 AM Reporting Lab: [facility] [id number] Performing Lab: [place] [address] .OCCULT BLOOD(FIT ) Negative Social History: Smoking Status (Most current) and Tobacco Use (All prior to encounter date) This section includes the most current, and the historical, smoking and tobacco- related health factors from the [place] facility where the Encounter took place. Current Smoking Status This section includes the most current smoking, or tobacco-related health factor, from the [place] facility where the Encounter took place. Date/Time [...] this document. The data comes from all [place] facilities. Date Advance Directives Provider Source Oct 19, 2018 ADVANCE DIRECTIVE DISCUSSION MANAN MONTOYA [facility] Oct 19, 2018 ADVANCE DIRECTIVE VERONICA MONTOYA [facility] Oct 24, 2011 ADVANCE DIRECTIVE DISCUSSION MEGHAN PERRY [facility] Oct 24, 2011 ADVANCE DIRECTIVE LIANNA PERRY [facility] Oct 02, 2011 ADVANCE DIRECTIVE DISCUSSION ARCHIEPARASMEGHAN [facility] Encounter Notes: All associated encounter notes This section contains the clinical notes associated to the Encounter. Date/Time Encounter Note(s) Provider Source Mar 13, 2023 08:35 AM PRIMARY CARE Go D[facility] mParticle MESSAGING: LOCAL TITLE: PRIMARY CARE SECURE MESSAGING STANDARD TITLE: PRIMARY CARE SECURE MESSAGING DATE OF NOTE: MAR 13, 2023@08:35 ENTRY DATE: MAR 13, 2023@08:35:34 AUTHOR: JOSEPH GUILLAUME EXP COSIGNER: URGENCY: STATUS: COMPLETED ------Original Message Sent: 03/12/2023 03:29 PM ET From: MANINDER ANDERSON To: [facility] [place] ([facility]) Subject: Medication:Medication Letter I'm going on a cruise Mar.28 and will be passing through [place]. Could you please email a letter listing the various medications I am taking? I don't want any trouble with [employer] or [employer]. Thanks!! ------Original Message Sent: 03/13/2023 09:34 AM ET From: JOSEPH GUILLAUME To: MANINDER ANDERSON Subject: Medication:Medication Letter Attachments: [email or web address] (80.23 KB) Good morning, the letter you requested is attached. Joann Mosley RN /og/ JOSEPH GUILLAUME REGISTERED NURSE Signed: 03/13/2023 08:35 JOSEPH GUILLAUMEE [facility]
--- OUTSIDE RECORDS SUMMARY | 2023-08-25 20:34 | XMS_ITS | Encounter Summary ---
Author Name [facility] Organization [facility] Address [address] [place] [address] Support Name Relationship Address Phone CHARITY ANDERSON [...] PART A Mar 28, 2012 PART A [id number] [phone] MANINDER PUENTES PATIENT MEDICARE (WNR) MEDICARE (M) PART B Mar 28, 2012 PART B [id number] 48A [phone] MANINDER PUENTES PATIENT Selected Encounter This section includes the information on record at [place] for the Encounter. Date/Time Encounter Type Encounter Description Reason Pro vider Source Mar 10, 2023 08:38 AM Outpatient Encounter GI ENDOSCOPY IHE Encounter Template Text not used by [place] Plan of Treatment: Future Appointments (+ 6 [...] 20 appointments. The data comes from all [place] treatment facilities. Appointment Date/Time Appointment Type Appointme nt Facility Name Mar 19, 2023 10:30 AM AMBULATORY - REHAB MEDICIN E [facility] Mar 19, 2023 11:30 AM AMBULATORY - REHAB MEDICIN E [facility] Apr 15, 2023 01:30 PM AMBULATORY - REHAB MEDICIN E [facility] May 12, 2023 08:00 AM AMBULATORY - NONE [facility] May 14, 2023 10:00 AM AMBULATORY - MEDICINE [facility] Jul 14, 2023 09:00 AM AMBULATORY - MEDICINE [facility] Aug 26, 2023 10:00 AM AMBULATORY - MEDICINE [facility] Lab Results: +/- 30 days of the encounter This section includes the Chemistry and Hematology Lab Results on record with [place] for the patient. Radiology Reports and Pathology Reports are provided separately, in subsequent sections. Lab Results This section contains the Chemistry/Hematology Results that were resulted 30 days before or 30 daysafter the date of the Encounter. Date/Time Source Result Type Result - Unit Interpretation Reference Range Comment Mar 10, 2023 08:28 AM [facility] .OCCULT BLOOD(FIT) Specimen Type: FECES No comment entered. Ordering Provider: KOFFI AUSTIN Report Released Date/Time: Mar 10, 2023 08:28 AM Reporting Lab: [facility] [address] [facility] [id number] Performing Lab: [place] [address] .OCCULT BLOOD(FIT ) Negative Social History: Smoking Status (Most current) and Tobacco Use (All prior to encounter date) This section includes the most current, and the historical, smoking and tobacco- related health factors from the [place] facility where the Encounter took place. Current Smoking Status This section includes the most current smoking, or tobacco-related health factor, from the [place] facility where the Encounter took place. Date/Time Current Smoking Status Comment Saul chapman Aug 05, 2011 01:53 PM LIFETIME NON-TOBACCO USER [facility] Advance Directives: All historical and current Section Date Range: From patient's date of to the date document was created. This section includes ALL of a patient's completed or amended [place] Advance and Rescinded Directives. The entries below indicate that a directive exists for the patient, but an actual copy is not included with this document. The data comes from all [place] facilities. Date Advance Directives Provider Source Oct 19, 2018 ADVANCE DIRECTIVE DISCUSSION MANAN [facility]TO[facility] Oct 19, 2018 ADVANCE DIRECTIVE BARBVERONICA LARSEN [facility] Oct 24, 2011 ADVANCE DIRECTIVE DISCUSSION MEGHAN PERRY [facility] Oct 24, 2011 ADVANCE DIRECTIVE LIANNA PERRY [facility] Oct 02, 2011 ADVANCE DIRECTIVE DISCUSSION MEGHAN PERRY [facility] Encounter Notes: All associated encounter notes This section contains the clinical notes associated to the Encounter. Date/Time Encounter Note(s) Provider Source Mar 10, 2023 08:38 AM RESEARCH NOTE: LOCAL TITLE: RESEARCH PROGRESS NOTE STANDARD TITLE: RESEARCH NOTE DATE OF NOTE: MAR 10, 2023@08:38 ENTRY DATE: MAR 10, 2023@08:38:12 AUTHOR: QUIN LUEVANO EXP COSIGNER: URGENCY: STATUS: COMPLETED The patient's FIT kit came back NEGATIVE for occult blood in stool. This indicates no further need for colorectal cancer screening for 1 year. The patient will be notified of the negative result via a letter from the CONFIRM study. In one year the patient will receive another FIT kit from the CONFIRM study. /og/ QUIN LUEVANO BA, RN REGISTERED NURSE Signed: 03/10/2023 08:38 QUIN LUEVANO [facility]
--- OUTSIDE RECORDS SUMMARY | 2023-08-25 20:34 | XMS_ITS | Encounter Summary ---
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 Organization [facility] of [facility] Address [address] [place] [address] Support Name Relationship Address Phone CHARITY ANDERSON [...] PART A Mar 28, 2012 PART A [id number] [phone] MANINDER PUENTES PATIENT MEDICARE (WNR) MEDICARE (M) PART B Mar 28, 2012 PART B [id number] [phone] MANINDER PUENTES PATIENT Selected Encounter This section includes the information on record at [place] for the Encounter. Date/Time Encounter Type Encounter Description Reason Provider Source Mar 19, 2023 10:30 AM OFFICE O/P EST LOW 20-29 MIN NEUROLOGY ICD-10-CM I63.9 Cerebral infarction, unspecified JESUS BATISTA IE A E Encounter Template Text not used by [place] Assessments - Encounter Diagnoses This section includes the primary and secondary diagnoses documented for the Encounter. Date/Time Primary/Secondary Diagnosis Diagnosis Name Provider Source Mar 19, 2023 02:31 PM PRIMARY Cerebral infarction, unspecified JESUS BATISTA IE A [facility] Plan of Treatment: Future Appointments (+ 6 months) and Future Tests (+/- 45 days) The Plan of Treatment section includes future care activities for the patient from all [place] treatmentfacilities. This section includes future appointments and future orders which are active, pending or scheduled. Future Appointments This section includes appointments that were scheduled to occur 6 months from the date of the Encounter, up to a maximum of 20 appointments. The data comes from all [place] treatment facilities. Appointment Date/Time Appointment Type Appointme nt Facility Name Apr 15, 2023 01:30 PM AMBULATORY - REHAB MEDICIN E [facility] May 12, 2023 08:00 AM AMBULATORY - NONE [facility] May 14, 2023 10:00 AM [facility] - MEDICINE [facility] Jul 14, 2023 09:00 AM [facility]ORY - [facility] Aug 26, 2023 10:00 AM AMBULATORY - MEDICINE [facility] Lab Results: +/- 30 days of the encounter This section includes the Chemistry and Hematology Lab Results on record with [place] for the patient. Radiology Reports and Pathology Reports are provided separately, in subsequent sections. Lab Results This section contains the Chemistry/Hematology Results that were resulted 30 days before or 30 daysafter the date of the Encounter. Date/Time Source Result Type Result - Unit Interpretation Reference Range Comment Mar 10, 2023 08:28 AM [facility] .OCCULT BLOOD(FIT) Specimen Type: FECES No comment entered. Ordering Provider: KOFFI AUSTIN Report Released Date/Time: Mar 10, 2023 08:28 AM Reporting Lab: [facility] [id number] Performing Lab: [address] [id number] .OCCULT BLOOD(FIT ) Negative Vital Signs: All taken on the encounter date This section contains inpatient and outpatient Vital Signs collected on the date of the Encounter. Date/Time Temperature Pulse Blood Pressure Respiratory Rate SP02 Pain Height Weight Body Mass Index Source Mar 19, 2023 10:27 AM 98.8 F 57 /min 152/70 mm[Hg] 18 /min 98 % 0 [facility] Social History: Smoking Status (Most current) and Tobacco Use (All prior to encounter date) This section includes the most current, and the historical, smoking and tobacco- related health factors from the [place] facility where the Encounter took place. Current Smoking Status This section includes the most current smoking, or tobacco-related health factor, from the [place] facility where the Encounter took place. Date/Time Current Smoking Status Jose chapman Aug 05, 2011 01:53 PM LIFETIME NON-TOBACCO USER [facility] Advance Directives: All historical and current Section Date Range: From patient's date of to the date document was created. This section includes ALL of a patient's completed or amended [place] Advance and Rescinded Directives. The entries below indicate that a directive exists for the patient, but an actual copy is not included with this document. The data comes from all [facility]. Date Advance Directives Provider Source Oct 19, 2018 ADVANCE DIRECTIVE DISCUSSION MANAN MONTOYA [facility] Oct 19, 2018 ADVANCE DIRECTIVE VERONICA MONTOYA [facility] Oct 24, 2011 ADVANCE DIRECTIVE DISCUSSION MEGHAN PERRY [facility] Oct 24, 2011 ADVANCE DIRECTIVE LIANNA PERRY [facility] Oct 02, 2011 ADVANCE DIRECTIVE DISCUSSION MEGHAN PERRY SHAN Yordy [facility] Encounter Notes: All associated encounter notes This section contains the clinical notes associated to the Encounter. Date/Time Encounter Note(s) Provider Source Mar 19, 2023 01:54 PM NEUROLOGY ATTENDING NOTE: LOCAL TITLE: NEUROLOGY CLINIC NOTE STANDARD TITLE: NEUROLOGY ATTENDING NOTE DATE OF NOTE: MAR 19, 2023@13:54 ENTRY DATE: MAR 19, 2023@13:55 AUTHOR: VERONICA BATISTA COSIGNER: URGENCY: STATUS: COMPLETED SUBJECT: Neurology HPI: MANINDER ANDERSNO TESHA is a 77 year old with past medical history significant for type 2 diabetes mellitus, hypertension, and hypercholesterolemia who presents for follow-up of focal stroke and cognitive concerns. In August 2022, presented to [place] after a fall, extreme weakness and inability to get up. He had slurred speech and shakiness. He was found to have an 8 mm lacunar stroke in the left internal capsule posterior limb with extensive chronic microvascular ischemic changes and many lacunar infarctions. There was also dilation of the ventricular system suspected to be due to generalized atrophy. At first visit with [place], no focal neurologic deficits and we initiated a stroke evaluation. CTA head and neck with no large artery high grade stenosis or occlusion. He completed 3 weeks of DAPT. In follow-up appointment, improvement and ultimately did not pursue neuro rehab. Changed diet and continued to exercise, lost nearly 30 pounds. Some concern for cognitive symptoms and we ordered neuropsychological testing for baseline in the setting extensive chronic microvascular ischemic changes on brain imaging. We rechecked LDL, at goal. A1c 6.8, at goal no atrial fibrillation on Zio patch. TTE with normal EF and no atrial dilatation. Non-smoker no alcohol. INTERVAL: He continues to do well. He overall he feels he is doing pretty good in terms of activity, mood, and cognitive function. He has no concerns today. He completed memory and thinking testing, not yet reviewed the results with neuropsychology. We discussed that it showed mild memory thinking changes, overall reassuring and serves as a baseline. Sleep evaluation with mild sleep apnea, dental appliance recommended. Past Medical History: Active problems - Computerized Problem List is the source for the followin. Nasal congestion - improved with Flonase Nasal [place] 2. Hypercholesterolemia 3. 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 H/O: surgery - s/p Vasectomy 12. Hemorrhoids - HAS HAD IT SINCE - takes over the counter fiber 13. Slurred speech - [place] is in [facility] for TIA or CVA, Has had VA Cover his MRI - see 10/11/22 ekg consult for ZIO results 14. Obstructive sleep apnea of adult Social History: arrived, children. 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 Speech is fluent and comprehension intact. Patient follows all commands. Cranial Nerves: Face symmetric, extraocular movements intact, tongue midline. otor: Moving all extremities equally. No pronator drift. Able to rise from a seated position without using hands. Sensory: Normal to light touch in hands and legs. Reflexes: Not assessed Coordination: Not assessed Gait: Normal casual gait. Mild difficulty with tandem, improves with practice. ASSESSMENT AND PLAN: #Lacunar stroke #Extensive white matter disease, central atrophy #Cognitive symptoms JUSTINMANINDER PARKINSON is a 77 year old type 2 diabetes mellitus, hypertension, and hypercholesterolemia seen in follow-up for lacunar stroke left internal capsule and cognitive symptoms. For stroke, etiology most likely small vessel ischemic disease. Stroke risk factors include type 2 diabetes mellitus, hyperlipidemia, and hypertension. Never smoker. Stroke work- up including TTE with normal EF and no left atrial enlargement. Zio patch without atrial fibrillation. Recheck LDL 59, at goal < 70. A1c 6.8, at goal under 7. Diet and exercise changes. Doing better overall including memory symptoms. Baseline neuropsychological testing, mild changes thought to be associated with vascular etiology. Mild EDITH on sleep evaluation, recommend sleep appliance. Overall, goal for secondary stroke prevention and evaluating for factors that can contribute to memory and thinking changes. Overall he is doing well, we agreed to have a one-time follow-up visit in about a year and I congratulated him for beneficial lifestyle changes. Continue healthy diet, exercise, social engagement Continue aspirin 325 daily Continue simvastatin 80 mg daily, LDL at goal > 40 and < 70 Long-term goal normotension A1c goal < 7, at goal Follow-up in 1 year I spent 25 minutes in total care including examination, chart review, assessment and plan. Veronica Batista MD /og/ VERONICA BATISTA MD Physician Signed: 03/19/2023 14:31 VERONICA BATISTA [facility] Mar 19, 2023 10:31 AM NEUROLOGY NURSING OUTPATIENT NOTE: LOCAL TITLE: NEUROLOGY CLINIC NURSING NOTE STANDARD TITLE: NEUROLOGY NURSING OUTPATIENT NOTE DATE OF NOTE: MAR 19, 2023@10:31 ENTRY DATE: MAR 19, 2023@10:31:37 AUTHOR: VERONICA HANNA EXP COSIGNER: URGENCY: STATUS: COMPLETED Type of visit: Appointment Check In Reason for Visit: RTC Vital Signs: Blood Pressure: 152/70 (03/19/2023 10:27) Pulse: 57 (03/19/2023 10:27) Respiration: 18 (03/19/2023 10:27) Temperature: 98.8 F [37.1 C] (03/19/2023 10:27) Weight: 204.3 lb [92.67 kg] (05/16/2022 10:03) Height: 69 in [175.3 cm] (05/16/2022 10:03) BMI: 30.2 Pain: 0 (03/19/2023 10:27) Allergies: Patient has answered NKA Medications: Active [...] any changes documented on printed medication list. /og/ VERONICA HANNA LPN LPN Signed: 03/19/2023 10:32 VERONICA HANNA [facility]
[2023-08-25 20:35] LABS: Troponin, Point-of-Care* 0.01 ng/ml (0.01-0.04)
--- OUTSIDE RECORDS SUMMARY | 2023-08-25 20:35 | XMS_ITS | Encounter Summary ---
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 [facility] Address [address] [place] [address] Support Name Relationship Address Phone CHARITY ANDERSON [...] PART A Mar 28, 2012 PART A [id number] [phone] MANINDER PUENTES PATIENT MEDICARE (WNR) MEDICARE (M) PART B Mar 28, 2012 PART B [id number] 48A [phone] MANINDER PUENTES PATIENT Selected Encounter This section includes the information on record at [place] for the Encounter. Date/Time Encounter Type Encounter Description Reason Pro vider Source May 14, 2023 10:00 AM Outpatient Encounter PRIMARY CARE/MEDICINE IHE Encounter Template Text not used by [place] Plan of Treatment: Future Appointments (+ 6 months) and Future Tests (+/- 45 days) The Plan of Treatment section includes future care activities for the patient from all [place] treatmentfacilities. This section includes future appointments and future orders which are active, pending or scheduled. Future Appointments This section includes appointments that were scheduled to occur 6 months from the date of the Encounter, up to a maximum of 20 appointments. The data comes from all [facility]. Appointment Date/Time Appointment Type Appointme nt Facility Name Jul 14, 2023 09:00 AM [facility]BULATORY - [facility]ICINE [facility] Aug 26, 2023 10:00 AM [facility] Active, Pending, and Scheduled Orders This section includes a listing of several types of active, pending, and scheduled orders, including clinic medications orders, diagnostic test orders, procedure orders and consult orders; where the start date of the order is 45 days before the date of the Encounter or 45 days after the date of theEncounter. The data comes from all [facility]. Test Date/Time Test Type Test Details Facility Name May 14, 2023 12:00 AM Laboratory - Chemi stry Order MICROALBUMIN/CREATININE RATIO URINE URINE WC [facility] Lab Results: +/- 30 days of the encounter This section includes the Chemistry and Hematology Lab Results on record with [place] for the patient. Radiology Reports and Pathology Reports are provided separately, in subsequent sections. Lab Results This section contains the Chemistry/Hematology Results that were resulted 30 days before or 30 daysafter the date of the Encounter. Date/Time Source Result Type Result - Unit Interpretation Reference Range Comment May 12, 2023 08:03 AM [facility] HEMOGLOBIN A1C Specimen Type: BLOOD Comment: Values obtained from A1C measurements can vary. For typical A1C assays, a reported value of 7.0 could actually be between 6.7 and 7.3 if measured by a reference method. A reported value of 9.0 could actually be between 8.7 and 9.3. Ref: http://www.ngs p.org/CAPdata. asp Ordering Provider: TARA SCHROEDER Report Released Date/Time: May 16, 2022 10:51 AM Reporting Lab: [facility] [id number] Performing Lab: [facility] [id number] HEMOGLOBIN A1C 5.6 4.0-6.0 May 12, 2023 08:03 AM [facility] LIPID PANEL,NON-FASTING Specimen Type: PLASMA No comment entered. Ordering Provider: TARA SCHROEDER Report Released Date/Time: May 16, 2022 10:51 AM Reporting Lab: [facility] [id number] Performing Lab: [facility] [id number] CHOLESTEROL 135 <199 .HDL 48 >40 LDL CALCULATION 72 <99 VLDL CALCULATION 15 <29 NON HDL CHOLESTEROL 87 <129 TRIG(NON FASTING) 75 <149 May 12, 2023 08:03 AM [facility] BASIC METABOLIC PANEL+MG Specimen Type: PLASMA No comment entered. Ordering Provider: TARA SCHROEDER Report Released Date/Time: May 16, 2022 10:51 AM Reporting Lab: [facility] [id number] Performing Lab: [facility] [id number] CREATININE 0.8 0.7-1.2 UREA NITROGEN 21 8-26 GLUCOSE 106 H 70-100 SODIUM 140 136-145 POTASSIUM 3.6 3.5-5.1 CHLORIDE 103 98-107 CO2 28 22-29 CALCIUM 9.4 8.4-10.2 MAGNESIUM 2.1 1.6-2.6 ANION GAP 9 5-15 .CREAT EGFR(CKD-EPI) >90 >60 Social History: Smoking Status (Most current) and Tobacco Use (All prior to encounter date) This section includes the most current, and the historical, smoking and tobacco- related health factors from the [place] facility where the Encounter took place. Current Smoking Status This section includes the most current smoking, or tobacco-related health factor, from the [place] facility where the Encounter took place. Date/Time Current Smoking Status Comment Saul chapman Aug 05, 2011 01:53 PM LIFETIME NON-TOBACCO USER [facility] Advance Directives: All historical and current Section Date Range: From patient's date of to the date document was created. This section includes ALL of a patient's completed or amended [place] Advance and Rescinded Directives. The entries below indicate that a directive exists for the patient, but an actual copy is not included with this document. The data comes from all [place] facilities. Date Advance Directives Provider Source Oct 19, 2018 ADVANCE DIRECTIVE DISCUSSION MANAN [facility] Oct 19, 2018 ADVANCE DIRECTIVE VERONICA [facility] Oct 24, 2011 ADVANCE DIRECTIVE DISCUSSION MEGHAN PERRY [facility] Oct 24, 2011 ADVANCE DIRECTIVE LIANNA PERRY [facility] Oct 02, 2011 ADVANCE DIRECTIVE DISCUSSION MEGHAN PERRY [facility] Encounter Notes: All associated encounter notes This section contains the clinical notes associated to the Encounter. Date/Time Encounter Note(s) Provider Source May 14, 2023 07:15 AM IMMUNIZATION NOTE: LOCAL TITLE: INFLUENZA VACCINATION STANDARD TITLE: IMMUNIZATION NOTE DATE OF NOTE: MAY 14, 2023@07:15 ENTRY DATE: MAY 14, 2023@07:16:01 AUTHOR: IRAIDA OATES EXP COSIGNER: URGENCY: STATUS: COMPLETED The patient has received the seasonal influenza vaccine for the current season at another location. Documented: INFLUENZA, UNSPECIFIED FORMULATION Historical Date Administered: May 06, 2023 Outside Location: [id number] Information Source: FROM PATIENT'S RECALL /es/ IRAIDA OATES LPN LICENSED PRACTICAL NURSE Signed: 05/14/2023 07:16 IRAIDA OATES OC
--- OUTSIDE RECORDS SUMMARY | 2023-08-25 20:35 | XMS_ITS | Encounter Summary ---
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 [facility] Address [address] [place] [address] Support Name Relationship Address Phone CHARITY ANDERSON [...] PART B Mar 28, 2012 PART B [id number] [phone] MANINDER PUENTES PATIENT MEDICARE (WNR) MEDICARE (M) PART A Mar 28, 2012 PART A [id number] 48A [phone] MANINDER PUENTES PATIENT Selected Encounter This section includes the information on record at [place] for the Encounter. Date/Time Encounter Type Encounter Description Reason Pro vider Source May 12, 2023 08:00 AM Outpatient Encounter PRIMARY CARE/MEDICINE IHE Encounter Template Text not used by [place] Plan of Treatment: Future Appointments (+ 6 months) and Future Tests (+/- 45 days) The Plan of Treatment section includes future care activities for the patient from all [place] treatmentfacilities. This section includes future appointments and future orders which are active, pending or scheduled. Future Appointments This section includes appointments that were scheduled to occur 6 months from the date of the Encounter, up to a maximum of 20 appointments. The data comes from all [place] treatment facilities. Appointment Date/Time Appointment Type Appointme nt Facility Name May 14, 2023 10:00 AM [facility] Jul 14, 2023 09:00 AM [facility]IC[facility] Aug 26, 2023 10:00 AM [facility] Active, Pending, and Scheduled Orders This section includes a listing of several types of active, pending, and scheduled orders, including clinic medications orders, diagnostic test orders, procedure orders and consult orders; where the start date of the order is 45 days before the date of the Encounter or 45 days after the date of theEncounter. The data comes from all [facility]. Test Date/Time Test Type Test Details Facility Name May 14, 2023 12:00 AM Laboratory - Chemi stry Order MICROALBUMIN/CREATININE RATIO URINE URINE WC [facility] Lab Results: +/- 30 days of [...] Comment May 12, 2023 08:03 AM [facility] HEMOGLOBIN A1C Specimen Type: BLOOD Comment: Values [...] May 16, 2022 10:51 AM Reporting Lab: [facility] [id number] Performing Lab: [facility] [id number] HEMOGLOBIN A1C 5.6 4.0-6.0 May 12, 2023 08:03 AM [facility] LIPID PANEL,NON-FASTING Specimen Type: PLASMA No comment entered. Ordering Provider: TARA SCHROEDER Report Released Date/Time: May 16, 2022 10:51 AM Reporting Lab: [facility] [id number] Performing Lab: [facility] [id number] CHOLESTEROL 135 <199 .HDL 48 >40 LDL CALCULATION 72 <99 VLDL CALCULATION 15 <29 NON HDL CHOLESTEROL 87 <129 TRIG(NON FASTING) 75 <149 May 12, 2023 08:03 AM [facility] BASIC METABOLIC PANEL+MG Specimen Type: PLASMA No comment entered. Ordering Provider: TARA SCHROEDER Report Released Date/Time: May 16, 2022 10:51 AM Reporting Lab: [facility] [id number] Performing Lab: [facility] [id number] CREATININE 0.8 0.7-1.2 UREA NITROGEN 21 8-26 [...] and tobacco- related health factors from the [place] facility where the Encounter took place. Current [...] 19, 2018 ADVANCE DIRECTIVE DISCUSSION MANAN MONTOYA [facility] Oct 19, 2018 ADVANCE DIRECTIVE VERONICA [facility]TOYA [facility] Oct 24, 2011 ADVANCE DIRECTIVE LIANNA PERRY [facility] Oct 24, 2011 ADVANCE DIRECTIVE DISCUSSION MEGHAN PERRY [facility] Oct 02, 2011 ADVANCE DIRECTIVE DISCUSSION MEGHAN PERRY [facility] Encounter Notes: All associated encounter notes This section contains the clinical notes associated to the Encounter. Date/Time Encounter Note(s) Provider Source May 13, 2023 10:27 AM LETTERS: LOCAL TITLE: FOLLOW UP RESULTS LETTER STANDARD TITLE: LETTERS DATE OF NOTE: MAY 13, 2023@10:27 ENTRY DATE: MAY 13, 2023@10:27:50 AUTHOR: TARA SCHROEDER EXP COSIGNER: URGENCY: STATUS: COMPLETED [employer] [address] [place] [address] Apr [facility] [address] [facility] [id number] Dear : You should be receiving another letter with the results of the tests you had done through the [facility]. The tests below were performed and are satisfactory unless otherwise noted. - Cholesterol Tests (HDL = good and LDL = bad) CHOLESTEROL 135 (05/12/23) (prefer less than 200) HDL 48 (05/12/23) (prefer more than 39) LDL CALCULATION 72 (05/12/23) (prefer less than 100) TRIG(NON FASTING)75 mg/dL Ref: <=149 - Electrolytes including sodium and potassium SODIUM 140 (05/12/23) (normal is 137-144) POTASSIUM 3.6 (05/12/23) (normal is 3.5-5.0) CHLORIDE 103 (05/12/23) (normal is 98-107) CO2 28 (05/12/23) (normal is 22-29) UREA NITROGEN 21 (05/12/23)(normal Male is 8-26 Female is 8-20) CREATININE 0.8 (05/12/23)(normal Male 0.7-1.2 Female 0.5-1.0) GLUCOSE 106 H (05/12/23) (normal is 70-100) CALCIUM 9.4 (05/12/23) (normal is 8.4-10.2) MAGNESIUM 2.1 (05/12/23) (normal is 1.6-2.6) EGFR (02/28) 05/08/21 @ 0754 82 CREATININE EGFR (CKD-EPI) 05/12/23 @ 0803 >90 (normal is >/=60) - Glycosylated Hemoglobin (good diabetic control if less than 7.0) HEMOGLOBIN A1C 5.6 (05/12/23) (normal range is 4.0-6.0) Results of all your results and any pending at this time, can be viewed by logging on the LoggedIn website at www.Zeligsoft.md.gov. Please note: some results can take up to 14 days to be viewable. If you have not already done so, I recommend you visit this web site to set up your account. You will then be able to review all future results. ADDITIONAL COMMENTS; Glucose or blood sugar can be elevated if the test was done without fasting. Blood sugar average or hemoglobin A1c is normal. Regular exercise as tolerated after meals will help improve blood sugar control. LDL cholesterol goal is to be closer to 70 or less. Taking simvastatin regularly will help reduce stroke risk. Regular exercise as tolerated along with low-fat diet helps improve cholesterol. You can also schedule a visit with our receiving coordinator to discuss low cholesterol diet or try MOVE program to increase activity as tolerated. All other above test results are normal or within acceptable limits. Goal blood pressure is less than 129/79, Low salt and low fat diet with regular exercise as tolerated will help. Please let us know your home blood pressure readings and if it is higher than 140/90, so we can review treatment plan. Please continue all your medications and treatment plan discussed at your visit. You can follow up in clinic as planned previously or early if you have any new or worsening symptoms. If you have any further questions or problems, please contact our nursing staff or provider at the following number: [phone]. Sincerely, TARA SCHROEDER MD PHYSICIAN TARA VALDEZ
--- OUTSIDE RECORDS SUMMARY | 2023-08-25 20:35 | XMS_ITS | Encounter Summary ---
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 Organization [facility] of [facility] Address [address] [place] [address] Support Name Relationship Address Phone CHARITY ANDERSON [...] PART A Mar 28, 2012 PART A [id number] [phone] MANINDER PUENTES PATIENT MEDICARE (WNR) MEDICARE (M) PART B Mar 28, 2012 PART B [id number] [phone] MANINDER PUENTES PATIENT Selected Encounter This section includes the information on record at [place] for the Encounter. Date/Time Encounter Type Encounter Description Reason Provider Source Apr 15, 2023 01:30 PM THERAPEUTIC EXERCISES PHYSICAL THERAPY ICD-10-CM N39.41 Urge incontinence EVETTE HILLIARD Jamar Encounter Template Text not used by [place] Assessments - Encounter Diagnoses This section includes the primary and secondary diagnoses documented for the Encounter. Date/Time Primary/Secondary Diagnosis Diagnosis Name Provider Source Apr 15, 2023 02:23 PM PRIMARY Urge incontinence EVETTE HILLIARD [facility] Plan of Treatment: Future Appointments (+ 6 months) and Future Tests (+/- 45 days) The Plan of Treatment section includes future care activities for the patient from all [place] [facility]. This section includes future appointments and future orders which are active, pending or scheduled. Future Appointments This section includes appointments that were scheduled to occur 6 months from the date of the Encounter, up to a maximum of 20 appointments. The data comes from all [place] treatment facilities. Appointment Date/Time Appointment Type Appointme nt Facility Name May 12, 2023 08:00 AM AMBULATORY - NONE [facility] May 14, 2023 10:00 AM AMBULATORY - MEDICINE [facility] Jul 14, 2023 09:00 AM AMBULATORY - MEDICINE [facility] Aug 26, 2023 10:00 AM AMBULATORY - MEDICINE [facility] Active, Pending, and Scheduled Orders This section includes a listing of several types of active, pending, and scheduled orders, including clinic medications orders, diagnostic test orders, procedure orders and consult orders; where the start date of the order is 45 days before the date of the Encounter or 45 days after the date of theEncounter. The data comes from all [facility]. Test Date/Time Test Type Test Details Facility Name May 14, 2023 12:00 AM Laboratory - Chemi stry Order MICROALBUMIN/CREATININE RATIO URINE URINE [facility] Lab Results: +/- 30 days [...] Range Comment May 12, 2023 08:03 AM [facility] HEMOGLOBIN A1C Specimen Type: BLOOD [...] May 16, 2022 10:51 AM Reporting Lab: [facility] [id number] Performing Lab: [facility] [id number] HEMOGLOBIN A1C 5.6 4.0-6.0 May 12, 2023 08:03 AM [facility] LIPID PANEL,NON-FASTING Specimen Type: PLASMA No comment entered. Ordering Provider: TARA SCHROEDER Report Released Date/Time: May 16, 2022 10:51 AM Reporting Lab: [facility] [id number] Performing Lab: [facility] [address] CHOLESTEROL 135 <199 .HDL 48 >40 LDL CALCULATION 72 <99 VLDL CALCULATION 15 <29 NON HDL CHOLESTEROL 87 <129 TRIG(NON FASTING) 75 <149 May 12, 2023 08:03 AM [facility] BASIC METABOLIC PANEL+MG Specimen Type: PLASMA No comment entered. Ordering Provider: TARA SCHROEDER Report Released Date/Time: May 16, 2022 10:51 AM Reporting Lab: [facility] [id number] Performing Lab: [facility] [id number] CREATININE 0.8 0.7-1.2 UREA NITROGEN 21 8-26 [...] 05, 2011 01:53 PM LIFETIME NON-TOBACCO USER [facility] Advance Directives: All historical and current Section [...] [facility] Oct 24, 2011 ADVANCE DIRECTIVE LIANNA PERRY [facility] Oct 24, 2011 ADVANCE DIRECTIVE DISCUSSION MEGHAN PERRYPATRICE Scales [facility] Oct 02, 2011 ADVANCE DIRECTIVE DISCUSSION MEGHAN PERRYPATRICE Scales [facility] Encounter Notes: All associated encounter notes This section contains the clinical notes associated to the Encounter. Date/Time Encounter Note(s) Provider Source Apr 15, 2023 01:26 PM PHYSICAL THERAPY N OTE: LOCAL TITLE: PT-PROGRESS NOTE STANDARD TITLE: PHYSICAL THERAPY NOTE DATE OF NOTE: APR 15, 2023@13:26 ENTRY DATE: APR 15, 2023@13:27:02 AUTHOR: SASCHA HILLIARD COSIGNER: URGENCY: STATUS: COMPLETED PT tx: scm 15', ther exs 8' PT dx: Urinary urgency/frequency, Nocturia Evaluation Date: Feb Suicide Screen Clinical Reminder Due: No # of VISITS: 3 # of CX/NS: 0 Relevant PMH/personal factors [...] last couple of months. Today, pt reports going to the bathroom 2x last night and once the night before and is very pleased with progress; states the breathing ther exs have been very helpful. Completed bladder diary. 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 - educated and instructed pt on existing HEP and to continue with diaphragmatic breathing as instructed for continual progress - educated and instructed pt on continuing with staying hydrated GOALS: Patient's Goal: 1. Pt will be I in HEP for self-management of urgency urinary incontinence in 6-8 weeks.MET -Pt will reduce frequency of incontinence from 4 times/day to 2 times/day to demonstrate progress towards independent management of self-care/ADLS in 6-8 visits. MET -Pt will report 2x of waking up per night in order to get more restful sleep in 4-6 visits MET -Pt will be fully continent throughout their day to complete all ADLs and social activities without urine leakage. MET ASSESSMENT: Pt has met all PT goals. Pt please with outcome and instructed to continue with HEP as given; pt denies any further questions or concerrns; pt declined to schedule RTC after today stating he will continue to try what he has now for HEP and if he should need further assistance he will contact PT department. PLAN: pt has reached maximum functional performance and no longer in need of further skilled PT services. /og/ SASCHA HILLIARD PT,DPT PHYSICAL THERAPIST Signed: 04/15/2023 14:23 SASCHA HILLIARD [facility]
--- OUTSIDE RECORDS SUMMARY | 2023-08-25 20:35 | XMS_ITS | Encounter Summary ---
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 Organization Department of [facility] Address [address] [place] [address] Support Name Relationship Address Phone CHARITY ANDERSON [...] PART A Mar 28, 2012 PART A [id number] [phone] CHINO PUENTES PATIENT MEDICARE (WNR) MEDICARE (M) PART B Mar 28, 2012 PART B [id number] 48A [phone] CHINO PUENTES PATIENT Selected Encounter This section includes the information on record at [place] for the Encounter. Date/Time Encounter Type Encounter Description Reason Provider Source Mar 24, 2023 11:22 AM Outpatient Encounter SLEEP MEDICINE BETTY WHITE [facility] Encounter Template Text not used by [place] Plan of Treatment: Future Appointments (+ 6 months) and Future Tests (+/- 45 days) The Plan of Treatment section includes future care activities for the patient from all [place] treatmentfacilities. This section includes future appointments and future orders which are active, pending or scheduled. Future Appointments This section includes appointments that were scheduled to occur 6 months from the date of the Encounter, up to a maximum of 20 appointments. The data comes from all [place] treatment facilities. Appointment Date/Time Appointment Type Appointme nt Facility Name Apr 15, 2023 01:30 PM AMBULATORY - REHAB MEDICIN [facility] May 12, 2023 08:00 AM AMBULATORY - NONE [facility] May 14, 2023 10:00 AM [facility]ATORY - MEDICINE [facility] Jul 14, 2023 09:00 AM AMBULATORY - MEDICINE [facility] Aug 26, 2023 10:00 AM AMBULATORY - MEDICINE [facility] Lab Results: +/- 30 days of the encounter This section includes the Chemistry and Hematology Lab Results on record with [place] for the patient. Radiology Reports and Pathology Reports are provided separately, in subsequent sections. Lab Results This section contains the Chemistry/Hematology Results that were resulted 30 days before or 30 daysafter the date of the Encounter. Date/Time Source Result Type Result - Unit Interpretation Reference Range Comment Mar 10, 2023 08:28 AM [facility] .OCCULT BLOOD(FIT) Specimen Type: FECES No comment entered. Ordering Provider: KOFFI AUSTIN Report Released Date/Time: Mar 10, 2023 08:28 AM Reporting Lab: [facility] [id number] Performing Lab: [place] [id number] .OCCULT BLOOD(FIT ) Negative Social History: Smoking Status (Most current) and Tobacco Use (All prior to encounter date) This section includes the most current, and the historical, smoking and tobacco- related health factors from the [place] facility where the Encounter took place. Current Smoking Status This section includes the most current smoking, or tobacco-related health factor, from the [place] facility where the Encounter took place. Date/Time Current Smoking Status Comment Saul chapman Aug 05, 2011 01:53 PM LIFETIME NON-TOBACCO USER [facility] Advance Directives: All historical and current Section Date Range: From patient's date of to the date document was created. This section includes ALL of a patient's completed or amended [place] Advance and Rescinded Directives. The entries below indicate that a directive exists for the patient, but an actual copy is not included with this document. The data comes from all [place] facilities. Date Advance Directives Provider Source Oct 19, 2018 ADVANCE DIRECTIVE DISCUSSION MANAN MONTOYA [facility] Oct 19, 2018 ADVANCE DIRECTIVE VERONICA MONTOYA RENATA [facility] Oct 24, 2011 ADVANCE DIRECTIVE DISCUSSION MEGHAN PERRY [facility] Oct 24, 2011 ADVANCE DIRECTIVE LIANNA PERRY [facility] Oct 02, 2011 ADVANCE DIRECTIVE DISCUSSION MEGHAN PERRY [facility] Encounter Notes: All associated encounter notes This section contains the clinical notes associated to the Encounter. Date/Time Encounter Note(s) Provider Source Mar 24, 2023 11:22 AM PULMONARY SECURE M ESSAGING: LOCAL TITLE: PULMONARY SECURE MESSAGING STANDARD TITLE: PULMONARY SECURE MESSAGING DATE OF NOTE: MAR 24, 2023@11:22 ENTRY DATE: MAR 24, 2023@11:22:17 AUTHOR: BETTY WHITE EXP COSIGNER: URGENCY: STATUS: COMPLETED ------Original Message --- Sent: 03/24/2023 12:22 PM ET From: BETTY WHITE To: CHINO ANDERSON Subject: General:General Inquiry Attachments: welcome.docx (12.40 KB) Thanks Chino have a great day! Betty White CATTERY OPERATOR Registered Respiratory Therapist /og/ BETTY WHITE registered respiratory therapist Signed: 03/24/2023 11:22 BETTY WHITE [facility]
--- OUTSIDE RECORDS SUMMARY | 2023-08-25 20:35 | XMS_ITS | Encounter Summary ---
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 Organization [facility] Address [address] [place] [address] Support Name Relationship Address Phone CHARITY ANDERSON [...] PART A Mar 28, 2012 PART A [id number] [phone] MANINDER PUENTES PATIENT MEDICARE (WNR) MEDICARE (M) PART B Mar 28, 2012 PART B [id number] 48A [phone] MANINDER PUENTES PATIENT Selected Encounter This section includes the information on record at [place] for the Encounter. Date/Time Encounter Type Encounter Description Reason Pro vider Source May 13, 2023 10:00 AM Outpatient Encounter PRIMARY CARE/MEDICINE [facility] Encounter Template Text not used by [place] Plan of Treatment: Future Appointments (+ 6 months) and Future Tests (+/- 45 days) The Plan of Treatment section includes future care activities for the patient from all [place] treatmentfacilities. This section includes future appointments and future orders which are active, pending or scheduled. Future Appointments This section includes appointments that were scheduled to occur 6 months from the date of the Encounter, up to a maximum of 20 appointments. The data comes from all [place] treatment facilities. Appointment Date/Time Appointment Type Appointme nt Facility Name May 14, 2023 10:00 AM AMBULATORY - MEDICINE [facility] Jul 14, 2023 09:00 AM AM[facility]ORY - MEDICINE [facility] Aug 26, 2023 10:00 AM [facility]BULATORY - MEDICINE [facility] Active, Pending, and Scheduled Orders This section includes a listing of several types of active, pending, and scheduled orders, including clinic medications orders, diagnostic test orders, procedure orders and consult orders; where the start date of the order is 45 days before the date of the Encounter or 45 days after the date of theEncounter. The data comes from all [facility]. Test Date/Time Test Type Test Details Facility Name May 14, 2023 12:00 AM Laboratory - Chemi stry Order MICROALBUMIN/CREATININE RATIO URINE URINE [facility] Lab Results: +/- 30 days of the encounter This section includes the Chemistry and Hematology Lab Results on record with [place] for the patient. Radiology Reports and Pathology [...] May 16, 2022 10:51 AM Reporting Lab: [facility] [id number] Performing Lab: [facility] [id number] HEMOGLOBIN A1C 5.6 4.0-6.0 May 12, 2023 08:03 AM [facility] LIPID PANEL,NON-FASTING Specimen Type: PLASMA No comment entered. Ordering Provider: TARA SCHROEDER Report Released Date/Time: May 16, 2022 10:51 AM Reporting Lab: [facility] [id number] Performing Lab: [facility] [id number] CHOLESTEROL 135 <199 .HDL 48 >40 LDL CALCULATION 72 <99 VLDL CALCULATION 15 <29 NON HDL CHOLESTEROL 87 <129 TRIG(NON FASTING) 75 <149 May 12, 2023 08:03 AM [facility] BASIC METABOLIC PANEL+MG Specimen Type: PLASMA No comment entered. Ordering Provider: TARA SCHROEDER Report Released Date/Time: May 16, 2022 10:51 AM Reporting Lab: [facility] [phone] Performing Lab: [facility] [address] CREATININE 0.8 0.7-1.2 UREA NITROGEN 21 8-26 [...] 05, 2011 01:53 PM LIFETIME NON-TOBACCO USER [facility] Advance Directives: All historical and current Section Date Range: From patient's date of to the date document was created. This section includes ALL of a patient's completed or amended [place] Advance and Rescinded Directives. The entries below indicate that a directive exists for the patient, but an actual copy is not included with this document. The data comes from all [place] facilities. Date Advance Directives Provider Source Oct 19, 2018 ADVANCE DIRECTIVE DISCUSSION MANAN MONTOYA [facility] Oct 19, 2018 ADVANCE DIRECTIVE VERONICA MONTOYA [facility] Oct 24, 2011 ADVANCE DIRECTIVE DISCUSSION MEGHAN PERRY [facility] Oct 24, 2011 ADVANCE DIRECTIVE LIANNA [facility]ERRY [facility] Oct 02, 2011 ADVANCE DIRECTIVE DISCUSSION MEGHAN PERRY [facility] Encounter Notes: All associated encounter notes This section contains the clinical notes associated to the Encounter. Date/Time Encounter Note(s) Provider Source May 13, 2023 03:23 PM MEDICATION MGT NOT E: LOCAL TITLE: MEDICATION RECONCILIATION NOTE STANDARD TITLE: MEDICATION MGT NOTE DATE OF NOTE: MAY 13, 2023@15:23 ENTRY DATE: MAY 13, 2023@15:23:48 AUTHOR: IRAIDA OATES EXP COSIGNER: URGENCY: STATUS: COMPLETED MEDICATION RECONCILIATION Active Outpatient Medications (excluding Supplies): Outpatient Medications [...] MOUTH EVERY DAY ACTIVE 10 Total Medications Recently Outpatient Medications (including Supplies): NONE /og/ IRAIDA OATES LPN LICENSED PRACTICAL NURSE Signed: 05/13/2023 15:24 IRAIDA OATES [facility]
--- OUTSIDE RECORDS SUMMARY | 2023-08-25 20:35 | XMS_ITS | Encounter Summary ---
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 Organization [facility] of [facility] Address [address] [place] [address] Support Name Relationship Address Phone JUSTIN CHARITY [...] PART A Mar 28, 2012 PART A [id number] [phone] MANINDER PUENTES PATIENT MEDICARE (WNR) MEDICARE (M) PART B Mar 28, 2012 PART B [id number] [phone] MANINDER PUENTES PATIENT Selected Encounter This section includes the information on record at [place] for the Encounter. Date/Time Encounter Type Encounter Description Reason Provider Source Apr 21, 2023 10:31 AM Outpatient Encounter PRIMARY CARE/MEDICINE JOSEPH GUILLAUME Encounter Template Text not used by [place] Plan of Treatment: Future Appointments (+ 6 months) and Future Tests (+/- 45 days) The Plan of Treatment section includes future care activities for the patient from all [place] treatmentfacilities. This section includes future appointments and future orders which are active, pending or scheduled. Future Appointments This section includes appointments that were scheduled to occur 6 months from the date of the Encounter, up to a maximum of 20 appointments. The data comes from all [facility]. Appointment Date/Time Appointment Type Appointme nt Facility Name May 12, 2023 08:00 AM AMBULATORY - NONE [facility] May 14, 2023 10:00 AM AMBULATORY - MEDICINE [facility] Jul 14, 2023 09:00 AM AMBULATORY - MEDICINE [facility] Aug 26, 2023 10:00 AM AMBULATORY - MEDICINE [facility] Active, Pending, and Scheduled Orders This section includes a listing of several types of active, pending, and scheduled orders, including clinic medications orders, diagnostic test orders, procedure orders and consult orders; where the start date of the order is 45 days before the date of the Encounter or 45 days after the date of theEncounter. The data comes from all [facility]. Test Date/Time Test Type Test Details Facility Name May 14, 2023 12:00 AM Laboratory - Chemi stry Order MICROALBUMIN/CREATININE RATIO URINE URINE WC [facility] Lab Results: +/- 30 days of the encounter This section includes the Chemistry and Hematology Lab Results on record with [place] for the patient. Radiology Reports and Pathology Reports are provided separately, in subsequent sections. Lab Results This section contains the Chemistry/Hematology Results that were resulted 30 days before or 30 daysafter the date of the Encounter. Date/Time Source Result Type Result - Unit Interpretation Reference Range Comment May 12, 2023 08:03 AM [facility] HEMOGLOBIN A1C Specimen Type: BLOOD Comment: [...] May 16, 2022 10:51 AM Reporting Lab: [facility] [id number] Performing Lab: [facility] [id number] HEMOGLOBIN A1C 5.6 4.0-6.0 May 12, 2023 08:03 AM [facility] LIPID PANEL,NON-FASTING Specimen Type: PLASMA No comment entered. Ordering Provider: TARA SCHROEDER Report Released Date/Time: May 16, 2022 10:51 AM Reporting Lab: [facility] [id number] Performing Lab: [facility] [address] CHOLESTEROL 135 <199 .HDL 48 >40 LDL CALCULATION 72 <99 VLDL CALCULATION 15 <29 NON HDL CHOLESTEROL 87 <129 TRIG(NON FASTING) 75 <149 May 12, 2023 08:03 AM [facility] BASIC METABOLIC PANEL+MG Specimen Type: PLASMA No comment entered. Ordering Provider: TARA SCHROEDER Report Released Date/Time: May 16, 2022 10:51 AM Reporting Lab: [facility] [id number] Performing Lab: [facility] [address] CREATININE 0.8 0.7-1.2 UREA NITROGEN 21 8-26 [...] and tobacco- related health factors from the [place] facility where the Encounter took place. Current Smoking Status This section includes the most current smoking, or tobacco-related health factor, from the [place] facility where the Encounter took place. Date/Time Current Smoking Status Jose chapman Aug 05, 2011 01:53 PM LIFETIME NON-TOBACCO USER [facility] Advance Directives: All historical and current Section Date Range: From patient's date of to the date document was created. This section includes ALL of a patient's completed or amended [place] Advance and Rescinded Directives. The entries below indicate that a directive exists for the patient, but an actual copy is not included with this document. The data comes from all [place] facilities. Date Advance Directives Provider Source Oct 19, 2018 ADVANCE DIRECTIVE DISCUSSION MANAN MONTOYA [facility] Oct 19, 2018 ADVANCE DIRECTIVE VERONICA MONTOYA [facility] Oct 24, 2011 ADVANCE DIRECTIVE DISCUSSION MEGHAN PERRY [facility] Oct 24, 2011 ADVANCE DIRECTIVE ORLANDOLIANNANOE [facility] Oct 02, 2011 ADVANCE DIRECTIVE DISCUSSION ORLANDOMEGHAN Scales [facility] Encounter Notes: All associated encounter notes This section contains the clinical notes associated to the Encounter. Date/Time Encounter Note(s) Provider Source Apr 21, 2023 10:31 AM PRIMARY CARE SECUR E MESSAGING: LOCAL TITLE: PRIMARY CARE SECURE MESSAGING STANDARD TITLE: PRIMARY CARE SECURE MESSAGING DATE OF NOTE: APR 21, 2023@10:31 ENTRY DATE: APR 21, 2023@10:31:53 AUTHOR: JOSEPH GUILLAUME EXP COSIGNER: URGENCY: STATUS: COMPLETED ------Original Message Sent: 04/21/2023 08:58 AM ET From: MANINDER ANDERSON To: [facility] [place] ([place]) Subject: Test:A1C I'm scheduled for Lab Tests on 05/12 and an annual physical with Dr. Schroeder on 05/14. I have lost about 30 lbs. and my daily blood sugar level is about 110 to 120. I want to be sure to get an A1C test as part of the Lab work. Thanks!! ------Original Message Sent: 04/21/2023 11:31 AM ET From: JOSEPH GUILLAUME To: MANINDER ANDERSON Subject: Test:A1C Good morning, Yes, an A1c test has been ordered. Thanks, ELIZABETH David /og/ JOSEPH GUILLAUME REGISTERED NURSE Signed: 04/21/2023 10:31 JOSEPH GUILLAUME [facility]
--- OUTSIDE RECORDS SUMMARY | 2023-08-25 20:35 | XMS_ITS | Encounter Summary ---
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 Date/Time Encounter Type Encounter Description Reason Provider Source Mar 24, 2023 11:17 AM HC PRO PHONE CALL 11-20 MIN TELEPHONE/MEDICIN E ICD-10-CM G47.33 Obstructive sleep apnea (adult) (pediatric) BETTY SWANSON E Encounter Template Text not used by [place] Assessments - Encounter Diagnoses This section includes the primary and secondary diagnoses documented for the Encounter. Date/Time Primary/Secondary Diagnosis Diagnosis Name Provider Source Mar 24, 2023 11:17 AM PRIMARY Obstructive sleep apnea (adult) (pediatric) BETTY SWANSON [facility] Plan of Treatment: Future Appointments (+ 6 months) and Future Tests (+/- 45 days) The Plan of Treatment section includes future care activities for the patient from all [place] treatmentfacilities. This section includes future appointments and future orders which are active, pending or scheduled. Future Appointments This section includes appointments that were scheduled to occur 6 months from the date of the Encounter, up to a maximum of 20 appointments. The data comes from all [place] treatment facilities. Appointment Date/Time Appointment Type Appointme nt Facility Name Apr 15, 2023 01:30 PM AMBULATORY - REHAB MEDICIN E [facility] May 12, 2023 08:00 AM AMBULATORY - NONE [facility] May 14, 2023 10:00 AM [facility]ICINE [facility] Jul 14, 2023 09:00 AM [facility]ORY - [facility]ICINE [facility] Aug 26, 2023 10:00 AM [facility] Results: +/- 30 days of the encounter This section includes the Chemistry and Hematology Lab Results on record with [place] for the patient. Radiology Reports and Pathology Reports are provided separately, in subsequent sections. Lab Results This section contains the Chemistry/Hematology Results that were resulted 30 days before or 30 daysafter the date of the Encounter. Date/Time Source Result Type Result - Unit Interpretation Reference Range Comment Mar 10, 2023 08:28 AM [facility] .OCCULT BLOOD(FIT) Specimen Type: FECES No comment entered. Ordering Provider: KOFFI AUSTIN Report Released Date/Time: Mar 10, 2023 08:28 AM Reporting Lab: [facility] [id number] Performing Lab: [address] [address] .OCCULT BLOOD(FIT ) Negative Social History: Smoking Status (Most current) and Tobacco Use (All prior to encounter date) This section includes the most current, and the historical, smoking and tobacco- related health factors from the [place] facility where the Encounter took place. Current Smoking Status This section includes the most current smoking, or tobacco-related health factor, from the [place] facility where the Encounter took place. Date/Time Current Smoking Status Comment Saul chapman Aug 05, 2011 01:53 PM LIFETIME NON-TOBACCO USER [facility] Advance Directives: All historical and current Section Date Range: From patient's date of to the date document was created. This section includes ALL of a patient's completed or amended [place] Advance and Rescinded Directives. The entries below indicate that a directive exists for the patient, but an actual copy is not included with this document. The data comes from all [place] facilities. Date Advance Directives Provider Source Oct 19, 2018 ADVANCE DIRECTIVE JANVERONICA Carrasquillo [facility] Oct 19, 2018 ADVANCE DIRECTIVE DISCUSSION MANAN MONTOYA [facility] Oct 24, 2011 ADVANCE DIRECTIVE DISCUSSION MEGHAN PERRY [facility] Oct 24, 2011 ADVANCE DIRECTIVE LIANNA PERRY [facility] Oct 02, 2011 ADVANCE DIRECTIVE DISCUSSION MEGHAN PERRY [facility] Encounter Notes: All associated encounter notes This section contains the clinical notes associated to the Encounter. Date/Time Encounter Note(s) Provider Source Mar 24, 2023 11:17 AM SLEEP MEDICINE NOT E: LOCAL TITLE: SLEEP MEDICINE NOTE STANDARD TITLE: SLEEP MEDICINE NOTE DATE OF NOTE: MAR 24, 2023@11:17 ENTRY DATE: MAR 24, 2023@11:17:21 AUTHOR: BETTY SWANSON COSIGNER: URGENCY: STATUS: COMPLETED Mayo contacted today to review results of Home Sleep Study Date of Sleep Study Study: 02/24/2023 Indications: Snoring Other: Microvascular disease, stroke. Question of apneas? per , suspected ESS:04/20 Diagnosis: MILD daniela pAHI-4% was 5.8 Supine pAHI-4% was 22.3 Non-supine pAHI-4% was 2.9 Estimated REM pAHI-4% was 8.4 Central pAHI-4% was 0.3 pRDI was 8.3 Snoring >50dB for 7.3% of TVST ARIK was 5.6 Mean oxygen saturation was 94% Lowest oxygen saturation was 85% Saturations < 90%: 1.6 minutes (0.4% of TVST) Saturations <= 88%: 0.4 minutes (0.1% of TVST) PLAN/Comment: Would recommend oral appliance for mild sleep apnea. Patient should be counseled on health implications of obstructive sleep apnea, with treatment options discussed. Avoid alcohol, sedatives and other [employer] depressants that may worsen sleep apnea and disrupt normal sleep architecture. Weight management and regular exercise should be initiated or continued. Contacted to review HST results. [facility] is not interested in treatment at this time, will try his own positional therapy. Welcome letter sent, advised to contact clinic for treatment. /og/ BETTY SWANSON registered respiratory therapist Signed: 03/24/2023 11:23 BETTY SWANSON [facility]
--- OUTSIDE RECORDS SUMMARY | 2023-08-25 20:36 | XMS_ITS | Encounter Summary ---
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 Organization [facility] Address [address] [place] [address] Support Name Relationship Address Phone CHARITY ANDERSON [...] PART A Mar 28, 2012 PART A [id number] [phone] MANINDER PUENTES PATIENT MEDICARE (WNR) MEDICARE (M) PART B Mar 28, 2012 PART B [id number] [id number] [phone] MANINDER PUENTES PATIENT Selected Encounter This section includes the information on record at [place] for the Encounter. Date/Time Encounter Type Encounter Description Reason Pro vider Source May 14, 2023 10:42 AM Outpatient Encounter PRIMARY CARE/MEDICINE IHE Encounter Template Text not used by [place] [...] 20 appointments. The data comes from all [facility]. Appointment Date/Time Appointment Type Appointme nt Facility Name Jul 14, 2023 09:00 AM AMBULATORY - MEDICINE [facility] Aug 26, 2023 10:00 AM [facility] Active, Pending, and Scheduled Orders This section includes a listing of several types of active, pending, and scheduled orders, including clinic medications orders, diagnostic test orders, procedure orders and consult orders; where the start date of the order is 45 days before the date of the Encounter or 45 days after the date of theEncounter. The data comes from all [facility]. Test Date/Time Test Type Test Details Facility Name May 14, 2023 12:00 AM Laboratory - Chemi stry Order MICROALBUMIN/CREATININE RATIO URINE URINE WC [facility] Lab Results: +/- 30 days of [...] Range Comment May 12, 2023 08:03 AM [facility] HEMOGLOBIN A1C Specimen Type: BLOOD Comment: [...] May 16, 2022 10:51 AM Reporting Lab: [facility] [id number] Performing Lab: [facility] [id number] HEMOGLOBIN A1C 5.6 4.0-6.0 May 12, 2023 08:03 AM [facility] BASIC METABOLIC PANEL+MG Specimen Type: PLASMA No comment entered. Ordering Provider: TARA SCHROEDER Report Released Date/Time: May 16, 2022 10:51 AM Reporting Lab: [facility] [id number] Performing Lab: [facility] [address] CREATININE 0.8 0.7-1.2 UREA NITROGEN 21 8-26 GLUCOSE 106 H 70-100 SODIUM 140 136-145 POTASSIUM 3.6 3.5-5.1 CHLORIDE 103 98-107 CO2 28 22-29 CALCIUM 9.4 8.4-10.2 MAGNESIUM 2.1 1.6-2.6 ANION GAP 9 5-15 .CREAT EGFR(CKD-EPI) >90 >60 May 12, 2023 08:03 AM [facility] LIPID PANEL,NON-FASTING Specimen Type: PLASMA No comment entered. Ordering Provider: TARA SCHROEDER Report Released Date/Time: May 16, 2022 10:51 AM Reporting Lab: [facility] [id number] Performing Lab: [facility] [address] CHOLESTEROL 135 <199 .HDL 48 >40 LDL CALCULATION 72 <99 VLDL CALCULATION 15 <29 NON HDL CHOLESTEROL 87 <129 TRIG(NON FASTING) 75 <149 Social History: Smoking Status (Most current) [...] Oct 24, 2011 ADVANCE DIRECTIVE LIANNA PERRY [facility] Oct 02, 2011 ADVANCE DIRECTIVE DISCUSSION MEGHAN PERRY [facility] Encounter Notes: All associated encounter notes This section contains the clinical notes associated to the Encounter. Date/Time Encounter Note(s) Provider Source May 14, 2023 10:42 AM REPORT OF CONTACT: LOCAL TITLE: PATIENT CONTACT NOTE STANDARD TITLE: REPORT OF CONTACT DATE OF NOTE: MAY 14, 2023@10:42 ENTRY DATE: MAY 14, 2023@10:42:09 AUTHOR: JORGE GALEAS COSIGNER: URGENCY: STATUS: COMPLETED Patient contact Name of : MANINDER ANDERSON Name/Relationship of Contact if other than [place]: Date & Time of Contact: Apr@10:42 Type of Contact: In person Reason for Contact: Patient scheduled annual for next year on way out wants to do labs prior to appt. Patient wants to come in 05/07/[address] annual lab orders for patient. /og/ JORGE GALEAS Advanced insurance account assistant Signed: 05/14/2023 10:43 Receipt Acknowledged By: 05/14/2023 11:29 /es/ TARA SCHROEDER MD PHYSICIAN ROSALES PRADO 05/14/2023 11:35 /es/ ROSIE RODRIGUEZ RN, CWOCN PACT RN for JORGE ANAND
--- OUTSIDE RECORDS SUMMARY | 2023-08-25 20:36 | XMS_ITS | Encounter Summary ---
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 Organization [facility] Address [address] [place] [address] Support Name Relationship Address Phone CHARITY ANDERSON [...] PART B Mar 28, 2012 PART B [id number] [phone] MANINDER PUENTES PATIENT MEDICARE (WNR) MEDICARE (M) PART A Mar 28, 2012 PART A [id number] [phone] MANINDER PUENTES PATIENT Selected Encounter This section includes the information on record at [place] for the Encounter. Date/Time Encounter Type Encounter Description Reason Pro vider Source May 06, 2023 12:00 AM Outpatient Encounter EVENT (HISTORICAL) IHE Encounter Template Text not used by [place] Plan of Treatment: Future Appointments (+ 6 [...] 20 appointments. The data comes from all [place] treatment [facility]. Appointment Date/Time Appointment Type Appointme nt Facility Name May 12, 2023 08:00 AM AMBULATORY - NONE [facility] May 14, 2023 10:00 AM AMBULATORY [...] stry Order MICROALBUMIN/CREATININE RATIO URINE URINE [facility] Lab Results: +/- 30 days of the encounter This section includes the Chemistry and Hematology Lab Results on record with [place] for the patient. Radiology Reports and Pathology Reports are provided separately, in subsequent sections. Lab Results This section contains the Chemistry/Hematology Results that were resulted 30 days before or 30 daysafter the date of the Encounter. Date/Time Source Result Type Result - Unit Interpretation Reference Range Comment May 12, 2023 08:03 AM [facility] HEMOGLOBIN A1C Specimen Type: BLOOD [...] May 16, 2022 10:51 AM Reporting Lab: [facility] [id number] Performing Lab: [facility] [address] HEMOGLOBIN A1C 5.6 4.0-6.0 May 12, 2023 08:03 AM [facility] LIPID PANEL,NON-FASTING Specimen Type: PLASMA No comment entered. Ordering Provider: TARA SCHROEDER Report Released Date/Time: May 16, 2022 10:51 AM Reporting Lab: [facility] [id number] Performing Lab: [facility] [address] CHOLESTEROL 135 <199 .HDL 48 >40 LDL CALCULATION 72 <99 VLDL CALCULATION 15 <29 NON HDL CHOLESTEROL 87 <129 TRIG(NON FASTING) 75 <149 May 12, 2023 08:03 AM [facility] BASIC METABOLIC PANEL+MG Specimen Type: PLASMA No comment entered. Ordering Provider: TARA SCHROEDER Report Released Date/Time: May 16, 2022 10:51 AM Reporting Lab: [facility] [phone] Performing Lab: [facility] [address] CREATININE 0.8 0.7-1.2 UREA NITROGEN 21 8-26 GLUCOSE 106 H 70-100 SODIUM 140 136-145 POTASSIUM 3.6 3.5-5.1 CHLORIDE 103 98-107 CO2 28 22-29 CALCIUM 9.4 8.4-10.2 MAGNESIUM 2.1 1.6-2.6 ANION GAP 9 5-15 .CREAT EGFR(CKD-EPI) >90 >60 Immunizations: All administered on the encounter date This section contains immunizations associated to the Encounter. Immunization Series Date Issued Reaction Comments COVID-19 (MODERNA), MRNA, LN P-S, PF, 50 MCG/0.5 ML (AGES 12+ YEARS) 1 May 06, 2023 INFLUENZA, UNSPECIFIED FORMULATION May 06, 2023 Social History: Smoking Status (Most current) and Tobacco Use (All prior to encounter date) This section includes the most current, and the historical, smoking and tobacco- related health factors from the [place] facility where the Encounter took place. Current Smoking Status This section includes the most current smoking, or tobacco-related health factor, from the [place] facility where the Encounter took place. Date/Time Current Smoking Status Comment Saul chapman Aug 05, 2011 01:53 PM LIFETIME NON-TOBACCO USER [facility] Advance Directives: All historical and current Section Date Range: From patient's date of to the date document was created. This section includes ALL of a patient's completed or amended [place] Advance and Rescinded Directives. The entries below indicate that a directive exists for the patient, but an actual copy is not included with this document. The data comes from all [place] facilities. Date Advance Directives Provider Source Oct 19, 2018 ADVANCE DIRECTIVE DISCUSSION MANAN MONTOYA [facility] Oct 19, 2018 ADVANCE DIRECTIVE VERONICA MONTOYA [facility] Oct 24, 2011 ADVANCE DIRECTIVE LIANNA PERRY [facility] Oct 24, 2011 ADVANCE DIRECTIVE DISCUSSION MEGHAN PERRY [facility] Oct 02, 2011 ADVANCE DIRECTIVE DISCUSSION MEGHAN PERRY [facility]
--- OUTSIDE RECORDS SUMMARY | 2023-08-25 20:36 | XMS_ITS | Encounter Summary ---
Author Name [facility] Organization [facility] Address [address] [place] [address] Support Name Relationship Address Phone JUSTIN CHARITY [...] PART A Mar 28, 2012 PART A [id number] MANINDER PUENTES PATIENT MEDICARE (WNR) MEDICARE (M) PART B Mar 28, 2012 PART B [phone] MANINDER PUENTES PATIENT Selected Encounter This section includes the information on record at [place] for the Encounter. Date/Time Encounter Type Encounter Description Reason Provider Source Jul 14, 2023 09:00 AM HC PRO PHONE CALL 5-10 MIN TELEPHONE PRIMARY CARE ICD-10-CM Z71.9 Counseling, unspecified ISSAC GUILLAUME Encounter Template Text not used by [place] Assessments - Encounter Diagnoses This section includes the primary and secondary diagnoses documented for the Encounter. Date/Time Primary/Secondary Diagnosis Diagnosis Name Provider Source Jul 14, 2023 09:00 AM PRIMARY Counseling, unspecified ISSAC GUILLAUME [facility] Plan of Treatment: Future Appointments (+ 6 months) and Future Tests (+/- 45 days) The Plan of Treatment section includes future care activities for the patient from all [place] treatmentfacilities. This section includes future appointments and future orders which are active, pending or scheduled. Future Appointments This section includes appointments that were scheduled to occur 6 months from the date of the Encounter, up to a maximum of 20 appointments. The data comes from all [place] treatment facilities. Appointment Date/Time Appointment Type Appointme nt Facility Name Aug 26, 2023 10:00 AM [facility]ULATORY - [facility]ICINE [facility] Social History: Smoking Status (Most current) and Tobacco Use (All prior to encounter date) This section includes the most current, and the historical, smoking and tobacco- related health factors from the [place] facility where the Encounter took place. Current Smoking Status This section includes the most current smoking, or tobacco-related health factor, from the [place] facility where the Encounter took place. Date/Time Current Smoking Status Comment Facil ity May 14, 2023 10:00 AM VA-TOBACCO NEVER USED [facility] Tobacco Use History This section includes a history of the smoking, or tobacco-related health factors, that were collected on or before the date of the Encounter. The data comes from the [place] facility where the Encounter took place. Date/Time Smoking Status/Tobacco Use Comment F acility Feb 19, 2022 11:30 AM VA-TOBACCO NEVER USED [facility] May 17, 2021 08:00 AM VA-TOBACCO NEVER USED [facility] Jun 19, 2020 08:00 AM VA-TOBACCO NEVER USED [facility] May 21, 2018 09:05 AM VA-TOBACCO NEVER USED [facility] Sep 02, 2017 08:04 AM LIFETIME NON-TOBACCO USER [facility] Apr 23, 2016 08:33 AM LIFETIME NON-TOBACCO USER [facility] May 10, 2015 08:25 AM LIFETIME NON-TOBACCO USER [facility] Apr 22, 2014 09:15 AM LIFETIME NON-TOBACCO USER [facility] Advance Directives: All historical and current Section Date Range: From patient's date of to the date document was created. This section includes ALL of a patient's completed or amended [place] Advance and Rescinded Directives. The entries below indicate that a directive exists for the patient, but an actual copy is not included with this document. The data comes from all [facility]. Date Advance Directives Provider Source Oct 19, 2018 ADVANCE DIRECTIVE VERONICA MONTOYA [facility] YANE[facility] Oct 19, 2018 ADVANCE DIRECTIVE DISCUSSION MANAN MONTOYA [facility] Oct 24, 2011 ADVANCE DIRECTIVE DISCUSSION MEGHAN PERRY [facility] Oct 24, 2011 ADVANCE DIRECTIVE LIANNA PERRY [facility] Oct 02, 2011 ADVANCE DIRECTIVE DISCUSSION MEGHAN PERRY [facility] Encounter Notes: All associated encounter notes This section contains the clinical notes associated to the Encounter. Date/Time Encounter Note(s) Provider Source Jul 14, 2023 01:05 PM ADDENDUM: LOCAL TITLE: Addendum STANDARD TITLE: ADDENDUM DATE OF NOTE: JUL 14, 2023@13:05:42 ENTRY DATE: JUL 14, 2023@13:05:44 AUTHOR: TARA SCHROEDER EXP COSIGNER: URGENCY: STATUS: COMPLETED Agree with he can get the vaccine when it is available. /og/ TARA SCHROEDER MD PHYSICIAN [facility] Signed: 07/14/2023 13:06 Receipt Acknowledged By: 07/14/2023 13:41 /es/ IRAIDA OATES LPN LICENSED PRACTICAL NURSE 07/14/2023 13:33 /es/ SIMA ROLON LPN --- Original Document --- 07/14/23 [facility] NURSING PROGRESS NOTE: Canby called clinic requesting a RSV Vaccine. Assessment: Vet is a 78yo with the following chronic conditions: DM and CVA We reviewed the following information. ALLERGIES: Vaccination status: Canby was informed it is recommended to have received both the Flu and COVID vaccines prior to the RSV Vaccine. Also, it is recommended the RSV vaccine be administered at least 2 weeks apart from other vaccinations. We discussed risks and contraindications for vaccination, as well as RSV infection, such as transmission, symptoms and side effects, precautions, and adverse events. Contraindications to getting vaccine: History of severe allergic reaction (anaphylaxis to any component of the vaccine. Risk Factors: Medical history reviewed for any history of the following: Lung Disease Chronic Cardiovascular Disease Diabetes Neurological or Neuromuscular conditions Kidney or Liver Disorders Hematological Disorders Moderate to severe immune compromise Work with or are around small children Adverse events: In clinic trials, adverse events include: Injection site pain redness swelling fatigue myagalia LINDQUIST arthralgia Guillain-Bryant Syndrome-- (less common risk/reaction) Afib Canby's response and risk factors: Canby is over 60 yrs. old with a hx of DM and CVA Pt reports being up to date with his Flu and COVID vaccinations. Appears pt's concern level for nick RSV is low and continues to express a desire to obtain the RSV vaccine. Canby denied any questions. was informed this information will be sent to the provider for review, an RSV Vaccine order will be placed if provider is agreeable with administration and need for vaccination. Pt verbalized understanding of above. PLAN: Will ask provider to review the above information and if in agreement for the patient to receive the RSV Vaccine, please indicate that RSV vaccine is recommended and flag TORY Foreman to allocate vaccine/schedule. If in disagreement with giving the vaccine, please flag PACT RN back to inform the patient of this decision. /og/ JOSEPH GUILLAUME REGISTERED NURSE Signed: 07/14/2023 12:52 Receipt Acknowledged By: 07/14/2023 13:05 /og/ TARA SCHROEDER MD PHYSICIAN [facility] Jul 14, 2023 12:44 PM PRIMARY CARE NURSI MARIO NOTE: LOCAL TITLE: [facility] NURSING PROGRESS NOTE STANDARD TITLE: PRIMARY CARE NURSING NOTE DATE OF NOTE: JUL 14, 2023@12:44 ENTRY DATE: JUL 14, 2023@12:44:27 AUTHOR: JOSEPH GUILLAUME EXP COSIGNER: URGENCY: STATUS: COMPLETED [facility] NURSING PROGRESS NOTE Has ADDENDA called clinic requesting a RSV Vaccine. Assessment: Vet is a 78yo with the following chronic conditions: DM and CVA We reviewed the following information. ALLERGIES: Vaccination status: Canby was informed it is recommended to have received both the Flu and COVID vaccines prior to the RSV Vaccine. Also, it is recommended the RSV vaccine be administered at least 2 weeks apart from other vaccinations. We discussed risks and contraindications for vaccination, as well as RSV infection, such as transmission, symptoms and side effects, precautions, and adverse events. Contraindications to getting vaccine: History of severe allergic reaction (anaphylaxis to any component of the vaccine. Risk Factors: Medical history reviewed for any history of the following: Lung Disease Chronic Cardiovascular Disease Diabetes Neurological or Neuromuscular conditions Kidney or Liver Disorders Hematological Disorders Moderate to severe immune compromise Work with or are around small children Adverse events: In clinic trials, adverse events include: Injection site pain redness swelling fatigue myagalia LINDQUIST arthralgia Guillain-Bryant Syndrome-- (less common risk/reaction) Afib Canby's response and risk factors: is over 62 yrs. old with a hx of DM and CVA Pt reports being up to date with his Flu and COVID vaccinations. Appears pt's concern level for nick RSV is low and continues to express a desire to obtain the RSV vaccine. denied any questions. Canby was informed this information will be sent to the provider for review, an RSV Vaccine order will be placed if provider is agreeable with administration and need for vaccination. Pt verbalized understanding of above. PLAN: Will ask provider to review the above information and if in agreement for the patient to receive the RSV Vaccine, please indicate that RSV vaccine is recommended and flag TORY Foreman to allocate vaccine/schedule. If in disagreement with giving the vaccine, please flag PACT RN back to inform the patient of this decision. /og/ JOSEPH GUILLAUME REGISTERED NURSE Signed: 07/14/2023 12:52 Receipt Acknowledged By: 07/14/2023 13:05 /og/ TARA SCHROEDER MD PHYSICIAN [facility] PR[facility]O 07/14/2023 ADDENDUM STATUS: COMPLETED Agree with he can get the vaccine when it is available. /og/ TARA SCHROEDER MD PHYSICIAN [facility] Signed: 07/14/2023 13:06 Receipt Acknowledged By: * AWAITING SIGNATURE * IRAIDA OATES * AWAITING SIGNATURE * SIMA ROLON,JOSEPH CABA EFREN
--- OUTSIDE RECORDS SUMMARY | 2023-08-25 20:36 | XMS_ITS | Encounter Summary ---
Author Name Department of [facility] Affairs Organization Department of [facility] Address [address] [place] [address] Support Name Relationship Address Phone JUSTIN CHARITY [...] PART A Mar 28, 2012 PART A [id number] [phone] MANINDER PUENTES PATIENT MEDICARE (WNR) MEDICARE (M) PART B Mar 28, 2012 PART B [id number] MANINDER PUENTES PATIENT Selected Encounter This section includes the information on record at [place] for the Encounter. Date/Time Encounter Type Encounter Description Reason Provider Source Jul 14, 2023 10:32 AM Outpatient Encounter EVENT (HISTORICAL) JOSEPH GUILLAUME Encounter Template Text not used by [place] [...] data comes from all [place] treatment facilities. Appointment Date/Time Appointment Type Appointme nt Facility Name Aug 26, 2023 10:00 AM AMBULATORY - MEDICINE [facility] Social History: Smoking Status (Most current) and [...] 05, 2011 01:53 PM LIFETIME NON-TOBACCO USER [facility] Advance Directives: All historical and current Section Date Range: From patient's date of to the date document was created. This section includes ALL of a patient's completed or amended [place] Advance and Rescinded Directives. The entries below indicate that a directive exists for the patient, but an actual copy is not included with this document. The data comes from all [facility]. Date Advance Directives Provider Source Oct 19, 2018 ADVANCE DIRECTIVE DISCUSSION MANAN MONTOYA [facility] Oct 19, 2018 ADVANCE DIRECTIVE VERONICA MONTOYA [facility] Oct 24, 2011 ADVANCE DIRECTIVE DISCUSSION MEGHAN PERRY [facility] Oct 24, 2011 ADVANCE DIRECTIVE LIANNA PERRY [facility] Oct 02, 2011 ADVANCE DIRECTIVE DISCUSSION MEGHAN PERRY [facility] Encounter Notes: All associated encounter notes This section contains the clinical notes associated to the Encounter. Date/Time Encounter Note(s) Provider Source Jul 14, 2023 10:56 AM ADDENDUM: LOCAL TITLE: Addendum STANDARD TITLE: ADDENDUM DATE OF NOTE: JUL 14, 2023@10:56:07 ENTRY DATE: JUL 14, 2023@10:56:08 AUTHOR: JESSICA LINDSAY COSIGNER: URGENCY: STATUS: COMPLETED left a message he would like to discuss the RSV shot. Please return call at [phone] /og/ JESSICA LINDSAY RT(R) DIAGNOSTIC APPEALS SPECIALIST Signed: 07/14/2023 10:56 Receipt Acknowledged By: 07/15/2023 07:27 /og/ JOSEPH GUILLAUME REGISTERED NURSE --- Original Document --- 07/14/23 PRIMARY CARE SECURE MESSAGING: ------Original Message ----- Sent: 07/12/2023 04:28 PM ET From: MANINDER ANDERSON To: CALEB/Alirio [facility] Mata Silva G. (Clubs) Subject: General:RSV Is the RSV vaccine available yet? Can I get it at the [place] office? ------Original Message ----- Sent: 07/14/2023 08:36 AM ET From: JOSEPH GUILLAUME To: MANINDER ANDERSON Subject: General:RSV Good morning, Yes, the [place] has the RSV vaccine, but it requires a telephone appointment to review risks and benefits, and then a review of your chart by the provider to ensure that the benefits for you outweigh the risks of the vaccine. Is there a time that works for you today? I can call you, or you are welcome to come in, however, you will not get the vaccine today. ThanksJoann RN ------Original Message ----- Sent: 07/14/2023 09:46 AM ET From: MANINDER ANDERSON To: Mata Hernandez G. (Clubs) Subject: General:RSV When can I get the vaccine? ------Original Message ----- Sent: 07/14/2023 10:32 AM ET From: JOSEPH GUILLAUME To: MANINDER ANDERSON Subject: General:RSV Once you have the shared decision making conversation, which can happen today over the phone, Dr August will review your chart, and if she approves it, your name will be put on the list. RSV vaccine is in short supply so we schedule on a first come first serve basis as we receive vaccine doses. I would expect about a 2 week wait time. /og/ JOSEPH GUILLAUME REGISTERED NURSE Signed: 07/14/2023 09:32 JESSICA LINDSAY [facility] Jul 14, 2023 10:32 AM PRIMARY CARE [place] MESSAGING: LOCAL TITLE: PRIMARY CARE SECURE MESSAGING STANDARD TITLE: PRIMARY CARE SECURE MESSAGING DATE OF NOTE: JUL 14, 2023@10:32 ENTRY DATE: JUL 14, 2023@09:32:57 AUTHOR: JOSEPH GUILLAUME EXP COSIGNER: URGENCY: STATUS: COMPLETED PRIMARY CARE SECURE MESSAGING Has ADDENDA ------Original Message ----- Sent: 07/12/2023 04:28 PM ET From: MANINDER ANDERSON To: [facility]/Alirio Primary CareMata G. ([facility]) Subject: General:RSV Is the RSV vaccine available yet? Can I get it at the [place] office? ------Original Message ----- Sent: 07/14/2023 08:36 AM ET From: JOSEPH GUILLAUME To: MANINDER ANDERSON Subject: General:RSV Good morning, Yes, [facility] has the [place] vaccine, but it requires a telephone appointment to review risks and benefits, and then a review of your chart by the provider to ensure that the benefits for you outweigh the risks of the vaccine. Is there a time that works for you today? I can call you, or you are welcome to come in, however, you will not get the vaccine today. Thanks, ELIZABETH David ------Original Message ----- Sent: 07/14/2023 09:46 AM ET From: MANINDER ANDERSON To: [facility] [place] (Clubs) Subject: General:RSV When can I get the vaccine? ------Original Message ----- Sent: 07/14/2023 10:32 AM ET From: JOSEPH GUILLAUME To: MANINDER ANDERSON Subject: General:RSV Once you have the shared decision making conversation, which can happen today over the phone, Dr August will review your chart, and if she approves it, your name will be put on the list. RSV vaccine is in short supply so we schedule on a first come first serve basis as we receive vaccine doses. I would expect about a 2 week wait time. /og/ JOSEPH GUILLAUME REGISTERED NURSE Signed: 07/14/2023 09:32 07/14/2023 ADDENDUM STATUS: COMPLETED left a message he would like to discuss the RSV shot. Please return call at [phone] /es/ RT BEKA(R) DIAGNOSTIC APPEALS SPECIALIST Signed: 07/14/2023 10:56 Receipt Acknowledged By: * AWAITING SIGNATURE * JOSEPH GUILLAUME JULIEANN L [facility]
--- OUTSIDE RECORDS SUMMARY | 2023-08-25 20:36 | XMS_ITS | Encounter Summary ---
Author Name [facility] Organization [facility] Address [address] [place] [address] Support Name Relationship Address Phone JUSTIN CHARITY [...] PART A Mar 28, 2012 PART A [id number] MANINDER PUENTES PATIENT MEDICARE (WNR) MEDICARE (M) PART B Mar 28, 2012 PART B [id number] [phone] MANINDER PUENTES PATIENT Selected Encounter This section includes the information on record at [place] for the Encounter. Date/Time Encounter Type Encounter Description Reason Provider Source Jul 14, 2023 09:32 AM Outpatient Encounter EVENT (HISTORICAL) JOSEPH GUILLAUME Encounter Template Text not used by [place] [...] 20 appointments. The data comes from all [place] treatment facilities. Appointment Date/Time Appointment Type Appointme nt Facility Name Aug 26, 2023 10:00 AM AMBULATORY - MEDICINE [facility] Y[facility] Social History: Smoking Status (Most current) [...] 05, 2011 01:53 PM LIFETIME NON-TOBACCO USER [facility] Advance Directives: All historical and current [...] 24, 2011 ADVANCE DIRECTIVE DISCUSSION MEGHAN PERRY [facility] Oct 24, 2011 ADVANCE DIRECTIVE LIANNA PERRY [facility] Oct 02, 2011 ADVANCE DIRECTIVE DISCUSSION MEGHAN PERRY [facility]
--- OUTSIDE RECORDS SUMMARY | 2023-08-25 20:36 | XMS_ITS | Encounter Summary ---
Author Name [facility] Organization [facility] Address [address] [place] [address] Support Name Relationship Address Phone CHARITY ANDERSON [...] PART A Mar 28, 2012 PART A [id number] [phone] MANINDER PUENTES PATIENT MEDICARE (WNR) MEDICARE (M) PART B Mar 28, 2012 PART B [id number] [phone] MANINDER PUENTES PATIENT Selected Encounter This section includes the information on record at CT for the Encounter. Date/Time Encounter Type Encounter Description Reason Provider Source May 14, 2023 10:00 AM OFFICE O/P EST LOW 20-29 MIN PRIMARY CARE/MEDICINE ICD-10-CM Z00.01 Encounter for general adult medical exam w abnormal findings TARA SCHROEDER Encounter Template Text not used by [facility] Assessments - Encounter Diagnoses This section includes the primary and secondary diagnoses documented for the Encounter. Date/Time Primary/Secondary Diagnosis Diagnosis Name Provider Source May 15, 2023 08:48 PM PRIMARY Encounter for general adult medical exam w abnormal findings TARA SCHROEDER [facility] May 15, 2023 08:48 PM SECONDARY Allergic rhinitis, unspecified TARA SCHROEDERE [facility] May 15, 2023 08:48 PM SECONDARY Benign prostatic hyperplasia with lower urinary tract symp SCHROEDERTARA SHORT [facility] May 15, 2023 08:48 PM SECONDARY Encounter for immunization HECTOR MALONEYPEE [facility] May 15, 2023 08:48 PM SECONDARY Essential (primary) hypertension SCHROEDERTARA SHORTPEE [facility] May 15, 2023 08:48 PM SECONDARY Hyperlipidemia, unspecified SCHROEDERTARA SHORTPEE [facility] May 15, 2023 08:48 PM SECONDARY Sensorineural hearing loss, bilateral SCHROEDERTARA SHORTE [facility] May 15, 2023 08:48 PM SECONDARY Type 2 diabetes mellitus without complications SCHROEDERTARA SHORTPEE [facility] May 15, 2023 08:48 PM SECONDARY Unspecified hemorrhoids TARA SCHROEDERPEE [facility] Plan of Treatment: Future Appointments (+ 6 months) and Future Tests (+/- 45 days) The Plan of Treatment section includes future care activities for the [facility]. This section includes future appointments and [...] 2023 09:00 AM AMBULATORY - MEDICINE [facility] Aug 26, 2023 10:00 AM AMBULATORY - MEDICINE [facility] Active, Pending, and Scheduled Orders This section includes a listing of several types of active, pending, and scheduled orders, including clinic medications orders, diagnostic test orders, procedure orders and consult orders; where the start date of the order is 45 days before the date of the Encounter or 45 days after the date of theEncounter. The data comes from all [facility]. Test Date/Time Test Type Test Details Facility Name May 14, 2023 12:00 AM Laboratory - Chemi stry Order MICROALBUMIN/CREATININE RATIO URINE URINE [facility] Lab Results: +/- 30 days of the [...] Range Comment May 12, 2023 08:03 AM [facility] HEMOGLOBIN A1C Specimen Type: BLOOD Comment: Values [...] May 16, 2022 10:51 AM Reporting Lab: [facility] [id number] Performing Lab: [facility] [id number] HEMOGLOBIN A1C 5.6 4.0-6.0 May 12, 2023 08:03 AM [facility] LIPID PANEL,NON-FASTING Specimen Type: PLASMA No comment entered. Ordering Provider: TARA SCHROEDER Report Released Date/Time: May 16, 2022 10:51 AM Reporting Lab: [facility] [id number] Performing Lab: [facility] [id number] CHOLESTEROL 135 <199 .HDL 48 >40 LDL CALCULATION 72 <99 VLDL CALCULATION 15 <29 NON HDL CHOLESTEROL 87 <129 TRIG(NON FASTING) 75 <149 May 12, 2023 08:03 AM [facility] BASIC METABOLIC PANEL+MG Specimen Type: PLASMA No comment entered. Ordering Provider: TARA SCHROEDER Report Released Date/Time: May 16, 2022 10:51 AM Reporting Lab: [facility] [id number] Performing Lab: [facility] [id number] CREATININE 0.8 0.7-1.2 UREA NITROGEN 21 8-26 GLUCOSE 106 H 70-100 SODIUM 140 136-145 POTASSIUM 3.6 3.5-5.1 CHLORIDE 103 98-107 CO2 28 22-29 CALCIUM 9.4 8.4-10.2 MAGNESIUM 2.1 1.6-2.6 ANION GAP 9 5-15 .CREAT EGFR(CKD-EPI) >90 >60 Vital Signs: All taken on the encounter date This section contains inpatient and outpatient Vital Signs collected on the date of the Encounter. Date/Time Temperature Pulse Blood Pressure Respiratory Rate SP02 Pain Height Weight Body Mass Index Source May 14, 2023 09:49 AM 97.1 F 53 /min 133/66 mm[Hg] 16 /min 99 % 0 69 in 169.1 lb 25 [facility] Immunizations: All administered on the encounter date This section contains immunizations associated to the Encounter. Immunization Series Date Issued Reaction Comments TDAP May 14, 2023 Social History: Smoking Status (Most current) [...] place. Date/Time Current Smoking Status Comment Saul chpaman May 14, 2023 10:00 AM VA-TOBACCO NEVER USED [facility] Tobacco Use History This section includes a history of the smoking, or tobacco-related health factors, that were collected on or before the date of the Encounter. The data comes from the CT facility where the Encounter took place. Date/Time Smoking Status/Tobacco Use Comment F acility Feb 19, 2022 11:30 AM VA-TOBACCO NEVER USED [facility] May 17, 2021 08:00 AM VA-TOBACCO NEVER USED [facility] Jun 19, 2020 08:00 AM VA-TOBACCO NEVER USED [facility] May 21, 2018 09:05 AM VA-TOBACCO NEVER USED [facility] Sep 02, 2017 08:04 AM LIFETIME NON-TOBACCO USER [facility] Apr 23, 2016 08:33 AM LIFETIME NON-TOBACCO USER [facility] May 10, 2015 08:25 AM LIFETIME NON-TOBACCO USER [facility] Apr 22, 2014 09:15 AM LIFETIME NON-TOBACCO USER [facility] Advance Directives: All historical and current [...] 2018 ADVANCE DIRECTIVE JANVERONICA Carrasquillo FREDY YANEZ [facility] Oct 19, 2018 ADVANCE DIRECTIVE DISCUSSION MANAN MONTOYA [facility] Oct 24, 2011 ADVANCE DIRECTIVE DISCUSSION MEGHAN PERRY [facility] Oct 24, 2011 ADVANCE DIRECTIVE LIANNA PERRY [facility] Oct 02, 2011 ADVANCE DIRECTIVE DISCUSSION MEGHAN PERRY [facility] Encounter Notes: All associated encounter notes This section contains the clinical notes associated to the Encounter. Date/Time Encounter Note(s) Provider Source May 14, 2023 10:35 AM H & P NOTE: LOCAL TITLE: [facility] ANNUAL VISIT STANDARD TITLE: H & P NOTE DATE OF NOTE: MAY 14, 2023@10:35 ENTRY DATE: MAY 14, 2023@10:35:46 AUTHOR: TARA SCHROEDER EXP COSIGNER: URGENCY: STATUS: COMPLETED Today's Nurse check-in paper sheet with vitals reviewed. Seen in clinic today respecting current PPE guidelines. Patient brought in outside medical records and have been reviewed: NO Co-managed care with a non-CT provider. none Chief complaint:MANINDER ANDERSON is a 78 year old MALE is here for Wellness and preventive medicine visit. The patient has no concerns today. History of Present Illness: Mr. Anderson is an elderly man with a known history of hearing loss, obesity, high cholesterol, diabetes and hypertension. He is here for his annual visit and is wondering if he can reduce any of his medications. He tells me that this morning his blood pressure was 123/62 at home with a weight of 166 pounds. He tells me that his blood sugar was 106. He has had new COVID-vaccine recently at [facility] pharmacy in [place]. He is wondering if he should be taking RSV vaccine when it is available. He tells me that he has made lifestyle changes and will maintain it. He does not use tobacco and does not drink alcohol. No other concerns today. Review of Systems: is negative, except as above. Past Medical History Active problems - Computerized Problem List is the source for the followin. Nasal congestion - improved with Flonase Nasal [place] 2. Hypercholesterolemia 3. 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 H/O: surgery - s/p Vasectomy 12. Hemorrhoids - HAS HAD IT SINCE - takes over the counter fiber 13. Slurred speech - [place] is in [facility] for TIA or CVA, Has had VA Cover his MRI - see 10/11/22 ekg consult for ZIO results 14. Obstructive sleep apnea of adult - MILD, [place] plans to sleep on his sides, Oral device is recommended 15. 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) Service: Service Branch Service # Entered Discharge [employer] [id number] [birth year] HONORABLE Allergies: Patient has answered NKA Please see med list at the end of this note Physical Exam: Vitals: BP: 133/66 (05/14/2023 09:49) P: 53 (05/14/2023 09:49) R: 16 (05/14/2023 09:49) T: 97.1 F [36.2 C] (05/14/2023 09:49) WT: 169.1 lb [76.70 kg] (05/14/2023 09:49) BMI: 25.0 Pain: 0 (05/14/2023 09:49) O2 Sat: 99% (05/14/2023 09:49) General: Alert, well dressed and groomed, no apparent distress HEENT: Normocephalic, atraumatic, neck movements intact Lungs: No respiratory distress, declines detailed exam Skin: is intact, no rash or erythema MS: No joint swelling, ambulates without difficulty Psych: Good eye contact, speech normal rate and rhythm, affect full range Lab/Other data: Recent labs reviewed. Assessment/Plan: Wellness/screening visit completed. Active problems - Computerized Problem List is the source for the followin. Nasal congestion - improved with Flonase Nasal [place] 2. Hypercholesterolemia 3. 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 Lower urinary tract symptoms due to [...] outside 08/12/21, he will bring records 10. Hemorrhoids - HAS HAD IT SINCE - takes over the counter fiber 11. Slurred speech - [place] is in [facility] for TIA or CVA, Has had VA Cover his MRI - see 10/11/22 ekg consult for ZIO results 12. Obstructive sleep apnea of adult - MILD, [place] plans to sleep on his sides, Oral device is recommended Nutrition information provided and I have reviewed portion size necessary along with increasing water and veggie intake as tolerated to help maintain ideal body weight. We reviewed risk benefits of continuing metformin versus stopping it as his A1c is normal and he is at ideal body weight at this time. He opts to discontinue metformin. Low salt and low fat diet with regular exercise as tolerated will help improve or maintain normal Blood pressure, cholesterol, maintain good health or improve health is encouraged. Goal blood pressure < 129/79 is discussed. Importance of taking at least 3 servings of dairy per day or taking a multivitamin daily or taking vitamin D 1000 units daily in winter months is discussed. Medications reviewed and refills updated. Metformin discontinued as his A1c is normal and weight is at goal. He is tolerating aspirin without any side effects at this time. He is instructed to stop aspirin if he notes any bleeding. We can consider labs to be rechecked either same day or prior to next visit. Please see nursing documentation regarding vaccination. got Tdap vaccine updated today. He is up-to-date on COVID and flu shots. He plans to get RSV vaccine when it is available. is given number to call for appointments to have vision and hearing checked at [facility] [place] understands and agrees to the plan. Follow up as discussed. Sooner if questions or concerns. Medication Reconciliation: Education Evaluations *Was medication education provided for NEW medications or CHANGES to medications? (including medication name, dose, route, reason for use, and potential side effects). Yes. Verbal education was provided to patient/caregiver and patient/caregiver verbalized understanding. TERATOGENIC MED & CONTRACEPTION REVIEW (Optional)... [place] was informed about potential teratogenic risk of prescribed medications. intentions and need for effective contraception, if applicable, were discussed. MEDICATION RECONCILIATION List Given: An updated medication list was provided to the patient/caregiver. Review Done: The medication list shown below was verified for accuracy and it includes all pending medications/active medications/all medications or discontinued within the last 90 days/all remote medications and non-VA medications. If a given category (i.e. remote meds) is not shown, that means that a patient doesn't have a medication(s) in that category. Allergies listed below were also reviewed/updated for accuracy. Allergies/ADR from [facility] may not display in CPRS. Use JLV MRT5 - Allergies/ADRs FACILITY ALLERGY/ADR -------- No Remote Allergy/ADR Data available for this patient [facility] No Known Allergies Active and Recently Outpatient Medications (including Supplies): Issue Date Status Last Fill Active Outpatient Medications Refills Expiration === 1) FINASTERIDE 5MG TAB Qty: 90 for 90 days ACTIVE Issu:05-14-23 Sig: TAKE ONE TABLET BY MOUTH EVERY Refills: 3 Last:05-24-23 DAY FOR PROSTATE Expr:05-14-24 2) FLUTICASONE PROP 50MCG 120D NASAL INHL ACTIVE Issu:05-14-23 Qty: 3 for 90 days Sig: SPRAY 2 Refills: 3 Last:05-14-23 SPRAYS IN EACH NOSTRIL AT BEDTIME Expr:05-14-24 NEEDED USE REGULARLY FOR RELIEF OF ALLERGIES/CONGESTION 3) HCTZ 25/LISINOPRIL 20MG TAB Qty: 90 for ACTIVE Issu:05-14-23 90 days Sig: TAKE 1 TABLET BY MOUTH Refills: 3 Last:05-14-23 EVERY DAY FOR BLOOD PRESSURE Expr:05-14-24 4) SIMVASTATIN 80MG TAB Qty: 90 for 90 ACTIVE Issu:11-27-22 days Sig: TAKE ONE TABLET BY MOUTH AT Refills: 2 Last:03-01-23 BEDTIME FOR CHOLESTEROL Expr:11-28-23 5) TAMSULOSIN HCL 0.4MG CAP Qty: 30 for 30 ACTIVE Issu:04-13-23 days Sig: TAKE ONE CAPSULE BY MOUTH Refills: 8 Last:04-13-23 AT BEDTIME Expr:04-13-24 Issue Date Status Last Fill Inactive Outpatient Medications Refills Expiration === 1) FINASTERIDE 5MG TAB Qty: 90 for 90 days DISCONTINUED Issu:05-16-22 Sig: TAKE ONE TABLET BY MOUTH EVERY Refills: 0 Last:03-05-23 DAY FOR PROSTATE Expr:05-17-23 2) FLUTICASONE PROP 50MCG 120D NASAL INHL DISCONTINUED Issu:05-16-22 Qty: 3 for 90 days Sig: SPRAY 2 Refills: 0 Last:02-23-23 SPRAYS IN EACH NOSTRIL AT BEDTIME Expr:05-17-23 NEEDED USE REGULARLY FOR RELIEF OF ALLERGIES/CONGESTION 3) HCTZ 25/LISINOPRIL 20MG TAB Qty: 90 for DISCONTINUED Issu:05-16-22 90 days Sig: TAKE 1 TABLET BY MOUTH Refills: 0 Last:02-22-23 EVERY DAY FOR BLOOD PRESSURE Expr:05-17-23 4) METFORMIN HCL 1000MG TAB Qty: 90 for 90 DISCONTINUED Issu:05-16-22 days Sig: TAKE ONE-HALF TABLET BY Refills: 0 Last:02-12-23 MOUTH TWO TIMES A DAY Expr:05-17-23 5) SIMVASTATIN 80MG TAB Qty: 45 for 90 DISCONTINUED Issu:05-16-22 days Sig: TAKE ONE-HALF TABLET BY (EDIT) Last:10-05-22 MOUTH AT BEDTIME FOR CHOLESTEROL Refills: 2 Expr:05-17-23 6) TAMSULOSIN HCL 0.4MG CAP Qty: 30 for 30 DISCONTINUED Issu:04-13-23 days Sig: TAKE ONE CAPSULE BY MOUTH Refills: 2 Last:04-13-23 AT BEDTIME Expr:04-13-24 Start Date Active Non-VA Medications Refills Expiration === 1) Non-VA ASPIRIN 81MG EC TAB SiMG ACTIVE MOUTH EVERY DAY 2) Non-VA CALCIUM CARBONATE 650MG (CA ACTIVE 260MG) TAB Si MG MOUTH 3) Non-VA FISH OIL 1000MG (500MG DHA/EPA) ACTIVE CAP SiMG MOUTH EVERY DAY 4) Non-VA MULTIVITAMIN CAP/TAB Si ACTIVE TABLET MOUTH EVERY DAY 15 Total Medications /es/ TARA SCHROEDER MD PHYSICIAN [facility] Signed: 05/15/2023 20:49 TARA SCHROEDER [facility] May 14, 2023 09:53 AM PRIMARY CARE NURSI NG NOTE: LOCAL TITLE: [facility] NURSING PROGRESS NOTE STANDARD TITLE: PRIMARY CARE NURSING NOTE DATE OF NOTE: MAY 14, 2023@09:53 ENTRY DATE: MAY 14, 2023@09:53:30 AUTHOR: HECTOR MALONEY EXP COSIGNER: URGENCY: STATUS: COMPLETED [facility] NURSING PROGRESS NOTE Has ADDENDA TYPE OF VISIT: Appointment Check In Type of appointment: In-person appointment REASON FOR VISIT: ANNUAL ALLERGIES: Patient has answered NKA VITAL SIGNS: Blood Pressure: 133/66 (05/14/2023 09:49) Pulse: 53 (05/14/2023 09:49) Respiration: 16 (05/14/2023 09:49) Temperature: 97.1 F [36.2 C] (05/14/2023 09:49) Weight: 169.1 lb [76.70 kg] (05/14/2023 09:49) Height: 69 in [175.3 cm] (05/14/2023 09:49) BMI: 25.0 O2 Sat: 99% (05/14/2023 09:49) Pain: 0 (05/14/2023 09:49) PAIN SCREEN: Patient is not having significant pain that they wish to discuss with their provider today. MEDICATION Active Outpatient Medications (including Supplies): FINASTERIDE 5MG TAB TAKE ONE TABLET BY MOUTH EVERY DAY FOR ACTIVE PROSTATE FLUTICASONE PROP 50MCG 120D NASAL INHL SPRAY 2 SPRAYS IN ACTIVE EACH NOSTRIL AT BEDTIME NEEDED USE REGULARLY FOR RELIEF OF ALLERGIES/CONGESTION HCTZ 25/LISINOPRIL 20MG TAB TAKE 1 TABLET BY MOUTH EVERY ACTIVE DAY FOR BLOOD PRESSURE METFORMIN HCL 1000MG TAB TAKE ONE-HALF TABLET BY MOUTH TWO ACTIVE TIMES A DAY SIMVASTATIN 80MG TAB TAKE ONE TABLET BY MOUTH AT BEDTIME ACTIVE FOR CHOLESTEROL TAMSULOSIN HCL 0.4MG CAP TAKE ONE CAPSULE BY MOUTH AT ACTIVE BEDTIME Non-VA ASPIRIN 81MG EC TAB 162MG MOUTH EVERY DAY ACTIVE Non-VA CALCIUM CARBONATE 650MG (CA 260MG) TAB 650 MG MOUTH ACTIVE Non-VA FISH OIL 1000MG (500MG DHA/EPA) CAP 2000MG MOUTH ACTIVE EVERY DAY Non-VA MULTIVITAMIN CAP/TAB 1 TABLET MOUTH EVERY DAY ACTIVE Patient reports the following changes regarding the current pharmacy list of medications: NO CHANGES IN MEDICATION Over the Counter/Herbal Medications: The patient denies taking any outside medications or herbals. PAVE Foot Check: A complete foot check was completed at this encounter. VISUAL INSPECTION: Includes inspection for skin breaks, deformity, erythema, trauma, pallor on elevation, dependent rubor, nail deformities, extensive callus and pitting edema. Visual exam results: Normal PEDAL PULSES: Includes palpation of dorsalis and posterior tibial pulses and signs/symptoms of vascular compromise like pain, pallor, parasthesia or paralysis. Present (even if diminished) SENSORY CHECK: Includes 10 gram Monofilament (Linn-Megan) test of sensation. Intact (Greater than or equal to 80% of sites checked) Abnormal (Less than 80% of sites checked): Intact LOW-RISK LOW RISK FOOT EDUCATION: 1. Advised patient not to walk barefoot. Instructed the patient to pay close attention to the style and fit of shoes. 2. Explained the importance of daily foot checks. Explained that loss of sensation leads to callouses. Callouses break down, which result in ulcers that may lead to gangrene and amputation. 3. Stressed the importance of daily foot hygiene. Warm (not hot) bathing of the feet, complete drying and thorough inspection for changes in the condition of the skin constitute daily foot care. Demonstrated how to do a thorough foot check. 4. Emphasized the use of clean, non-restrictive socks/stockings and well fitting shoes. 5. Stressed the importance of immediate follow-up of any foot injuries or ulcers. Explained that he/she should be non-weight bearing whenever there are lesions on the foot, to prevent cellular damage. Level of Understanding: Good Suicide Screen: C-SSRS Screening [place] Suicide Severity Rating Scale (C-SSRS) screener 1. Over the past month, have you wished you were or wished you could go to sleep and not wake up? No 2. Over the past month, have you had any actual thoughts of killing yourself? No 3. Over the past month, have you been thinking about how you might do this? Response not required due to responses to other questions. 4. Over the past month, have you had these thoughts and had some intention of acting on them? Response not required due to responses to other questions. 5. Over the past month, have you started to work out or worked out the details of how to kill yourself? Response not required due to responses to other questions. 6. If yes, at any time in the past month did you intend to carry out this plan? Response not required due to responses to other questions. 7. In your lifetime, have you ever done anything, started to do anything, or prepared to do anything to end your life (for example, collected pills, obtained a gun, gave away valuables, went to the roof but didn't jump)? No 8. If YES, was this within the past 3 months? Response not required due to responses to other questions. Depression Screening: Perform PHQ-2 A PHQ-2 screen was performed. The score was 0 which is a negative screen for depression. Over the past two weeks, how often have you been bothered by the following problems? 1. Little interest or pleasure in doing things Not at all 2. Feeling down, depressed, or hopeless Not at all Alcohol Use Screen (AUDIT-C): Alcohol Screen: SCREEN FOR ALCOHOL (AUDIT-C) An alcohol screening test (AUDIT-C) was negative (score=0). 1. How often did you have a drink containing alcohol in the past year? Never 2. How many drinks containing alcohol did you have on a typical day when you were drinking in the past year? Response not required due to responses to other questions. 3. How often did you have six or more drinks on one occasion in the past year? Response not required due to responses to other questions. PTSD Screening: PC-PTSD-5 A PTSD screening test (PC-PTSD-5) was negative (score=0). IN THE PAST MONTH, have you ever had any experience that was so frightening, horrible or traumatic. For example: A serious accident or fire a physical or sexual assault or abuse An earthquake or flood A war Seeing someone be killed or seriously injured Having a loved one through homicide or suicide Have you ever experienced this kind of event? NO 1. Had nightmares about the event(s) or thought about the event(s) when you did not want to? Response not required due to responses to other questions. 2. Tried hard not to think about the event(s) or went out of your way to avoid situations that reminded you of the event(s)? Response not required due to responses to other questions. 3. Been constantly on guard, watchful, or easily startled? Response not required due to responses to other questions. 4. [place] numb or detached from people, activities, or your surroundings? Response not required due to responses to other questions. 5. [place] guilty or unable to stop blaming yourself or others for the event(s) or any problems the event(s) may have caused? Response not required due to responses to other questions. Nursing Annual Screening: Fall History Screen During the past 12 months, have you had any falls? Patient does not report any falls in the past 12 months. MEDICATIONS: Patient is on one of the following medication classes: Antihypertensives, Antidepressants, Antipsychotics, Diuretics, or Controlled substance medication used for pain. FALL RISK ADVICE: Fall Risk Advice provided. Handout entitled Fall Prevention At Home reviewed and given to patient and/or significant other. Script Talk Screen Are you able to read your prescription bottles with your glasses, magnifiers or other aids? Yes or patient not taking any prescriptions. Skin Screen Patient reports any current pressure ulcers, a history of pressure ulcers, or a wound from a medical supervisor or Patient is bed-confined or a wheelchair-user or Patient requires assistance to transfer/change position No, Skin Screen is Negative Home Abuse/Violence Screen Is your home free of abuse and violence? Yes MOVE! Program Screen Body Mass Index (BMI)= 25.0 [place]: Collection DT Specimen Test Name Result Units Ref Range 05/12/2023 08:03 BLOOD !! HEMOGLOBIN A1C 5.6 % 4.0 - 6.0 !! Indicates COMMENTS AVAILABLE...Refer to Interim Lab Report. Chai Givens Hgb A1C: No data available [place] Hgb A1C: No data available Point of Care Hgb A1C: POC HGB A1C____ Outpatient Nutrition Screen Body Mass Index (BMI)= 25.0 [place]ents: Collection DT Specimen Test Name Result Units Ref Range 05/12/2023 08:03 BLOOD !! HEMOGLOBIN A1C 5.6 % 4.0 - 6.0 !! Indicates COMMENTS AVAILABLE...Refer to Interim Lab Report. Chai Givens Hgb A1C: No data available [place] Hgb A1C: No data available Point of Care Hgb A1C: POC HGB A1C____ Is patient's BMI less than 18.5? No Does patient have swallowing, coughing, or chewing problems affecting oral intake? No Has patient experienced unplanned weight loss or gain greater than 10 pounds over the last 2 months? No Is patient's Hgb A1C (Glycosylated Hemoglobin) greater than 9.5? No Is patient receiving Total Parenteral Nutrition (TPN) or Tube Feedings? No Patient Health Education Screen BARRIERS/SPECIAL NEEDS: Hearing limitations Visual limitations PREFERRED STYLE OF LEARNING: No preference stated Client Assistive Service (VERONICA) Screen Does the patient require assistance with outpatient visit? No Tobacco Use Screening: The patient has never used tobacco. Homelessness/Food Insecurity Screen: In the past 2 months, have you been living in stable housing that you own, rent, or stay in as part of a household? Yes - Living in stable housing. Are you worried or concerned that in the next 2 months you may NOT have stable housing that you own, rent, or stay in as part of a household? No - Not worried about housing near future The reports the following: Within the past 12 months, you worried whether your food would run out before you got money to buy more. Never true Within the past 12 months, the food you bought just didn't last and you didn't have money to get more. Never true Food Insecurity Resources ADV DIR Notification and Screening: ADVANCE DIRECTIVE NOTIFICATION: Patient was given written notification of the following rights: 1. Accept or refuse any medical treatment. 2. Complete a durable power of disability attorney for health care. 3. Complete a living will. ADVANCE DIRECTIVE SCREENING: Does patient have an Advance Directive? The patient has an Advance Directive. Does the patient wish to make any changes or revoke their current Advance Directive? No changes requested at this time. Sexual Orientation: The patient thinks of their sexual orientation as: Straight or Heterosexual COVID-19 Immunization: Patient received a prior dose of the Moderna Monovalent vaccine. Documented: COVID-19 (MODERNA), MRNA, LNP-S, PF, 50 MCG/0.5 ML (AGES 12+ YEARS) Historical Date Administered: May 06, 2023 Series: Series 1 Outside Location: [facility] #[id number] Information Source: FROM PATIENT'S RECALL /og/ HECTOR MALONEY LPN LICENSED PRACTICAL NURSE Signed: 05/14/2023 10:10 05/14/2023 ADDENDUM STATUS: COMPLETED Td / Tdap Immunization: Administered: TDAP Date Administered: May 14, 2023 10:00 Chief Safety Officer: [email or web address] Lot: [id number] Exp Date: Aug 15, 2025 [facility]: [id number] Admin Route/Site: INTRAMUSCULAR/LEFT DELTOID Dosage: 0.5mL Vaccine Information Statement(s): TDAP (TETANUS, DIPHTHERIA, PERTUSSIS) VACCINE VIS Mar 02, 2021 (ARMENIAN) Order By: Policy Administered By: Hector Maloney Vaccine Information Sheet (VIS) was given to the patient/caregiver, education regarding adverse reactions was discussed, as well as barriers to learning, if any, were acknowledged. /emil MALONEY LPN LICENSED PRACTICAL NURSE Signed: 05/14/2023 10:12 HECTOR MALONEY [facility]
--- OUTSIDE RECORDS SUMMARY | 2023-08-25 20:37 | XMS_ITS | Referral Summary ---
Author Name Unknown Organization [facility] Address [address] [place] [address] Care Team Providers Care Marine Cargo Specialist Name Role Phone Unavailable Primary Care Provider Unavailabl e Source Comments Patient records contain information from all sites at [facility]. For routine questions regarding patient records, call [phone] during business hours, M-F 8:00 AM - 5:00 PM Central Time. Record requests for emergency care only can be directed to [phone] at any time.[facility] Social History Tobacco Use Types Packs/Day Years Used Date Smoking Tobacco: Never Assessed Nutrition Answer Date Recorded Nutrition: EVOO Fat Source Unknown 02/14 Nutrition: Servings of Fruits/Vegetables per Day Not on file 02/14/2022 Dental Answer Date Recorded Dental: Regular Dentist Unknown 02/15/20 Sex and Gender Information Value Date Recorded Sex Assigned at Not on file Gender Identity Not on file Sexual Orientation Not on file Plan of Treatment Not on file [address] [place] [address]
--- OUTSIDE RECORDS SUMMARY | 2023-08-25 20:37 | XMS_ITS ---
Author Name Unknown Organization [facility] Address [address] [place] [address] Care Team Providers Care Merchandise Manager Name Role Phone Unavailable Unavailable Unavailable Surgery Details Not on file Complications Check Surgery Details section. Procedure Estimated Blood Loss Check Surgery Details section. Procedure Findings Check Surgery Details section. Procedure Specimens Taken Check Surgery Details section.
--- OUTSIDE RECORDS SUMMARY | 2023-08-25 20:37 | XMS_ITS | Clinical Summary ---
Author Name Unknown Organization [facility] Address [address] [place] [address] Care Team Providers Care Energy Audit Advisor Name Role Phone Unavailable Primary Care Provider Unavailabl e Source Comments Patient records contain information from all sites at [facility]. For routine questions regarding patient records, call [phone] during business hours, M-F 8:00 AM - 5:00 PM Central Time. Record requests for emergency care only can be directed to [phone] at any time.[facility] Social History Tobacco Use Types Packs/Day Years [...] Orientation Not on file Plan of Treatment Health Maintenance Due Date Last Done Comments Hepatitis C Screening 1945 DTaP,Tdap,and Td Vaccines (3 - Td or Tdap) 11/17/2022 11/17/2012, 11/10/2008, 11/10/2008 Depression Screening (Annual PHQ-2) 07/28/2023 Fall Risk Screen (Annual) 07/28/2023 Pneumococcal vaccine (65+ years) Completed 09/02/2017, 05/10/2015, 11/10/2009, Additional history exists Zoster Vaccines Completed 11/30/2018, 08/29, 12/28/2010, Additional history exists COVID-19 Vaccine Completed 05/06/2023, 11/2021, 11/15/2021, Additional history exists Influenza Vaccine Completed 05/06/2023, , 05/01/2021, Additional history exists
--- OUTSIDE RECORDS SUMMARY | 2023-08-25 20:37 | XMS_ITS | Encounter Summary ---
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 Organization Department of [facility] Address [address] [place] [address] Support Name Relationship Address Phone CHARITY ANDERSON [...] PART A Mar 28, 2012 PART A [id number] [phone] MANINDER PUENTES PATIENT MEDICARE (WNR) MEDICARE (M) PART B Mar 28, 2012 PART B [id number] [phone] MANINDER PUENTES PATIENT Selected Encounter This section includes the information on record at [place] for the Encounter. Date/Time Encounter Type Encounter Description Reason Pro vider Source Jul 23, 2023 10:50 AM Outpatient Encounter TELEPHONE PRIMARY CARE IHE Encounter Template Text not used by [place] Plan of Treatment: Future Appointments (+ 6 [...] AMBULATORY - MEDICINE FREDY YANEZ [facility] Social History: Smoking Status (Most current) [...] 05, 2011 01:53 PM LIFETIME NON-TOBACCO USER [facility] Advance Directives: All historical and current Section Date Range: From patient's date of to the date document was created. This section includes ALL of a patient's completed or amended [place] Advance and Rescinded Directives. The entries below indicate that a directive exists for the patient, but an actual copy is not included with this document. The data comes from all [facility]. Date Advance Directives Provider Source Oct 19, 2018 ADVANCE DIRECTIVE VERONICA MONTOYA [facility] Oct 19, 2018 ADVANCE DIRECTIVE DISCUSSION MANAN MONTOYA [facility] Oct 24, 2011 ADVANCE DIRECTIVE LIANNA PERRY [facility] Oct 24, 2011 ADVANCE DIRECTIVE DISCUSSION MEGHAN PERRY [facility] Oct 02, 2011 ADVANCE DIRECTIVE DISCUSSION MEGHAN PERRY [facility] Encounter Notes: All associated encounter notes This section contains the clinical notes associated to the Encounter. Date/Time Encounter Note(s) Provider Source Jul 23, 2023 10:50 AM REPORT OF CONTACT: LOCAL TITLE: PATIENT CONTACT NOTE STANDARD TITLE: REPORT OF CONTACT DATE OF NOTE: JUL 23, 2023@10:50 ENTRY DATE: JUL 23, 2023@10:50:24 AUTHOR: SIMA ROLON COSIGNER: URGENCY: STATUS: COMPLETED Patient contact Name of : JUSTINMANINDER PARKINSON Name/Relationship of Contact if other than [place]: Date & Time of Contact: Jun@10:50 Type of Contact: Telephone Reason for Contact: Spoke with Pt. and Pt. will walk in today to get the RSV vaccine between 13:00- 15:00. PCP please [address] order. /og/ SIMA ROLON LPN Signed: 07/23/2023 10:51 Receipt Acknowledged By: 07/23/2023 11:01 /og/ TARA SCHROEDER MD PHYSICIAN ROSALES ROLON,SIMA CABA CB
--- OUTSIDE RECORDS SUMMARY | 2023-08-25 20:37 | XMS_ITS | Encounter Summary ---
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 Organization [facility] Address [address] [place] [address] Support Name Relationship Address Phone CHARITY ANDERSON [...] PART A Mar 28, 2012 PART A [id number] [phone] MANINDER PUENTES PATIENT MEDICARE (WNR) MEDICARE (M) PART B Mar 28, 2012 PART B [id number] 48A [phone] MANINDER PUENTES PATIENT Selected Encounter This section includes the information on record at [place] for the Encounter. Date/Time Encounter Type Encounter Description Reason Provider Source Jul 23, 2023 01:11 PM IMMUNIZATION ADMIN PRIMARY CARE/MEDICINE ICD-10-CM Z23. Encounter for immunization DG SHI Encounter Template Text not used by [place] Assessments - Encounter Diagnoses This section includes the primary and secondary diagnoses documented for the Encounter. Date/Time Primary/Secondary Diagnosis Diagnosis Name Provider Source Jul 23, 2023 01:11 PM SECONDARY Encounter for immunization DG SHI [facility] Plan of Treatment: Future Appointments (+ 6 months) and Future Tests (+/- 45 days) The Plan of Treatment section includes [facility] care activities for the [facility] [place] [facility] This section includes future appointments and future orders which are active, pending or scheduled. Future Appointments This section includes appointments that were scheduled to occur 6 months from the date of the Encounter, up to a maximum of 20 appointments. The data comes from all [facility] facilities. Appointment Date/Time Appointment Type Appointme nt Facility Name Aug 26, 2023 10:00 AM AMBULATORY - MEDICINE [facility] Immunizations: All administered on the encounter date This section contains immunizations associated to the Encounter. Immunization Series Date Issued Reaction Comments RSV, BIVALENT, PROTEIN SUBUN IT RSVPREF, DILUENT RECONSTITUTED, 0.5 ML, PF 1 Jul 23, 2023 Social History: Smoking Status (Most current) and Tobacco Use (All prior to encounter date) This section includes the most current, and the historical, smoking and tobacco- related health factors from the [place] facility where the Encounter took place. Current Smoking Status This section includes the most current smoking, or tobacco-related health factor, from the [place] facility where the Encounter took place. Date/Time Current Smoking Status Comment Saul manueldarvin Aug 05, 2011 01:53 PM LIFETIME NON-TOBACCO USER [facility] Advance Directives: All historical and current Section Date Range: From patient's date of to the date document was created. This section includes ALL of a patient's completed or amended [place] Advance and Rescinded Directives. The entries below indicate that a directive exists for the patient, but an actual copy is not included with this document. The data comes from all [place] facilities. Date Advance Directives Provider Source Oct 19, 2018 ADVANCE DIRECTIVE DISCUSSION MANAN MONTOYA [facility] Oct 19, 2018 ADVANCE DIRECTIVE VERONICA MONTOYA [facility] Oct 24, 2011 ADVANCE DIRECTIVE DISCUSSION MEGHAN PERRY [facility] Oct 24, 2011 ADVANCE DIRECTIVE [address]ANNA PERRY [facility] Oct 02, 2011 ADVANCE DIRECTIVE DISCUSSION MEGHAN PERRY [facility] Encounter Notes: All associated encounter notes This section contains the clinical notes associated to the Encounter. Date/Time Encounter Note(s) Provider Source Jul 23, 2023 01:11 PM INTERNAL MEDICINE OUTPATIENT NOTE: LOCAL TITLE: MEDICINE CLINIC NURSING NOTE STANDARD TITLE: INTERNAL MEDICINE OUTPATIENT NOTE DATE OF NOTE: JUL 23, 2023@13:11 ENTRY DATE: JUL 23, 2023@13:11:57 AUTHOR: DG SHI EXP COSIGNER: URGENCY: STATUS: COMPLETED TYPE OF VISIT: Nurse Clinic REASON FOR VISIT: RSV ALLERGIES: FACILITY ALLERGY/ADR -------- No Remote Allergy/ADR Data available for this patient [facility] No Known Allergies Respiratory Syncytial Virus (RSV) Vaccine: RSV vaccine administered today. Administered: RSV, BIVALENT, PROTEIN SUBUNIT RSVPREF, DILUENT RECONSTITUTED, 0.5 ML, PF Date Administered: Jul 23, 2023 13:13 Series: Series 1 Plastic Worker: Undertone Lot: [id number] Exp Date: Oct 25, 2024 NDC: [id number] Admin Route/Site: INTRAMUSCULAR/LEFT DELTOID Dosage: 0.5mL Vaccine Information Statement(s): RSV (RESPIRATORY SYNCYTIAL VIRUS) VACCINE VIS May 15, 2023 (COMORAN) Order By: Eugene August Administered By: Dg Shi Vaccine Information Sheet (VIS) was given to the patient/caregiver, education regarding adverse reactions was discussed, as well as barriers to learning, if any, were acknowledged. /og/ DG SHI LPN LICENSED PRACTICAL NURSE Signed: 07/23/2023 13:21 DG SHI [facility]
--- OUTSIDE RECORDS SUMMARY | 2023-08-25 20:37 | XMS_ITS | Encounter Summary ---
Author Name [facility] Organization [facility] Address [address] [place] [address] Support Name Relationship Address Phone JUSTIN CHARITY [...] PART A Mar 28, 2012 PART A [id number] 48A [phone] CHINO PUENTES PATIENT MEDICARE (WNR) MEDICARE (M) PART B Mar 28, 2012 PART B [id number] 48A [phone] CHINO PUENTES PATIENT Selected Encounter This section includes the information on record at [place] for the Encounter. Date/Time Encounter Type Encounter Description Reason Provider Source Aug 25, 2023 01:47 PM Outpatient Encounter EVENT (HISTORICAL) JOSEPH GUILLAUME Encounter Template Text not used by [place] [...] 10:00 AM AMBULATORY - MEDICINE [facility]Y YANE[facility] Social History: Smoking Status (Most current) [...] document. The data comes from all [facility]. Date Advance Directives Provider Source Oct 19, 2018 ADVANCE DIRECTIVE DISCUSSION MANAN MONTOYA [facility] Oct 19, 2018 ADVANCE DIRECTIVE VERONICA MONTO[facility] Oct 24, 2011 ADVANCE DIRECTIVE DISCUSSION MEGHAN PERRY [facility] Oct 24, 2011 ADVANCE DIRECTIVE LIANNA PERRY [facility] Oct 02, 2011 ADVANCE DIRECTIVE DISCUSSION MEGHAN PERRY [facility] Encounter Notes: All associated encounter notes This section contains the clinical notes associated to the Encounter. Date/Time Encounter Note(s) Provider Source Aug 25, 2023 01:47 PM PRIMARY CARE SECUR E MESSAGING: LOCAL TITLE: PRIMARY CARE SECURE MESSAGING STANDARD TITLE: PRIMARY CARE SECURE MESSAGING DATE OF NOTE: AUG 25, 2023@13:47 ENTRY DATE: AUG 25, 2023@12:47:12 AUTHOR: JOSEPH GUILLAUME COSIGNER: URGENCY: STATUS: COMPLETED ------Original Message ----- Sent: 08/25/2023 09:04 AM ET From: CHINO ANDERSON To: [facility] Subject: General:Back Pain Yesterday I was dizzy when I woke up, I fell, and landed hard on my butt. My lower back hurt and it hasn't stopped hurting, whenever I move. I've taken Advil, used a heat pad and an ice pack. The heat seems to help while it's on, but the back starts hurting again shortly after I remove it. The ice and Advil don't seem to help at all. What do you suggest? ------Original Message ----- Sent: 08/25/2023 11:05 AM ET From: JOSEPH GUILLAUME To: CHINO ANDERSON Subject: General:Back Pain Hi Chino, I am sorry for your trouble. Did you hit your head when you fell? Did you hit your back? Is there a wound? What do you think caused the dizziness? How do you rate the pain 0-10? Thanks ELIZABETH David ------Original Message ----- Sent: 08/25/2023 12:23 PM ET From: CHINO ANDERSON To: [facility] ([facility] Subject: General:Back Pain Did Not hit my head Hit my butt. says my back is bruised darker brown where it hurts. I would rate pain as a 5 or 6. Dizziness started when got up from sleeping. Don't know what caused it. Had dizziness about two weeks ago but not since then. ------Original Message ----- Sent: 08/25/2023 01:03 PM ET From: JOSEPH GUILLAUME To: CHINO ANDERSON Subject: General:Back Pain Would you like to come in tomorrow to have us take a look? I have openings mid morning, 10am or 11am. Please let me know if one of those times works. Thanks ELIZABETH David ------Original Message ----- Sent: 08/25/2023 01:15 PM ET From: CHINO ANDERSON To: [facility] [place] (Clubs) Subject: General:Back Pain Yes, can we do 10:00? ------Original Message ----- Sent: 08/25/2023 01:47 PM ET From: JOSEPH GUILLAUME To: CHINO ANDERSON Subject: General:Back Pain Yes, see you at 10am /og/ JOSEPH GUILLAUME REGISTERED NURSE Signed: 08/25/2023 12:47 JOSEPH GUILLAUME [facility]
--- OUTSIDE RECORDS SUMMARY | 2023-08-25 20:37 | XMS_ITS | Encounter Summary ---
Author Name [facility] Organization [facility] Address [address] [place] [address] Support Name Relationship Address Phone JUSTIN CHARITY [...] PART A Mar 28, 2012 PART A [id number] [phone] MANINDER PUENTES PATIENT MEDICARE (WNR) MEDICARE (M) PART B Mar 28, 2012 PART B [id number] 48A [phone] MANINDER PUENTES PATIENT Selected Encounter This section includes the information on record at [place] for the Encounter. Date/Time Encounter Type Encounter Description Reason Provider Source Aug 25, 2023 12:47 PM Outpatient Encounter EVENT (HISTORICAL) JOSEPH GUILLAUME Encounter Template Text not used by [place] Plan of Treatment: Future Appointments (+ 6 [...] 20 appointments. The data comes from all [place] treatment facilities. Appointment Date/Time Appointment Type Appointme nt Facility Name Aug 26, 2023 10:00 AM AMBULATORY - MEDICINE FREDY YANEZ [facility] Social History: Smoking Status (Most current) and Tobacco Use (All prior to encounter date) This section includes the most current, and the historical, smoking and tobacco- related health factors from the [place] facility where the Encounter took place. Current Smoking Status This section includes the most current smoking, or tobacco-related health factor, from the [place] facility where the Encounter took place. Date/Time Current Smoking Status Comment Saul chapman Aug 05, 2011 01:53 PM LIFETIME NON-TOBACCO USER [facility] Advance Directives: All historical and current Section Date Range: From patient's date of to the date document was created. This section includes ALL of a patient's completed or amended [place] Advance and Rescinded Directives. The entries below indicate that a directive exists for the patient, but an actual copy is not included with this document. The data comes from all [place] facilities. Date Advance Directives Provider Source Oct 19, 2018 ADVANCE DIRECTIVE DISCUSSION MANAN [facility]TOYA [facility] Oct 19, 2018 ADVANCE DIRECTIVE VERONICA [facility] Oct 24, 2011 ADVANCE DIRECTIVE DISCUSSION MEGHAN PERRY [facility] Oct 24, 2011 ADVANCE DIRECTIVE LIANNA PERRY [facility] Oct 02, 2011 ADVANCE DIRECTIVE DISCUSSION MEGHAN PERRY [facility]
[2023-08-25 21:00] LABS: Chloride* 101 mmol/L (96-114); Potassium* 3.7 mmol/L (3.6-5.1); Sodium* 138 mmol/L (135-149)
[2023-08-25 21:03] LABS: Est. Creatinine Clearance* 64.89; Estimated Glomerular Filt Rate 78 ml/min
[2023-08-25 21:04] LABS: Anion Gap 11 mEq/L (7-15); Blood Urea Nitrogen* 35 mg/dL (7-30); Calcium* 10.2 mg/dL (8.4-10.6); Carbon Dioxide* 26 mmol/L (20-32); Glucose* 156 mg/dL (60-115)
[2023-08-25 21:05] LABS: D Dimer Quantitative* 5.19 ug/ml (0.00-0.50)
[2023-08-25] MEDS: 0.9 % SODIUM CHLORIDE 1000 ml 1,000 ML IV (21:05)
[2023-08-25 21:06] LABS: PCR FLU A Negative PCR FLU A (Negative); PCR FLU B Negative PCR FLU B (Negative); PCR RSV Negative PCR RSV (Negative); SARS PCR* Negative SARS-CoV-2 (Negative)
[2023-08-25 21:06] LABS: C Reactive Protein* 3.1 mg/dL (0.5-1.0)
[2023-08-25 21:13] LABS: NT Pro B Type NatriureticPept* 185 pg/mL
[2023-08-25 21:16] LABS: Troponin I* 0.02 ng/mL (0.01-0.04)
--- NOTE | 2023-08-25 21:35 | CRLHL7_ITS ---
For Patients: As a result of the Century Cures Act, medical imaging exams and procedure reports are released immediately into your electronic medical record. You may view this report before your referring provider. If you have questions, please contact your health care provider. INDICATION: Shortness of breath. TECHNIQUE: CT Pulmonary Angiogram examination was performed after the administration of 95 mL Isovue 370 contrast intravenously. COMPARISON: Same-day chest radiograph. FINDINGS: Lower neck: Visualized thyroid is unremarkable. Cardiovascular: Contrast opacification of the pulmonary arterial tree is adequate. Thoracic aorta is normal in caliber. Pulmonary artery is normal in caliber. No pulmonary embolus. Mild atherosclerotic calcifications of the thoracic aorta. Heart size is normal. No right heart strain. Coronary arterial calcifications. Lungs: No suspicious nodules or focal consolidation. Linear bandlike opacifications of the lung bases likely due to subsegmental atelectasis and/or scarring. Dependent atelectasis. Airways: Trachea remains patent and midline. Mild diffuse peribronchial wall thickening. Pleura: No pleural effusions or pneumothorax. Lymph nodes: No mediastinal, hilar, or axillary adenopathy. Chest wall: Normal. Upper abdomen: Cholelithiasis. No reflux contrast into the IVC. Bones: Mild degenerative changes of the thoracic spine. Recent compression fracture the L1 vertebral body. No high-grade stenosis of the osseous spinal canal. No acute fractures of the thoracic spine. IMPRESSION: 1. No pulmonary embolus. No CT evidence of right heart strain. 2. Multifocal coronary arterial calcifications. Correlate with ASCVD evaluation. 3. Re-demonstrated likely recent mild compression fracture of L1. 4. Cholelithiasis without other evidence of acute cholecystitis. Please note that all CT scans at this facility use dose modulation, iterative reconstruction, and/or weight-based dosing when appropriate to reduce radiation dose to as low as reasonably achievable. Dictated by Tim Scott MD @ 08/25/2023 11:54:09 PM (Electronically Signed)
[2023-08-26] VITALS (30 sets, daily range): BP systolic 110–150; BP diastolic 55–87; PULSE 64–111; RESP 16–20; TEMP 36.4–37.1; O2SAT 92–99; BMI 24.3
--- NOTE | 2023-08-26 00:02 | ED.NURSE ---
Gina updated on poc trop 0.10
[2023-08-26] MEDS: HYDROCODONE-ACETAMIN 5-325 MG 1 TAB 2 TAB PO (00:43)
[2023-08-26 00:52] LABS: Troponin I* 0.11 ng/mL (0.01-0.04)
--- NOTE | 2023-08-26 00:56 | ED.NURSE ---
Received call from Claudia in lab. Pt's Trop I was 0.11. Dr. Javier notified of this @ 0985.
--- NOTE | 2023-08-26 02:25 | CRLHL7_ITS ---
For Patients: As a result of the Century Cures Act, medical imaging exams and procedure reports are released immediately into your electronic medical record. You may view this report before your referring provider. If you have questions, please contact your health care provider. INDICATION: Dizziness TECHNIQUE: Head CT without contrast. COMPARISON: CT head September 09, 2022. MRI brain 09/10/2022. FINDINGS: Similar prominence of the ventricular system a proportionate degree of peripheral cortical volume loss. Finding may relate to central cerebral atrophy or normal pressure hydrocephalus. There are advanced nonspecific low attenuation white matter changes consistent with chronic microvascular disease. No sign of mass effect, hemorrhage, or midline shift. Remote left internal capsule posterior limb lacunar-type infarct. The visualized paranasal sinuses and mastoid air cells demonstrate no acute or significant findings. The visualized orbits are grossly unremarkable. No skull fractures. IMPRESSION: 1. No evidence of acute intracranial abnormality on this unenhanced CT head. 2. Prominence of the ventricular system, either due to central cerebral atrophy or NPH. Clinical correlation recommended. 3. Extensive chronic microvascular ischemic changes and remote left basal ganglia lacunar type infarct. Please note that all CT scans at this facility use dose modulation, iterative reconstruction, and/or weight-based dosing when appropriate to reduce radiation dose to as low as reasonably achievable. Dictated by Melecio Mendez MD @ 08/26/2023 4:28:37 AM (Electronically Signed)
[2023-08-26 02:34] LABS: Lactate* 2.3 mmol/L (0.5-1.9)
--- NOTE | 2023-08-26 06:27 | W.PM.THH&P_ITS ---
Telehealth- H&P: HPI History of Present Illness Date Seen: 08/26/23 Chief complaint: Fall, dizzy, vomiting, back pain Narrative: Chino Matta is seen as an Interactive Telehealth visit. Chino Matta is a 78 year old male who presented to the emergency room with dizziness and back pain. 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 Chino gives the history that on Friday of this last week he was putting on his socks when he was standing up against the wall and became quite lightheaded and dizzy and fell over. At that time after the fall, he started experiencing some low back pain. This evening, he was having some constipation and took some Ex-Lax and while sitting on the stool, became quite nauseous and did have a small amount of vomiting. With these symptoms, he was prompted by his daughter to present to the emergency room for further evaluation as she was concerned about possible cardiac involvement. Upon presentation to the emergency room, Chino was noted to have some labored and tachypneic breathing. It seemed he was having some anxiety along with continued shortness of breath and lightheadedness. An extensive workup including laboratory investigation and imaging, including chest x-ray, lumbar spine CT, CT of the chest and head CT really did not show any acute reasons for his symptoms other than the lumbar compression fracture causing his back pain. With his ongoing dizziness symptoms and back pain, he is currently being admitted to the medical service for ongoing evaluation and treatment. At the time I am seeing Chino, he does confirm the above history. He states he continues to have back pain with any movement and this has been ongoing since his fall. He states that his shortness of breath is only present when he moves his back and feels it is most likely from the pain. He continues to have dizziness, especially when he moves his head [id number] and this seems to be much the same symptoms as he had with his previous CVA. He otherwise has not had any cough or cold type symptoms. He does not notice the room spinning. He has not noticed any extremity weakness or numbness. He has not had any chest pain, arm pain or jaw pain. He is no longer nauseous. He otherwise denies any other acute complaints or problems at the time I am seeing him. Review of Systems Status of ROS: Reports: 10 or more systems reviewed and unremarkable except as noted in History and below PFSH PFSH Social History What is your current living situation?: I presently have a place to live Problems where you live: no known problems Problems where you live details: na In the past 12 months, utilities in danger of being shut off: no In past 12 months, lack of transportation kept you from medical appts, meetings, work, or getting things needed for daily living: no In the past 12 mos, have been you worried that your food would run out before you had money to buy more?: never true In the past 12 mos, the food you bought just didn't last and you didn't have money to buy more?: never true Highest level of school completed/degree received: Associate degree: [employer], technical, vocational program Smoking Status: Never smoker Do you use any of these nicotine containing products: None Second hand tobacco smoke exposure: No How often do you have a drink containing alcohol: never How often do you have six or more drinks on one occasion: Never AUDIT-C Alcohol total score: 0 Non-prescribed substance use: denies use Caffeine: No How often does anyone, including family, friends and others, physically hurt you : never How often does anyone, including family, friends and others, insult or talk down to you: never How often does anyone, including family, friends and others, threaten you with harm: never How often does anyone, including family, friends and others, scream or curse at you: never service: Yes Meds Home Medications and Allergies Home Medications Medication Instructions Recorded Confirmed Type aspirin 81 mg capsule 81 mg PO DAILY 08/25/23 08/25/23 History finasteride .ROUTE 08/25/23 History lisinopril .ROUTE 08/25/23 History simvastatin .ROUTE 08/25/23 History tamsulosin 0.4 mg capsule 0.4 mg PO DAILY 08/25/23 08/25/23 History Allergies Allergy/AdvReac Type Severity Reaction Status Date / Time No Known Drug Allergies Allergy Verified 08/25/23 23:11 Exam Narrative Exam Narrative: GENERAL: vital signs reviewed, well developed and nourished, in no distress, but seems to be quite anxious HEENT: pupils are equal round and reactive to light, extraocular movements are grossly within normal limits and oral mucosa is moist. NECK: Supple without lymphadenopathy or thyromegaly according to nursing staff examination observation HEART: Regular rate and rhythm without any rubs, murmurs or gallops. LUNGS: Clear to auscultation bilaterally with good air movement throughout ABDOMEN: Observation from nurse assisted exam, abdomen appears soft, nontender, and nondistended with Positive bowel sounds noted. EXTREMITIES: Strength and sensation is observed to be grossly within normal limits in the upper and lower extremities. No focal strength deficit is observed SKIN: Observed warm and dry with color normal NEURO: Alert, awake and oriented ?3. Answers all questions appropriately. No focal neuro deficits are noted. PSYCH: Affect is anxious Const Vital Signs, click to edit/add: Vital Signs - 24 hr 08/25/23 19:39 08/25/23 20:10 08/25/23 20:16 Temperature 97.1 F L Pulse Rate 78 Pulse Rate [Left Pulse Oximeter] Pulse Rate [Pulse Oximeter] 94 Respiratory Rate 28 H Blood Pressure Blood Pressure [Right Arm] Blood Pressure [Right Upper Arm] 136/82 Pulse Oximetry 98 98 99 Oxygen Delivery Method Room Air 08/25/23 21:02 08/25/23 21:05 08/25/23 21:30 Temperature Pulse Rate 96 93 98 Pulse Rate [Left Pulse Oximeter] Pulse Rate [Pulse Oximeter] Respiratory Rate Blood Pressure Blood Pressure [Right Arm] Blood Pressure [Right Upper Arm] Pulse Oximetry 97 89 95 Oxygen Delivery Method 08/25/23 21:35 08/25/23 22:00 08/25/23 22:30 Temperature Pulse Rate 96 101 H 100 Pulse Rate [Left Pulse Oximeter] Pulse Rate [Pulse Oximeter] Respiratory Rate Blood Pressure Blood Pressure [Right Arm] Blood Pressure [Right Upper Arm] Pulse Oximetry 94 91 90 Oxygen Delivery Method 08/25/23 23:19 08/25/23 23:20 08/25/23 23:30 Temperature Pulse Rate 106 H 103 H 100 Pulse Rate [Left Pulse Oximeter] Pulse Rate [Pulse Oximeter] Respiratory Rate Blood Pressure 155/92 H Blood Pressure [Right Arm] Blood Pressure [Right Upper Arm] Pulse Oximetry 91 95 96 Oxygen Delivery Method 08/26/23 00:03 08/26/23 00:04 08/26/23 00:21 Temperature Pulse Rate 100 104 H Pulse Rate [Left Pulse Oximeter] Pulse Rate [Pulse Oximeter] Respiratory Rate Blood Pressure 150/87 H 143/82 H Blood Pressure [Right Arm] Blood Pressure [Right Upper Arm] Pulse Oximetry 93 93 Oxygen Delivery Method 08/26/23 00:30 08/26/23 00:41 08/26/23 01:00 Temperature Pulse Rate 104 H 111 H 101 H Pulse Rate [Left Pulse Oximeter] Pulse Rate [Pulse Oximeter] Respiratory Rate Blood Pressure 136/84 Blood Pressure [Right Arm] Blood Pressure [Right Upper Arm] Pulse Oximetry 94 94 94 Oxygen Delivery Method 08/26/23 01:01 08/26/23 01:22 08/26/23 01:30 Temperature Pulse Rate 97 99 102 H Pulse Rate [Left Pulse Oximeter] Pulse Rate [Pulse Oximeter] Respiratory Rate Blood Pressure 136/86 137/81 Blood Pressure [Right Arm] Blood Pressure [Right Upper Arm] Pulse Oximetry 94 95 95 Oxygen Delivery Method 08/26/23 01:42 08/26/23 02:01 08/26/23 02:21 Temperature Pulse Rate 98 94 95 Pulse Rate [Left Pulse Oximeter] Pulse Rate [Pulse Oximeter] Respiratory Rate 16 Blood Pressure 140/85 H 138/82 136/75 Blood Pressure [Right Arm] Blood Pressure [Right Upper Arm] Pulse Oximetry 97 95 95 Oxygen Delivery Method 08/26/23 02:41 08/26/23 03:08 08/26/23 03:21 Temperature Pulse Rate 95 94 90 Pulse Rate [Left Pulse Oximeter] Pulse Rate [Pulse Oximeter] Respiratory Rate Blood Pressure 133/75 115/72 Blood Pressure [Right Arm] Blood Pressure [Right Upper Arm] Pulse Oximetry 93 96 96 Oxygen Delivery Method 08/26/23 03:30 08/26/23 03:41 08/26/23 04:00 Temperature Pulse Rate 89 90 89 Pulse Rate [Left Pulse Oximeter] Pulse Rate [Pulse Oximeter] Respiratory Rate Blood Pressure 121/73 Blood Pressure [Right Arm] Blood Pressure [Right Upper Arm] Pulse Oximetry 93 96 92 Oxygen Delivery Method 08/26/23 04:01 08/26/23 04:21 08/26/23 04:30 Temperature Pulse Rate 85 88 95 Pulse Rate [Left Pulse Oximeter] Pulse Rate [Pulse Oximeter] Respiratory Rate Blood Pressure 116/68 123/69 Blood Pressure [Right Arm] Blood Pressure [Right Upper Arm] Pulse Oximetry 95 94 96 Oxygen Delivery Method 08/26/23 04:42 08/26/23 04:55 08/26/23 04:55 Temperature 97.8 F Pulse Rate 84 Pulse Rate [Left Pulse Oximeter] 83 Pulse Rate [Pulse Oximeter] Respiratory Rate 20 20 Blood Pressure 110/64 Blood Pressure [Right Arm] 123/73 Blood Pressure [Right Upper Arm] Pulse Oximetry 95 98 98 Oxygen Delivery Method Room Air Room Air Documenting provider has reviewed patient's vital signs: yes Hospitalist - H&P: Result Labs Labs: Short CBC 08/25/23 Range/Units 20:13 WBC 12.41 H (4.50-11.00) K/uL Hgb 16.9 (13.5-17.5) gm/dL Hct 49.1 (37.0-53.0) % Plt Count 221 (140-440) K/uL BMP 08/25/23 08/25/23 08/25/23 20:13 20:13 20:13 Sodium Cancelled 138 Potassium Cancelled 3.7 Chloride Cancelled Carbon Dioxide BUN Creatinine Glucose Calcium 08/25/23 08/25/23 08/25/23 20:13 20:13 20:13 Sodium Potassium Chloride 101 Carbon Dioxide Cancelled 26 BUN Cancelled 35 H Creatinine Cancelled Glucose Calcium 08/25/23 08/25/23 08/25/23 20:13 20:13 20:13 Sodium Potassium Chloride Carbon Dioxide BUN Creatinine 1.0 Glucose Cancelled 156 H Calcium Cancelled 10.2 Cardiac Enzymes 08/25/23 08/25/23 Range/Units 20:13 23:40 Troponin I 0.02 0.11 H* (0.01-0.04) ng/mL Imaging CT scan - head: Radiologist's impression: IMPRESSION: 1. No evidence of acute intracranial abnormality on this unenhanced CT head. 2. Prominence of the ventricular system, either due to central cerebral atrophy or NPH. Clinical correlation recommended. 3. Extensive chronic microvascular ischemic changes and remote left basal ganglia lacunar type infarct. CT- Other: Radiologist's impression: IMPRESSION: 1. Likely acute to subacute moderate compression fracture of L1, without significant canal compromise. No traumatic subluxation. 2. Multilevel lumbar spondylosis, with severe degenerative disc disease at L5-S1. CT scan - chest: Radiologist's impression: IMPRESSION: 1. No pulmonary embolus. No CT evidence of right heart strain. 2. Multifocal coronary arterial calcifications. Correlate with ASCVD evaluation. 3. Re-demonstrated likely recent mild compression fracture of L1. 4. Cholelithiasis without other evidence of acute cholecystitis. Assessment and Plan Assessment and plan (1) Dizziness of unknown cause: Status: Acute (2) Compression fracture of lumbar vertebra: Status: Acute Plan Assessment: 1. Relatively new onset dizziness with subsequent fall 2. L1 compression fracture from recent fall 3. History of previous CVA with lacunar infarct in August 2022 with previous similar symptoms 4. Minorly elevated troponin with no recent chest pain or cardiac symptoms question chronically elevated 5. Mild leukocytosis with no obvious sign of infection?question possible viral illness with acute vestibulitis as cause for #1 above 6. Anxiety Plan: At this time Chino has been admitted to the medical service. He does have a history of previous CVA with previous symptoms much as he presents with today. He states that the dizziness that he has been experiencing over the last few days is much the same as he had for symptoms with his previous CVA lacunar infarct approximately a year ago. I do believe that he would benefit from further workup such as an MRI to evaluate for further new or extension of his previous ischemic CVA. I will order an MRI of the head for the a.m. for further evaluation. He also has an unexplained leukocytosis, which she had a year ago as well and he currently has a minorly elevated troponin. He is currently not having any other symptoms of an acute infection or acute cardiac symptoms. I will repeat his hematology labs and will also repeat his troponin and have asked him to let us know if he has any shortness of breath, chest pain, arm pain or any other cardiac symptoms. He is currently having pain from his new lumbar compression fracture and I will give him some symptomatic pain medications for relief. I have explained this plan to Chino and he is agreeable to proceed. Will continue to watch Chino closely from a medical standpoint. Telehealth: Statement Statement Telehealth Visit: Today's History and Physical is provided via interactive telehealth by Estrada Forrest MD.? Patient is located at [facility].? Provider is located at [facility].? Nursing staff assisted with the patient's exam. The visit being done today meets criteria for a telehealth visit and the patient or patient?s parent/guardian is aware the visit is a telehealth visit. Camera Start Time: 05:38 Camera End Time: 05:57
--- NOTE | 2023-08-26 07:02 | PC.NURSE ---
Patient admitted to floor at 0500 with dizziness and increased back pain. Per patient he had an episode of lightheadedness Thursday 08/24 AM, when standing and attempting to put his socks on he fell and landed on his buttocks and had low back pain. Pain has not subsided since. New L1 compression fx found on imaging. Pain to low back rated at 3/10 which is tolerable. SOB with exertion, states when he is up moving that his pain increases which causes him to feel short of breath. Lung sounds clear, denies cough. Bruising to low back noted from fall. Patient ambulates independently at home prior to fall but since fall has been utilizing a walker. Instructed to use call light and ask for assistance with ambulation, bed alarms on.
--- NOTE | 2023-08-26 07:08 | CRLHL7_ITS ---
For Patients: As a result of the Century Cures Act, medical imaging exams and procedure reports are released immediately into your electronic medical record. You may view this report before your referring provider. If you have questions, please contact your health care provider. Indication: Dizziness. Technique: Multiplanar, multisequence MRI of the brain was performed without intravenous contrast. Comparison: None relevant available. Findings: The corpus callosum, optic chiasm, pituitary gland, clivus, brainstem and cerebellum appear intact. The craniocervical junction appears preserved. There is a 4 mm focus of restricted diffusion in the left thalamus. Associated T2 FLAIR hyperintensity. The ventricles are proportionate to the cerebral sulci. The 4th ventricle appears midline. The basal cisterns appear patent. No abnormal extra-axial fluid collection identified. Moderate parenchymal volume loss. Severe T2 FLAIR hyperintense foci within the subcortical and periventricular white matter, favored to represent chronic ischemic microvascular disease. Multiple small chronic lacunar infarcts bilateral centrum semiovale, basal ganglia and right sharlene. There is no intracranial mass, abnormal mass-effect or midline shift identified. Major intracranial vascular flow voids appear grossly intact. Both globes are preserved. Impression: 1. Small acute/subacute left thalamic infarct. 2. Severe chronic ischemic microvascular disease. 3. Multiple small chronic lacunar infarcts. Dictated by Blu Spivey MD @ 08/26/2023 9:17:15 AM (Electronically Signed)
[2023-08-26 07:38] LABS: Troponin I* 0.05 ng/mL (0.01-0.04)
[2023-08-26 08:04] LABS: TSH With Reflex to FT4* 0.466 uIU/mL (0.270-4.200)
[2023-08-26] MEDS: OXYCODONE 5 MG TABLET PO ×2 (08:53→14:02)
[2023-08-26] MEDS: ASPIRIN 81 MG TABLET EC PO (08:53)
[2023-08-26] MEDS: TAMSULOSIN HCL 0.4 MG CAPSULE PO (08:53)
[2023-08-26] MEDS: SODIUM CHLORIDE 0.9 % (FLUSH) 10 ML SYRINGE 5 ML IVF ×2 (10:51→20:06)
[2023-08-26] MEDS: LIDOCAINE 5% PATCH 1 PATCH TRANSDERMA (14:02)
--- NOTE | 2023-08-26 14:16 | PC.NURSE ---
end of shift. pt is alert x4. he has been very pleasant. he has back, lightheadedness. he is getting po pain meds a lidocaine patch. New L1 compression fx found on imaging. he had a MRI this am and later and neuro consult. Bruising to low back noted from fall. Pt is up sba with a walker PT and OT worked with him today. he is eating, drinking and voiding.
--- NOTE | 2023-08-26 15:04 | P.IMPN_ITS ---
Progress Note: A&P Assessment and plan (1) Thalamic stroke: Problem details: - noted on 08/26/23 MRI - Stroke Neurology consult, therapies - holding home Lisinopril, continue statin/ASA Status: Acute (2) Compression fracture of lumbar vertebra: Problem details: - L1, s/p fall - Calcitonin, APAP, Lidocaine patch, prn Oxycodone Status: Acute (3) Elevated troponin I level: Problem details: - peaked at 0.11, no chest pain - TTE has been ordered Status: Acute Plan - per above - likely home with on 08/27 Subjective Date Seen: 08/26/23 Interval history: [place] was admitted early this morning for dizziness, in addition to low back pain status post fall. ED imaging revealed an L1 compression fracture. He had an MRI this morning that exhibited a small acute/subacute left thalamic stroke. Therapies following, stroke neurology consult has been placed. Besides back pain, [place] and family have no other concerns for hospitalist this morning. Exam Narrative: Exam Narrative: GEN: Alert and sitting comfortably in bed HEENT: EOMIs bilaterally, no scleral icterus CV: RRR, No concerning murmurs, no carotid bruits R: LCTA bilaterally without concerning wheezing, air movement adequate Ext: wwp, no concerning edema Skin: No concerning skin lesions or rashes on exposed skin Neuro: No facial droop, EOMIs bilaterally, no nystagmus, no resting tremor, gait not observed Psych: Appropriate Const: Vital Signs, click to edit/add: Vital Signs - 24 hr 08/25/23 19:39 08/25/23 20:10 08/25/23 20:16 Temperature 97.1 F L Pulse Rate 78 Pulse Rate [Left P ulse Oximeter] Pulse Rate [Pulse Oximeter] 94 Respiratory Rate 28 H Blood Pressure Blood Pressure [Ri ght Arm] Blood Pressure [Ri ght Upper Arm] 136/82 Pulse Oximetry 98 98 99 Oxygen Delivery Me thod Room Air 08/25/23 21:02 08/25/23 21:05 08/25/23 21:30 Temperature Pulse Rate 96 93 98 Pulse Rate [Left P ulse Oximeter] Pulse Rate [Pulse Oximeter] Respiratory Rate Blood Pressure Blood Pressure [Ri ght Arm] Blood Pressure [Ri ght Upper Arm] Pulse Oximetry 97 89 95 Oxygen Delivery Me thod 08/25/23 21:35 08/25/23 22:00 08/25/23 22:30 Temperature Pulse Rate 96 101 H 100 Pulse Rate [Left P ulse Oximeter] Pulse Rate [Pulse Oximeter] Respiratory Rate Blood Pressure Blood Pressure [Ri ght Arm] Blood Pressure [Ri ght Upper Arm] Pulse Oximetry 94 91 90 Oxygen Delivery Me thod 08/25/23 23:19 08/25/23 23:20 08/25/23 23:30 Temperature Pulse Rate 106 H 103 H 100 Pulse Rate [Left P ulse Oximeter] Pulse Rate [Pulse Oximeter] Respiratory Rate Blood Pressure 155/92 H Blood Pressure [Ri ght Arm] Blood Pressure [Ri ght Upper Arm] Pulse Oximetry 91 95 96 Oxygen Delivery Me thod 08/26/23 00:03 08/26/23 00:04 08/26/23 00:21 Temperature Pulse Rate 100 104 H Pulse Rate [Left P ulse Oximeter] Pulse Rate [Pulse Oximeter] Respiratory Rate Blood Pressure 150/87 H 143/82 H Blood Pressure [Ri ght Arm] Blood Pressure [Ri ght Upper Arm] Pulse Oximetry 93 93 Oxygen Delivery Me thod 08/26/23 00:30 08/26/23 00:41 08/26/23 01:00 Temperature Pulse Rate 104 H 111 H 101 H Pulse Rate [Left P ulse Oximeter] Pulse Rate [Pulse Oximeter] Respiratory Rate Blood Pressure 136/84 Blood Pressure [Ri ght Arm] Blood Pressure [Ri ght Upper Arm] Pulse Oximetry 94 94 94 Oxygen Delivery Me thod 08/26/23 01:01 08/26/23 01:22 08/26/23 01:30 Temperature Pulse Rate 97 99 102 H Pulse Rate [Left P ulse Oximeter] Pulse Rate [Pulse Oximeter] Respiratory Rate Blood Pressure 136/86 137/81 Blood Pressure [Ri ght Arm] Blood Pressure [Ri ght Upper Arm] Pulse Oximetry 94 95 95 Oxygen Delivery Me thod 08/26/23 01:42 08/26/23 02:01 08/26/23 02:21 Temperature Pulse Rate 98 94 95 Pulse Rate [Left P ulse Oximeter] Pulse Rate [Pulse Oximeter] Respiratory Rate 16 Blood Pressure 140/85 H 138/82 136/75 Blood Pressure [Ri ght Arm] Blood Pressure [Ri ght Upper Arm] Pulse Oximetry 97 95 95 Oxygen Delivery Me thod 08/26/23 02:41 08/26/23 03:08 08/26/23 03:21 Temperature Pulse Rate 95 94 90 Pulse Rate [Left P ulse Oximeter] Pulse Rate [Pulse Oximeter] Respiratory Rate Blood Pressure 133/75 115/72 Blood Pressure [Ri ght Arm] Blood Pressure [Ri ght Upper Arm] Pulse Oximetry 93 96 96 Oxygen Delivery Me thod 08/26/23 03:30 08/26/23 03:41 08/26/23 04:00 Temperature Pulse Rate 89 90 89 Pulse Rate [Left P ulse Oximeter] Pulse Rate [Pulse Oximeter] Respiratory Rate Blood Pressure 121/73 Blood Pressure [Ri ght Arm] Blood Pressure [Ri ght Upper Arm] Pulse Oximetry 93 96 92 Oxygen Delivery Me thod 08/26/23 04:01 08/26/23 04:21 08/26/23 04:30 Temperature Pulse Rate 85 88 95 Pulse Rate [Left P ulse Oximeter] Pulse Rate [Pulse Oximeter] Respiratory Rate Blood Pressure 116/68 123/69 Blood Pressure [Ri ght Arm] Blood Pressure [Ri ght Upper Arm] Pulse Oximetry 95 94 96 Oxygen Delivery Me thod 08/26/23 04:42 08/26/23 04:55 08/26/23 04:55 Temperature 97.8 F Pulse Rate 84 Pulse Rate [Left P ulse Oximeter] 83 Pulse Rate [Pulse Oximeter] Respiratory Rate 20 20 Blood Pressure 110/64 Blood Pressure [Ri ght Arm] 123/73 Blood Pressure [Ri ght Upper Arm] Pulse Oximetry 95 98 98 Oxygen Delivery Me od Room Air Room Air 08/26/23 06:59 08/26/23 08:40 08/26/23 08:42 Temperature 98.0 F Pulse Rate 72 Pulse Rate [Left P ulse Oximeter] 81 81 Pulse Rate [Pulse Oximeter] Respiratory Rate 18 18 Blood Pressure Blood Pressure [Ri ght Arm] 129/55 L Blood Pressure [Ri ght Upper Arm] Pulse Oximetry 98 Oxygen Delivery Me thod Room Air 08/26/23 11:09 Temperature 97.6 F Pulse Rate Pulse Rate [Left P ulse Oximeter] 66 Pulse Rate [Pulse Oximeter] Respiratory Rate 18 Blood Pressure Blood Pressure [Ri ght Arm] 128/73 Blood Pressure [Ri ght Upper Arm] Pulse Oximetry 99 Oxygen Delivery Ar thod Room Air Labs Labs: Laboratory Results - last 24 hr 08/25/23 08/25/23 08/25/23 20:11 20:13 20:13 WBC 12.41 H RBC 5.73 Hgb 16.9 Hct 49.1 MCV 86 MCH 30 MCHC 34 RDW Coeff of Igor 12.5 Plt Count 221 Neut % (Auto) 89.8 H Lymph % (Auto) 5.9 L [place] % (Auto) 2.9 Eos % (Auto) 1.0 Baso % (Auto) 0.2 Neut # (Auto) 11.10 H Lymph # (Auto) 0.70 L [place] # (Auto) 0.40 Eos # (Auto) 0.10 Baso # (Auto) 0.00 Abs Immat Gran (auto) 0.00 Imm/Tot Granulo (auto) 0.2 D-Dimer Quant (PE/DVT) 5.19 H VBG pH 7.469 H VBG pCO2 40 VBG pO2 24.3 L VBG HCO3 29 H Sodium Cancelled 138 Potassium Cancelled Chloride Carbon Dioxide Anion Gap BUN Creatinine Estimated Creat Clear Estimated GFR Glucose Lactate Calcium Troponin I C-Reactive Protein NT-Pro-B Natriuret Pep TSH SARS-CoV-2 (PCR) Influenza Type A (PCR) Influenza Type B (PCR) RSV (PCR) Lab Acknowledgement POC Troponin I 0.01 08/25/23 08/25/23 08/25/23 20:13 20:13 20:13 WBC RBC Hgb Hct MCV MCH MCHC RDW Coeff of Igor Plt Count Neut % (Auto) Lymph % (Auto) [place] % (Auto) Eos % (Auto) Baso % (Auto) Neut # (Auto) Lymph # (Auto) [place] # (Auto) Eos # (Auto) Baso # (Auto) Abs Immat Gran (auto) Imm/Tot Granulo (auto) D-Dimer Quant (PE/DVT) VBG pH VBG pCO2 VBG pO2 VBG HCO3 Sodium Potassium 3.7 Chloride Cancelled 101 Carbon Dioxide Cancelled 26 Anion Gap Cancelled BUN Creatinine Estimated Creat Clear Estimated GFR Glucose Lactate Calcium Troponin I C-Reactive Protein NT-Pro-B Natriuret Pep TSH SARS-CoV-2 (PCR) Influenza Type A (PCR) Influenza Type B (PCR) RSV (PCR) Lab Acknowledgement POC Troponin I 08/25/23 08/25/23 08/25/23 20:13 20:13 20:13 WBC RBC Hgb Hct MCV MCH MCHC RDW Coeff of Igor Plt Count Neut % (Auto) Lymph % (Auto) [place] % (Auto) Eos % (Auto) Baso % (Auto) Neut # (Auto) Lymph # (Auto) [place] # (Auto) Eos # (Auto) Baso # (Auto) Abs Immat Gran (auto) Imm/Tot Granulo (auto) D-Dimer Quant (PE/DVT) VBG pH VBG pCO2 VBG pO2 VBG HCO3 Sodium Potassium Chloride Carbon Dioxide Anion Gap 11 BUN Cancelled 35 H Creatinine Cancelled 1.0 Estimated Creat Clear Cancelled Estimated GFR Glucose Lactate Calcium Troponin I C-Reactive Protein NT-Pro-B Natriuret Pep TSH SARS-CoV-2 (PCR) Influenza Type A (PCR) Influenza Type B (PCR) RSV (PCR) Lab Acknowledgement POC Troponin I 08/25/23 08/25/23 08/25/23 20:13 20:13 20:13 WBC RBC Hgb Hct MCV MCH MCHC RDW Coeff of Igor Plt Count Neut % (Auto) Lymph % (Auto) [place] % (Auto) Eos % (Auto) Baso % (Auto) Neut # (Auto) Lymph # (Auto) [place] # (Auto) Eos # (Auto) Baso # (Auto) Abs Immat Gran (auto) Imm/Tot Granulo (auto) D-Dimer Quant (PE/DVT) VBG pH VBG pCO2 VBG pO2 VBG HCO3 Sodium Potassium Chloride Carbon Dioxide Anion Gap BUN Creatinine Estimated Creat Clear 64.89 Estimated GFR Cancelled 78 Glucose Cancelled 156 H Lactate 2.3 H Calcium Cancelled Troponin I C-Reactive Protein NT-Pro-B Natriuret Pep TSH SARS-CoV-2 (PCR) Influenza Type A (PCR) Influenza Type B (PCR) RSV (PCR) Lab Acknowledgement POC Troponin I 08/25/23 08/25/23 08/25/23 20:13 20:13 20:21 WBC RBC Hgb Hct MCV MCH MCHC RDW Coeff of Igor Plt Count Neut % (Auto) Lymph % (Auto) [place] % (Auto) Eos % (Auto) Baso % (Auto) Neut # (Auto) Lymph # (Auto) [place] # (Auto) Eos # (Auto) Baso # (Auto) Abs Immat Gran (auto) Imm/Tot Granulo (auto) D-Dimer Quant (PE/DVT) VBG pH VBG pCO2 VBG pO2 VBG HCO3 Sodium Potassium Chloride Carbon Dioxide Anion Gap BUN Creatinine Estimated Creat Clear Estimated GFR Glucose Lactate Calcium 10.2 Troponin I 0.02 C-Reactive Protein Cancelled 3.1 H NT-Pro-B Natriuret Pep 185 TSH SARS-CoV-2 (PCR) Negative SARS-CoV-2 Influenza Type A (PCR) Negative PCR FLU A Influenza Type B (PCR) Negative PCR FLU B RSV (PCR) Negative PCR RSV Lab Acknowledgement POC Troponin I 08/25/23 08/25/23 08/26/23 23:28 23:40 00:08 WBC RBC Hgb Hct MCV MCH MCHC RDW Coeff of Igor Plt Count Neut % (Auto) Lymph % (Auto) [place] % (Auto) Eos % (Auto) Baso % (Auto) Neut # (Auto) Lymph # (Auto) [place] # (Auto) Eos # (Auto) Baso # (Auto) Abs Immat Gran (auto) Imm/Tot Granulo (auto) D-Dimer Quant (PE/DVT) VBG pH VBG pCO2 VBG pO2 VBG HCO3 Sodium Potassium Chloride Carbon Dioxide Anion Gap BUN Creatinine Estimated Creat Clear Estimated GFR Glucose Lactate Calcium Troponin I 0.11 H* C-Reactive Protein NT-Pro-B Natriuret Pep TSH SARS-CoV-2 (PCR) Influenza Type A (PCR) Influenza Type B (PCR) RSV (PCR) Lab Acknowledgement Test Added POC Troponin I 0.10 H 08/26/23 08/26/23 02:26 06:47 WBC RBC Hgb Hct MCV MCH MCHC RDW Coeff of Igor Plt Count Neut % (Auto) Lymph % (Auto) [place] % (Auto) Eos % (Auto) Baso % (Auto) Neut # (Auto) Lymph # (Auto) [place] # (Auto) Eos # (Auto) Baso # (Auto) Abs Immat Gran (auto) Imm/Tot Granulo (auto) D-Dimer Quant (PE/DVT) VBG pH VBG pCO2 VBG pO2 VBG HCO3 Sodium Potassium Chloride Carbon Dioxide Anion Gap BUN Creatinine Estimated Creat Clear Estimated GFR Glucose Lactate Calcium Troponin I 0.05 H C-Reactive Protein NT-Pro-B Natriuret Pep TSH 0.466 SARS-CoV-2 (PCR) Influenza Type A (PCR) Influenza Type B (PCR) RSV (PCR) Lab Acknowledgement Test Added POC Troponin I
[2023-08-26] MEDS: SIMVASTATIN 40 MG TABLET 80 MG PO (20:05)
[2023-08-26] MEDS: ENOXAPARIN 40 MG/0.4 ML INJ SUBCUT (20:05)
[2023-08-26] MEDS: CALCITONIN SALMON NASAL SPRAY 200 UNIT 1 SPRAY NOSTRIL-B (20:05)
--- NOTE | 2023-08-26 23:39 | PC.NURSE ---
Shift unremarkable. VS WNL and LS COA. Pt moving well independently and denies CP or pressure. Denies dizziness or lightheadedness. Back pain well controlled at this time.
[2023-08-27] MEDS: OXYCODONE 5 MG TABLET PO ×2 (02:33→08:01)
[2023-08-27 03:00] VITALS: BP 147/80; PULSE 81; RESP 18; TEMP 36.8; O2SAT 94
--- NOTE | 2023-08-27 06:18 | PC.NURSE ---
End of shift report [id number]: Pleasant and cooperative with cares. Pain to low back well managed with scheduled and PRN medications. Denies any shortness of breath or chest pain. Bruising to low back from previous fall. Independent with ambulation. Lightheadedness reported at 0230, patient stated he was up to go to the bathroom and felt a little dizzy. Denies any nausea with dizziness.
[2023-08-27 07:00] VITALS: BP 139/85; PULSE 64; PULSE 69; RESP 18; TEMP 36.2; O2SAT 98
[2023-08-27 07:33] LABS: Basophils Absolute Auto 0.02 K/uL (0.00-0.30); Basophils Percent Auto 0.3 % (0.0-3.0); Eosinophils Absolute Auto 0.15 K/uL (0.00-0.50); Eosinophils Percent Auto 1.9 % (0.0-7.0); Hematocrit 39.1 % (37.0-53.0); Immature Granulocytes Abs Auto 0.01 K/uL (0.00-0.30); Immature Granulocytes Pct Auto 0.1 %; Lymphocytes Percent Auto 6.8 % (20-44); Mean Corpuscular HGB Conc 33 gm/dL (32-36); Mean Corpuscular Hemoglobin 30 pg (26-34); Mean Corpuscular Volume 89 fL (80-100); Monocytes Percent Auto 9.3 % (0.0-11.0); Neutrophils Percent Auto 81.6 % (42.0-72.0); Platelet Count* 185 K/uL (140-440); White Blood Count* 7.89 K/uL (4.50-11.00)
[2023-08-27 07:38] LABS: Slide Review Reflex No
[2023-08-27 07:39] LABS: Chloride* 109 mmol/L (96-114); Sodium* 140 mmol/L (135-149)
[2023-08-27 07:40] LABS: Potassium* 4.1 mmol/L (3.6-5.1)
[2023-08-27 07:42] LABS: Creatinine* 0.9 mg/dL (0.5-1.5); Est. Creatinine Clearance* 64.89; Estimated Glomerular Filt Rate 89 ml/min
[2023-08-27 07:43] LABS: Anion Gap 4 mEq/L (7-15); Blood Urea Nitrogen* 30 mg/dL (7-30); Calcium* 8.8 mg/dL (8.4-10.6); Carbon Dioxide* 27 mmol/L (20-32); Glucose* 107 mg/dL (60-115)
[2023-08-27] MEDS: SODIUM CHLORIDE 0.9 % (FLUSH) 10 ML SYRINGE 5 ML IVF (08:00)
[2023-08-27] MEDS: TAMSULOSIN HCL 0.4 MG CAPSULE PO (08:00)
[2023-08-27] MEDS: CLOPIDOGREL 75 MG TABLET PO (08:01)
[2023-08-27] MEDS: ASPIRIN EC 325 MG TABLET PO (08:01)
--- NOTE | 2023-08-27 12:21 | PC.NURSE ---
Discharge nursing note: Pt A&O, VSS and afebrile today. He is independent in his room with ambulation and tolerating well. Reports some intermittent dizziness with change of position & ambulating but reports it has significantly improved since admission. Pt continues to c/o dull, achy lower back pain rating at 2/10. Lidocaine patch in place and PRN oxycodone given x1 dose at 0800 with adequate relief. Pt denies having any nausea, tolerating PO intake with adequate output. No BM today, last BM was 08/25/23. TELE read NSR throughout the morning rate in the 60s-70s. TTE performed at bedside showing EF 65-70%. PIV in left AC SL and discontinued without issue, catheter intact. Pt discharged via wheelchair?accompanied by nursing staff at 1220. ?
--- NOTE | 2023-08-27 16:43 | PM.DS1 ---
DS: Providers Provider Date Seen: 08/27/23 Date of admission: 08/26/23 04:55 Primary care physician: Not a Local Provider Admitting Clinician: Vipin Fuentes MD Consults: PT, OT, Stroke Neurology Attending Physician on discharge: Irina Ibanez MD Date of Discharge: 08/27/23 DS: Diagnosis Discharge Diagnosis (1) Thalamic stroke: Status: Acute Problem details: - noted on 08/26/23 MRI - Stroke Neurology consult, therapies - holding home Lisinopril, continue statin/ASA (2) Compression fracture of lumbar vertebra: Status: Acute Problem details: - L1, s/p fall - Calcitonin, APAP, Lidocaine patch, prn Oxycodone (3) Elevated troponin I level: Status: Acute Problem details: - peaked at 0.11, no chest pain - TTE: mildly increased LV wall thickness, EF 68%, moderate TR, tethered tricuspid valve, mildly increased pulmonary pressures DS: Summary Hospital Course Hospital Course: [place] was admitted to the hospital on 08/26, in addition to low back pain status post mechanical fall at home. ED imaging revealed an L1 compression fracture. This was successfully treated with APAP, Oxycodone, Lidocaine patch, Calcitonin nasal spray. Brain MRI exhibited a small acute/subacute left thalamic stroke. Stroke Neurology consulted, recommended 325mg of ASA + 75mg of Plavix for 21 days, followed by 325mg ASA as monotherapy. Statin was increased and TTE results noted above. hCino was seen by therapies, no formal therapy followup recommended. [facility]. Status at Discharge Functional status at discharge: independent ambulation Overall status at discharge: patient is progressing back to baseline Time Spent with Patient Time attestation: Total time spent providing and/or coordinating discharge services: Time spent: Greater than 30 minutes Specific discharge activities: Medication reconcilation, patient education, documentation Exam Narrative: Exam Narrative: GEN: Alert and oriented, sitting comfortably in bed HEENT: EOMIs bilaterally, no scleral icterus CV: RRR, No concerning murmurs R: LCTA bilaterally without concerning wheezing, air movement adequate Ext: wwp, no concerning edema Skin: No concerning skin lesions or rashes on exposed skin Neuro: Normal cranial nerves, no nystagmus, no focal deficits, gait not observed this morning Psych: Appropriate Const: Vital Signs, click to edit/add: Vital Signs - 24 hr 08/26/23 19:00 08/26/23 23:00 08/26/23 23:00 Temperature 98.8 F Pulse Rate 84 Pulse Rate [Left P ulse Oximeter] 87 88 Respiratory Rate 18 20 Blood Pressure [Ri ght Arm] 138/73 Pulse Oximetry 95 Oxygen Delivery Me thod Room Air 08/26/23 23:00 08/27/23 03:00 08/27/23 07:00 Temperature 98.5 F 98.2 F Pulse Rate 64 Pulse Rate [Left P ulse Oximeter] 88 81 Respiratory Rate 20 18 Blood Pressure [Ri ght Arm] 141/83 H 147/80 H Pulse Oximetry 93 94 Oxygen Delivery Me thod Room Air Room Air 08/27/23 07:00 08/27/23 07:00 Temperature 97.2 F L Pulse Rate Pulse Rate [Left P ulse Oximeter] 69 69 Respiratory Rate 18 18 Blood Pressure [Ri ght Arm] 139/85 Pulse Oximetry 98 Oxygen Delivery Me thod Room Air DS: Data Data Completed and Pending Labs on day of discharge: Labs from last 24 hours 08/27/23 06:37 WBC 7.89 RBC 4.40 Hgb 13.0 L Hct 39.1 MCV 89 MCH 30 MCHC 33 RDW Coeff of Igor 13.0 Plt Count 185 Neut % (Auto) 81.6 H Lymph % (Auto) 6.8 L [place] % (Auto) 9.3 Eos % (Auto) 1.9 Baso % (Auto) 0.3 Neut # (Auto) 6.40 Lymph # (Auto) 0.50 L [place] # (Auto) 0.70 Eos # (Auto) 0.15 Baso # (Auto) 0.02 Abs Immat Gran (auto) 0.01 Imm/Tot Granulo (auto) 0.1 Sodium 140 Potassium 4.1 Chloride 109 Carbon Dioxide 27 Anion Gap 4 L BUN 30 Creatinine 0.9 Estimated Creat Clear 64.89 Estimated GFR 89 Glucose 107 Calcium 8.8 Discharge Plan Discharge Disposition: Home, Self-Care Date of Admission: 08/26/23 04:55 Attending Provider on Discharge: Irina Ibanez Primary Care Provider: Provider,Not a Local Condition: Improved Anticipated Discharge Date/Time: 08/27/23 10:32 Discharge Medications: New clopidogrel 75 mg Tablet 75 mg PO DAILY Qty: 30 0RF simvastatin 40 mg Tablet 80 mg PO HS Qty: 30 0RF aspirin 325 mg Tablet,Delayed Release (Dr/Ec) 325 mg PO DAILY Qty: 30 0RF calcitonin (salmon) 200 unit/actuation [place],Non-Aerosol 1 spray intranasal HS 30 Days Qty: 3.7 0RF Rx Instructions: alternate nostrils QHS lidocaine 5 % Adhesive Patch,Medicated 1 patch transdermal Q24H Qty: 30 0RF oxycodone 5 mg Tablet 2.5 - 5 mg PO Q4H PRN (Reason: Pain) Qty: 14 0RF Continued lisinopril .Route DAILY Patient Comments: patient unsure of dose, thinking 20mg finasteride 5 mg .Route QDAY tamsulosin 0.4 mg capsule 0.4 mg PO DAILY Discontinued simvastatin 20 mg .Route QPM aspirin 81 mg capsule 81 mg PO DAILY Discharge Orders: Discharge Order (Routine); Ordered 08/27/23 Ordered By: Irina Ibanez Patient Education: Aspirin (By mouth), Oxycodone, Rapid Release (By mouth), Simvastatin (By mouth) (Zocor), Clopidogrel (By mouth), Calcitonin (Into the nose), Lidocaine Patch (On the skin), Ischemic Stroke (DC) Additional Instructions: Increase your Aspirin to 325mg/day. Plavix (blood thinner) for 21 days, then take just the 325mg Aspirin daily. Increase your Simvastatin to two tablets at night - then [facility] to [facility] ex[facility] termite [facility]. For back pain: Calcitonin nasal spray at night for 30 days, Lidocaine patch as needed, scheduled Tylenol, Oxycodone as needed for severe pain. Sent to [employer]: - PLAVIX, CALCITONIN NASAL SPRAY, LIDOCAINE PATCH, OXYCODONE See your PCP at the [facility] in 1-2 weeks for followup and to go over results from this hospitalization. Activity Level: No strenuous activity Activity Detail: Careful with activities that increase your lightheadedness. Follow exercises from therapy teams. Discharge Diet: Regular Follow Up Appointments: Provider,Not a Local [Primary Care Provider] - (Please call [facility] clinic - phone # and schedule f/u appointment to discuss recent hospitalization.) Forms: [employer] Info Instructions
== END 2023-08-27 12:20 | disposition home or self-care (01) ==
LOC: ED 08-26 01:47 → MEDSURG 08-26 04:56
PROVIDERS: Family Medicine; Internal Medicine; Admitting Provider Family Medicine; Emergency Provider Family Medicine; Visit Provider Family Medicine
DX: I63.81 Other cerebral infarction due to occlusion or stenosis of small artery (principal); S32.000A Wedge compression fracture of unspecified lumbar vertebra, initial encounter for closed fracture; R79.89 Other specified abnormal findings of blood chemistry; D72.829 Elevated white blood cell count, unspecified; R00.0 Tachycardia, unspecified; R06.82 Tachypnea, not elsewhere classified; R06.4 Hyperventilation; W19.XXXA Unspecified fall, initial encounter; M54.9 Dorsalgia, unspecified; R11.10 Vomiting, unspecified; F41.9 Anxiety disorder, unspecified; R42 Dizziness and giddiness; I10 Essential (primary) hypertension; Z86.73 Personal history of transient ischemic attack (TIA), and cerebral infarction without residual deficits
CPT/HCPCS: 36415; 70450; 70551; 71045; 71275; 72131; 80048; 82803; 83605; 83880; 84443; 84484; 85025; 85379; 86140; 87631; 93005; 93306; 94761; 96360; 96372; 97116; 97161; 97165; 97535; 99284; 99285; G0378; A9270; J1650; J7030; Q9967

== ENCOUNTER 2025-07-18 01:07 | Outpatient (CLI) | payer MEDICARE, OTHER, SELFPAY | END 2025-07-18 01:08 | disposition home or self-care (01) | LOC: AMB 07-20 17:46 | PROVIDERS: Visit Provider Student in an Organized Health Care Education/Training Program | DX: R53.1 Weakness (principal); R42 Dizziness and giddiness | CPT/HCPCS: A0425; A0427; A0429 ==

== ENCOUNTER 2025-07-18 01:57 | Emergency (ER) | payer MEDICARE, OTHER, SELFPAY ==
[2025-07-18 02:08] VITALS: BP 159/82; PULSE 101; RESP 16; TEMP 37.9; O2SAT 91; BMI 26.0
[2025-07-18 02:48] VITALS: O2SAT 92
--- NOTE | 2025-07-18 02:48 | CRLHL7_ITS ---
For Patients: As a result of the Cures Act, medical imaging exams and procedure reports are released immediately into your electronic medical record. You may view this report before your referring provider. If you have questions, please contact your health care provider. Indication: Fever and cough. Technique: Two views of the chest. Comparison: Chest x-ray 08/25/2023. Findings/Impression: The heart is not abnormally enlarged. Mediastinal contours are grossly within normal limits. No definite confluent airspace opacity. No pleural effusion or pneumothorax. Chronic appearing vertebral compression deformity. No acute osseous abnormality. Dictated by Gelacio Daily MD @ 07/18/2025 3:58:50 AM (Electronically Signed)
--- NOTE | 2025-07-18 02:49 | CRLHL7_ITS ---
For Patients: As a result of the Century Cures Act, medical imaging exams and procedure reports are released immediately into your electronic medical record. You may view this report before your referring provider. If you have questions, please contact your health care provider. INDICATION: Syncope and fall. TECHNIQUE: CT head without contrast. COMPARISON: CT head 08/26/2023. FINDINGS: No acute intracranial hemorrhage. No CT evidence of acute territorial infarct. Stable parenchymal volume loss and chronic microvascular ischemic disease. No hydrocephalus or midline shift. Mild mucosal thickening of the ethmoid air cells. Remainder of the visualized paranasal sinuses and mastoid air cells are well ventilated. No acute calvarial fracture. IMPRESSION: No acute intracranial abnormality. Please note that all CT scans at this facility use dose modulation, iterative reconstruction, and/or weight-based dosing when appropriate to reduce radiation dose to as low as reasonably achievable. Dictated by Gelacio Daily MD @ 07/18/2025 3:57:23 AM (Electronically Signed)
--- NOTE | 2025-07-18 02:53 | ED.SYNCOPE ---
HPI - Syncope General Date Seen: 07/18/25 Chief Complaint: Fever Stated Complaint: ill last 2 days Time Seen by Provider: 07/18/25 02:22 Source: patient, family, EMS, RN notes reviewed and old records reviewed Mode of arrival: EMS Limitations: no limitations History of Present Illness HPI narrative: Patient is 72-year-old gentleman who presents the tonight, after he had 2 specific falls, both occurred after he get a got up out of bed, he felt dizzy, went to the ground he says he initially did hit his head, but there is a lluvia on the right side of his head. He has been feeling ill for the last couple days with cough and a fever. Did get the influenza vaccine earlier this year. He is fully immunized. He is not on any blood thinners other than aspirin does have a history of a previous CVA. Denies any numbness tingling or weakness. Just overall feels weak eating and drinking normally, with no history of vomiting but did feel little bit of nausea. Cough should is positive, but no chest pain associated with this, no neck pain or stiffness, denies any diarrhea associated with this. EMS did give acetaminophen IV, along with a L of fluids. MD complaint: loss of consciousness, felt faint and collapsed Onset (ago): minute(s) -: second(s) Prodromal symptoms: lightheaded Witnessed: Yes - by Bystander Context: getting out of bed Injuries sustained associated with event: head Current symptoms: weakness Treatments prior to arrival: IV fluids and medication Related Data Home Medications ?Medication ?Instructions ?Recorded ?Confirmed finasteride 5 mg .Route QDAY 08/25/23 08/26/23 lisinopril .Route DAILY 08/25/23 tamsulosin 0.4 mg capsule 0.4 mg PO DAILY 08/25/23 08/25/23 Previous Rx's ?Medication ?Instructions ?Recorded aspirin 325 mg tablet,delayed 325 mg PO DAILY #30 tabs 08/27/23 release calcitonin (salmon) 200 1 spray intranasal HS 30 days #3.7 08/27/23 unit/actuation nasal spray mL clopidogrel 75 mg tablet 75 mg PO DAILY #30 tabs 08/27/23 lidocaine 5 % topical patch 1 patch transdermal Q24H #30 ea 08/27/23 oxycodone 5 mg tablet 2.5 - 5 mg (0.5 - 1 x 5 mg) PO Q4H 08/27/23 PRN Pain #14 tabs simvastatin 40 mg tablet 80 mg (2 x 40 mg) PO HS #30 tabs 08/27/23 oseltamivir 75 mg capsule (Tamiflu) 75 mg PO BID 5 days #10 caps 07/18/25 Allergies Allergy/AdvReac Type Severity Reaction Status Date / Time No Known Drug Allergies Allergy Verified 07/18/25 05:08 Review of Systems Status of ROS: Reports: 10 or more systems reviewed and unremarkable except as noted in History and below [facility] Medical History Thalamic stroke ?I63.81 - Other cerebral infarction due to occlusion or stenosis of small artery (ICD-10) Compression fracture of lumbar vertebra ?S32.000A - Wedge compression fracture of unspecified lumbar vertebra, initial encounter for closed fracture (ICD-10) Elevated troponin I level ?R79.89 - Other specified abnormal findings of blood chemistry (ICD-10) Essential hypertension ?I10 - Essential (primary) hypertension (ICD-10) Hyperlipidemia ?E78.5 - Hyperlipidemia, unspecified (ICD-10) Social History What is your current living situation?: I presently have a place to live Problems where you live: no known problems Problems where you live details: na In the past 12 months, utilities in danger of being shut off: no In past 12 months, lack of transportation kept you from medical appts, meetings, work, or getting things needed for daily living: no In the past 12 mos, have been you worried that your food would run out before you had money to buy more?: never true In the past 12 mos, the food you bought just didn't last and you didn't have money to buy more?: never true Highest level of school completed/degree received: Associate degree: occupational, technical, vocational program Smoking Status: Never smoker Do you use any of these nicotine containing products: None Second hand tobacco smoke exposure: No How often do you have a drink containing alcohol: never How often do you have six or more drinks on one occasion: Never AUDIT-C Alcohol total score: 0 Non-prescribed substance use: denies use Caffeine: No How often does anyone, including family, friends and others, physically hurt you: never How often does anyone, including family, friends and others, insult or talk down to you: never How often does anyone, including family, friends and others, threaten you with harm: never How often does anyone, including family, friends and others, scream or curse at you: never service: Yes Exam Narrative: Exam Narrative: Patient is seen in room 1, speaking to me normally, he reports that other than feeling weak, he feels all right. Pupils are equal round reactive to light there is no scleral icterus redness absence nystagmus hearing aids are noted in both ears his oropharynx is normal, there is no meningismus, neck is supple, full range of motion leo on the right forehead, I suspect from when he fell. Cervical spine nontender as is his thoracic spine his chest is good air entry bilateral with no wheezing crackles noted heart sounds are normal, no clicks murmurs or gallops his abdomen is soft there is no guarding no organomegaly bowel sounds are normal, moves all extremities independently and well. Skin reveals no petechiae rashes. Const: Vital Signs, click to edit/add: Vital Signs - 24 hr 07/18/25 02:08 07/18/25 02:48 07/18/25 03:39 Temperature 100.3 F H Pulse Rate [Pulse Oximeter] 101 H Respiratory Rate 16 Blood Pressure [Ri ght Upper Arm] 159/82 H Pulse Oximetry 91 92 Oxygen Delivery Me thod Room Air Room Air 07/18/25 04:04 Temperature 98.6 F Pulse Rate [Pulse Oximeter] 83 Respiratory Rate 16 Blood Pressure [Ri ght Upper Arm] 143/72 H Pulse Oximetry 92 Oxygen Delivery Me thod Room Air Documenting provider has reviewed patient's vital signs: yes Course Reevaluation(s) Time of Reevaluation #1: 05:45 Reevaluation #1: Patient doing better up in able to walk around, no dizziness noted. His troponin 2nd troponin was 0.06 given him a delta 0.01, and I do note a previous chart that he did have elevated troponin this may be chronic in nature. His EKG did not show any changes. I explained to him that his chest CT was negative, and the setting of an increased D-dimer I do believe that his syncopal episode was likely secondary to the fever in the influenza knee needs to be on top of this and drink lots of fluids, increasing chest pain shortness of breath or other symptoms he will need to come back and be seen. Vital Signs Vital signs: Initial Vital Signs Temperature 100.3 F H 07/18/25 02:08 Temperature Source Temporal Artery Scan 07/18/25 02:08 Pulse Rate 101 H 07/18/25 02:08 Respiratory Rate 16 07/18/25 02:08 Blood Pressure 159/82 H 07/18/25 02:08 Blood Pressure Mean 107 H 07/18/25 02:08 Blood Pressure Position Semi-Fowlers 07/18/25 02:08 Pulse Oximetry 91 07/18/25 02:08 Oxygen Delivery Method Room Air 07/18/25 02:08 Vital Signs Temperature 100.3 F H 07/18/25 02:08 Pulse Rate 101 H 07/18/25 02:08 Respiratory Rate 16 07/18/25 02:08 Blood Pressure 159/82 H 07/18/25 02:08 Pulse Oximetry 91 07/18/25 02:08 Oxygen Delivery Method Room Air 07/18/25 02:08 Temperature 98.6 F 07/18/25 04:04 Pulse Rate 83 07/18/25 04:04 Respiratory Rate 16 07/18/25 04:04 Blood Pressure 143/72 H 07/18/25 04:04 Pulse Oximetry 92 07/18/25 04:04 Oxygen Delivery Method Room Air 07/18/25 04:04 MDM - Syncope MDM Narrative Medical decision making narrative: Life-threatening differential diagnosis considered include: Cardiac arrhythmia, acute blood loss, and intracranial bleed. Other differential diagnosis include but are not limited to vasovagal syncope, orthostatic syncope, seizure, as well as other etiologies I do think this is likely secondary to his fever and weakness overall. At the most likely is influenza although it could not rule out sepsis. We will do some workup for this. Medical Records Attestation: I reviewed the patient's medical records. Lab Data Attestation: I reviewed the patient's lab results. Labs: Lab Results 07/18/25 07/18/25 07/18/25 Range/Units 02:06 02:48 02:59 WBC (4.50-11.00) K/uL RBC (4.30-5.90) m/uL Hgb (13.5-17.5) gm/dL Hct (37.0-53.0) % MCV (80-100) fL MCH (26-34) pg MCHC (32-36) gm/dL RDW Coeff of Igor (11.5-15.5) % Plt Count (140-440) K/uL Neut % (Auto) (42.0-72.0) % Lymph % (Auto) (20-44) % Porter % (Auto) (0.0-11.0) % Eos % (Auto) (0.0-7.0) % Baso % (Auto) (0.0-3.0) % Neut # (Auto) (1.7-7.0) K/uL Lymph # (Auto) (0.90-2.90) K/uL Porter # (Auto) (0.00-0.90) K/UL Eos # (Auto) (0.00-0.50) K/uL Baso # (Auto) (0.00-0.30) K/uL Abs Immat Gran (auto) (0.00-0.30) K/uL Imm/Tot Granulo (auto) % D-Dimer Quant (PE/DVT) (0.00-0.50) ug/ml Sodium (135-149) mmol/L Potassium (3.6-5.1) mmol/L Chloride (96-114) mmol/L Carbon Dioxide (20-32) mmol/L Anion Gap (7-15) mEq/L BUN (7-30) mg/dL Creatinine (0.5-1.5) mg/dL Estimated Creat Clear Estimated GFR ml/min Glucose (60-115) mg/dL Lactate (0.5-1.9) mmol/L Calcium (8.4-10.6) mg/dL Troponin I (0.01-0.04) ng/mL C-Reactive Protein (0.5-1.0) mg/dL Procalcitonin (<0.50) ng/mL Urine Color Yellow (Yellow) Urine Appearance Clear (Clear) Urine pH 5.5 (5.0-8.5) Ur Specific [place] 1.025 (1.000-1.030) Urine Protein 2+ A (Negative) Urine Glucose (UA) Negative (Negative) Urine Ketones Negative (Negative) Urine Blood 3+ A (Negative) Urine Nitrite Negative (Negative) Urine Bilirubin Negative (Negative) Urine Urobilinogen 0.2 (0.2-1.0) Ur Leukocyte Esterase Negative (Negative) Urine RBC 2-5 A (0-2) Urine WBC 0-2 (0-5) Ur Squamous Epith Cells Few (None-Few) Urine Bacteria Few A (None) SARS-CoV-2 (PCR) Negative SARS-CoV-2 (Negative) Influenza Type A (PCR) POSITIVE PCR FLU A A (Negative) Influenza Type B (PCR) Negative PCR FLU B (Negative) RSV (PCR) Negative PCR RSV (Negative) Lab Acknowledgement Test Added 07/18/25 Range/Units 03:00 WBC 7.29 (4.50-11.00) K/uL RBC 4.58 (4.30-5.90) m/uL Hgb 13.5 (13.5-17.5) gm/dL Hct 38.1 (37.0-53.0) % MCV 83 (80-100) fL MCH 30 (26-34) pg MCHC 35 (32-36) gm/dL RDW Coeff of Igor 12.5 (11.5-15.5) % Plt Count 162 (140-440) K/uL Neut % (Auto) 88.1 H (42.0-72.0) % Lymph % (Auto) 2.2 L (20-44) % Porter % (Auto) 9.5 (0.0-11.0) % Eos % (Auto) 0.0 (0.0-7.0) % Baso % (Auto) 0.1 (0.0-3.0) % Neut # (Auto) 6.40 (1.7-7.0) K/uL Lymph # (Auto) 0.20 L (0.90-2.90) K/uL Porter # (Auto) 0.70 (0.00-0.90) K/UL Eos # (Auto) 0.00 (0.00-0.50) K/uL Baso # (Auto) 0.01 (0.00-0.30) K/uL Abs Immat Gran (auto) 0.01 (0.00-0.30) K/uL Imm/Tot Granulo (auto) 0.1 % D-Dimer Quant (PE/DVT) 0.86 H (0.00-0.50) ug/ml Sodium 131 L (135-149) mmol/L Potassium 3.6 (3.6-5.1) mmol/L Chloride 101 (96-114) mmol/L Carbon Dioxide 24 (20-32) mmol/L Anion Gap 6 L (7-15) mEq/L BUN 26 (7-30) mg/dL Creatinine 0.8 (0.5-1.5) mg/dL Estimated Creat Clear 60.88 Estimated GFR 91 ml/min Glucose 144 H (60-115) mg/dL Lactate 0.9 (0.5-1.9) mmol/L Calcium 8.2 L (8.4-10.6) mg/dL Troponin I 0.05 H (0.01-0.04) ng/mL C-Reactive Protein 4.0 H (0.5-1.0) mg/dL Procalcitonin 0.10 (<0.50) ng/mL Urine Color (Yellow) Urine Appearance (Clear) Urine pH (5.0-8.5) Ur Specific [place] (1.000-1.030) Urine Protein (Negative) Urine Glucose (UA) (Negative) Urine Ketones (Negative) Urine Blood (Negative) Urine Nitrite (Negative) Urine Bilirubin (Negative) Urine Urobilinogen (0.2-1.0) Ur Leukocyte Esterase (Negative) Urine RBC (0-2) Urine WBC (0-5) Ur Squamous Epith Cells (None-Few) Urine Bacteria (None) SARS-CoV-2 (PCR) (Negative) Influenza Type A (PCR) (Negative) Influenza Type B (PCR) (Negative) RSV (PCR) (Negative) Lab Acknowledgement Imaging Data CT scan - head: Radiologist's impression: [place] [address] Diagnostic Imaging Report Patient: Chino Matta MR#: [id number] : 1945 Acct:[id number] Loc: ED Service Date: 07/18/[address]: Ordering Physician: Maxim Dukes M.D. Date of Service: 07/18/25 Procedure(s): CT angio chest PE protocol Accession Number(s): [id number] cc: Provider,Not a Local; Maxim Dukes M.D.~ For Patients: As a result of the Century Cures Act, medical imaging exams and procedure reports are released immediately into your electronic medical record. You may view this report before your referring provider. If you have questions, please contact your health care provider. INDICATION: Cough, syncope, elevated D-dimer. COMPARISON: 08/25/2023 TECHNIQUE: CT angiogram chest with contrast, pulmonary embolism protocol. Multiplanar axial, coronal, and sagittal reformats are included. MIP images to improve detection of pulmonary emboli are included. Intravenous contrast: 95 mL Isovue 370. FINDINGS: PE: Well-timed contrast bolus. No pulmonary emboli. Normal caliber main pulmonary artery. Normal sized right heart chambers. No reflux of contrast below the diaphragm. Airway: Expiratory appearance of the airway. Bronchial wall thickening. Lungs: Expiratory appearance of the lungs with basilar atelectasis. Small nodules could be obscured, especially in the bases. No consolidations. Normal appearance of the pulmonary interstitium. Pleura: No pleural effusion. No pneumothorax. Lymph nodes: No thoracic adenopathy. Mediastinum: No pneumomediastinum. Left thyroid nodule measures 2.5 cm. Heart and great vessels: No pericardial effusion. Normal cardiac chamber size. Scattered atherosclerotic plaques. No aortic aneurysm. Chest wall: Normal. No masses. Upper abdomen: Normal. Bones: No fractures. No focal bone lesions. IMPRESSION: 1. No pulmonary embolism. 2. Mild bronchial wall thickening typically seen with infectious or inflammatory airways disease. 3. Expiratory appearance of the airway and lungs otherwise. 4. Left thyroid nodule measures 2.5 cm. Not definitely changed since the prior CT. Consider nonemergent assessment with thyroid ultrasound. Please note that all CT scans at this facility use dose modulation, iterative reconstruction, and/or weight-based dosing when appropriate to reduce radiation dose to as low as reasonably achievable. Dictated by Cherry Murphy MD @ 07/18/2025 4:56:[address] [address] Diagnostic Imaging Report Patient: Chino Matta MR#: [id number] : 1945 Acct:[id number] Loc: ED Service Date: 07/18/[address]: Ordering Physician: Maxim Dukes M.D. Date of Service: 07/18/25 Procedure(s): CT head/brain wo con Accession Number(s): [id number] cc: Provider,Not a Local; Maxim Dukes M.D.~ For Patients: As a result of the Cures Act, medical imaging exams and procedure reports are released immediately into your electronic medical record. You may view this report before your referring provider. If you have questions, please contact your health care provider. INDICATION: Syncope and fall. TECHNIQUE: CT head without contrast. COMPARISON: CT head 08/26/2023. FINDINGS: No acute intracranial hemorrhage. No CT evidence of acute territorial infarct. Stable parenchymal volume loss and chronic microvascular ischemic disease. No hydrocephalus or midline shift. Mild mucosal thickening of the ethmoid air cells. Remainder of the visualized paranasal sinuses and mastoid air cells are well ventilated. No acute calvarial fracture. IMPRESSION: No acute intracranial abnormality. Please note that all CT scans at this facility use dose modulation, iterative reconstruction, and/or weight-based dosing when appropriate to reduce radiation dose to as low as reasonably achievable. Dictated by Gelacio Daily MD @ 07/18/2025 3:57:23 AM (Electronically Signed) (Electronically Signed)[place] [address] Diagnostic Imaging Report Patient: Chino Matta MR#: [id number] : 1945 Acct:[id number] Loc: ED Service Date: 07/18/[address]: Ordering Physician: Maxim Dukes M.D. Date of Service: 07/18/25 Procedure(s): XR chest 2V Accession Number(s): [id number] cc: Provider,Not a Local; Maxim Dukes M.D.~ For Patients: As a result of the Cures Act, medical imaging exams and procedure reports are released immediately into your electronic medical record. You may view this report before your referring provider. If you have questions, please contact your health care provider. Indication: Fever and cough. Technique: Two views of the chest. Comparison: Chest x-ray 08/25/2023. Findings/Impression: The heart is not abnormally enlarged. Mediastinal contours are grossly within normal limits. No definite confluent airspace opacity. No pleural effusion or pneumothorax. Chronic appearing vertebral compression deformity. No acute osseous abnormality. Dictated by Gelacio Daily MD @ 07/18/2025 3:58:50 AM (Electronically Signed) ECG Data Attestation: I personally reviewed and interpreted this ECG as follows: ECG interpretation date: 07/18/25 Prior ECG tracings: available for review Interpretation: EKG shows normal sinus rhythm, grade 2 of for first-degree brian med. With a AR interval of 270 milliseconds, no acute ST wave changes, when compared to old EKG from 08/26/2023 there has been no appreciable change. Discharge Plan Discharge Clinical Impression: Influenza A, Weakness, Syncope, Left thyroid nodule Patient Disposition: Home w/ Parent or Adult Condition: Improved Instructions: Syncope (DC), Influenza (DC), Thyroid Nodules (ED), Weakness (ED), Near Syncope (ED), Droplet Precautions (ED) Additional Instructions: Home rest Tylenol every 8 hours 1 g p.o. t.i.d., I do recommend use of the Tamiflu, he will need follow-up and likely a thyroid ultrasound for your left thyroid nodule, lots of fluids, follow up here if ongoing signs and symptoms such as chest pain increasing shortness of breath weakness, inability to ambulate. Activity Level: Light activity Prescriptions: New oseltamivir [Tamiflu] 75 mg capsule 75 mg PO BID 5 Days Qty: 10 0RF No Action lisinopril .Route DAILY Patient Comments: patient unsure of dose, thinking 20mg finasteride 5 mg .Route QDAY tamsulosin 0.4 mg capsule 0.4 mg PO DAILY clopidogrel 75 mg Tablet 75 mg PO DAILY Qty: 30 0RF simvastatin 40 mg Tablet 80 mg PO HS Qty: 30 0RF aspirin 325 mg Tablet,Delayed Release (Dr/Ec) 325 mg PO DAILY Qty: 30 0RF calcitonin (salmon) 200 unit/actuation [place],Non-Aerosol 1 spray intranasal HS 30 Days Qty: 3.7 0RF Rx Instructions: alternate nostrils QHS lidocaine 5 % Adhesive Patch,Medicated 1 patch transdermal Q24H Qty: 30 0RF oxycodone 5 mg Tablet 2.5 - 5 mg PO Q4H PRN (Reason: Pain) Qty: 14 0RF Follow Up/Referrals: Provider,Not a Local [Primary Care Provider, Family Practice] Stand Alone Forms: MyHealth Info Instructions
[2025-07-18 03:14] LABS: PCR FLU A POSITIVE PCR FLU A (Negative); PCR FLU B Negative PCR FLU B (Negative); PCR RSV Negative PCR RSV (Negative); SARS PCR* Negative SARS-CoV-2 (Negative)
[2025-07-18 03:22] LABS: Lactate* 0.9 mmol/L (0.5-1.9)
[2025-07-18 03:26] LABS: Hematocrit* 38.1 % (37.0-53.0); Hemoglobin* 13.5 gm/dL (13.5-17.5); Immature Granulocytes Abs Auto 0.01 K/uL (0.00-0.30); Immature Granulocytes Pct Auto 0.1 %; Mean Corpuscular HGB Conc 35 gm/dL (32-36); Mean Corpuscular Hemoglobin 30 pg (26-34); Mean Corpuscular Volume 83 fL (80-100); RDW Coefficient of Variation % 12.5 % (11.5-15.5); Red Blood Count* 4.58 m/uL (4.30-5.90); White Blood Count* 7.29 K/uL (4.50-11.00)
[2025-07-18 03:36] LABS: Lymphocytes Absolute Auto 0.20 K/uL (0.90-2.90); Slide Review Reflex No
[2025-07-18 03:44] LABS: Chloride* 101 mmol/L (96-114); Sodium* 131 mmol/L (135-149)
[2025-07-18 03:45] LABS: Potassium* 3.6 mmol/L (3.6-5.1)
[2025-07-18 03:48] LABS: Anion Gap 6 mEq/L (7-15); Blood Urea Nitrogen* 26 mg/dL (7-30); Calcium* 8.2 mg/dL (8.4-10.6); Carbon Dioxide* 24 mmol/L (20-32); Creatinine* 0.8 mg/dL (0.5-1.5); Est. Creatinine Clearance* 60.88; Estimated Glomerular Filt Rate 91 ml/min; Glucose* 144 mg/dL (60-115)
[2025-07-18 03:49] LABS: D Dimer Quantitative* 0.86 ug/ml (0.00-0.50)
--- NOTE | 2025-07-18 04:03 | CRLHL7_ITS ---
For Patients: As a result of the Century Cures Act, medical imaging exams and procedure reports are released immediately into your electronic medical record. You may view this report before your referring provider. If you have questions, please contact your health care provider. INDICATION: Cough, syncope, elevated D-dimer. COMPARISON: 08/25/2023 TECHNIQUE: CT angiogram chest with contrast, pulmonary embolism protocol. Multiplanar axial, coronal, and sagittal reformats are included. MIP images to improve detection of pulmonary emboli are included. Intravenous contrast: 95 mL Isovue 370. FINDINGS: PE: Well-timed contrast bolus. No pulmonary emboli. Normal caliber main pulmonary artery. Normal sized right heart chambers. No reflux of contrast below the diaphragm. Airway: Expiratory appearance of the airway. Bronchial wall thickening. Lungs: Expiratory appearance of the lungs with basilar atelectasis. Small nodules could be obscured, especially in the bases. No consolidations. Normal appearance of the pulmonary interstitium. Pleura: No pleural effusion. No pneumothorax. Lymph nodes: No thoracic adenopathy. Mediastinum: No pneumomediastinum. Left thyroid nodule measures 2.5 cm. Heart and great vessels: No pericardial effusion. Normal cardiac chamber size. Scattered atherosclerotic plaques. No aortic aneurysm. Chest wall: Normal. No masses. Upper abdomen: Normal. Bones: No fractures. No focal bone lesions. IMPRESSION: 1. No pulmonary embolism. 2. Mild bronchial wall thickening typically seen with infectious or inflammatory airways disease. 3. Expiratory appearance of the airway and lungs otherwise. 4. Left thyroid nodule measures 2.5 cm. Not definitely changed since the prior CT. Consider nonemergent assessment with thyroid ultrasound. Please note that all CT scans at this facility use dose modulation, iterative reconstruction, and/or weight-based dosing when appropriate to reduce radiation dose to as low as reasonably achievable. Dictated by Cherry Murphy MD @ 07/18/2025 4:56:50 AM (Electronically Signed)
[2025-07-18 04:04] VITALS: BP 143/72; PULSE 83; RESP 16; TEMP 37; O2SAT 92
[2025-07-18 04:05] LABS: Appearance Urine Clear (Clear)
[2025-07-18 04:05] LABS: Procalcitonin* 0.10 ng/mL (<0.50)
[2025-07-18 06:04] VITALS: BP 141/91; PULSE 77; RESP 20
[2025-07-18 06:18] VITALS: RESP 20; O2SAT 96
== END 2025-07-18 06:20 | disposition home or self-care (01) ==
PROVIDERS: Emergency Provider Family Medicine
DX: J10.1 Influenza due to other identified influenza virus with other respiratory manifestations (principal); R55 Syncope and collapse; E04.1 Nontoxic single thyroid nodule; R50.9 Fever, unspecified
CPT/HCPCS: 36415; 70450; 71046; 71275; 80048; 81001; 83605; 84145; 84484; 85025; 85379; 86140; 87040; 87086; 87631; 93005; 94761; 99284; 99285; Q9967